=== PATIENT | male | born 1940 | race Caucasian/White ===

== ENCOUNTER 2022-04-30 08:17 | Outpatient (CLI) | payer MEDICARE, SELFPAY | END 2022-04-30 08:18 | disposition home or self-care (01) | LOC: FRMREF 05-07 10:16 | PROVIDERS: PCP Physician Assistant Medical; Visit Provider Physician Assistant Medical | DX: N39.0 Urinary tract infection, site not specified (principal); I10 Essential (primary) hypertension; R30.0 Dysuria | CPT/HCPCS: 87086; 87186 ==

== ENCOUNTER 2022-06-04 11:21 | Outpatient (CLI) | payer MEDICARE, SELFPAY ==
[2022-06-04 13:03] LABS: Chloride* 109 mmol/L (96-114); Potassium* 4.4 mmol/L (3.6-5.1); Sodium* 141 mmol/L (135-149)
[2022-06-04 13:05] LABS: Creatinine* 1.2 mg/dL (0.5-1.5); Estimated Glomerular Filt Rate 61 ml/min
[2022-06-04 13:06] LABS: Alanine Aminotransferase* 31 U/L (4-50); Alkaline Phosphatase* 94 U/L (40-150); Aspartate Amino Transferase* 32 U/L (12-35); Bilirubin Total* 0.3 mg/dL (0.1-1.5); Blood Urea Nitrogen* 23 mg/dL (7-30); Calcium* 8.7 mg/dL (8.4-10.6); Carbon Dioxide* 22 mmol/L (20-32); Glucose* 243 mg/dL (60-115); Total Protein* 6.4 g/dL (6.0-8.3)
== END 2022-06-04 11:22 | disposition home or self-care (01) ==
PROVIDERS: PCP Physician Assistant Medical; Visit Provider Family Medicine
DX: I10 Essential (primary) hypertension (principal)
CPT/HCPCS: 80053

== ENCOUNTER 2022-09-30 09:52 | Outpatient (CLI) | payer MEDICARE, SELFPAY ==
[2022-09-30 12:03] LABS: Chloride* 113 mmol/L (96-114); Sodium* 144 mmol/L (135-149)
[2022-09-30 12:04] LABS: Potassium* 4.6 mmol/L (3.6-5.1)
[2022-09-30 12:06] LABS: Creatinine* 1.3 mg/dL (0.5-1.5); Estimated Glomerular Filt Rate 55 ml/min; Total Protein Urine 19 mg/dL
[2022-09-30 12:07] LABS: Blood Urea Nitrogen* 31 mg/dL (7-30); Calcium* 8.7 mg/dL (8.4-10.6); Carbon Dioxide* 24 mmol/L (20-32); Glucose* 96 mg/dL (60-115)
[2022-09-30 12:13] LABS: Microalbumin Creatinine Ratio 50 mg/g (0-30); Microalbumin Urine 10 mg/dL
[2022-09-30 12:58] LABS: Vitamin B12* 609 pg/mL (243-894)
== END 2022-09-30 09:53 | disposition home or self-care (01) ==
PROVIDERS: PCP Family Medicine; Visit Provider Family Medicine
DX: E11.65 Type 2 diabetes mellitus with hyperglycemia (principal); E11.9 Type 2 diabetes mellitus without complications; I10 Essential (primary) hypertension; M16.10 Unilateral primary osteoarthritis, unspecified hip; Z79.899 Other long term (current) drug therapy
CPT/HCPCS: 80048; 82043; 82570; 82607; 84156

== ENCOUNTER 2022-10-30 21:34 | Inpatient (IN) | payer MEDICARE, SELFPAY ==
[2022-10-30] VITALS (10 sets, daily range): BP systolic 89–153; BP diastolic 45–80; PULSE 45–87; RESP 16–18; TEMP 36.3; O2SAT 94–99; BMI 26.4
--- NOTE | 2022-10-30 21:53 | CRLHL7_ITS ---
For Patients: As a result of the Century Cures Act, medical imaging exams and procedure reports are released immediately into your electronic medical record. You may view this report before your referring provider. If you have questions, please contact your health care provider. INDICATION: Abdominal pain, nausea, history of small-bowel obstruction. TECHNIQUE: CT abdomen and pelvis acquired with 93 cc Isovue 370 IV contrast. COMPARISON: CT abdomen 04/01/2020. FINDINGS: High-grade small bowel obstruction with transition point in the right lower quadrant, series 2, image 53. There are multiple dilated loops of small bowel with air-fluid levels. No pneumatosis or hypo enhancement. Mild mesenteric edema/mistiness in the right lower quadrant. The distal small bowel and colon are decompressed. Extensive colonic diverticulosis without surrounding inflammatory changes. The appendix is not clearly visualized. Unchanged scattered hepatic cysts. Interval increased intrahepatic and unchanged extrahepatic biliary ductal dilatation. Possible 5 mm calcified choledocholith in the distal common bile duct, series 2, image 39. Increased size of the hydropic gallbladder. No mural thickening or pericholecystic fluid. Unchanged calcified pancreas and dilated main pancreatic duct. Normal spleen. Persistent nodular enlargement of the adrenal glands; however, they appear slightly smaller compared to the prior exam. Unchanged multiple bilateral renal cysts. No hydronephrosis or suspicious mass. Ureters and bladder are normal. Normal sized prostate. Normal caliber abdominal aorta with severe atherosclerotic calcification. Patent bilateral external iliac artery stents. No adenopathy. No free air. Mild perihepatic free fluid. Interval posterior fusion of L4-L5. Interval increased height loss of the T12 vertebral body. New calcified mass lesion in the right iliac bone at the sacroiliac joint measuring 4.2 x 2.1 x 4.8 cm. No cortical breakthrough or additional lesions identified. Multilevel degenerative changes of the spine. Advanced osteoarthritis of the hips. Bilateral lower lobe atelectasis and/or scarring. Mitral valve replacement. IMPRESSION: High-grade small bowel obstruction with transition point in the right lower quadrant. No evidence for perforation. New 4.2 x 2.1 x 4.8 cm calcified mass in the right iliac bone at the sacroiliac joint. 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 Interval increased intrahepatic and unchanged extrahepatic biliary ductal dilatation with possible 5 mm choledochal within the distal common bile duct. Hydropic gallbladder without evidence of cholecystitis. Interval increased height loss of the T12 vertebral body compression fracture. Persistent nodular enlargement of the adrenal glands, though decreased in size compared to the prior exam, likely representing adrenal hyperplasia. Mild perihepatic ascites. Please note that all CT scans at this facility use dose modulation, iterative reconstruction, and/or weight-based dosing when appropriate to reduce radiation dose to as low as reasonably achievable. Dictated by Roly Fairbanks MD @ 10/30/2022 11:21:34 PM (Electronically Signed)
[2022-10-30 22:15] LABS: Basophils Percent Auto 0.1 % (0.0-3.0); Eosinophils Percent Auto 0.7 % (0.0-7.0); Hematocrit 45.6 % (37.0-53.0); Hemoglobin* 15.2 gm/dL (13.5-17.5); Immature Granulocytes Pct Auto 0.3 %; Lymphocytes Percent Auto 12.6 % (20-44); Mean Corpuscular HGB Conc 33 gm/dL (32-36); Mean Corpuscular Hemoglobin 33 pg (26-34); Mean Corpuscular Volume 98 fL (80-100); Monocytes Percent Auto 6.1 % (0.0-11.0); Neutrophils Percent Auto 80.2 % (42.0-72.0); Platelet Count* 238 K/uL (140-440); RDW Coefficient of Variation % 13.1 % (11.5-15.5); Red Blood Count 4.65 m/uL (4.30-5.90); White Blood Count* 20.09 K/uL (4.50-11.00)
[2022-10-30] MEDS: fentaNYL 100 MCG/2 ML inj 50 MCG IVP ×3 (22:15→23:44)
[2022-10-30] MEDS: 0.9 % SODIUM CHLORIDE 1000 ml 1,000 ML IV (22:15)
[2022-10-30 22:20] LABS: Slide Review Reflex No
[2022-10-30 22:22] LABS: Albumin* 4.6 g/dL (3.3-5.0); Chloride* 109 mmol/L (96-114)
[2022-10-30 22:23] LABS: Potassium* 3.5 mmol/L (3.6-5.1); Sodium* 141 mmol/L (135-149)
[2022-10-30 22:25] LABS: Aspartate Amino Transferase* 45 U/L (12-35); Bilirubin Direct* 0.3 mg/dL (0.0-0.5); Bilirubin Total* 0.6 mg/dL (0.1-1.5); Carbon Dioxide* 19 mmol/L (20-32); Creatinine* 2.1 mg/dL (0.5-1.5); Est. Creatinine Clearance* 30.28; Estimated Glomerular Filt Rate 31 ml/min; Total Protein* 8.4 g/dL (6.0-8.3)
[2022-10-30 22:26] LABS: Alanine Aminotransferase* 43 U/L (4-50); Alkaline Phosphatase* 123 U/L (40-150); Blood Urea Nitrogen* 29 mg/dL (7-30); Calcium* 9.7 mg/dL (8.4-10.6); Glucose* 214 mg/dL (60-115); Lipase* 23 U/L (23-300)
[2022-10-30 22:28] LABS: C Reactive Protein* 0.5 mg/dL (0.5-1.0)
--- NOTE | 2022-10-30 22:39 | ED.ABDPAIN ---
HPI - Abdominal Pain General Chief Complaint: Abdominal Pain Stated Complaint: Abdominal Pain Time Seen by Provider: 10/30/22 21:59 History of Present Illness HPI narrative: 82-year-old man presenting to the emergency department with spouse with complaint of increasing abdominal pain and bloating. 4 - 5 hours prior to arrival here started to have some abdominal discomfort. Then he had some diarrheal stool and multiple episodes of dry heaves maybe very small amount of vomitus. Last stooling was about 3 hours ago. He has been not been passing any gas. No melena hematochezia or hematemesis is described. He has not had a fever. Does have a history of small-bowel obstructions - 3 or 4 - and pancreatitis. Underlying history also of perforated appendicitis with percutaneous drainage of periappendiceal abscess. Has not had an appendectomy. 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 Coronary artery disease status post bypass Peripheral vascular disease with bilateral iliac stents History nicotine dependence TURP Neurogenic bladder with a history of self catheterization Related Data Home Medications Medication Instructions Recorded Confirmed aspirin 81 mg tablet,delayed 81 mg PO QDAY 04/30/22 10/31/22 release (Adult Low Dose Aspirin) lisinopril 40 mg tablet 40 mg PO QDAY 04/30/22 10/31/22 metoprolol tartrate 50 mg tablet 50 mg PO BID 04/30/22 10/31/22 simvastatin 40 mg tablet 40 mg PO QDAY 04/30/22 10/31/22 allopurinol 300 mg tablet 300 mg PO DAILY 06/07/22 10/31/22 ascorbic acid (vitamin C) 1,000 mg 1 g PO BID 06/07/22 10/31/22 tablet insulin glargine 100 unit/mL (3 18 unit subcut DAILY 09/30/22 10/31/22 mL) subcutaneous pen (Lantus Solostar U-100 Insulin) Previous Rx's Medication Instructions Recorded chlorthalidone 25 mg tablet 25 mg PO DAILY #90 tabs 10/19/22 pen needle, diabetic 32 gauge x #100 ea 10/22/22 (BD Gerda 2nd Gen Pen Needle) Allergies Allergy/AdvReac Type Severity Reaction Status Date / Time vancomycin Allergy Mild Shakiness Verified 02/16/23 12:58 fentanyl AdvReac Mild Dizziness Verified 10/30/22 22:15 Review of Systems Status of ROS Reports: 10 or more systems reviewed and unremarkable except as noted in History and below PFSH [facility] Medical History (Updated 10/31/22 @ 07:39 by Zenia Stevens MD) Chronic pancreatitis Compression fracture Coronary artery disease Encounter for postoperative care Gout (04/30/10) HTN (hypertension) Mitral regurgitation (07/03/10) MRSA (methicillin resistant Staphylococcus aureus) (06/05/10) Myopia Neurogenic bladder (10/02/12) Neurogenic claudication Osteoarthritis of left hip PAD (peripheral artery disease) Pancreatic calcification (04/30/10) Perforated appendicitis Presbyopia Renal artery stenosis Senile nuclear sclerosis Small bowel obstruction Squamous cell carcinoma Sternoclavicular joint subluxation Type 2 diabetes mellitus with hyperglycemia Surgical History (Updated 10/31/22 @ 07:39 by Zenia Stevens MD) H/O colonoscopy (09/01/06) History of arthroscopy of right knee History of endoscopic retrograde cholangiopancreatography History of prostate surgery Hx of CABG (01/20/11) Status post insertion of iliac artery stent (~2005) Status post lumbar spine surgery for decompression of spinal cord (12/25/20) Family History (Updated 10/31/22 @ 07:39 by Zenia Stevens MD) Mother CHF (congestive heart failure) High blood pressure Paternal Grandfather Bladder cancer Father Myocardial infarction High blood pressure Other Liver cancer Stroke Throat cancer Social History (Updated 10/31/22 @ 07:43 by Zenia Stevens MD) Narrative: Former smoker - started 20-30 cigarettes per day 1954, stopped 09/2020 Does not drink alcohol Does not use illicit drugs Smoking Status: Former smoker What tobacco products do you use: cigarettes Smoking packs per day: 1 Smoking cigarettes per day: 20.0 Years smoked: 60 Smoking pack-years: 60.00 Smoking quit date/years: <= 15 years ago Do you use any of these nicotine containing products: None Second hand tobacco smoke exposure: No How often do you have a drink containing alcohol: 2-4 times a month Alcohol type: beer How often do you have six or more drinks on one occasion: Never AUDIT-C Alcohol total score: 2 Non-prescribed substance use: denies use Caffeine: Yes (coffee) service: No Exam Narrative: Exam Narrative: S more is pleasant. Clearly uncomfortable. Acquired in his distress though. Is breathing easily. Lungs while clear appear to be with some diminished breath sounds. Heart was in a bradycardic rhythm initially is slow a mild auscultation between 50 and 60 beats per minute distant abdomen is absent of bowel sounds. Diffusely tympanitic and tender. Lower extremities are without edema. He is alert responding quickly to questions Const: Vital Signs, click to edit/add: Vital Signs - 24 hr 10/30/22 22:12 10/30/22 21:57 10/30/22 22:02 Temperature 97.3 F L Pulse Rate 60 56 L Pulse Rate [Right Pulse Oximeter] 45 L Respiratory Rate 18 16 16 Blood Pressure 91/45 L 89/46 L Blood Pressure [Ri ght Upper Arm] 89/45 L Pulse Oximetry 98 94 96 Oxygen Delivery Me thod Room Air 10/30/22 22:17 10/30/22 22:32 10/30/22 22:50 Temperature Pulse Rate 56 L 59 L 64 Pulse Rate [Right Pulse Oximeter] Respiratory Rate 16 16 16 Blood Pressure 112/52 L 104/80 153/64 H Blood Pressure [Ri ght Upper Arm] Pulse Oximetry 95 99 95 Oxygen Delivery Me thod 10/30/22 23:06 10/30/22 23:18 10/30/22 23:32 Temperature Pulse Rate 82 62 87 Pulse Rate [Right Pulse Oximeter] Respiratory Rate 16 16 16 Blood Pressure 122/66 126/79 130/72 Blood Pressure [Ri ght Upper Arm] Pulse Oximetry 98 98 97 Oxygen Delivery Me thod 10/30/22 22:09 10/31/22 00:35 10/31/22 00:01 Temperature Pulse Rate Pulse Rate [Right Pulse Oximeter] Respiratory Rate Blood Pressure 130/67 130/72 Blood Pressure [Ri ght Upper Arm] Pulse Oximetry 96 Oxygen Delivery Me thod 10/31/22 00:47 Temperature Pulse Rate Pulse Rate [Right Pulse Oximeter] Respiratory Rate Blood Pressure Blood Pressure [Ri ght Upper Arm] 134/70 Pulse Oximetry Oxygen Delivery Me thod Documenting provider has reviewed patient's vital signs: yes Course Vital Signs Vital signs: Initial Vital Signs Pulse Rate 60 10/30/22 21:57 Respiratory Rate 16 10/30/22 21:57 Blood Pressure 91/45 L 10/30/22 21:57 Blood Pressure Mean 60 10/30/22 21:57 Pulse Oximetry 94 10/30/22 21:57 Vital Signs Pulse Rate 60 10/30/22 21:57 Respiratory Rate 16 10/30/22 21:57 Blood Pressure 91/45 L 10/30/22 21:57 Pulse Oximetry 94 10/30/22 21:57 Temperature 97.8 F 10/31/22 04:10 Pulse Rate 87 10/30/22 23:32 Respiratory Rate 18 10/31/22 04:10 Blood Pressure 129/76 10/31/22 04:10 Pulse Oximetry 93 10/31/22 04:10 Oxygen Delivery Method 10/31/22 04:10 MDM - Abdominal Pain MDM Narrative Medical decision making narrative: Arrives with low blood pressures. Is initiated on fluid resuscitation. Blood pressures do respond quickly though still soft. I would be concerned about a small bowel obstruction but also sepsis. Maybe partial small-bowel obstruction with distension and pain Will monitor closely. Creatinine finally resolved and going for IV contrasted scan of abdomen pelvis. Received initially 50 mics of fentanyl which did help needed ordering for another dosing as this cramping intense pain in the epigastrium returned. Lactate returns at 4. White count is over 20,000 Blood pressure has improved to 120s over 70s. Pulse 60s to 80s. Duration of illness has only some hours. I think less likely sepsis and findings are more related to this significant small-bowel obstruction. Straight cathed for urine in setting of neurogenic bladder. Has required multiple dosings of fentanyl. IV contrasted CT scan reviewed by me shows most prominent feature as numerous dilated loops of small bowel with some air-fluid levels. Over-read by radiology as below --would also point out right posterior calcified mass in the iliac bone. I did discuss findings on CT with Mr. Mosqueda. INDICATION: Abdominal pain, nausea, history of small-bowel obstruction. TECHNIQUE: CT abdomen and pelvis acquired with 93 cc Isovue 370 IV contrast. COMPARISON: CT abdomen 04/01/2020. FINDINGS: High-grade small bowel obstruction with transition point in the right lower quadrant, series 2, image 53. There are multiple dilated loops of small bowel with air-fluid levels. No pneumatosis or hypo enhancement. Mild mesenteric edema/mistiness in the right lower quadrant. The distal small bowel and colon are decompressed. Extensive colonic diverticulosis without surrounding inflammatory changes. The appendix is not clearly visualized. Unchanged scattered hepatic cysts. Interval increased intrahepatic and unchanged extrahepatic biliary ductal dilatation. Possible 5 mm calcified choledocholith in the distal common bile duct, series 2, image 39. Increased size of the hydropic gallbladder. No mural thickening or pericholecystic fluid. Unchanged calcified pancreas and dilated main pancreatic duct. Normal spleen. Persistent nodular enlargement of the adrenal glands; however, they appear slightly smaller compared to the prior exam. Unchanged multiple bilateral renal cysts. No hydronephrosis or suspicious mass. Ureters and bladder are normal. Normal sized prostate. Normal caliber abdominal aorta with severe atherosclerotic calcification. Patent bilateral external iliac artery stents. No adenopathy. No free air. Mild perihepatic free fluid. Interval posterior fusion of L4-L5. Interval increased height loss of the T12 vertebral body. New calcified mass lesion in the right iliac bone at the sacroiliac joint measuring 4.2 x 2.1 x 4.8 cm. No cortical breakthrough or additional lesions identified. Multilevel degenerative changes of the spine. Advanced osteoarthritis of the hips. Bilateral lower lobe atelectasis and/or scarring. Mitral valve replacement. IMPRESSION: High-grade small bowel obstruction with transition point in the right lower quadrant. No evidence for perforation. New 4.2 x 2.1 x 4.8 cm calcified mass in the right iliac bone at the sacroiliac joint. 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 Interval increased intrahepatic and unchanged extrahepatic biliary ductal dilatation with possible 5 mm choledochal within the distal common bile duct. Hydropic gallbladder without evidence of cholecystitis. Interval increased height loss of the T12 vertebral body compression fracture. Persistent nodular enlargement of the adrenal glands, though decreased in size compared to the prior exam, likely representing adrenal hyperplasia. Mild perihepatic ascites. Spoke with our surgeon on-call. She will be reviewing images further. NG was placed. I reviewed chest x-ray confirming placement of NG tube. Required a little further advancement. Within short order about 1 L of gastric content was relieved. Mr. Mosqueda did feel better. Contacted [facility] for admission Medical Records Attestation: I reviewed the patient's medical records. Lab Data Attestation: I reviewed the patient's lab results. Labs: Lab Results 10/30/22 10/30/22 10/30/22 Range/Units 20:05 21:54 21:54 WBC 20.09 H (4.50-11.00) K/uL RBC 4.65 (4.30-5.90) m/uL Hgb 15.2 (13.5-17.5) gm/dL Hct 45.6 (37.0-53.0) % MCV 98 (80-100) fL MCH 33 (26-34) pg MCHC 33 (32-36) gm/dL RDW Coeff of Dee Dee 13.1 (11.5-15.5) % Plt Count 238 (140-440) K/uL Neut % (Auto) 80.2 H (42.0-72.0) % Lymph % (Auto) 12.6 L (20-44) % Harding % (Auto) 6.1 (0.0-11.0) % Eos % (Auto) 0.7 (0.0-7.0) % Baso % (Auto) 0.1 (0.0-3.0) % Neut # (Auto) 16.10 H (1.7-7.0) K/uL Lymph # (Auto) 2.50 (0.90-2.90) K/uL Harding # (Auto) 1.20 H (0.00-0.90) K/UL Eos # (Auto) 0.10 (0.00-0.50) K/uL Baso # (Auto) 0.00 (0.00-0.30) K/uL Sodium 141 (135-149) mmol/L Potassium 3.5 L (3.6-5.1) mmol/L Chloride 109 (96-114) mmol/L Carbon Dioxide 19 L (20-32) mmol/L BUN 29 (7-30) mg/dL Creatinine 2.1 H (0.5-1.5) mg/dL Estimated Creat Clear 30.28 Estimated GFR 31 ml/min Glucose 214 H (60-115) mg/dL Lactate (0.5-1.9) mmol/L Calcium 9.7 (8.4-10.6) mg/dL Total Bilirubin 0.6 (0.1-1.5) mg/dL Direct Bilirubin 0.3 (0.0-0.5) mg/dL AST 45 H (12-35) U/L ALT 43 (4-50) U/L Alkaline Phosphatase 123 (40-150) U/L Troponin I < 0.01 L (0.01-0.04) ng/mL C-Reactive Protein 0.5 (0.5-1.0) mg/dL Total Protein 8.4 H (6.0-8.3) g/dL Albumin 4.6 (3.3-5.0) g/dL Lipase (23-300) U/L SARS-CoV-2 (PCR) Negative SARS-CoV-2 (Negative) 10/30/22 10/30/22 Range/Units 21:54 21:54 WBC (4.50-11.00) K/uL RBC (4.30-5.90) m/uL Hgb (13.5-17.5) gm/dL Hct (37.0-53.0) % MCV (80-100) fL MCH (26-34) pg MCHC (32-36) gm/dL RDW Coeff of Dee Dee (11.5-15.5) % Plt Count (140-440) K/uL Neut % (Auto) (42.0-72.0) % Lymph % (Auto) (20-44) % Harding % (Auto) (0.0-11.0) % Eos % (Auto) (0.0-7.0) % Baso % (Auto) (0.0-3.0) % Neut # (Auto) (1.7-7.0) K/uL Lymph # (Auto) (0.90-2.90) K/uL Harding # (Auto) (0.00-0.90) K/UL Eos # (Auto) (0.00-0.50) K/uL Baso # (Auto) (0.00-0.30) K/uL Sodium (135-149) mmol/L Potassium (3.6-5.1) mmol/L Chloride (96-114) mmol/L Carbon Dioxide (20-32) mmol/L BUN (7-30) mg/dL Creatinine (0.5-1.5) mg/dL Estimated Creat Clear Estimated GFR ml/min Glucose (60-115) mg/dL Lactate 4.0 H (0.5-1.9) mmol/L Calcium (8.4-10.6) mg/dL Total Bilirubin (0.1-1.5) mg/dL Direct Bilirubin (0.0-0.5) mg/dL AST (12-35) U/L ALT (4-50) U/L Alkaline Phosphatase (40-150) U/L Troponin I (0.01-0.04) ng/mL C-Reactive Protein (0.5-1.0) mg/dL Total Protein (6.0-8.3) g/dL Albumin (3.3-5.0) g/dL Lipase 23 (23-300) U/L SARS-CoV-2 (PCR) (Negative) ECG Data Attestation: I personally reviewed and interpreted this ECG as follows: (Sinus bradycardia rate of 51) Discharge Plan Discharge Clinical Impression: Bone mass, Small bowel obstruction Patient Disposition: Admitted As Inpatient Condition: Improved Discharge Comment: admitted to [facility]
[2022-10-30 22:41] LABS: Troponin I* < 0.01 ng/mL (0.01-0.04)
[2022-10-30 22:43] LABS: SARS PCR* Negative SARS-CoV-2 (Negative)
[2022-10-30] MEDS: LACTATED RINGERS 1000 ML 1,000 ML IV (22:59)
[2022-10-30] MEDS: HYOSCYAMINE SULFATE 0.125 MG TAB 0.25 MG SUBLINGUAL (22:59)
[2022-10-30] MEDS: ONDANSETRON 2 MG/ML inj 4 MG IVP (23:45)
[2022-10-31] VITALS (15 sets, daily range): BP systolic 94–134; BP diastolic 51–76; PULSE 82–103; RESP 16–18; TEMP 36.1–37.2; O2SAT 92–97; BMI 25.8
--- NOTE | 2022-10-31 00:03 | CRLHL7_ITS ---
For Patients: As a result of the Century Cures Act, medical imaging exams and procedure reports are released immediately into your electronic medical record. You may view this report before your referring provider. If you have questions, please contact your health care provider. INDICATION: NG tube placement TECHNIQUE: Chest radiograph 1 view on 2 films COMPARISON: 09/08/2021, 02/13/2020, 08/10/2016 FINDINGS: Mediastinum: The mediastinum is normal in appearance. The heart silhouette is normal in size and morphology. Previous median sternotomy with mitral valve replacement noted. NG tube is present and is extremely difficult to visualize due to body habitus. The tip is noted in the distal esophagus just proximal to the GE junction. Lung: Small lung volumes are present with moderate bibasilar subsegmental atelectasis is seen. No sign of pleural effusion seen. No pneumothorax is identified. Bone and Soft tissue: Unremarkable for age. IMPRESSION: 1. NG tube is present and is extremely difficult to visualize due to body habitus. The tip is noted in the distal esophagus just proximal to the GE junction. Dictated by Tiburcio Vazquez MD @ 10/31/2022 12:40:31 AM Dictated by: Tiburcio Vazquez MD @ 10/31/2022 00:40:33 (Electronically Signed)
--- NOTE | 2022-10-31 01:12 | ED.NURSE ---
Report given to [facility] Nurse, pt transporting to his room with all belongings at this time.
[2022-10-31 02:27] LABS: Lactate* 1.6 mmol/L (0.5-1.9)
[2022-10-31] MEDS: 0.9 % SODIUM CHLORIDE 1000 ml 1,000 ML 100 ML IV (03:28)
[2022-10-31] MEDS: PROCHLORPERAZINE 5 MG/ML VIAL 10 MG IV (03:29)
[2022-10-31] MEDS: HYDROmorphone 0.5 mg/0.5 ml inj IVP (03:52)
--- NOTE | 2022-10-31 05:39 | PM.EN ---
Chart Event Note Chart Event Note: [facility] Hospitalist Consultation Cosmo Mosqueda 1940 This patient is a 82-year-old male past medical history for small bowel obstruction, 2010 ruptured appendix/abscess which was surgically drained appendix remained, coronary artery disease status post CABG, peripheral vascular disease status post iliac stenting, neurogenic bladder self-catheterization, mitral valve replacement for endocarditis presents with abdominal pain and nausea vomiting. The patient states that the symptoms started just this evening he arrived to the ER at 10:00 PM and symptoms have been going on for roughly 4 to 5 hours prior. He describes severe diffuse abdominal pain sharp with episodes of nonbilious nonbloody vomiting as well as diarrhea. He denies fevers chills. He denies chest pain shortness of breath. On arrival to the ED the patient was found to be hypotensive with systolic blood pressure in 80 as well as bradycardic sinus bradycardia in the 50s. Lactic elevated at 4 blood cell count elevated at 20 he responded to IV fluid 2 L bolus with systolic blood pressure improving to 100?s. CT scan shows high-grade small bowel obstruction with transition point in the right lower abdomen. Incidental finding of lesion in the right iliac crest near the sacrum concern would be for chondrosarcoma. Home Medications: see EMR Pertinent Medical History: small bowel obstruction, 2010 ruptured appendix/abscess which was surgically drained appendix remained, coronary artery disease status post CABG, peripheral vascular disease status post iliac stenting, neurogenic bladder self cath, mitral valve replacement for endocarditis Pertinent Social History: occasional alcohol, lives at home, nonsmoker Exam (performed via interactive video with assistance of bedside nurse): General: alert, cooperative, no acute distress HEENT: NG tube in place Lungs: clear to auscultation bilaterally without crackle or wheeze CV: regular rate and rhythm without loud murmur rub or gallop Abd: Diffusely tender with palpation done by bedside nurse Ext: no pitting edema noted Skin: no rashes, bruises or lesions appreciated on gross visualization of exposed skin Neuro: alert, oriented x 3. facial muscles grossly intact, moves all extremities without any significant focal deficit appreciated by nurse Assessment and Plan: This patient is a 82-year-old male past medical history for small bowel obstruction, 2010 ruptured appendix/abscess which was surgically drained appendix remained, coronary artery disease status post CABG, peripheral vascular disease status post iliac stenting, neurogenic bladder self cath, mitral valve replacement for endocarditis presents with abdominal pain and nausea vomiting. Small bowel obstruction high-grade with CT scan showing transition point in the right lower abdomen we will continue to keep the patient on bowel rest, n.p.o, pain control we will continue NG tube for now to low intermittent suction continue gentle IV hydration. Given lactic acidosis. We will recheck lactic and trend. white blood cell count elevated as well to 20 no obvious sign of infection we will hold on antibiotics for now could be related to stress response. Case discussed with on-call surgeon in ED Dr. Rosas who will consult on the patient pending further recommendations. Hypotension most likely due to hypovolemia no obvious sign of infection or sepsis resolved with IV fluids in ER we will continue gentle IV fluid hydration. We will hold antihypertensive medications for now Incidental finding of right iliac lesion near the sacrum unclear etiology. Ct shows new 4.2 x 2.1 x 4.8 cm calcified mass in the right iliac bone at the sacroiliac joint. 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 - We will ask the primary team to discuss with oncology tomorrow to determine next steps in work-up whether additional imaging is necessary such as MRI versus biopsy. History of coronary disease status post CABG continue aspirin, statin holding metoprolol given hypotension Acute kidney injury likely prerenal with volume loss with we will check urine IV fluids for now trend creatinine urine output if no improvement would then obtain renal ultrasound nephrology consul. Type 2 diabetes mellitus continue half of home dose since n.p.o. we will order Levemir 7 units nightly Peripheral vascular disease -To resume outpatient meds for these chronic conditions tomorrow aspirin and statin DVT prophylaxis SCDS in case the patient requires emergent surgery CODE STATUS Full Code Thank you for including [facility] in the patients care. This service is available for further assistance as requested by your care team by calling [phone].
[2022-10-31 05:45] LABS: Appearance Urine Clear (Clear); Bilirubin Urine Negative (Negative); Blood Urine Negative (Negative); Color Urine Yellow (Yellow); Glucose Urine Negative (Negative); Ketones Urine Negative (Negative); Leukocyte Esterase Urine Negative (Negative); Nitrite Urine Negative (Negative); Protein Urine Trace (Negative); Urobilinogen Urine 0.2 (0.2-1.0)
--- NOTE | 2022-10-31 06:15 | PC.NURSE ---
Pt is alert and oriented x3. Pt reports 4/10 abdominal pain, pain is managed with PRN Dilaudid. Pt has one episode on emesis with nausea, nausea managed with PRN medications. NG tube is sitting at 73 cm, total drainage was 750, drainage is brown in color. Pt is up SBA. Pt is NPO with Ice chips for comfort.
[2022-10-31 06:23] LABS: RBC Urine 0-2 (0-2); Squamous Epithelial Cell Urine Few (None-Few); WBC Urine 0-2 (0-5)
[2022-10-31 06:59] LABS: Basophils Absolute Auto 0.01 K/uL (0.00-0.30); Basophils Percent Auto 0.1 % (0.0-3.0); Hematocrit 37.4 % (37.0-53.0); Hemoglobin* 12.7 gm/dL (13.5-17.5); Immature Granulocytes Abs Auto 0.04 K/uL (0.00-0.30); Immature Granulocytes Pct Auto 0.6 %; Mean Corpuscular HGB Conc 34 gm/dL (32-36); Mean Corpuscular Hemoglobin 33 pg (26-34); Mean Corpuscular Volume 96 fL (80-100); Monocytes Percent Auto 7.6 % (0.0-11.0); Neutrophils Percent Auto 84.7 % (42.0-72.0); Platelet Count* 170 K/uL (140-440); White Blood Count* 6.74 K/uL (4.50-11.00)
[2022-10-31 07:04] LABS: Slide Review Reflex No
[2022-10-31 07:17] LABS: Chloride* 113 mmol/L (96-114); Potassium* 4.4 mmol/L (3.6-5.1); Sodium* 140 mmol/L (135-149)
[2022-10-31 07:20] LABS: Blood Urea Nitrogen* 34 mg/dL (7-30); Carbon Dioxide* 18 mmol/L (20-32); Creatinine* 2.2 mg/dL (0.5-1.5); Estimated Glomerular Filt Rate 29 ml/min; Glucose* 186 mg/dL (60-115)
[2022-10-31 07:21] LABS: Calcium* 8.4 mg/dL (8.4-10.6)
[2022-10-31 07:35] LABS: NT Pro B Type NatriureticPept* 484 pg/mL
[2022-10-31 07:42] LABS: Lactate Sepsis w/Reflex* 1.9 mmol/L (0.5-1.9)
--- NOTE | 2022-10-31 07:59 | P.IMHP_ITS ---
Hospitalist- H&P: HPI History of Present Illness Time Seen by Provider: 07:45 Date Seen: 10/31/22 Chief complaint: Abdominal Pain Narrative: Cosmo Mosqueda is a 82 year old male with h/o SBO and chronic pancreatitis who started having bad stomach pains about 6pm yesterday. He had a cookie and a cup of coffee in the afternoon around 3pm and felt fine at that time. Abdominal pain started around 5-6pm and was associated with intense nausea. He tried to throw up to relieve this feeling, but couldn't. Last flatus was the day before. Had normal BM yesterday morning. Abdominal distention started just before pain yesterday. This feels better now after the NGT. His left hip bothering him lately, so he saw ortho last week. He is scheduled for hip injection. He has been taking only APAP for the pain. Review of Systems Status of ROS: Reports: 10 or more systems reviewed and unremarkable except as noted in History and below [facility] Medical History (Updated 10/31/22 @ 10:17 by Zenia Stevens MD) Chronic pancreatitis Compression fracture Coronary artery disease Encounter for postoperative care Gout (04/30/10) Hepatic cyst HTN (hypertension) Mitral regurgitation (07/03/10) MRSA (methicillin resistant Staphylococcus aureus) (06/05/10) Myopia Neurogenic bladder (10/02/12) Neurogenic claudication Osteoarthritis of left hip PAD (peripheral artery disease) Pancreatic calcification (04/30/10) Perforated appendicitis Presbyopia Renal artery stenosis Senile nuclear sclerosis Small bowel obstruction Squamous cell carcinoma Sternoclavicular joint subluxation T12 compression fracture Type 2 diabetes mellitus with hyperglycemia Surgical History H/O colonoscopy (09/01/06) History of arthroscopy of right knee History of endoscopic retrograde cholangiopancreatography History of prostate surgery Hx of CABG (01/20/11) Status post insertion of iliac artery stent (~2005) Status post lumbar spine surgery for decompression of spinal cord (12/25/20) Family History Mother CHF (congestive heart failure) High blood pressure Paternal Grandfather Bladder cancer Father Myocardial infarction High blood pressure Other Liver cancer Stroke Throat cancer Social History (Updated 10/31/22 @ 10:01 by Zenia Stevens MD) Narrative: Former smoker - started 20-30 cigarettes per day 1954, stopped 09/2020 Does not drink alcohol Does not use illicit drugs Previously desired to be DNI Smoking Status: Former smoker What tobacco products do you use: cigarettes Smoking packs per day: 1 Smoking cigarettes per day: 20.0 Years smoked: 60 Smoking pack-years: 60.00 Smoking quit date/years: <= 15 years ago Do you use any of these nicotine containing products: None Second hand tobacco smoke exposure: No How often do you have a drink containing alcohol: 2-4 times a month Alcohol type: beer How often do you have six or more drinks on one occasion: Never AUDIT-C Alcohol total score: 2 Non-prescribed substance use: denies use Caffeine: Yes (coffee) service: No Meds Home Medications and Allergies Home Medications Medication Instructions Recorded Confirmed Type aspirin 81 mg tablet,delayed 81 mg PO QDAY 04/30/22 10/31/22 History release (Adult Low Dose Aspirin) lisinopril 40 mg tablet 40 mg PO QDAY 04/30/22 10/31/22 History metoprolol tartrate 50 mg tablet 50 mg PO BID 04/30/22 10/31/22 History simvastatin 40 mg tablet 40 mg PO QDAY 04/30/22 10/31/22 History allopurinol 300 mg tablet 300 mg PO DAILY 06/07/22 10/31/22 History ascorbic acid (vitamin C) 1,000 mg 1 g PO BID 06/07/22 10/31/22 History tablet insulin glargine 100 unit/mL (3 18 unit subcut DAILY 09/30/22 10/31/22 History mL) subcutaneous pen (Lantus Solostar U-100 Insulin) Allergies Allergy/AdvReac Type Severity Reaction Status Date / Time vancomycin Allergy Mild Shakiness Verified 10/14/22 12:58 fentanyl AdvReac Mild Dizziness Verified 10/30/22 22:15 Exam Narrative: Exam Narrative: General: No acute distress. Awake alert oriented x3. HEENT: Normocephalic atraumatic, pupils equally round and reactive to light and accommodation. NG tube in place and hooked up to suction. Oropharynx clear. Mucous membranes are dry. No cervical lymphadenopathy, thyromegaly or carotid bruits. No JVD. Cardiovascular: Regular rate and rhythm. No murmurs, gallops, or rubs. Chest: No increased work of breathing. Clear to auscultation bilaterally. No crackles or wheezes. Abdomen: Bowel sounds absent. Soft, mildly distended, nontender to palpation. No hepatosplenomegaly or masses. Extremities: No edema, no cyanosis or clubbing. Skin: No jaundice, no pallor, no rashes. Const: Vital Signs, click to edit/add: Vital Signs - 24 hr 10/30/22 22:12 10/30/22 21:57 10/30/22 22:02 Temperature 97.3 F L Pulse Rate 60 56 L Pulse Rate [Right Pulse Oximeter] 45 L Respiratory Rate 18 16 16 Blood Pressure 91/45 L 89/46 L Blood Pressure [Ri ght Arm] Blood Pressure [Ri ght Upper Arm] 89/45 L Pulse Oximetry 98 94 [facility] 10/30/22 22:17 10/30/22 22:32 10/30/22 22:50 Temperature Pulse Rate 56 L 59 L 64 Pulse Rate [Right Pulse Oximeter] Respiratory Rate 16 16 16 Blood Pressure 112/52 L 104/80 153/64 H Blood Pressure [Ri ght Arm] Blood Pressure [Ri ght Upper Arm] Pulse Oximetry 95 99 95 [facility] 10/30/22 23:06 10/30/22 23:18 10/30/22 23:32 Temperature Pulse Rate 82 62 87 Pulse Rate [Right Pulse Oximeter] Respiratory Rate 16 16 16 Blood Pressure 122/66 126/79 130/72 Blood Pressure [Ri ght Arm] Blood Pressure [Ri ght Upper Arm] Pulse Oximetry 98 98 97 [facility] 10/30/22 22:09 10/31/22 00:35 10/31/22 00:01 Temperature Pulse Rate Pulse Rate [Right Pulse Oximeter] Respiratory Rate Blood Pressure 130/67 130/72 Blood Pressure [Ri ght Arm] Blood Pressure [Ri ght Upper Arm] Pulse Oximetry 96 Oxygen Delivery [place] thod 10/31/22 00:47 10/31/22 01:25 10/31/22 01:25 Temperature 97.3 F L Pulse Rate Pulse Rate [Right Pulse Oximeter] Respiratory Rate 18 16 Blood Pressure Blood Pressure [Ri ght Arm] Blood Pressure [Ri ght Upper Arm] 134/70 Pulse Oximetry 97 97 Oxygen Delivery Me thod Room Air Room Air 10/31/22 04:10 Temperature 97.8 F Pulse Rate Pulse Rate [Right Pulse Oximeter] Respiratory Rate 18 Blood Pressure Blood Pressure [Ri ght Arm] 129/76 Blood Pressure [Ri ght Upper Arm] Pulse Oximetry 93 Oxygen Delivery Me thod Room Air Documenting provider has reviewed patient's vital signs: yes Hospitalist - H&P: Result Labs Labs: Short CBC 10/30/22 10/31/22 Range/Units 21:54 06:19 WBC 20.09 H 6.74 (4.50-11.00) K/uL Hgb 15.2 12.7 L (13.5-17.5) gm/dL Hct 45.6 37.4 (37.0-53.0) % Plt Count 238 170 (140-440) K/uL BMP 10/30/22 10/31/22 21:54 06:19 Sodium 141 140 Potassium 3.5 L 4.4 Chloride 109 113 Carbon Dioxide 19 L 18 L BUN 29 34 H Creatinine 2.1 H 2.2 H Glucose 214 H 186 H Calcium 9.7 8.4 Cardiac Enzymes 10/30/22 Range/Units 21:54 Troponin I < 0.01 L (0.01-0.04) ng/mL Liver Function 10/30/22 Range/Units 21:54 Total Bilirubin 0.6 (0.1-1.5) mg/dL Direct Bilirubin 0.3 (0.0-0.5) mg/dL AST 45 H (12-35) U/L ALT 43 (4-50) U/L Alkaline Phosphatase 123 (40-150) U/L Albumin 4.6 (3.3-5.0) g/dL Urine 10/31/22 Range/Units 05:35 Urine Color Yellow (Yellow) Urine Appearance Clear (Clear) Urine pH 5.0 (5.0-8.5) Ur Specific [place] 1.020 (1.000-1.030) Urine Protein Trace A (Negative) Urine Glucose (UA) Negative (Negative) Ordering Physician: Tiffanie Sandoval M.D. Date of Service: 10/30/22 Procedure(s): CT abdomen pelvis w con Accession Number(s): [id number] cc: Tiffanie Sandoval M.D.; Tiffanie Pepper M.D.~ For Patients: As a result of the 21st Century Cures Act, medical imaging exams and procedure reports are released immediately into your electronic medical record. You may view this report before your referring provider. If you have questions, please contact your health care provider. INDICATION: Abdominal pain, nausea, history of small-bowel obstruction. TECHNIQUE: CT abdomen and pelvis acquired with 93 cc Isovue 370 IV contrast. COMPARISON: CT abdomen 04/01/2020. FINDINGS: High-grade small bowel obstruction with transition point in the right lower quadrant, series 2, image 53. There are multiple dilated loops of small bowel with air-fluid levels. No pneumatosis or hypo enhancement. Mild mesenteric edema/mistiness in the right lower quadrant. The distal small bowel and colon are decompressed. Extensive colonic diverticulosis without surrounding inflammatory changes. The appendix is not clearly visualized. Unchanged scattered hepatic cysts. Interval increased intrahepatic and unchanged extrahepatic biliary ductal dilatation. Possible 5 mm calcified choledocholith in the distal common bile duct, series 2, image 39. Increased size of the hydropic gallbladder. No mural thickening or pericholecystic fluid. Unchanged calcified pancreas and dilated main pancreatic duct. Normal spleen. Persistent nodular enlargement of the adrenal glands; however, they appear slightly smaller compared to the prior exam. Unchanged multiple bilateral renal cysts. No hydronephrosis or suspicious mass. Ureters and bladder are normal. Normal sized prostate. Normal caliber abdominal aorta with severe atherosclerotic calcification. Patent bilateral external iliac artery stents. No adenopathy. No free air. Mild perihepatic free fluid. Interval posterior fusion of L4-L5. Interval increased height loss of the T12 vertebral body. New calcified mass lesion in the right iliac bone at the sacroiliac joint measuring 4.2 x 2.1 x 4.8 cm. No cortical breakthrough or additional lesions identified. Multilevel degenerative changes of the spine. Advanced osteoarthritis of the hips. Bilateral lower lobe atelectasis and/or scarring. Mitral valve replacement. IMPRESSION: High-grade small bowel obstruction with transition point in the right lower quadrant. No evidence for perforation. New 4.2 x 2.1 x 4.8 cm calcified mass in the right iliac bone at the sacroiliac joint. 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 Interval increased intrahepatic and unchanged extrahepatic biliary ductal dilatation with possible 5 mm choledochal within the distal common bile duct. Hydropic gallbladder without evidence of cholecystitis. Interval increased height loss of the T12 vertebral body compression fracture. Persistent nodular enlargement of the adrenal glands, though decreased in size compared to the prior exam, likely representing adrenal hyperplasia. Mild perihepatic ascites. Please note that all CT scans at this facility use dose modulation, iterative reconstruction, and/or weight-based dosing when appropriate to reduce radiation dose to as low as reasonably achievable. Dictated by Roly Fairbanks MD @ 10/30/2022 11:21:34 PM (Electronically Signed) Ordering Physician: Dwayne Cha M.D. Date of Service: 10/31/22 Procedure(s): XR chest 1V portable Accession Number(s): [id number] cc: Dwayne Cha M.D.; Tiffanie Pepper M.D.~ For Patients: As a result of the Cures Act, medical imaging exams and procedure reports are released immediately into your electronic medical record. You may view this report before your referring provider. If you have questions, please contact your health care provider. INDICATION: NG tube placement TECHNIQUE: Chest radiograph 1 view on 2 films COMPARISON: 09/08/2021, 02/13/2020, 08/10/2016 FINDINGS: Mediastinum: The mediastinum is normal in appearance. The heart silhouette is normal in size and morphology. Previous median sternotomy with mitral valve replacement noted. NG tube is present and is extremely difficult to visualize due to body habitus. The tip is noted in the distal esophagus just proximal to the GE junction. Lung: Small lung volumes are present with moderate bibasilar subsegmental atelectasis is seen. No sign of pleural effusion seen. No pneumothorax is identified. Bone and Soft tissue: Unremarkable for age. IMPRESSION: 1. NG tube is present and is extremely difficult to visualize due to body habitus. The tip is noted in the distal esophagus just proximal to the GE junction. Dictated by Tiburcio Vazquez MD @ 10/31/2022 12:40:31 AM Dictated by: Tiburcio Vazquez MD @ 10/31/2022 00:40:33 (Electronically Signed) 10/30/2022 9:53 p.m. EKG: Sinus bradycardia with first-degree AV block with premature atrial complexes, heart rate 51 beats per minute. Left axis deviation. Inferior infarct, age undetermined. Anterior infarct, age undetermined. Assessment and Plan Assessment and plan (1) Small bowel obstruction: Problem comment: - High-grade small bowel obstruction with transition point in the right lower quadrant on CT abd/pelvis - Dr. Ortiz from gen surgery consulted. I appreciate her recommendations. - Continue NGT to LIS. - Symptomatic medications for pain and nasuea. - HOB at 30 degrees. Status: Acute (2) Bone mass: Problem comment: CT abd/pelvis 10/31/22: New 4.2 x 2.1 x 4.8 cm calcified mass in the right iliac bone at the sacroiliac joint. 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 - Will need outpatient w/u. I discussed this with patient 10/31/22 (Abhay Stevens) Status: Acute (3) CLAU (acute kidney injury): Problem comment: He is dehydrated, which I suspect is the cause for CLAU. Give IVF bolus and increase IVF maintenance. Hold allopurinol and antihypertensives. He also self caths and does not otherwise urinate. Monitor Cr. If this does not improve with hydration, may need indwelling wiggins or more frequent cathing. Status: Acute (4) Neurogenic bladder: Problem comment: Self caths BID. Continue this and add prn. Status: Chronic (5) Type 2 diabetes mellitus with hyperglycemia: Problem comment: Continue LA insulin, decrease dose to half. q6H accuchecks with SA ISS. Status: Chronic (6) HTN (hypertension): Problem comment: Hold antihypertensives for currently soft blood pressures Status: Chronic (7) Coronary artery disease: Problem comment: 01/11/2011: 1v CABG (MOREJON to LAD) with MVR (porcine bioprostesis) Hold aspirin in case he needs surgery, hold antihypertensives due to soft blood pressures Status: Chronic (8) Osteoarthritis of left hip: Problem comment: primary, severe Status: Chronic Plan For VTE prophylaxis will use prophylaxis only in case he needs surgery.
[2022-10-31] MEDS: 0.9 % SODIUM CHLORIDE 1000 ml 1,000 ML IV (08:52)
[2022-10-31] MEDS: 0.9 % SODIUM CHLORIDE 1000 ml 1,000 ML 125 ML IV ×2 (09:52→18:31)
--- NOTE | 2022-10-31 09:56 | PM.GSCN ---
History of Present Illness Consult details Date Seen: 10/31/22 Consult date: 10/31/22 Narrative: 82-year-old male presented to emergency room with abdominal pain and I was asked by Dr. Cha to see him in consultation. Patient states that yesterday afternoon he developed abdominal pain that was epigastric. The pain was described as sharp. Pain was persistent and he also vomited several times. He did not pass any gas yesterday but his last bowel movement was yesterday morning. Patient presented to emergency room. He was found to have an elevated WBC of 20. His creatinine was elevated 2.1. An abdominal CT was obtained that showed dilated bowel loops with possible transition point in the right lower quadrant. He was also incidentally found to have a new right iliac crest mass. An NG tube was placed that filled a canister in the emergency room and another canister was just changed. Patient feels that his abdomen is not as distended with NG tube in place. He does not complain of abdominal pain currently. Patient had several small bowel obstructions in the past. His last 1 was approximately 2017. Patient had a history of perforated appendicitis that was managed with a drain. Patient states that his appendix was now removed. No other history of abdominal surgery. Review of Systems Narrative: General: no fevers HENT: no problems swallowing CV: no shortness of breath Resp: no cough GI: See above : patient self caths. Skin: no new rashes Musculoskeletal: Left hip pain. Psyche: no depression, no anxiety PFSH PFSH Medical History Chronic pancreatitis Compression fracture Coronary artery disease Encounter for postoperative care Gout (04/30/10) HTN (hypertension) Mitral regurgitation (07/03/10) MRSA (methicillin resistant Staphylococcus aureus) (06/05/10) Myopia Neurogenic bladder (10/02/12) Neurogenic claudication Osteoarthritis of left hip PAD (peripheral artery disease) Pancreatic calcification (04/30/10) Perforated appendicitis Presbyopia Renal artery stenosis Senile nuclear sclerosis Small bowel obstruction Squamous cell carcinoma Sternoclavicular joint subluxation Type 2 diabetes mellitus with hyperglycemia Surgical History H/O colonoscopy (09/01/06) History of arthroscopy of right knee History of endoscopic retrograde cholangiopancreatography History of prostate surgery Hx of CABG (01/20/11) Status post insertion of iliac artery stent (~2005) Status post lumbar spine surgery for decompression of spinal cord (12/25/20) Family History Mother CHF (congestive heart failure) High blood pressure Paternal Grandfather Bladder cancer Father Myocardial infarction High blood pressure Other Liver cancer Stroke Throat cancer Social History Narrative: Former smoker - started 20-30 cigarettes per day 1954, stopped 09/2020 Does not drink alcohol Does not use illicit drugs Previously desired to be DNI Smoking Status: Former smoker What tobacco products do you use: cigarettes Smoking packs per day: 1 Smoking cigarettes per day: 20.0 Years smoked: 60 Smoking pack-years: 60.00 Smoking quit date/years: <= 15 years ago Do you use any of these nicotine containing products: None Second hand tobacco smoke exposure: No How often do you have a drink containing alcohol: 2-4 times a month Alcohol type: beer How often do you have six or more drinks on one occasion: Never AUDIT-C Alcohol total score: 2 Non-prescribed substance use: denies use Caffeine: Yes (coffee) service: No Meds Home Medications and Allergies Home Medications Medication Instructions Recorded Confirmed Type aspirin 81 mg tablet,delayed 81 mg PO QDAY 04/30/22 10/31/22 History release (Adult Low Dose Aspirin) lisinopril 40 mg tablet 40 mg PO QDAY 04/30/22 10/31/22 History metoprolol tartrate 50 mg tablet 50 mg PO BID 04/30/22 10/31/22 History simvastatin 40 mg tablet 40 mg PO QDAY 04/30/22 10/31/22 History allopurinol 300 mg tablet 300 mg PO DAILY 06/07/22 10/31/22 History ascorbic acid (vitamin C) 1,000 mg 1 g PO BID 06/07/22 10/31/22 History tablet insulin glargine 100 unit/mL (3 18 unit subcut DAILY 09/30/22 10/31/22 History mL) subcutaneous pen (Lantus Solostar U-100 Insulin) Allergies Allergy/AdvReac Type Severity Reaction Status Date / Time vancomycin Allergy Mild Shakiness Verified 10/14/22 12:58 fentanyl AdvReac Mild Dizziness Verified 10/30/22 22:15 Exam Narrative: Exam Narrative: General appearance: Alert, cooperative, and in no distress Pulmonary: Chest symmetric, lungs clear bilaterally Cardiovascular Heart: Regular rate and rhythm, S1, S2, no murmurs/rubs/gallops Gastrointestinal Abdominal: soft, Not distended, not tender to palpation. No surgical scars noted. Psychiatric: Alert, cooperative, normal affect. Const: Vital Signs, click to edit/add: Vital Signs - 24 hr 10/30/22 22:12 10/30/22 21:57 10/30/22 22:02 Temperature 97.3 F L Pulse Rate 60 56 L Pulse Rate [Right Pulse Oximeter] 45 L Respiratory Rate 18 16 16 Blood Pressure 91/45 L 89/46 L Blood Pressure [Ri ght Arm] Blood Pressure [Ri ght Upper Arm] 89/45 L Pulse Oximetry 98 94 96 Oxygen Delivery Me thod Room Air 10/30/22 22:17 10/30/22 22:32 10/30/22 22:50 Temperature Pulse Rate 56 L 59 L 64 Pulse Rate [Right Pulse Oximeter] Respiratory Rate 16 16 16 Blood Pressure 112/52 L 104/80 153/64 H Blood Pressure [Ri ght Arm] Blood Pressure [Ri ght Upper Arm] Pulse Oximetry 95 99 95 Oxygen Delivery Me thod 10/30/22 23:06 10/30/22 23:18 10/30/22 23:32 Temperature Pulse Rate 82 62 87 Pulse Rate [Right Pulse Oximeter] Respiratory Rate 16 16 16 Blood Pressure 122/66 126/79 130/72 Blood Pressure [Ri ght Arm] Blood Pressure [Ri ght Upper Arm] Pulse Oximetry 98 98 97 Oxygen Delivery Me thod 10/30/22 22:09 10/31/22 00:35 10/31/22 00:01 Temperature Pulse Rate Pulse Rate [Right Pulse Oximeter] Respiratory Rate Blood Pressure 130/67 130/72 Blood Pressure [Ri ght Arm] Blood Pressure [Ri ght Upper Arm] Pulse Oximetry 96 Oxygen Delivery Me thod 10/31/22 00:47 10/31/22 01:25 10/31/22 01:25 Temperature 97.3 F L Pulse Rate Pulse Rate [Right Pulse Oximeter] Respiratory Rate 18 16 Blood Pressure Blood Pressure [Ri ght Arm] Blood Pressure [Ri ght Upper Arm] 134/70 Pulse Oximetry 97 97 Oxygen Delivery Me thod Room Air Room Air 10/31/22 04:10 Temperature 97.8 F Pulse Rate Pulse Rate [Right Pulse Oximeter] Respiratory Rate 18 Blood Pressure Blood Pressure [Ri ght Arm] 129/76 Blood Pressure [Ri ght Upper Arm] Pulse Oximetry 93 Oxygen Delivery Me thod Room Air Results Labs Labs: Abnormal lab results 10/30/22 10/30/22 10/30/22 Range/Units 21:54 21:54 21:54 WBC 20.09 H (4.50-11.00) K/uL RBC (4.30-5.90) m/uL Hgb (13.5-17.5) gm/dL Neut % (Auto) 80.2 H (42.0-72.0) % Lymph % (Auto) 12.6 L (20-44) % Neut # (Auto) 16.10 H (1.7-7.0) K/uL Lymph # (Auto) (0.90-2.90) K/uL [place] # (Auto) 1.20 H (0.00-0.90) K/UL Potassium 3.5 L (3.6-5.1) mmol/L Carbon Dioxide 19 L (20-32) mmol/L BUN (7-30) mg/dL Creatinine 2.1 H (0.5-1.5) mg/dL Glucose 214 H (60-115) mg/dL Lactate 4.0 H (0.5-1.9) mmol/L AST 45 H (12-35) U/L Troponin I < 0.01 L (0.01-0.04) ng/mL Total Protein 8.4 H (6.0-8.3) g/dL Urine Protein (Negative) 10/31/22 10/31/22 10/31/22 Range/Units 05:35 06:19 06:19 WBC (4.50-11.00) K/uL RBC 3.90 L (4.30-5.90) m/uL Hgb 12.7 L (13.5-17.5) gm/dL Neut % (Auto) 84.7 H (42.0-72.0) % Lymph % (Auto) 7.0 L (20-44) % Neut # (Auto) (1.7-7.0) K/uL Lymph # (Auto) 0.50 L (0.90-2.90) K/uL [place] # (Auto) (0.00-0.90) K/UL Potassium (3.6-5.1) mmol/L Carbon Dioxide 18 L (20-32) mmol/L BUN 34 H (7-30) mg/dL Creatinine 2.2 H (0.5-1.5) mg/dL Glucose 186 H (60-115) mg/dL Lactate (0.5-1.9) mmol/L AST (12-35) U/L Troponin I (0.01-0.04) ng/mL Total Protein (6.0-8.3) g/dL Urine Protein Trace A (Negative) Diabetes panel 10/30/22 10/31/22 Range/Units 21:54 06:19 Sodium 141 140 (135-149) mmol/L Potassium 3.5 L 4.4 (3.6-5.1) mmol/L Chloride 109 113 (96-114) mmol/L Carbon Dioxide 19 L 18 L (20-32) mmol/L BUN 29 34 H (7-30) mg/dL Creatinine 2.1 H 2.2 H (0.5-1.5) mg/dL Glucose 214 H 186 H (60-115) mg/dL Calcium 9.7 8.4 (8.4-10.6) mg/dL AST 45 H (12-35) U/L ALT 43 (4-50) U/L Alkaline Phosphatase 123 (40-150) U/L Total Protein 8.4 H (6.0-8.3) g/dL Albumin 4.6 (3.3-5.0) g/dL Calcium panel 10/30/22 10/31/22 Range/Units 21:54 06:19 Calcium 9.7 8.4 (8.4-10.6) mg/dL Albumin 4.6 (3.3-5.0) g/dL Pituitary panel 10/30/22 10/31/22 Range/Units 21:54 06:19 Sodium 141 140 (135-149) mmol/L Potassium 3.5 L 4.4 (3.6-5.1) mmol/L Chloride 109 113 (96-114) mmol/L Carbon Dioxide 19 L 18 L (20-32) mmol/L BUN 29 34 H (7-30) mg/dL Creatinine 2.1 H 2.2 H (0.5-1.5) mg/dL Glucose 214 H 186 H (60-115) mg/dL Calcium 9.7 8.4 (8.4-10.6) mg/dL Adrenal panel 10/30/22 10/31/22 Range/Units 21:54 06:19 Sodium 141 140 (135-149) mmol/L Potassium 3.5 L 4.4 (3.6-5.1) mmol/L Chloride 109 113 (96-114) mmol/L Carbon Dioxide 19 L 18 L (20-32) mmol/L BUN 29 34 H (7-30) mg/dL Creatinine 2.1 H 2.2 H (0.5-1.5) mg/dL Glucose 214 H 186 H (60-115) mg/dL Calcium 9.7 8.4 (8.4-10.6) mg/dL Total Bilirubin 0.6 (0.1-1.5) mg/dL AST 45 H (12-35) U/L ALT 43 (4-50) U/L Alkaline Phosphatase 123 (40-150) U/L Total Protein 8.4 H (6.0-8.3) g/dL Albumin 4.6 (3.3-5.0) g/dL All other labs normal. Assessment and Plan Assessment and plan (1) Small bowel obstruction: Status: Acute Plan 82-year-old male admitted to the hospital with small-bowel obstruction. I discussed with the patient his laboratory and imaging findings. Patient has recurrent small bowel obstructions with the last 1/5 years ago. Patient's symptoms are improved with NG tube however he is not passing gas yet. I would recommend to continue NG tube to suction and give patient bowel rest. It is okay to have ice chips for comfort. Will continue to follow the patient.
[2022-10-31] MEDS: 0.9 % SODIUM CHLORIDE 1000 ml 1,000 ML 500 ML IV (12:58)
[2022-10-31 13:34] LABS: Creatinine Urine Random 113 mg/dL
--- NOTE | 2022-10-31 18:45 | PC.NURSE ---
Pt is alert and oriented, mostly flat affect but conversational. Vitals stable, BP was soft this AM and afternoon sys 90s over 50s, pt received two 1L NS bolus. Now on con't NS at 125ml/hr. Pt asymptomatic w/ soft pressures. Up w/ assist of 1. Pt states he has walker and cane at home but will not use. Pt self cathed twice this shift per his baseline, 450ml in AM then 400ml output this evening. PVRs completed first 23ml and 2nd result 79ml. Both urines straw yellow. Pt has had a couple incontinent BMs and a couple continent, pt denies knowing when he is going at times, brief changed PRN. Preventative mepilex placed to reddened buttocks, pt states he sits in a recliner at home and that is where he often has the pressure. Pt educated on importance of offloading weight, pt can turn ind in bed. Pt very sleepy today stating he needed to rest, grant writer offered and encouraged walks on unit multiple times but pt declined today stating he will tomorrow but so tired today. Pt low activity tolerance, SOB w/ exertion and runny nose, sating low to mid 90s% on RA. 500ml output from NG tube this shift, pt had about 2 half cups of ice chips throghout shift for comfort per ok from surgeon. BS 139, 118 and 125 today, accuchecks q6hrs. Tele SR w/ first degree AVB. Pt denies pain, denies nausea. at bedside for a bit this afternoon, visiting. Pt tolerates NG tube clamped to amb to restroom and back without issue. JAMIL stockings and SCDs in place. Pt has call light within reach and uses appropriately.
--- NOTE | 2022-10-31 22:38 | PC.NURSE ---
End of Shift([id number]): Patient pleasant and cooperative. Afebrile. Up to bathroom with SBA. Patient had one large loose BM. NG to LIS. Denies pain.
[2022-11-01] MEDS: 0.9 % SODIUM CHLORIDE 1000 ml 1,000 ML 125 ML IV ×2 (00:49→08:31)
--- NOTE | 2022-11-01 03:33 | PC.NURSE ---
shift note 23-03: Pt A&O. VSS on RA. Denies pain, nausea, SOB, and CP. Up SBA. NG patent. Pt incontinent of loose stool, susy care provided. Blood sugar at midnight was 103.
[2022-11-01 04:07] VITALS: BP 123/59; PULSE 80; RESP 16; TEMP 37; O2SAT 90
--- NOTE | 2022-11-01 06:53 | PC.NURSE ---
[id number]: patient appears to have slept majority of shift, no pain reported, NG patent and in draining brown outout. ice chips, no reports of nausea.
[2022-11-01 07:46] VITALS: BP 135/64; PULSE 70; RESP 16; TEMP 36.6; O2SAT 94
[2022-11-01 09:48] LABS: Basophils Absolute Auto 0.01 K/uL (0.00-0.30); Basophils Percent Auto 0.2 % (0.0-3.0); Eosinophils Absolute Auto 0.08 K/uL (0.00-0.50); Eosinophils Percent Auto 1.7 % (0.0-7.0); Hematocrit 32.2 % (37.0-53.0); Hemoglobin* 10.7 gm/dL (13.5-17.5); Immature Granulocytes Abs Auto 0.01 K/uL (0.00-0.30); Immature Granulocytes Pct Auto 0.2 %; Lymphocytes Absolute Auto 0.96 K/uL (0.90-2.90); Mean Corpuscular HGB Conc 33 gm/dL (32-36); Mean Corpuscular Hemoglobin 33 pg (26-34); Mean Corpuscular Volume 99 fL (80-100); Monocytes Percent Auto 8.5 % (0.0-11.0); Neutrophils Absolute Auto 3.34 K/uL (1.7-7.0); Neutrophils Percent Auto 69.4 % (42.0-72.0); Platelet Count* 126 K/uL (140-440); RDW Coefficient of Variation % 13.6 % (11.5-15.5); Red Blood Count 3.27 m/uL (4.30-5.90); White Blood Count* 4.81 K/uL (4.50-11.00)
[2022-11-01 10:05] LABS: Chloride* 116 mmol/L (96-114); Slide Review Reflex No; Sodium* 143 mmol/L (135-149)
[2022-11-01 10:06] LABS: Potassium* 3.7 mmol/L (3.6-5.1)
[2022-11-01 10:08] LABS: Carbon Dioxide* 22 mmol/L (20-32); Creatinine* 1.3 mg/dL (0.5-1.5); Est. Creatinine Clearance* 48.91; Estimated Glomerular Filt Rate 55 ml/min
[2022-11-01 10:09] LABS: Blood Urea Nitrogen* 25 mg/dL (7-30); Calcium* 7.8 mg/dL (8.4-10.6); Glucose* 101 mg/dL (60-115)
[2022-11-01 11:03] VITALS: BP 127/65; PULSE 73; RESP 18; TEMP 36.6; O2SAT 94
--- NOTE | 2022-11-01 12:08 | PM.GSPN ---
Subjective Subjective Date Seen: 11/01/22 Interval history: Patient is doing well. He denies abdominal pain. He started to pass gas yesterday. Denies nausea and vomiting. Exam Narrative: Exam Narrative: Abdomen is soft, not distended, not tender to palpation. Const: Vital Signs, click to edit/add: Vital Signs - 24 hr 10/31/22 13:55 10/31/22 14:00 10/31/22 15:00 Temperature Pulse Rate Pulse Rate [Right Pulse Oximeter] 100 Respiratory Rate 18 Blood Pressure [Ri ght Arm] 109/55 L 106/66 Pulse Oximetry Oxygen Delivery Me thod 10/31/22 15:00 10/31/22 16:42 10/31/22 19:00 Temperature 99.0 F 98.1 F Pulse Rate 92 Pulse Rate [Right Pulse Oximeter] 83 85 Respiratory Rate 16 16 Blood Pressure [Ri ght Arm] 114/60 113/51 L Pulse Oximetry 94 92 Oxygen Delivery Me thod Room Air Room Air 10/31/22 23:00 10/31/22 23:00 11/01/22 04:07 Temperature 98.6 F 98.6 F Pulse Rate Pulse Rate [Right Pulse Oximeter] 82 80 Respiratory Rate 16 16 16 Blood Pressure [Ri ght Arm] 99/60 123/59 L Pulse Oximetry 92 90 Oxygen Delivery Me thod Room Air Room Air Progress Note: A&P Assessment and plan (1) Small bowel obstruction: Status: Acute Assessment and Plan: 82-year-old male admitted to the hospital with small-bowel obstruction. Patient is doing well. He started to pass gas. I would recommend removing his NG tube and advancing his diet slowly as tolerated.
[2022-11-01 15:05] VITALS: BP 125/61; PULSE 83; RESP 16; TEMP 36.2; O2SAT 100
--- NOTE | 2022-11-01 15:51 | PM.DS1 ---
DS: Providers Provider Date Seen: 11/01/22 Date of admission: 10/31/22 08:38 Primary care physician: Tiffanie Pepper MD Admitting Clinician: Nav Sullivna MD Attending Physician on discharge: Nav Sullivan MD Date of Discharge: 11/01/22 DS: Diagnosis Discharge Diagnosis (1) Small bowel obstruction: Status: Acute Problem details: History of recurrent small-bowel obstructions. Patient treated with NG tube on this occasion. Had relatively rapid resolution of symptoms. Now very anxious to go home (2) Neurogenic bladder: Status: Chronic Problem details: Self caths BID. Continue this and add prn. (3) T12 compression fracture: Status: Chronic Problem details: Interval increased height loss of the T12 vertebral body compression fracture on CT 10/31/22. (4) CLAU (acute kidney injury): Status: Acute Problem details: CLAU due to bowel obstruction, prerenal azotemia. Resolved with fluids (5) Bone mass: Status: Acute Problem details: CT abd/pelvis 10/31/22: New 4.2 x 2.1 x 4.8 cm calcified mass in the right iliac bone at the sacroiliac joint. 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 - Will need outpatient evaluation. Recommend Interventional Radiology to do biopsy. DS: Summary Hospital Course Hospital Course: 82-year-old male with history of recurrent bowel obstructions admitted to the hospital with abdominal pain from small-bowel obstruction. NG tube was placed and his bowel obstruction resolved relatively quickly. Today he was able to eat and tolerate food. NG has been removed. He is having diarrhea stools. He is very anxious to go home. Status at Discharge Cognitive/behavioral status at discharge: At baseline Functional status at discharge: independent ambulation Overall status at discharge: patient is back to baseline Time Spent with Patient Time attestation: Total time spent providing and/or coordinating discharge services: Time spent: Less than 30 minutes Exam Narrative: Exam Narrative: He is alert and appears in no distress. Abdomen is soft without tenderness. Bowel sounds are present. Const: Vital Signs, click to edit/add: Vital Signs - 24 hr 10/31/22 16:42 10/31/22 19:00 10/31/22 23:00 Temperature 98.1 F Pulse Rate 92 Pulse Rate [Right Pulse Oximeter] 85 Respiratory Rate 16 16 Blood Pressure [Ri ght Arm] 113/51 L Pulse Oximetry 92 Oxygen Delivery Me thod Room Air 10/31/22 23:00 11/01/22 04:07 11/01/22 07:46 Temperature 98.6 F 98.6 F 97.8 F Pulse Rate Pulse Rate [Right Pulse Oximeter] 82 80 70 Respiratory Rate 16 16 16 Blood Pressure [Ri ght Arm] 99/60 123/59 L 135/64 Pulse Oximetry 92 90 94 Oxygen Delivery Me thod Room Air Room Air Room Air 11/01/22 11:03 Temperature 97.9 F Pulse Rate Pulse Rate [Right Pulse Oximeter] 73 Respiratory Rate 18 Blood Pressure [Ri ght Arm] 127/65 Pulse Oximetry 94 Oxygen Delivery Me thod Room Air Documenting provider has reviewed patient's vital signs: yes DS: Data Data Completed and Pending Labs on day of discharge: Labs from last 24 hours 11/01/22 11/01/22 09:38 09:38 WBC 4.81 RBC 3.27 L Hgb 10.7 L Hct 32.2 L MCV 99 MCH 33 MCHC 33 RDW Coeff of [place] 13.6 Plt Count 126 L Neut % (Auto) 69.4 Lymph % (Auto) 20.0 [place] % (Auto) 8.5 Eos % (Auto) 1.7 Baso % (Auto) 0.2 Neut # (Auto) 3.34 Lymph # (Auto) 0.96 [place] # (Auto) 0.40 Eos # (Auto) 0.08 Baso # (Auto) 0.01 Sodium 143 Potassium 3.7 Chloride 116 H Carbon Dioxide 22 BUN 25 Creatinine 1.3 Estimated Creat Clear 48.91 Estimated GFR 55 Glucose 101 Calcium 7.8 L Preliminary micro results at discharge 10/30/22 22:55 Blood Culture - Preliminary Blood NO GROWTH AFTER 24 HOURS 10/30/22 23:00 Blood Culture - Preliminary Blood NO GROWTH AFTER [address] scan - abdomen: Radiologist's impression: [place] [address] Emergency Department Note Patient: Cosmo Mosqueda MR#: [id number] : 1940 Acct:[id number] Loc: [id number] ? Provider: Dwayne Cha M.D. cc: Tiffanie Pepper M.D.~ HPI - Abdominal Pain General Chief Complaint: Abdominal Pain Stated Complaint: Abdominal Pain Time Seen by Provider: 10/30/22 21:59 History of Present Illness HPI narrative: 82-year-old man presenting to the emergency department with spouse with complaint of increasing abdominal pain and bloating.? 4 - 5 hours prior to arrival here started to have some abdominal discomfort.? Then he had some diarrheal stool and multiple episodes of dry heaves maybe very small amount of vomitus.? Last stooling was about 3 hours ago.? He has been not been passing any gas.? No melena hematochezia or hematemesis is described.? He has not had a fever.? Does have a history of small-bowel obstructions - 3 or 4 -? and pancreatitis.? Underlying history also of perforated appendicitis with percutaneous drainage of periappendiceal abscess.? Has not had an appendectomy. 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 ? ? lisinopril 40 mg tablet 40 mg PO QDAY 04/30/22 10/31/22 metoprolol tartrate 50 mg tablet 50 mg PO BID 04/30/22 10/31/22 simvastatin 40 mg tablet 40 mg PO QDAY 04/30/22 10/31/22 allopurinol 300 mg tablet 300 mg PO DAILY 06/07/22 10/31/22 ascorbic acid (vitamin C) 1,000 mg 1 g PO BID 06/07/22 10/31/22 tablet ? ? ? insulin glargine 100 unit/mL (3 18 unit subcut DAILY 09/30/22 10/31/22 mL) subcutaneous pen (Lantus ? ? ? Solostar U-100 Insulin) ? ? ? Previous Rx's ?Medication ?Instructions ?Recorded chlorthalidone 25 mg tablet 25 mg PO DAILY #90 tabs 10/19/22 pen needle, diabetic 32 gauge x #100 ea 10/22/22 (BD Gerda 2nd Gen Pen Needle) ? ? Allergies Allergy/AdvReac Type Severity Reaction Status Date / Time vancomycin Allergy Mild Shakiness Verified 10/14/22 12:58 fentanyl AdvReac Mild Dizziness Verified 10/30/22 22:15 Review of Systems Status of ROS Reports: 10 or more systems reviewed and unremarkable except as noted in History and below PFSH PFSH Medical History?(Updated 10/31/22 @ 07:39 by Zenia Stevens MD) Chronic pancreatitis Compression fracture Coronary artery disease Encounter for postoperative care Gout (04/30/10) HTN (hypertension) Mitral regurgitation (07/03/10) MRSA (methicillin resistant Staphylococcus aureus) (06/05/10) Myopia Neurogenic bladder (10/02/12) Neurogenic claudication Osteoarthritis of left hip PAD (peripheral artery disease) Pancreatic calcification (04/30/10) Perforated appendicitis Presbyopia Renal artery stenosis Senile nuclear sclerosis Small bowel obstruction Squamous cell carcinoma Sternoclavicular joint subluxation Type 2 diabetes mellitus with hyperglycemia Surgical History?(Updated 10/31/22 @ 07:39 by Zenia Stevens MD) H/O colonoscopy (09/01/06) History of arthroscopy of right knee History of endoscopic retrograde cholangiopancreatography History of prostate surgery Hx of CABG (01/20/11) Status post insertion of iliac artery stent (~2005) Status post lumbar spine surgery for decompression of spinal cord (12/25/20) Family History?(Updated 10/31/22 @ 07:39 by Zenia Stevens MD) Mother CHF (congestive heart failure) High blood pressurePaternal Grandfather Bladder cancerFather Myocardial infarction High blood pressureOther Liver cancer Stroke Throat cancer Social History?(Updated 10/31/22 @ 07:43 by Zenia Stevens MD) Narrative:? Former smoker - started 20-30 cigarettes per day 1954, stopped 09/2020 Does not drink alcohol Does not use illicit drugs Smoking Status:? Former smoker What tobacco products do you use: cigarettes Smoking packs per day: 1 Smoking cigarettes per day: 20.0 Years smoked: 60 Smoking pack-years: 60.00 Smoking quit date/years: <= 15 years ago Do you use any of these nicotine containing products:? None Second hand tobacco smoke exposure:? No How often do you have a drink containing alcohol:? 2-4 times a month Alcohol type: beer How often do you have six or more drinks on one occasion:? Never AUDIT-C Alcohol total score:? 2 Non-prescribed substance use:? denies use Caffeine:? Yes (coffee) service:? No Exam Narrative:?? Exam Narrative: S more is pleasant.? Clearly uncomfortable.? Acquired in his distress though.? Is breathing easily.? Lungs while clear appear to be with some diminished breath sounds.? Heart was in a bradycardic rhythm initially is slow a mild auscultation between 50 and 60 beats per minute distant abdomen is absent of bowel sounds.? Diffusely tympanitic and tender.? Lower extremities are without edema.? He is alert responding quickly to questions Const:?? Vital Signs, click to edit/add: Vital Signs - 24 hr ? 10/30/22 22:12? ? ? 10/30/22 21:57? ? ? 10/30/22 22:02 Temperature ? 97.3 F L? Pulse Rate? 60? 56 L Pulse Rate [Right Pulse Oximeter] ? ? 45 L? Respiratory Rate? ? 18? 16? 16 Blood Pressure? 91/45 L ? 89/46 L Blood Pressure [Ri ght Upper Arm]? ? ? 89/45 L ? Pulse Oximetry? ? ? 98? 94? 96 Oxygen Delivery Me thod? Room Air? 10/30/22 22:17? ? ? 10/30/22 22:32? ? ? 10/30/22 22:50 Temperature ? Pulse Rate? 56 L? 59 L? 64 Pulse Rate [Right Pulse Oximeter] ? Respiratory Rate? ? 16? 16? 16 Blood Pressure? ? ? 112/52 L? 104/80? 153/64 H Blood Pressure [Ri ght Upper Arm]? Pulse Oximetry? ? ? 95? 99? 95 Oxygen Delivery Me thod? 03/04/23 23:06? ? ? 03/04/23 23:18? ? ? 03/04/ 23:32 Temperature ? Pulse Rate? 82? 62? 87 Pulse Rate [Right Pulse Oximeter] ? Respiratory Rate? ? 16? 16? 16 Blood Pressure? ? ? 122/66? 126/79? 130/72 Blood Pressure [Ri ght Upper Arm]? Pulse Oximetry? ? ? 98? 98? 97 Oxygen Delivery Me thod? 03/04/23 22:09? ? ? 10/31/22 00:35? ? ? 10/31/22 00:01 Temperature ? Pulse Rate? Pulse Rate [Right Pulse Oximeter] ? Respiratory Rate? Blood Pressure? 130/67? 130/72 Blood Pressure [Ri ght Upper Arm]? Pulse Oximetry? ? ? 96? Oxygen Delivery Me thod? 10/31/22 00:47 Temperature ? Pulse Rate? Pulse Rate [Right Pulse Oximeter] ? ? Respiratory Rate? ? Blood Pressure? ? ? Blood Pressure [Ri ght Upper Arm]? ? ? 134/70 Pulse Oximetry? ? ? Oxygen Delivery Me thod? Documenting provider has reviewed patient's vital signs: yes Course Vital Signs Vital signs: Initial Vital Signs Pulse Rate ?60 ?10/30/22 21:57 Respiratory Rate ?16 ?10/30/22 21:57 Blood Pressure ?91/45 L ?10/30/22 21:57 Blood Pressure Mean ?60 ?10/30/22 21:57 Pulse Oximetry ?94 ?10/30/22 21:57 Vital Signs Pulse Rate ?60 ?10/30/22 21:57 Respiratory Rate ?16 ?10/30/22 21:57 Blood Pressure ?91/45 L ?10/30/22 21:57 Pulse Oximetry ?94 ?10/30/22 21:57 Temperature ?97.8 F ?10/31/22 04:10 Pulse Rate ?87 ?10/30/22 23:32 Respiratory Rate ?18 ?10/31/22 04:10 Blood Pressure ?129/76 ?10/31/22 04:10 Pulse Oximetry ?93 ?10/31/22 04:10 Oxygen Delivery Method ? ?10/31/22 04:10 MDM - Abdominal Pain MDM Narrative Medical decision making narrative: Arrives with low blood pressures.? Is initiated on fluid resuscitation.? Blood pressures do respond quickly though still soft. I would be concerned about a small bowel obstruction but also sepsis.? Maybe partial small-bowel obstruction with distension and pain? Will monitor closely.? Creatinine finally resolved and going for IV contrasted scan of abdomen pelvis. Received initially 50 mics of fentanyl which did help needed ordering for another dosing as this cramping intense pain in the epigastrium returned. Lactate returns at 4. White count is over 20,000 Blood pressure has improved to 120s over 70s.? Pulse 60s to 80s. Duration of illness has only some hours.? I think less likely sepsis and findings are more related to this significant small-bowel obstruction. Straight cathed for urine in setting of neurogenic bladder. Has required multiple dosings of fentanyl. IV contrasted CT scan reviewed by me shows most prominent feature as numerous dilated loops of small bowel with some air-fluid levels.? Over-read by radiology as below --would also point out right posterior calcified mass in the iliac bone.? I did discuss findings on CT with Mr. Mosqueda. INDICATION: Abdominal pain, nausea, history of small-bowel obstruction. TECHNIQUE: CT abdomen and pelvis acquired with 93 cc Isovue 370 IV contrast. COMPARISON: CT abdomen 04/01/2020. FINDINGS: High-grade small bowel obstruction with transition point in the right lower quadrant, series 2, image 53. There are multiple dilated loops of small bowel with air-fluid levels. No pneumatosis or hypo enhancement. Mild mesenteric edema/mistiness in the right lower quadrant. The distal small bowel and colon are decompressed. Extensive colonic diverticulosis without surrounding inflammatory changes. The appendix is not clearly visualized. Unchanged scattered hepatic cysts. Interval increased intrahepatic and unchanged extrahepatic biliary ductal dilatation. Possible 5 mm calcified choledocholith in the distal common bile duct, series 2, image 39. Increased size of the hydropic gallbladder. No mural thickening or pericholecystic fluid. Unchanged calcified pancreas and dilated main pancreatic duct. Normal spleen. Persistent nodular enlargement of the adrenal glands; however, they appear slightly smaller compared to the prior exam. Unchanged multiple bilateral renal cysts. No hydronephrosis or suspicious mass. Ureters and bladder are normal. Normal sized prostate. Normal caliber abdominal aorta with severe atherosclerotic calcification. Patent bilateral external iliac artery stents. No adenopathy. No free air. Mild perihepatic free fluid. Interval posterior fusion of L4-L5. Interval increased height loss of the T12 vertebral body. New calcified mass lesion in the right iliac bone at the sacroiliac joint measuring 4.2 x 2.1 x 4.8 cm. No cortical breakthrough or additional lesions identified. Multilevel degenerative changes of the spine. Advanced osteoarthritis of the hips. Bilateral lower lobe atelectasis and/or scarring. Mitral valve replacement. IMPRESSION: High-grade small bowel obstruction with transition point in the right lower quadrant. No evidence for perforation. New 4.2 x 2.1 x 4.8 cm calcified mass in the right iliac bone at the sacroiliac joint. 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 Interval increased intrahepatic and unchanged extrahepatic biliary ductal dilatation with possible 5 mm choledochal within the distal common bile duct. Hydropic gallbladder without evidence of cholecystitis. Interval increased height loss of the T12 vertebral body compression fracture. Persistent nodular enlargement of the adrenal glands, though decreased in size compared to the prior exam, likely representing adrenal hyperplasia. Mild perihepatic ascites. Discharge Plan Discharge Disposition: Home, Self-Care Date of Admission: 10/31/22 08:38 Attending Provider on Discharge: Nav Sullivan Consulting Providers: Mel Ortiz Primary Care Provider: Tiffanie Pepper Condition: Improved Anticipated Discharge Date/Time: 11/01/22 15:58 Discharge Medications: Continued ascorbic acid (vitamin C) 1,000 mg tablet 1 g PO BID allopurinol 300 mg tablet 300 mg PO DAILY lisinopril 40 mg tablet 40 mg PO QDAY Label Comments: TAKE 1 TABLET BY MOUTH DAILY metoprolol tartrate 50 mg tablet 50 mg PO BID Label Comments: TAKE 1 TABLET BY MOUTH 2 TIMES DAILY simvastatin 40 mg tablet 40 mg PO QDAY aspirin [Adult Low Dose Aspirin] 81 mg tablet,delayed release (DR/EC) 81 mg PO QDAY insulin glargine [Lantus Solostar U-100 Insulin] 100 unit/mL (3 mL) insulin pen 18 unit subcut DAILY chlorthalidone 25 mg tablet 25 mg PO DAILY Qty: 90 1RF (DME) pen needle, diabetic [BD Gerda 2nd Gen Pen Needle] 32 gauge x 5/32 needle See Rx Instructions .Route Qty: 100 12RF Rx Instructions: daily Discharge Orders: Discharge Order (Routine); Ordered 11/01/22 Ordered By: Nav Sullivan Additional Instructions: Follow-up with your primary care doctor in the next 1-2 weeks to get a recheck of your symptoms and to arrange for Interventional Radiology to do a bone biopsy. Activity Level: Activity as Tolerated Discharge Diet: Regular Follow Up Appointments: Tiffanie Pepper MD [Primary Care Provider] - (1-2 weeks) Forms: [employer] Info Instructions Discharge Comments: Return to the emergency department if you have recurrent pain or vomiting
--- NOTE | 2022-11-01 16:07 | PM.IMPN1 ---
Progress Note: A&P Assessment and plan (1) Small bowel obstruction: Problem details: History of recurrent small-bowel obstructions. Resolving. Clamp NG, ADAT if he tolerates that. Status: Acute (2) CLAU (acute kidney injury): Problem details: CLAU due to bowel obstruction, prerenal azotemia. Resolved with fluids Status: Resolved (3) HTN (hypertension): Problem details: BP improved. Restart antihypertensives upon homegoing or if BP elevated. Status: Chronic (4) Type 2 diabetes mellitus with hyperglycemia: Problem details: Continue LA insulin. ISS with meals once eating. Status: Chronic (5) Coronary artery disease: Problem details: 01/11/2011: 1v CABG (MOREJON to LAD) with MVR (porcine bioprostesis) Hold aspirin in case he needs surgery Status: Chronic (6) Neurogenic bladder: Problem details: Self caths BID. Continue this and prn. Status: Chronic (7) Bone mass: Problem details: CT abd/pelvis 10/31/22: New 4.2 x 2.1 x 4.8 cm calcified mass in the right iliac bone at the sacroiliac joint. 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 - Will need outpatient evaluation. Recommend Interventional Radiology to do biopsy. Status: Acute Subjective Time Seen by Provider: 08:25 Date Seen: 11/01/22 Interval history: Doing better. No pain. Several BMs. +flatus. +hunger. Exam Narrative: Exam Narrative: General: No acute distress. Awake alert oriented x3. NGT to LIS. Cardiovascular: Regular rate and rhythm. No murmurs, gallops, or rubs. Chest: No increased work of breathing. Clear to auscultation bilaterally. No crackles or wheezes. Abdomen: Bowel sounds present. Soft, nondistended, nontender to palpation. Const: Vital Signs, click to edit/add: Vital Signs - 24 hr 10/31/22 16:42 10/31/22 19:00 10/31/22 23:00 Temperature 98.1 F Pulse Rate 92 Pulse Rate [Right Pulse Oximeter] 85 Respiratory Rate 16 16 Blood Pressure [Ri ght Arm] 113/51 L Pulse Oximetry 92 Oxygen Delivery Me thod Room Air 10/31/22 23:00 11/01/22 04:07 11/01/22 07:46 Temperature 98.6 F 98.6 F 97.8 F Pulse Rate Pulse Rate [Right Pulse Oximeter] 82 80 70 Respiratory Rate 16 16 16 Blood Pressure [Ri ght Arm] 99/60 123/59 L 135/64 Pulse Oximetry 92 90 94 Oxygen Delivery Me thod Room Air Room Air Room Air 11/01/22 11:03 11/01/22 15:05 Temperature 97.9 F 97.2 F L Pulse Rate Pulse Rate [Right Pulse Oximeter] 73 83 Respiratory Rate 18 16 Blood Pressure [Ri ght Arm] 127/65 125/61 Pulse Oximetry 94 100 Oxygen Delivery Me thod Room Air Room Air Documenting provider has reviewed patient's vital signs: yes Labs Labs: Laboratory Results - last 24 hr 11/01/22 11/01/22 09:38 09:38 WBC 4.81 RBC 3.27 L Hgb 10.7 L Hct 32.2 L MCV 99 MCH 33 MCHC 33 RDW Coeff of [place] 13.6 Plt Count 126 L Neut % (Auto) 69.4 Lymph % (Auto) 20.0 [place] % (Auto) 8.5 Eos % (Auto) 1.7 Baso % (Auto) 0.2 Neut # (Auto) 3.34 Lymph # (Auto) 0.96 [place] # (Auto) 0.40 Eos # (Auto) 0.08 Baso # (Auto) 0.01 Sodium 143 Potassium 3.7 Chloride 116 H Carbon Dioxide 22 BUN 25 Creatinine 1.3 Estimated Creat Clear 48.91 Estimated GFR 55 Glucose 101 Calcium 7.8 L
--- NOTE | 2022-11-01 17:19 | PC.NURSE ---
Pt was discharged from floor at 1700 with daughter. Pt's IV was taken out catheter intact. Pt's NG was removed at 1400. Pt straight cathed himself at 1400 with 1,000cc out. Pt's diet was advanced and tolerated well. Pt's blood glucose level ranged from 100-90 during shift novolog insulin held. Pt tolerated activity well.
== END 2022-11-01 17:00 | disposition home or self-care (01) | DRG 389 ==
LOC: ED 10-31 00:59 → MEDSURG 10-31 01:07
PROVIDERS: Emergency Medicine; Family Medicine; Internal Medicine; Admitting Provider Family Medicine; Emergency Provider Family Medicine; PCP Family Medicine; Visit Provider Family Medicine
DX: K56.609 Unspecified intestinal obstruction, unspecified as to partial versus complete obstruction (principal); N17.9 Acute kidney failure, unspecified; R18.8 Other ascites; S22.080A Wedge compression fracture of T11-T12 vertebra, initial encounter for closed fracture; N31.9 Neuromuscular dysfunction of bladder, unspecified; E86.1 Hypovolemia; M89.8X9 Other specified disorders of bone, unspecified site; E11.65 Type 2 diabetes mellitus with hyperglycemia; I10 Essential (primary) hypertension; I25.10 Atherosclerotic heart disease of native coronary artery without angina pectoris; M16.12 Unilateral primary osteoarthritis, left hip; R10.9 Unspecified abdominal pain; R14.0 Abdominal distension (gaseous); Z87.19 Personal history of other diseases of the digestive system; Z79.82 Long term (current) use of aspirin; Z79.4 Long term (current) use of insulin; Z87.898 Personal history of other specified conditions; Z98.890 Other specified postprocedural states; Z87.891 Personal history of nicotine dependence; Z95.2 Presence of prosthetic heart valve; I95.9 Hypotension, unspecified; R00.1 Bradycardia, unspecified; R74.02 Elevation of levels of lactic acid dehydrogenase [LDH]; I73.9 Peripheral vascular disease, unspecified; D72.829 Elevated white blood cell count, unspecified; M25.552 Pain in left hip; R11.0 Nausea; R93.7 Abnormal findings on diagnostic imaging of other parts of musculoskeletal system; E86.0 Dehydration; Z97.8 Presence of other specified devices
CPT/HCPCS: 36415; 43752; 51702; 51798; 71045; 74177; 80048; 80076; 81001; 82570; 82962; 83605; 83615; 83690; 83880; 84300; 84484; 85025; 86140; 87040; 87635; 94761; 97116; 97161; 97165; 99284; 99285; G0378; A9270; J0780; J1170; J2405; J3010; J7030; J7120; Q9967

== ENCOUNTER 2022-11-08 11:55 | Outpatient (CLI) | payer MEDICARE, SELFPAY | END 2022-11-08 11:56 | disposition home or self-care (01) | LOC: FRMREF 11:56 | PROVIDERS: PCP Family Medicine; Visit Provider Family Medicine | DX: I10 Essential (primary) hypertension (principal); E11.65 Type 2 diabetes mellitus with hyperglycemia | CPT/HCPCS: 80048 ==

== ENCOUNTER 2023-02-10 09:25 | Outpatient (CLI) | payer MEDICARE, SELFPAY | END 2023-02-10 09:26 | disposition home or self-care (01) | LOC: NFLDREF 02-13 07:39 | PROVIDERS: PCP Family Medicine; Referring Provider Family Medicine; Visit Provider Family Medicine | DX: R30.0 Dysuria (principal); N39.0 Urinary tract infection, site not specified | CPT/HCPCS: 87086; 87186 ==

== ENCOUNTER 2023-04-01 08:58 | Outpatient (CLI) | payer MEDICARE, SELFPAY ==
--- NOTE | 2023-04-01 09:15 | CRLHL7_ITS ---
For Patients: As a result of the 21st Century Cures Act, medical imaging exams and procedure reports are released immediately into your electronic medical record. You may view this report before your referring provider. If you have questions, please contact your health care provider. HISTORY: Right posterior iliac bone lesion. TECHNIQUE: Noncontrast and contrast enhanced MRI of the pelvis. 15 mL of Dotarem intravenous gadolinium was administered. COMPARISON: CT 10/30/2022 and 04/01/2020. FINDINGS: Osseous structures: There is an approximately 5 cm area of abnormal marrow signal involving the right iliac bone posteriorly. This is noted on axial T1 image #14 of series 4. The area of marrow signal abnormality is somewhat less apparent on the STIR sequences where there is some limited high signal associated with the lesion. This correlates with the area of abnormal-appearing sclerosis on the prior CT. On the CT it has a somewhat speckled appearance suggestive of cartilage matrix. Following gadolinium administration, there is not significant enhancement associated with the lesion. There is no associated soft tissue mass or pathologic fracture. Note that this represents a fairly typical location for bone graft harvest in the setting of spinal fusion. Correlation with patient`s prior surgical history is suggested. When comparison is made with a more remote CT from 04/01/2020, this reflects a new finding from that study. No other similar pelvic bone lesion. The areas of bone marrow edema about the left hip joint space related to full-thickness cartilage loss. There is no acute fracture. - Hip joints: Advanced degenerative arthrosis of the left hip with full-thickness cartilage loss and areas of subchondral bone marrow edema. Degenerative acetabular labral tearing. No significant left hip joint effusion. Degenerative arthrosis of the right hip with high-grade, up to full-thickness cartilage loss with small areas of subchondral bone marrow edema. Degenerative labral tearing. No significant right hip joint effusion. - Musculotendinous structures and bursae: No distal gluteal tendon tear. Areas of mild fatty infiltration of the gluteus minimus muscles compatible with remote strain changes. The common hamstring tendons are intact. On the right, there is a small amount of fluid within the iliopsoas bursa compatible with mild bursitis. No distal iliopsoas tendon tear. - Other Findings: Findings of prior lower lumbar fusion. Degenerative changes of the sacroiliac joints. - Intrapelvic soft tissues: Enlarged prostate. Colonic diverticulosis. Urinary bladder does not appear excessively distended. There is a small fat-containing left inguinal hernia. IMPRESSION: 1. Approximately 5 cm area of abnormal marrow signal involving the right iliac bone posteriorly correlating with the lesion on recent CT. On the recent CT the lesion had a speckled appearance suggestive of cartilage matrix. No associated soft tissue mass. There does not appear to be significant enhancement associated with the lesion. 2. Differential considerations may primary bone tumor with low-grade chondrosarcoma clearly a consideration versus unusual osseous response in the setting of prior bone graft harvest from this site in the setting of prior spinal fusion. The speckled appearance on CT would not highly typical for an osseous sclerotic metastasis from prostate cancer. Appearance not highly suggestive of osteosarcoma. 3. Given that this does reflect a new abnormality from a CT from 04/01/2020, and given that a low-grade chondrosarcoma cannot be excluded based on its imaging appearance, tissue diagnosis may be indicated. Dictated by Gasper Kidd MD @ 04/04/2023 7:34:17 AM (Electronically Signed)
== END 2023-04-01 08:59 | disposition home or self-care (01) ==
LOC: MRI 09:01
PROVIDERS: PCP Family Medicine; Visit Provider Orthopaedic Surgery
DX: D49.2 Neoplasm of unspecified behavior of bone, soft tissue, and skin (principal)
CPT/HCPCS: 72197; A9575

== ENCOUNTER 2023-06-02 14:26 | Outpatient (CLI) | payer MEDICARE, SELFPAY | END 2023-06-02 14:27 | disposition home or self-care (01) | PROVIDERS: PCP Family Medicine; Visit Provider Family Medicine | DX: E83.51 Hypocalcemia (principal); K86.1 Other chronic pancreatitis | CPT/HCPCS: 80048; 83690 ==

== ENCOUNTER 2023-06-18 10:15 | Outpatient (CLI) | payer MEDICARE, SELFPAY | END 2023-06-18 10:16 | disposition home or self-care (01) | LOC: LAB 10:16 | PROVIDERS: PCP Family Medicine; Visit Provider Internal Medicine | DX: Z01.818 Encounter for other preprocedural examination (principal) | CPT/HCPCS: 36415; 86850; 86900; 86901 ==

== ENCOUNTER 2023-06-20 10:37 | Day surgery (SDC) | payer MEDICARE, SELFPAY ==
[2023-06-16 19:45] VITALS: BP 112/66; PULSE 97; RESP 16; TEMP 36.7; O2SAT 95
[2023-06-20] VITALS (28 sets, daily range): BP systolic 81–160; BP diastolic 42–87; PULSE 51–94; RESP 12–20; TEMP 35.6–36.9; O2SAT 92–99; BMI 27.4
[2023-06-20] MEDS: OXYCODONE (CR) 10 MG TAB.ER.12H PO (08:23)
[2023-06-20] MEDS: ACETAMINOPHEN 500 MG TABLET 1000 MG PO ×2 (08:23→18:50)
[2023-06-20] MEDS: MIDAZOLAM HCL 1 MG/ML inj IVP (08:24)
[2023-06-20] MEDS: fentaNYL 100 MCG/2 ML inj IVP (08:24)
[2023-06-20] MEDS: LACTATED RINGERS 1000 ML 1,000 ML 100 ML IV ×2 (08:25→15:40)
--- NOTE | 2023-06-20 11:07 | CRLHL7_ITS ---
For Patients: As a result of the Cures Act, medical imaging exams and procedure reports are released immediately into your electronic medical record. You may view this report before your referring provider. If you have questions, please contact your health care provider. Indication: s/p Total hip arthroplasty Technique: AP hip centered pelvis and lateral view left hip Findings/Impression: Hardware from a left total hip arthroplasty is in satisfactory position. Bone alignment is normal. No sign of acute fracture. Postop changes are within normal limits. Dictated by Dwayne Farr MD @ 06/21/2023 8:56:00 AM (Electronically Signed)
[2023-06-20] MEDS: SODIUM CHLORIDE 0.9 % (FLUSH) 10 ML SYRINGE IVF (11:39)
--- NOTE | 2023-06-20 12:02 | SUR.PREOP ---
TIME?OUT:?1150 PT/RN/MDA?VERIFICATION?OF?SURGICAL?SITE,?PROCEDURE,?AND?CONSENT OBTAINED?PRIOR?TO?INVASIVE?PROCEDURE.left hip crnax2, pt rn and consent
--- NOTE | 2023-06-20 12:03 | SUR.PREOP ---
pt stated he has a adverse reaction to fentynl as Abhay Perera VIDEO POKER FLOORMAN spoke with pt and decided it was ok to give fentanyl pt agreed
--- NOTE | 2023-06-20 12:15 | CRLHL7_ITS ---
For Patients: As a result of the Cures Act, medical imaging exams and procedure reports are released immediately into your electronic medical record. You may view this report before your referring provider. If you have questions, please contact your health care provider. Indication: Hip replacement surgery Technique: AP hip fluoroscopic image. Fluoroscopy time 47.6 seconds. Findings/Impression: Hardware from a left total hip arthroplasty is in satisfactory position. Dictated by Dwayne Farr MD @ 06/21/2023 8:41:01 AM (Electronically Signed)
[2023-06-20] MEDS: CEFAZOLIN 2 GM in 0.9 % SODIUM CHLORIDE Mini-bag 100 ML IVPB ×2 (12:30→18:51)
[2023-06-20] MEDS: TRANEXAMIC ACID 100 MG/ML INJ 1000 MG IV (12:40)
--- NOTE | 2023-06-20 14:31 | P.ORPRC_ITS ---
Procedure Note Date of procedure: 06/20/23 Procedure: PREOPERATIVE DIAGNOSIS: 1. Left hip osteoarthritis, severe, primary POSTOPERATIVE DIAGNOSIS: 1. Left hip osteoarthritis, severe, primary PROCEDURE: 1. Left total hip arthroplasty-anterior approach 2. 10511 - intraoperative fluoroscopy up to 1 hour. SURGEON: Martin Lai MD. ROLL OR TAPE EDGE MACHINE OPERATOR: Daniel Ryder; ROBERTO Min - Of note, a skilled addictions counselor assistant was critical for this case to aid in patient positioning, tissue retraction, limb manipulation/positioning, dislocation/relocation, patient safety, and closure. ANESTHESIA: Spinal anesthetic EBL: 300 mL IMPLANTS: DePuy J&J uncemented total hip Twain cup size 58, hole eliminator, +4 neutral liner Actis stem, high offset, size 11 +1.5 mm ceramic 36 mm head. COMPLICATIONS: None evident INDICATIONS: The patient is a pleasant 82-year-old male who has experienced severe left hip pain and difficulty bearing weight. Workup included x-rays which revealed severe osteoarthrosis in the hip. Given the deformity, the dys function, and the pain, as well as the failure of nonoperative management, recommendation was made for surgery. FINDINGS: Full-thickness chondral loss diffusely throughout the hip. Large osteophytes around the perimeter of the acetabulum as well as femoral head/neck junction. Moderate effusion upon entering the joint. DESCRIPTION OF PROCEDURE: Following a thorough discussion of risks, benefits, and alternatives consent was obtained and the left hip was marked. The patient was brought to the operating room and placed supine on the operating table. Induction of anesthesia was undertaken. 2 g IV Ancef and 1 g tranexamic acid was administered within 1 hr of incision preoperatively. Proper time-out was performed identifying proper patient, site, procedure. The operative extremity was prepped and draped in the appropriate sterile fashion using ChloraPrep after the patient was positioned on the [place] table with head in neutral alignment and all bony prominences well padded. C-arm fluoroscopic imaging was utilized to confirm proper pelvis rotation and position, and to get true AP films of both the contralateral left, and the affected left hip. This is for comparison. A longitudinal incision was made starting approximately 1 cm distal to the ASIS, and 3-4 cm lateral. The incision was extended distally aiming toward the lateral border the patella. Sharp incision through skin and bovie cautery through the subcutaneous tissue allowed identification of the TFL fascia. This was sharply divided, and the fascia bluntly released from the muscle fibers as we dissected medial. Upon coming to the medial border, we were able to retract the TFL laterally, and penetrated the deeper fascia and identify the crossing circumflex vessels. These were ligated/cauterized. The rectus was elevated from the capsule, and retractors placed laterally and medially along the femoral neck to help with visualization of the capsule. We then performed an inverted T capsulotomy. The capsule was tagged for later repair. Retractors were placed inside the capsule. The femoral neck was visualized after releasing medially down to the lesser trochanter, along the saddle laterally, and up onto the acetabulum. The femoral neck cut was made in line with our preoperative templating. The head was removed in a single piece, and sized. We turned our attention to acetabular preparation. Initially, the labrum was resected from around the perimeter, the pulvinar was excised, allowing us to visualize the false wall. We started the reaming with a 43 mm reamer. This was medialized down to the true wall. We then enlarged our reamers sequentially up to one size less than the selected cup size. We trialed at the same size and found it to have an excellent fit. The selected cup was then opened, inserted, and impacted in line with the goal of 40-45? of abduction, and 20-25? of anteversion. This was confirmed on C-arm fluoroscopic imaging to be in the appropriate/goal position. Once the cup was placed we placed a hole eliminator and a liner consistent with preop planning. Attention was turned to the femoral preparation. The limb was extended, externally rotated, and adducted. The posteromedial capsule was released, as retractors were placed allowing excellent access to the proximal femur. Initially a steel box toe inserter was followed by canal finder followed by various broaches. We broached sequentially up to size noted above, found it to have excellent rotational control, and trialing various heads and necks, revealed that appropriate neck offset, and the above noted head size provided the greatest stability, and uatsdin of length, and offset. C-arm fluoroscopic imaging confirmed position of the stem, as well as leg lengths, which were compared with the pre procedure all fluoroscopic images. Trial implants were removed, the real femoral stem inserted, as was the ceramic head. After reducing, the leg was placed through range of motion and stability was confirmed anterior, posterior, and lateral. A 3 min Betadine soak was then performed, and thorough irrigation with normal saline followed. Closure of the capsule was performed with #1 PDS. Bleeding was confirmed to be controlled at this stage, and the TFL fascia was closed with #0 strata fix. Subcutaneous, and subcuticular closure was performed with 2-0 Vicryl and 4-0 Monocryl, respectively. Dressings were applied, and the patient was awoken from anesthesia and transferred the PACU in stable condition. A skilled addictions counselor assistant was critical for this case to aid in patient positioning, tissue retraction, proximal femur exposure, limb manipulation/positioning, dislocation/relocation, patient safety, and closure. PLAN: 1. Weight bear as tolerated operative extremity. 2. 23 hr perioperative antibiotics. 3. Ice. 4. PT/OT consults for ambulation assistance/mobility education. 5. Social work consult for discharge planning. 6. DVT prophylaxis with at SCDs, Jameson Brown, and Xarelto (or an equivalent chemo prophylactic) x5 days followed by aspirin for a total of 1 month.
--- NOTE | 2023-06-20 14:31 | W.PM.H&PU ---
History & Physical Update History & Physical Update H&P Reviewed and patient assessed: No changes noted
--- NOTE | 2023-06-20 15:31 | W.PM.NB ---
Nerve Block Nerve Block Time Seen by Provider: 11:50 Date Seen: 06/20/23 Type of block requested by surgeon for post-operative analgesia: MARK/LFCN Side: left Time out performed: Yes Verification of patient name: Yes Verification of date of : Yes Site marking: site marked Name of person performing procedure: gustavo Continuous monitoring Was continuous monitoring of O2 sat, B/P, phototypesetting equipment monitor, recorded every 15 minutes?: Yes Procedure Checklist: sterile prep, needles and gloves Ultrasound guided. Images saved: Yes Medications given in 5ml increments after negative aspiration: Ropivicaine %: 0.5 mL: 25 Needle gauge: 20 Decadron (mg): 10 Precedex (mcg): 25 Patient tolerated procedure well: Yes Block Charges Block Charge (with Pro Fee): Other Periph Nerve Block Use of Ultrasound Machine for Block: Yes- US Guidance/pain block
--- NOTE | 2023-06-20 15:33 | P.ANES_ITS ---
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
[2023-06-20] MEDS: HYDROmorphone 0.5 mg/0.5 ml inj IVP (15:47)
[2023-06-20] MEDS: fentaNYL 100 MCG/2 ML inj 50 MCG IVP (16:06)
--- NOTE | 2023-06-20 16:06 | SUR.PHASEI ---
Nicky Allen CRNA ordered fentanyl 50mcg to be given as his allergy is not a true allergy.
--- NOTE | 2023-06-20 16:56 | PM.IMCN1 ---
Date of Consult Consult date: 06/20/23 Requesting Physician: Orthopedics Primary Care Provider: Tiffanie Pepper MD Consult Narrative Reason for consult: Medical management of comorbidities Narrative: Cosmo Mosqueda is a 82 year old male who presented to the hospital today for an elective L ZAY with Dr. Lai of Orthopedic Surgery There were no surgical or anesthetic complications noted during procedure. Patient's H&P reviewed, PCP is Dr Pepper. Past medical history significant for: Essential HTN, IDDM2, pancreatitis, peripheral artery disease s/p bilateral iliac artery stents, neurogenic bladder requiring self-catheterization, mitral regurgitation, CAD s/p CABG, T12 compression fracture October 2022. History of blood clots: No Postoperative plan: Home with Review of Systems Status of ROS: Reports: 10 or more systems reviewed and unremarkable except as noted in History and below Narrative: - no concerns for hospitalist team [facility] Medical History (Updated 06/20/23 @ 16:59 by Ellyn Pires MD) Bone mass ?M89.8X9 - Other specified disorders of bone, unspecified site (ICD-10) Gout (04/30/10) ?M10.9 - Gout, unspecified (ICD-10) Small bowel obstruction ?K56.609 - Unspecified intestinal obstruction, unspecified as to partial versus complete obstruction (ICD-10) Callous ulcer ?L98.499 - Non-pressure chronic ulcer of skin of other sites with unspecified severity (ICD-10) Hepatic cyst ?K76.89 - Other specified diseases of liver (ICD-10) Senile nuclear sclerosis ?H25.10 - Age-related nuclear cataract, unspecified eye (ICD-10) Myopia ?H52.10 - Myopia, unspecified eye (ICD-10) Presbyopia ?H52.4 - Presbyopia (ICD-10) Neurogenic claudication ?R29.818 - Other symptoms and signs involving the nervous system (ICD-10) Squamous cell carcinoma Perforated appendicitis ?K35.32 - Acute appendicitis with perforation, localized peritonitis, and gangrene, without abscess (ICD-10) Small bowel obstruction ?K56.609 - Unspecified intestinal obstruction, unspecified as to partial versus complete obstruction (ICD-10) Pancreatic calcification (04/30/10) ?K86.89 - Other specified diseases of pancreas (ICD-10) Surgical History (Updated 06/20/23 @ 16:59 by Ellyn Pires MD) S/P hip replacement ?Z96.649 - Presence of unspecified artificial hip joint (ICD-10) H/O colonoscopy (09/01/06) ?Z98.890 - Other specified postprocedural states (ICD-10) Status post insertion of iliac artery stent (~2005) ?Z95.828 - Presence of other vascular implants and grafts (ICD-10) Status post lumbar spine surgery for decompression of spinal cord (12/25/20) ?Z98.890 - Other specified postprocedural states (ICD-10) Hx of CABG (01/20/11) ?Z95.1 - Presence of aortocoronary bypass graft (ICD-10) History of prostate surgery ?Z98.890 - Other specified postprocedural states (ICD-10) History of endoscopic retrograde cholangiopancreatography ?Z98.890 - Other specified postprocedural states (ICD-10) History of arthroscopy of right knee ?Z98.890 - Other specified postprocedural states (ICD-10) Family History Mother CHF (congestive heart failure) High blood pressure Paternal Grandfather Bladder cancer Father Myocardial infarction High blood pressure Other Liver cancer Stroke Throat cancer Social History (Updated 10/31/22 @ 10:01 by Zenia Stevens MD) Narrative: Former smoker - started 20-30 cigarettes per day 1954, stopped 09/2020 Does not drink alcohol Does not use illicit drugs Previously desired to be DNI What is your current living situation?: I presently have a place to live In the past 12 months, utilities in danger of being shut off: no In past 12 months, lack of transportation kept you from medical appts, meetings, work, or getting things needed for daily living: no In the past 12 mos, have been you worried that your food would run out before you had money to buy more?: never true In the past 12 mos, the food you bought just didn't last and you didn't have money to buy more?: never true Highest level of school completed/degree received: decline to answer Smoking Status: Former smoker What tobacco products do you use: cigarettes Smoking packs per day: 1 Smoking cigarettes per day: 20.0 Years smoked: 60 Smoking pack-years: 60.00 Smoking quit date/years: <= 15 years ago Do you use any of these nicotine containing products: None Second hand tobacco smoke exposure: No How often do you have a drink containing alcohol: never How often do you have six or more drinks on one occasion: Never AUDIT-C Alcohol total score: 0 Non-prescribed substance use: denies use Caffeine: Yes (coffee) How often does anyone, including family, friends and others, physically hurt you: never How often does anyone, including family, friends and others, insult or talk down to you: never How often does anyone, including family, friends and others, threaten you with harm: never How often does anyone, including family, friends and others, scream or curse at you: never service: No Meds Home Medications and Allergies Home Medications Medication Instructions Recorded Confirmed Type ascorbic acid (vitamin C) 1,000 mg 1 g PO BID 06/07/22 06/20/23 History tablet lisinopril 40 mg tablet 40 mg PO DAILY 06/17/23 06/20/23 History mirtazapine 7.5 mg tablet 7.5 mg PO HS 06/17/23 06/20/23 History simvastatin 40 mg tablet 40 mg PO HS 06/17/23 06/20/23 History Allergies Allergy/AdvReac Type Severity Reaction Status Date / Time vancomycin Allergy Mild Shakiness Verified 06/20/23 10:52 fentanyl AdvReac Mild Dizziness Verified 06/20/23 10:52 Exam Narrative: Exam Narrative: GEN: Sleepy but easily arousable, answering questions appropriately HEENT: EOMIs bilaterally, no scleral icterus CV: RRR, heart sounds distant R: LCTA bilaterally without concerning wheezing, air movement adequate Ext: bilateral Jameson Hose Skin: No concerning skin lesions or rashes on exposed skin Neuro: Nonfocal Psych: Appropriate Const: Vital Signs, click to edit/add: Vital Signs - 24 hr 06/20/23 11:05 06/20/23 11:41 06/20/23 11:53 Temperature 98.5 F Pulse Rate 66 67 Respiratory Rate 18 18 Blood Pressure 96/62 96/62 Pulse Oximetry 94 94 Oxygen Delivery Me thod Room Air Room Air Oxygen Flow Rate 06/20/23 12:08 06/20/23 15:25 06/20/23 15:30 Temperature 97.5 F L Pulse Rate 68 64 68 Respiratory Rate 16 20 16 Blood Pressure 90/51 L 145/75 H 160/87 H Pulse Oximetry 93 95 95 Oxygen Delivery Me thod Nasal Cannula Room Air Oxygen Flow Rate 06/20/23 15:35 06/20/23 15:40 06/20/23 15:45 Temperature Pulse Rate 58 L 53 L 54 L Respiratory Rate 16 16 16 Blood Pressure 136/70 109/67 142/65 H Pulse Oximetry 95 95 96 Oxygen Delivery Me thod Room Air Oxygen Flow Rate 06/20/23 15:50 06/20/23 15:55 06/20/23 16:00 Temperature Pulse Rate 54 L 53 L 52 L Respiratory Rate 18 18 16 Blood Pressure 141/59 H 139/64 128/71 Pulse Oximetry 96 96 97 Oxygen Delivery Me thod Room Air Oxygen Flow Rate 06/20/23 16:05 06/20/23 16:10 06/20/23 16:15 Temperature Pulse Rate 52 L 51 L 53 L Respiratory Rate 16 12 16 Blood Pressure 135/63 138/60 133/75 Pulse Oximetry 97 97 95 Oxygen Delivery Me thod Nasal Cannula Nasal Cannula Nasal Cannula Oxygen Flow Rate 4 4 4 06/20/23 16:20 06/20/23 16:25 06/20/23 16:30 Temperature Pulse Rate 52 L 59 L 52 L Respiratory Rate 18 18 18 Blood Pressure 141/62 H 134/60 124/72 Pulse Oximetry 99 97 99 Oxygen Delivery Me thod Nasal Cannula Nasal Cannula Nasal Cannula Oxygen Flow Rate 4 4 2 06/20/23 16:35 Temperature 97.2 F L Pulse Rate 52 L Respiratory Rate 18 Blood Pressure 115/64 Pulse Oximetry 97 Oxygen Delivery Me thod Nasal Cannula Oxygen Flow Rate 2 Assessment and Plan Assessment and plan (1) S/P hip replacement: Problem comment: - LEFT, Dr. Lai, 06/20/23 Status: Acute (2) Coronary artery disease: Problem comment: - 01/11/2011: 1v CABG (MOREJON to LAD) with MVR (porcine bioprosthesis) Status: Acute (3) Neurogenic bladder: Problem comment: Self caths BID. Continue this and prn. Status: Acute (4) Type 2 diabetes mellitus with hyperglycemia: Status: Acute Plan - pain management and prophylaxis per orthopedic surgery team - continue home medications for comorbidities - anticipate routine postoperative course
--- NOTE | 2023-06-20 19:16 | PC.NURSE ---
End of shift: Patient arrived to the floor around 1700 this afternoon... Patient was alert but quite drowsy... Reported he was tolerating the pain but could not rate the pain. LR running @ 75 in R hand. Alert and orientated but drowsy. Weak movement and normal feeling in L hip. L hip dressing is CDI.. no drainage present. Ice pack to op site... SCD's and TEDS in place. Low PO intake due to intermittently sleeping. Bed alarm in place and call light within reach. Post op routine VS in place VSS on RA now.. Ordered a tray for the patent when he would like to ea this evening. was here upon patients arrival to the unit she will return for therapies in the AM.
[2023-06-20] MEDS: SENNOSIDES 1 TAB TABLET 2 TAB PO (21:29)
[2023-06-20] MEDS: MIRTAZAPINE 15 MG TABLET 7.5 MG PO (21:29)
[2023-06-20] MEDS: SIMVASTATIN 40 MG TABLET PO (21:30)
[2023-06-20] MEDS: METOPROLOL TARTRATE 50 MG TABLET PO (21:30)
[2023-06-20] MEDS: OXYCODONE 5 MG TABLET PO (21:33)
[2023-06-21] VITALS (7 sets, daily range): BP systolic 83–139; BP diastolic 48–86; PULSE 61–88; RESP 15–18; TEMP 36.2–37; O2SAT 92–95
[2023-06-21] MEDS: 0.9 % SODIUM CHLORIDE 500 ML IV (00:11)
[2023-06-21] MEDS: ACETAMINOPHEN 500 MG TABLET 1000 MG PO ×3 (00:11→11:27)
[2023-06-21] MEDS: LACTATED RINGERS 1000 ML 1,000 ML 75 ML IV (01:51)
[2023-06-21] MEDS: CEFAZOLIN 2 GM in 0.9 % SODIUM CHLORIDE Mini-bag 100 ML IVPB (03:28)
[2023-06-21] MEDS: OXYCODONE 5 MG TABLET PO ×3 (03:31→11:25)
[2023-06-21 06:27] LABS: Basophils Percent Auto 0.1 % (0.0-3.0); Hematocrit 34.4 % (37.0-53.0); Hemoglobin* 11.3 gm/dL (13.5-17.5); Immature Granulocytes Pct Auto 1.1 %; Lymphocytes Percent Auto 7.5 % (20-44); Mean Corpuscular HGB Conc 33 gm/dL (32-36); Mean Corpuscular Hemoglobin 32 pg (26-34); Mean Corpuscular Volume 96 fL (80-100); Monocytes Percent Auto 5.4 % (0.0-11.0); Neutrophils Percent Auto 85.9 % (42.0-72.0); Platelet Count* 140 K/uL (140-440); RDW Coefficient of Variation % 13.2 % (11.5-15.5); Red Blood Count 3.57 m/uL (4.30-5.90); White Blood Count* 13.23 K/uL (4.50-11.00)
[2023-06-21 06:29] LABS: Slide Review Reflex No
[2023-06-21 06:41] LABS: Sodium* 137 mmol/L (135-149)
[2023-06-21 06:44] LABS: Creatinine* 2.1 mg/dL (0.5-1.5); Est. Creatinine Clearance* 28.49; Estimated Glomerular Filt Rate 31 ml/min
[2023-06-21 06:45] LABS: Blood Urea Nitrogen* 46 mg/dL (7-30)
--- NOTE | 2023-06-21 07:01 | PM.ORPN ---
Subjective Subjective Date Seen: 06/21/23 Principal diagnosis: Status postop day 1, left total hip arthroplasty - anterior approach Interval history: Patient reports doing okay, comments feeling stiff and a little sore, but no real pain. No acute events over night per patient and staff. Pain managed with scheduled and PRN medications, ice. DVT prophylaxis: Rivaroxaban, bilateral knee high Jameson stockings, SCDs, walking. Denies fevers, chills, aches, N/V, CP, SOB/LAI, or lightheadedness. Passing small amount of flatus. Ortho Exam Narrative Exam Narrative: -Patient appears comfortable in bed, sleeping; no apparent acute distress -Alert and oriented times 3 -Operative hip mildly swollen; soft tissues supple; no obvious erythema. No ecchymosis. Warmth appropriate -Surgical dressing clean, dry, intact; no obvious drainage, no erythematous streaking peripheral to the bandage -Bilateral calves soft and supple; no significant swelling, edema, tenderness, erythema, discoloration, warmth, or palpable cords -2+ DP/PT pulses, intact dermatomes and myotomes distally (5/5 strength). No numbness about the lateral femoral cutaneous nerve distribution. Const Vital Signs, click to edit/add: Vital Signs - 24 hr 06/20/23 11:05 06/20/23 11:41 06/20/23 11:53 Temperature 98.5 F Pulse Rate 66 67 Pulse Rate [Left Pulse Oximeter] Respiratory Rate 18 18 Blood Pressure 96/62 96/62 Blood Pressure [Left Arm] Pulse Oximetry 94 94 Oxygen Delivery Method Room Air Room Air Oxygen Flow Rate 06/20/23 12:08 06/20/23 15:25 06/20/23 15:30 Temperature 97.5 F L Pulse Rate 68 64 68 Pulse Rate [Left Pulse Oximeter] Respiratory Rate 16 20 16 Blood Pressure 90/51 L 145/75 H 160/87 H Blood Pressure [Left Arm] Pulse Oximetry 93 95 95 Oxygen Delivery Method Nasal Cannula Room Air Oxygen Flow Rate 06/20/23 15:35 06/20/23 15:40 06/20/23 15:45 Temperature Pulse Rate 58 L 53 L 54 L Pulse Rate [Left Pulse Oximeter] Respiratory Rate 16 16 16 Blood Pressure 136/70 109/67 142/65 H Blood Pressure [Left Arm] Pulse Oximetry 95 95 96 Oxygen Delivery Method Room Air Oxygen Flow Rate 06/20/23 15:50 06/20/23 15:55 06/20/23 16:00 Temperature Pulse Rate 54 L 53 L 52 L Pulse Rate [Left Pulse Oximeter] Respiratory Rate 18 18 16 Blood Pressure 141/59 H 139/64 128/71 Blood Pressure [Left Arm] Pulse Oximetry 96 96 97 Oxygen Delivery Method Room Air Oxygen Flow Rate 06/20/23 16:05 06/20/23 16:10 06/20/23 16:15 Temperature Pulse Rate 52 L 51 L 53 L Pulse Rate [Left Pulse Oximeter] Respiratory Rate 16 12 16 Blood Pressure 135/63 138/60 133/75 Blood Pressure [Left Arm] Pulse Oximetry 97 97 95 Oxygen Delivery Method Nasal Cannula Nasal Cannula Nasal Cannula Oxygen Flow Rate 4 4 4 06/20/23 16:20 06/20/23 16:25 06/20/23 16:30 Temperature Pulse Rate 52 L 59 L 52 L Pulse Rate [Left Pulse Oximeter] Respiratory Rate 18 18 18 Blood Pressure 141/62 H 134/60 124/72 Blood Pressure [Left Arm] Pulse Oximetry 99 97 99 Oxygen Delivery Method Nasal Cannula Nasal Cannula Nasal Cannula Oxygen Flow Rate 4 4 2 06/20/23 16:35 06/20/23 16:50 06/20/23 17:15 Temperature 97.2 F L 96.0 F L 96.0 F L Pulse Rate 52 L Pulse Rate [Left Pulse Oximeter] 64 60 Respiratory Rate 18 16 16 Blood Pressure 115/64 Blood Pressure [Left Arm] 128/56 L 130/42 L Pulse Oximetry 97 97 Oxygen Delivery Method Nasal Cannula Nasal Cannula Nasal Cannula Oxygen Flow Rate 2 2 2 06/20/23 17:30 06/20/23 18:00 06/20/23 18:00 Temperature 96.0 F L 96.0 F L 96.0 F L Pulse Rate 64 Pulse Rate [Left Pulse Oximeter] 62 70 Respiratory Rate 16 16 16 Blood Pressure Blood Pressure [Left Arm] 120/58 L 128/56 L 112/73 Pulse Oximetry 96 97 Oxygen Delivery Method Nasal Cannula Nasal Cannula Room Air Oxygen Flow Rate 1 2 06/20/23 18:27 06/20/23 20:45 06/20/23 21:45 Temperature 96.0 F L 98.2 F 98.2 F Pulse Rate Pulse Rate [Left Pulse Oximeter] 75 94 94 Respiratory Rate 16 16 18 Blood Pressure Blood Pressure [Left Arm] 133/86 89/62 L 97/60 Pulse Oximetry 99 92 94 Oxygen Delivery Method Room Air Room Air Room Air Oxygen Flow Rate 06/20/23 22:05 06/20/23 23:05 06/21/23 00:01 Temperature 98.2 F 98.0 F Pulse Rate Pulse Rate [Left Pulse Oximeter] 92 93 88 Respiratory Rate 16 16 16 Blood Pressure Blood Pressure [Left Arm] 112/80 81/55 L 83/65 L Pulse Oximetry 95 93 95 Oxygen Delivery Method Room Air Room Air Room Air Oxygen Flow Rate 06/21/23 01:45 06/21/23 02:35 06/21/23 03:35 Temperature 98.2 F 98.6 F 98.5 F Pulse Rate Pulse Rate [Left Pulse Oximeter] 81 82 74 Respiratory Rate 16 16 16 Blood Pressure Blood Pressure [Left Arm] 90/56 L 98/58 L 109/56 L Pulse Oximetry 94 92 94 Oxygen Delivery Method Room Air Room Air Room Air Oxygen Flow Rate Assessment and Plan Assessment and plan (1) S/P hip replacement: Problem details: - Dr. Joelle OWEN, 06/20/23 Status: Acute (2) Coronary artery disease: Problem details: - 01/11/2011: 1v CABG (MOREJON to LAD) with MVR (porcine bioprosthesis) Status: Acute (3) Neurogenic bladder: Problem details: Self caths BID. Continue this and prn. Status: Acute (4) Type 2 diabetes mellitus with hyperglycemia: Status: Acute Plan - Complete 23 hour perioperative antibiotics. - PT/OT consult for education and assistance. - Social work consult for discharge planning - Prescribed analgesics as needed - DVT prophylaxis: Rivaroxaban 5 days, 25 days 81 mg aspirin by mouth twice daily, bilateral knee high Jameson Hose stockings and SCDs - Anticipation is for discharge to home with spouse 06/21/2023 if the patient remains medically stable, pain is controlled, and they are safe with mobilization.
--- NOTE | 2023-06-21 07:21 | PC.NURSE ---
Pt alert and oriented x3. Afebrile. Pt reports 8/10 pain in left hip, pain managed with PRN medications and Ice pack. Pt had several blood pressure readings that were low, Dr. Pires notified, and she verbally gave the order to give the PRN 500ml bolus for oliguria for the low blood pressures. Pt's blood pressures increased. Pt is up SBA with walker gait belt. Pt straight catheterizes at home and has nurse do it while he holds on to walker for stabilization. Nurse straight cathed pt x2. Pt is drinking floods and on an advanced as tolerated diet, pt refused crackers and wanted to sleep.
--- NOTE | 2023-06-21 07:33 | W.PM.NB ---
Nerve Block Nerve Block Time Seen by Provider: 11:50 Date Seen: 06/20/23 Type of block requested by surgeon for post-operative analgesia: MARK/LFCN Side: left Time out performed: Yes Verification of patient name: Yes Verification of date of : Yes Site marking: site marked Name of person performing procedure: gustavo Continuous monitoring Was continuous monitoring of O2 sat, B/P, diagnostic cardiac sonographer, recorded every 15 minutes?: Yes Procedure Checklist: sterile prep and needles Ultrasound guided. Images saved: Yes Medications given in 5ml increments after negative aspiration: Ropivicaine %: 0.5 mL: 25 Needle gauge: 20 Decadron (mg): 10 Precedex (mcg): 25 Patient tolerated procedure well: Yes Block Charges Block Charge (with Pro Fee): Other Periph Nerve Block Use of Ultrasound Machine for Block: Yes- US Guidance/pain block
[2023-06-21] MEDS: allopurinoL 300 MG TABLET PO (09:03)
[2023-06-21] MEDS: METOPROLOL TARTRATE 50 MG TABLET PO (09:03)
[2023-06-21] MEDS: RIVAROXABAN 10 MG TABLET PO (09:03)
[2023-06-21] MEDS: SENNOSIDES 1 TAB TABLET 2 TAB PO (09:03)
[2023-06-21] MEDS: 0.9 % SODIUM CHLORIDE 1000 ml 1,000 ML IV (09:47)
--- NOTE | 2023-06-21 14:41 | PC.NURSE ---
Nursing Care Hours: 4413-2116 Pt this shift calm and cooperative with cares, alert and oriented. Pain zero at rest, then increased with walking. Treated per eMAR, worked with PT and pain rated 8/10. Treated per eMAR again. CMS intact. Bolus fluids given to bring BP up to normal range. Orthostatic BP done per hospitalist. Eating and drinking sufficiently. IV bleeding, area cleaned up by other nursing staff, dressing changed. At discharge, pt required pressure and raising arm above head to get bleeding from IV site to stop. Instructed patient to leave compression bandage on for at least 20min. If any bleeding noted, apply pressure and raise arm. Discharge instructions went over with pt and spouse. No questions or concerns presented to comic book writer. Wheeled out to vehicle in stable condition.
== END 2023-06-21 12:56 | disposition home or self-care (01) ==
LOC: OR 10:37 → MEDSURG 10:39
PROVIDERS: PCP Family Medicine; Visit Provider Orthopaedic Surgery Sports Medicine
PROC: (CPT 27130; principal; 2023-06-20 12:15)
DX: M16.12 Unilateral primary osteoarthritis, left hip (principal); G89.18 Other acute postprocedural pain; E11.65 Type 2 diabetes mellitus with hyperglycemia; I10 Essential (primary) hypertension; N31.9 Neuromuscular dysfunction of bladder, unspecified; I25.10 Atherosclerotic heart disease of native coronary artery without angina pectoris
CPT/HCPCS: 27130; 01214; 36415; 51702; 64450; 73501; 76000; 76942; 82565; 82962; 84132; 84295; 84520; 85025; 97110; 97116; 97161; 97165; 97530; 97535; 99100; A9270; C1776; J0330; J0690; J1100; J1170; J2250; J2371; J2704; J2795; J3010; J7030; J7120

== ENCOUNTER 2023-08-01 13:00 | Outpatient (RCR) | payer MEDICARE, SELFPAY ==
--- NOTE | 2023-06-15 16:21 | PT.OPE ---
PT [facility] PT [facility] Eval Start: 06/15/23 12:58 Freq: Status: Active Protocol: Document 06/15/23 12:58 DANNIE (Rec: 06/15/23 13:01 DANNIE [id number]) E-signed By Otoniel Gutierrez DPT, MS Physical Therapy Outpatient Evaluation Insurance Information Recert Due Date 09/13/23 Insurance Name Medicare B,Blue [employer] Medical Diagnosis Status post left hip arthroplasty Treating Diagnosis L hip pain, L LE weakness, gait dysfunction, imbalance. Subjective Subjective Pt is a 82 y.o. male who presents to PT pre-op L ZAY on 06/20/[address] [facility]. Describes gradual worsening of chronic L hip pain which has become severe over the past few months. Walking and standing have been significantly limited due to pain with no incidents of his L LE giving way. Occasionally uses a SPC with high levels of hip pain. He lives with his in a ranch style home with his bedroom on the 1st floor with 2 steps to enter his home without a railing. Hopes to return to walking for exercise and performing household and yard chores. PMH includes severe L hip OA, DM- II and controlled HTN. AGGR factors: uneven surfaces, walking, standing, carrying objects, sleeping, and stair climbing. ALLEV factors: movement, rest. Pain Comments -05/08 Current Work Status Retired Preferred Name [employer] Precautions Therapy Limitations/Systems Review Not Limited Objective Functional Test Performed & Score LEFS: 6 Assessment Assessment/Impression Objectively pt displays decreased L LE flexibility and ROM, imbalance, gait dysfunction, and B (L>R) LE weakness. Good quality of L QS with pt unable to perform a SLR due to L hip pain. Instructed pt in post-op HEP and provided handout. B (L>R) hip flexor tightness and L hip pain limiting quality of gait with pt responding well to stretching. He will benefit greatly from continued skilled therapy to address these limitations resuming PT following his ZAY on 06/15/23. Primary Functional Limitations Uneven surfaces, walking, standing, carrying objects, sleeping, and stair climbing Plan of Care Rehabilitation Potential Excellent Physical Therapy Goals Short-term goals to be completed in 4-5 weeks: 1. Pt will report improved quality of sleep waking <2x per night due to L hip pain. 2. Pt will be able to amb >400 feet with a SPC with a stable gait pattern to safely attend medical appointments. Long-term goals to be completed in 10 weeks: 1. Pt will be independent and compliant with HEP 2. Pt will display improved mechanics going up<>down >8 stairs with a reciprocal pattern using 1 railing to safely reach his basement. 3. Pt will display improved L hip flex, ABD and ext strength of >4/5 to improve quality of gait. 4. Pt will report >75% improvement in LEFS questionnaire to significantly improve tolerance to functional activities. Coordination/Communication With Referral Source Treatment Plan/Direct Interventions Gait Training,Joint Mobilization,Manual Therapy, Therapeutic Exercises Frequency/Duration 1-2x per week for least 8-12 visits, decreasing visit frequency as able. Patient Will Be Discharged From Therapy Completion of LTG(s),Skills Plateau,Independent w/HEP, Independently Progressing Evaluation Billing Untimed Code Treatment Minutes 22 Complexity Moderate Certification Information Initial Certification Date 06/15/23 Ending Certification Date 09/13/23 Provider Signature Shows Agreement With POC & Medical Necessity Physician Signature & Date Requested Please Sign/Date Here Physician Comment/Change : Physician NPI Number #
== END 2023-10-12 10:57 | disposition home or self-care (01) ==
PROVIDERS: PCP Family Medicine; Visit Provider Orthopaedic Surgery Sports Medicine
DX: M16.12 Unilateral primary osteoarthritis, left hip (principal); Z96.642 Presence of left artificial hip joint; M25.552 Pain in left hip; R26.9 Unspecified abnormalities of gait and mobility; R26.81 Unsteadiness on feet; R29.898 Other symptoms and signs involving the musculoskeletal system; Z51.89 Encounter for other specified aftercare
CPT/HCPCS: 97110; 97140; 97162; 97164

== ENCOUNTER 2023-10-07 13:21 | Outpatient (CLI) | payer MEDICARE, SELFPAY ==
--- OUTSIDE RECORDS SUMMARY | 2023-10-07 13:25 | XMS_ITS | Encounter Summary ---
Author Name Unknown Organization [facility] Address [address] [place] [address] Care Team Providers Care Appellate Court Judge Name Role Phone Unavailable Primary Care Provider Unavailabl e Reason for Visit * Reason Onset Date Comments Appointment 03/18/2023 Encounter Details Date Type Department Care Team (Late st Contact Info) Description 03/18/2023 Clinical Communication Department of Orthopedic Surgery in [place], [place] [address] [place] [address] Kendall Harrison M.D. [address] [place] [address] Appointment Social History Tobacco Use Types Packs/Day Years Used Date Smoking Tobacco: Former Cigarettes S tarted: 5 Passive Smoke Exposure: Past Smokeless Tobacco: Never Comments:smokes 20 -30 cigar ettes/day Alcohol Use Standard Drinks/Week Comments No 0 (1 standard drink = 0.6 oz pur e alcohol) Nutrition Answer Date Recorded Nutrition: EVOO Fat Source Unknown 10/31 Nutrition: Servings of Fruits/Vegetables per Day Not on file 10/31/2020 Dental Answer Date Recorded Dental: Regular Dentist Unknown 11/01/19 Sex and Gender Information Value Date Recorded Sex Assigned at Not on file Gender Identity Not on file Sexual Orientation Not on file documented as of this encounter Plan of Treatment Not on file documented as of this encounter Visit Diagnoses Not on filedocumented in this encounter
--- OUTSIDE RECORDS SUMMARY | 2023-10-07 13:25 | XMS_ITS | Encounter Summary ---
Author Name Unknown Organization [facility] Address [address] [place] [address] Care Team Providers Care Hose Inspector Name Role Phone Elsewhere, Pcp Primary Care Provider Unavailabl e Reason for Visit * Reason Onset Date Comments Pre-visit Intake 05/03/2023 Encounter Details Date Type Department Care Team (Latest Contact Info) Description 05/03/2023 10:45 AM CDT Clinical Communication Virtual Review in [place], [place] [address] [place], [place] [id number] Pre-visit Intake Social History Tobacco Use Types Packs/Day Years Used Date Smoking Tobacco: Former Cigarettes S tarted: 1953 Passive Smoke Exposure: Past Smokeless Tobacco: Never Comments:smokes 20 -30 cigar ettes/day Alcohol Use Standard Drinks/Week Comments No 0 (1 standard drink = 0.6 oz pur e alcohol) Nutrition Answer Date Recorded Nutrition: EVOO Fat Source Unknown 10/31 Nutrition: Servings of Fruits/Vegetables per Day Not on file 10/31/2020 Dental Answer Date Recorded Dental: Regular Dentist Unknown 11/01/19 21 Sex and Gender Information Value Date Recorded Sex Assigned at Not on file Gender Identity Not on file Sexual Orientation Not on file documented as of this encounter Plan of Treatment Not on file documented as of this encounter Visit Diagnoses Not on filedocumented in this encounter Care Teams Hose Inspector Relationship Specialty Start Date End Date Elsewhere, Pcp PCP - General Internal Medicine 05/03/23 documented as of this encounter
--- OUTSIDE RECORDS SUMMARY | 2023-10-07 13:25 | XMS_ITS | Encounter Summary ---
Author Name Unknown Organization [facility] Address [address] [place] [address] Care Team Providers Care Secondary School Teacher Librarian Name Role Phone Elsewhere, Pcp Primary Care Provider Unavailabl e Encounter Details Date Type Department Care Team (Late st Contact Info) Description 05/03/2023 12:10 PM CDT Ancillary Procedure Department of Radiology in [place], [place] [address] [place] [address] Kendall Harrison M.D. [address] [place] [address] Tumor Bone Social History Tobacco Use Types Packs/Day Years [...] on file documented as of this encounter Procedures Procedure Name Priority Date/Time Associated Diagnosis Comments INTERPRETATION OF OUTSIDE MR ABDOMEN AND OR PELVIS RAD - Routine (most inpatients and all outpatients) 05/03/2023 12:21 PM CDT Tumor Bone documented in this encounter Results * Interpretation of Outside MR Abdomen and or Pelvis (05/03/2023 12:21 PM CDT) Anatomical Region Laterality Modality Abdominal RST LOS, Abdominal ARZ LOS, Abdominal FLA LOS, Abdomen, Other, Pelvis N/A Magnetic Resonance 05/06/2023 11:1 8 AM CDT Impressions 05/06/2023 11:38 AM CDT Postoperative changes of lumbar decompression and instrumented fusion with bone graft donor site of the right posterior iliac crest. No worrisome findings. Specifically, no concerning osseous lesions. Advanced osteoarthritis of both hips. Degenerative changes lumbar spine. Fatty replacement of the visualized marrow. Colonic diverticulosis. Mildly enlarged and heterogeneous prostate. Narrative 05/06/2023 11:38 AM CDT EXAM: ??INTERPRETATION OF OUTSIDE MR ABDOMEN AND OR PELVIS Examination consists of an outside MRI of the pelvis without and with IV contrast dated 04/01/[address] [facility] at [address]. COMPARISON: ??Outside CT dated 10/30/2022 Procedure Note Tong Burk M.D. - 05/06/2023 EXAM: INTERPRETATION OF OUTSIDE MR ABDOMEN AND OR PELVIS Examination consists of an outside MRI of the pelvis without and with IVcontrast dated 04/01/[address] [facility] at [address]. COMPARISON: Outside CT dated 10/30/2022 IMPRESSION: Postoperative changes of lumbar decompression and instrumented fusion withbone graft donor site of the right posterior iliac crest. No worrisome findings.Specifically, no concerning osseous lesions. Advanced osteoarthritis of both hips. Degenerative changes lumbar spine.Fatty replacement of the visualized marrow. Colonic diverticulosis. Mildly enlarged and heterogeneous prostate. Kendall SAVAGE MRI PROCEDURES documented in this encounter Visit Diagnoses Diagnosis Tumor Bone documented in this encounter Care Teams Secondary School Teacher Librarian Relationship Specialty Start Date End Date Elsewhere, Pcp PCP - General Internal Medicine 05/03/23 documented as of this encounter
--- OUTSIDE RECORDS SUMMARY | 2023-10-07 13:25 | XMS_ITS | Encounter Summary ---
Author Name Unknown Organization [facility] Address [address] [place] [address] Care Team Providers Care Mortar Mixer Name Role Phone Elsewhere, Pcp Primary Care Provider Unavailabl e Reason for Visit * Outpatient (Routine) - Closed Specialty Diagnoses / Procedures Referred By Sugar lewis Referred To Contact Orthopedic Surgery Diagnoses Other Specified Disorders Of Bone Unspecified Site Tiffanie Pepper M.D. [address] [place] [address] [facility] Referral ID Status Reason Start Date Expiration Date Visits Re quested Visits Authorized [id number] Closed 02/25/2023 02/25/2024 1 1 Encounter Details Date Type Department Care Team (Latest Contact Info) Description 05/04/2023 10:30 AM CDT Comprehensive Visit Department of Orthopedic Surgery in [place], [place] [address] [place] [address] Kendall [place] M.D. [address] [place] [address] Tumor Bone (Primary Dx); Other Specified Disorders Of Bone Unspecified Site Social History Tobacco Use Types Packs/Day Years [...] on file documented as of this encounter Consult Notes * Millie Hendricks M.D. - 05/04/2023 10:30 AM CDT REFERRAL SOURCE Tiffanie Pepper M.D. CHIEF COMPLAINT Incidentally discovered right iliac crest lesion SUBJECTIVE HISTORY OF PRESENT ILLNESS Cosmo Mosqueda is a 82 y.o. male with a past medical history significant for HTN, T2DM, pancreatitis, peripheral artery disease s/p bilateral iliac artery stents, neurogenic bladder requiring self-catheterization, mitral regurgitation, CAD s/p CABG, nicotine dependence (former), and compressionfracture at T12 in October 2022 who presents for evaluation of an incidentally discovered lesion in his right iliac crest. The patient reports that he was being worked up for a left total hip replacement due to ongoing pain that he localizes to the left groin and is worse with weight-bearing when he was told by his primary care provider that he had an abnormal lesion in his right iliac crest requiring further workup. This abnormality was noted on a CT abdomen pelvis from October 2022, which was obtained in the setting of a bowel obstruction. Of note, the patient underwent L3-S1 decompression and fusion from L4-5 withR iliac crest bone graft in 2020. The patient reports that he has not had any pain from his right hip or pelvis. He does not use any gait aid at baseline. He can walk about 1 block before the pain from his left hip becomes too great to bear. He denies numbness and tingling in his bilateral lower extremities. 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 He denies systemic symptoms such as fever, chills, weight loss. This iliac crest lesion was biopsied under CT guidance in January 2023 at an outside facility due to concern for chondrosarcoma given the radiologic appearance of this lesion on CT and pathology was suggestive of bone with trilineage hematopoiesis. We are awaiting pathology evaluation from this biopsy from our own pathologists, as well as outside MRIs from before his spine surgery. PAST MEDICAL & SURGICAL HISTORY #1 Tumor Bone #2 Other Specified Disorders Of Bone Unspecified Site #3 Pancreatitis Chronic (HCC) #4 Replacement Mitral Valve Tissue #5 Dependence Nicotine #6 Hypertension Essential Primary #7 Diabetes Mellitus Type 2 (HCC) Past Surgical History: Procedure Laterality Date CORONARY ARTERY BYPASS GRAFT N/A 01/11/2011 >1. Coronary artery bypass grafting times one. 2. Left internal mammary artery to left anterior 12/25/20 L3-S1 lateral recess and bilateral neuroforamen decompression with fusion of L4-5 with R iliac crest bone graft MEDICATIONS No blood thinners or bisphosphonate use ALLERGIES FAMILY HISTORY No family history on file. SOCIAL HISTORY Retired. Lives with in [place], [place]. OBJECTIVE VITAL SIGNS Blood Pressure: ()/() Arterial Line BP: ()/() No intake/output data recorded. PHYSICAL EXAM General: No acute distress. Alert and oriented. Musculoskeletal: RLE: No pain with ROM throughout the RLE. Calf soft and non-tender. Neurovascularly intact with palpable PT and DP pulses, brisk cap refill. Sensation intact grossly to light touch throughout dermatomes. Fires tib ant, gastroc, ehl, fhl. Fires quads. No tenderness to palpation over right iliac crest. LLE: Pain with passive and active range of motion, most pronounced with internal rotation. PositiveStinchfield test. Calf soft and non-tender. Neurovascularly intact with palpable PT and DP pulses, brisk cap refill. Sensation intact grossly to light touch throughout dermatomes. Fires tib ant, gastroc, ehl, fhl. Fires quads. DIAGNOSTICS Lab Results Component Value Date WBC 10.7 (H) 09/01/2016 HGB 13.2 (L) 02/14/2023 HCT 46.3 09/01/2016 MCV 97 02/14/2023 PLT 168 02/14/2023 Lab Results Component Value Date NA 139 12/28/2020 CL 107 12/28/2020 CO2 26 12/28/2020 Lab Results Component Value Date CREATININE 1.03 12/28/2020 Lab Results Component Value Date INR 1.1 02/14/2023 PT 13.5 02/14/2023 IMAGING: CT abdomen/pelvis from October 2022 and MRI pelvis from April 01, 2023 were reviewed and show an osseous abnormality within the right iliac crest with calcifications on the CT from October 2022, with no apparent lesion on the more recent MRI. Significant degenerative joint disease of the left hip. ASSESSMENT / PLAN IMPRESSION/REPORT/PLAN #1 Incidentally discovered right iliac lesion at site of prior bone graft harvest (November 2020) Please see Dr. [place]'s supervisory note for final assessment and plan. Please contact Dr. [place]'s service pager at [phone] with any questions or concerns regarding management of this patient. Associated attestation - Kendall [place] M.D. - 05/04/2023 11:56 AM CDT 1. Concern for cartilaginous tumor pelvis Mr. Mosqueda is an 82-year-old gentleman who had a lesion in his right PSIS discovered incidentally when he was undergoing a workup For potential total hip arthroplasty. This prompted imaging, and a lesion was noted in his right PSIS. This prompted further imaging in the form of a CT scan, and has culminated in a biopsy and MRI. The biopsy showed no signs of a malignancy. In speaking with Mr. Mosqueda he did have lumbar spine surgery prior to the discovery of this lesion. He was reportedly told that he had bone graft taken from his pelvis as well. His main complaint is his hip, and he is currently needing a hip replacement. Physical exam General: He is alert and oriented no acute distress Gait: antalgic, favoring the left Musculoskeletal: Some tenderness to palpation along the PSIS. No obvious mass Skin: Healed midline surgical incision Imaging studies Serial CT scan shows the development of an area of sclerosis in the PSIS on the right between 2016 in 2022. We have no interval imaging before his spinal surgery. 1. Concern for potential cartilaginous tumor I had a discussion with Mr. Mosqueda about his imaging, and the plan moving forward. We were able to find his operative report from his spine surgery in care everywhere, and it does state that the surgical team harvested iliac crest bone graft from the right posterior iliac crest. This was then filledwith allograft. The imaging features would be consistent with a bone graft harvest site, rather than a cartilaginous neoplasm. We will obtain his outside pathology to confirm that there is nothing ofconcern, in addition he will reach out to the [facility] where he had his surgery performed to send any pre and postoperative imaging of the spine so we could also potentially confirmed that this is bone graft rather than anything of concern. He is in agreement with the plan at this time. Multiple questions were answered to the best of our ability. I provided him with my card should he have anyquestions or concerns, and he knows that he can reach out to me at any time. documented in this encounter Plan of Treatment Not on file documented as of this encounter Results * Interpretation of Outside [...] with IV contrast dated 04/01/2023 performed at [facility] at [address]. COMPARISON: ??Outside CT dated 10/30/2022 Procedure Note Tong Burk M.D. - 05/06/2023 EXAM: INTERPRETATION OF OUTSIDE MR ABDOMEN AND OR PELVIS Examination consists of an outside MRI of the pelvis without and with IVcontrast dated 04/01/2023 performed at [facility] at [address]. COMPARISON: Outside CT dated [...] this encounter Visit Diagnoses Diagnosis Tumor Bone Tumor Bone- Primary Other Specified Disorders Of Bone Unspecified Site documented in this encounter Care Teams Mortar Mixer Relationship Specialty Start Date End Date Elsewhere, Pcp PCP - General Internal Medicine 05/03/23 documented as of this encounter
--- OUTSIDE RECORDS SUMMARY | 2023-10-07 13:25 | XMS_ITS ---
Author Name Unknown Organization [facility] Address [address] [place] [address] Care Team Providers Care Real Estate Marketing Coordinator Name Role Phone Unavailable Unavailable Unavailable Surgery Details Not on file Complications Check Surgery Details section. Procedure Estimated Blood Loss Check Surgery Details section. Procedure Findings Check Surgery Details section. Procedure Specimens Taken Check Surgery Details section.
--- OUTSIDE RECORDS SUMMARY | 2023-10-07 13:25 | XMS_ITS | Encounter Summary ---
Author Name Unknown Organization [facility] Address [address] [place] [address] Care Team Providers Care Tag And Label Cutter Name Role Phone Elsewhere, Pcp Primary Care Provider Unavailabl e Encounter Details Date Type Department Care Team (Late st Contact Info) Description 05/23/2023 Documentation Department of Orthopedic Surgery in [place], [place] [address] [place] [address] Kendall [place] M.D. [address] [place] [address] Social History Tobacco Use Types Packs/Day Years [...] on file documented as of this encounter Progress Notes * Kendall [place] M.D. - 05/23/2023 12:46 PM CDT I called Mr. Mosqueda to let him know that his pathology was reviewed at [facility]. It does show benign bone marrow. There is no concern for tumor. It does fit again with our clinical interpretation that this is a bone graft harvest site, with packing of allograft. He was happy to hear this. He knows that he can reach out to me at any time. documented in this encounter Plan of Treatment Not on file documented as of this encounter Visit Diagnoses Not on filedocumented in this encounter Care Teams Tag And Label Cutter Relationship Specialty Start Date End Date Elsewhere, Pcp PCP - General Internal Medicine 05/03/23 documented as of this encounter
--- OUTSIDE RECORDS SUMMARY | 2023-10-07 13:25 | XMS_ITS | Encounter Summary ---
Author Name Unknown Organization [facility] Address [address] [place] [address] Care Team Providers Care Harvesting Contractor Name Role Phone Elsewhere, Pcp Primary Care Provider Unavailabl e Reason for Visit * Reason Comments Follow-up Need to be cleared f or surgery Encounter Details Date Type Department Care Team (Latest Contact Info) Description 06/06/2023 11:00 AM CDT Office Visit Department of Cardiovascular Diseases in [place], [place] [address] [place] [phone] Jarrell Skelton, CEMENT PATCHER, C.N.P. [address] [place] [phone] Preoperative Examination Cardiovascular (Primary Dx); Replacement Mitral Valve Tissue; Atherosclerotic Heart Disease Of [place] Coronary Artery Without Angina Pectoris; Hypertension Essential Primary; Diabetes Mellitus Type 2 (HCC) Discharge Disposition: Home or Self Care Social History Tobacco Use Types Packs/Day Years Used Date Smoking Tobacco: Former Cigarettes 2020 Passive Smoke Exposure: Past Smokeless Tobacco: Never Alcohol Use Standard Drinks/Week Comments No 0 [...] on file documented as of this encounter Last Filed Vital Signs Vital Sign Reading Time Taken Comments Blood Pressure 160/64 06/06/2023 10:58 AM CDT Pulse 57 06/06/2023 10:58 AM CDT Temperature - - Respiratory Rate - - Oxygen Saturation - - Inhaled Oxygen Concentration - - Weight 85.7 kg (188 lb 15 oz) 06/06/2023 10:54 A M CDT Height 178.5 cm (5' 10.28) 06/06/2023 10:54 AM CDT Body Mass Index 26.9 06/06/2023 10:54 AM CDT documented in this encounter Patient Instructions * Patient Instructions* Jarrell Skelton APRN, C.N.P. - 06/06/2023 11:00 AM CDT 1. Continue current medications. 2. No further testing/imaging recommended at this time. 3. Complete echocardiogram in early 2023. 4. Call cardiology at [phone] with questions or concerns. documented in this encounter Progress Notes * Jarrell Skelton APRN, C.N.P. - 06/06/2023 11:00 AM CDT SUBJECTIVE Referring Provider: No ref. provider found CHIEF COMPLAINT Cardiovascular preoperative exam/history of mitral valve replacement/CAD/hypertension HISTORY OF PRESENT ILLNESS Mr. Cosmo Mosqueda is a very pleasant 82 y.o. male who presents to [facility] for follow-up related to a history of severe mitral valve regurgitation status post mitralvalve replacement in 2010, CAD (1 vessel bypass in 2010), hypertension and request for cardiovascular preoperative exam. He was last seen in cardiology in [place] in early 09/2022 for continued follow-up related to a history mitral valve replacement in 12/2010 due to severe mitral valve regurgitation, coronary artery disease status post 1 vessel bypass in 2010 and hypertension with recommendations to continue to monitor his home blood pressures with goals identified with a return visit in approximately 1 year or sooner as needed. He is scheduled to complete left hip surgery at an outside facility on 06/20/2023. His most recent TTE was completed in 08/2021 (outside facility in ) with findings showing small LV size with moderately increased wall thickness with ejection fraction > 75%, normal RV size and function, sclerotic mitral valve with mild mitral regurgitation with normal size ascending aorta. His most recent electrolytes and kidney function were within normal limits in 12/2020. He denies any chest discomfort, dyspnea, orthopnea or PND. No awareness of palpitations or fatigue.No lower extremity edema. No lightheadedness, falls or presyncopal episodes. No bleeding. No strokeor TIA symptoms. He is active on a daily basis with no structured exercise routine with overall limited ability to walk related to left hip discomfort. No significant cardiovascular family history. He is . He is a former tobacco user. No alcohol or illicit drug use. Cardiovascular Risk Factors: 1. Smoking status: former tobacco user. 2. Type II Diabetes Mellitus: yes Hemoglobin A1c, B Date Value Ref Range Status 09/01/2016 6.5 (H) 4.0 - 5.6 % Final Comment: Hemoglobin A1c values greater than or equal to 6.5 percent are diagnostic for diabetes mellitus. Diagnosis should be confirmed by repeat testing. In diabetic patients, HbA1c goals should be discussed with healthcare provider. 3. Hypertension: yes 4. Dyslipidemia: yes No results found for: LIPA 5. Family history of early Coronary Artery Disease in a first degree relative (Male less than 55 years of age; Female less than 65 years of age): no 6. Obesity and/or Metabolic Syndrome: no 7. Sedentary lifestyle: no REVIEW OF SYSTEMS The following portions of the patient's history were reviewed and updated as appropriate: current medications, family history, medical history, social history, and problem list. OBJECTIVE Vitals: 06/06/23 1054 06/06/23 1058 BP: (!) 164/70 160/64 BP Location: Right arm Right arm Patient Position: Sitting Sitting Cuff Size: Large Large Pulse: (!) 55 (!) 57 Weight: 85.7 kg Height: 178.5 cm Body mass index is 26.9 kg/m??. BP Readings from Last 3 Encounters: 06/06/23 160/64 10/04/22 (!) 164/84 02/12/19 110/70 PHYSICAL EXAMINATION GENERAL: Alert and oriented. No acute distress. HEAD: Normocephalic/atraumatic. HEART: Regular rate and rhythm. S1 and S2. No murmurs appreciable. Nondisplaced apical impulse. Jugular venous pressure is normal. VESSELS: Bilateral radial pulses 3+. LUNG: Clear to auscultation bilaterally. SKIN: Warm and dry. No jaundice. ABDOMEN: Soft. Nontender to palpation. Nondistended. EXTREMITIES: No cyanosis, clubbing or edema. MENTAL: Cooperative. Affect appropriate. DIAGNOSTICS Lab Results Component Value Date WBC 10.7 (H) 09/01/2016 HGB 13.2 (L) 02/14/2023 HCT 38.6 (L) 03/06/2020 MCV 97 02/14/2023 PLT 168 02/14/2023 Lab Results Component Value Date NA 139 12/28/2020 CL 107 12/28/2020 CREATININE 1.03 12/28/2020 BUN 27 (H) 12/28/2020 ANIONGAP 6 12/28/2020 GLUCOSE 132 (H) 12/28/2020 CALCIUM 8.7 12/28/2020 Lab Results Component Value Date CHOL 134 02/12/2019 Lab Results Component Value Date HDL 36 (L) 02/12/2019 Lab Results Component Value Date LDLCALC 53 02/12/2019 Lab Results Component Value Date TRIG 226 (H) 02/12/2019 ASSESSMENT / PLAN #1 Preoperative Examination Cardiovascular #2 Replacement Mitral Valve Tissue; status post in 12/2010 #3 Atherosclerotic Heart Disease Of [place] Coronary Artery Without Angina Pectoris #4 Hypertension Essential Primary; well controlled per home blood pressure readings #5 Diabetes Mellitus Type 2 (HCC) It was a pleasure to see Mr. Mosqueda in clinic today. He is overall doing quite well. His systolic blood pressure was elevated in the lower 160s on blood pressure recheck with heart rates reasonable in mid to upper 50s on daily beta-margarita with reviewed home systolic readings in the 130s to 140s with resting heart rates in the 60s to 70s which is appropriate. He is overall asymptomatic with no awareness of exertional chest discomfort or dyspnea with no awareness of palpitations, lightheadedness, fatigue, presyncope or awareness of bilateral lower extremity edema which is reassuring. We reviewed his most recent TTE from 08/2021 with findings showing normal LV size with ejection fraction 75%, normal RV size and function with mild mitral regurgitation. He is scheduled to complete a left hip surgery at an outside facility in [place], [place] on 06/20/2023 with no current cardiovascular contraindications with ability to walk up 1-2 flights of stairs and walk on level ground 1-2 blocks with no awareness of exertional dyspnea or chest discomfortwith walking limited only due to left hip discomfort. We discussed completion of a surveillance TTE would be reasonable in early 2023 related to a history of mitral valve replacement. He would like to complete his surveillance echocardiogram at an outside facility, but will contact our cardiology team if he would like to complete at [place]. He was instructed to return to cardiology as needed in [place]. Plan: 1. Continue current medications. 2. No further testing/imaging recommended at this time. 3. Complete echocardiogram in early 2023. 4. Call cardiology at [phone] with questions or concerns. All questions were answered to the best of my ability. He verbalized understanding of the plan. He left in no acute distress. PATIENT EDUCATION Ready to learn, no apparent learning barriers were identified; learning preferences include listening. Explained diagnosis and treatment plan; patient expressed understanding of the content. Jarrell Skelton APRN, C.N.P. documented in this encounter Plan of Treatment Not on file documented as of this encounter Visit Diagnoses Diagnosis Preoperative Examination Cardiovascular- Primary Replacement Mitral Valve Tissue Atherosclerotic Heart Disease Of [place] Coronary Artery Without Angina Pectoris Hypertension Essential Primary Diabetes Mellitus Type 2 (HCC) documented in this encounter Care Teams Harvesting Contractor Relationship Specialty Start Date End Date Elsewhere, Pcp PCP - General Internal Medicine 05/03/23 documented as of this encounter
--- OUTSIDE RECORDS SUMMARY | 2023-10-07 13:25 | XMS_ITS | Encounter Summary ---
Author Name Unknown Organization [facility] Address [address] [place] [address] Care Team Providers Care Sewing Machines Salesperson Name Role Phone Elsewhere, Pcp Primary Care Provider Unavailabl e Encounter Details Date Type Department Care Team (Late st Contact Info) Description 05/17/2023 Documentation Department of Orthopedic Surgery in [place], [place] [address] [place] [phone] Kendall [place] M.D. [address] [place] [address] Social History Tobacco Use Types Packs/Day Years [...] Progress Notes * Kendall [place] M.D. - 05/17/2023 10:15 AM CDT I called Mr. Mosqueda to let him know that we did receive his radiographs of his spine surgery. Postoperatively, it does appear that the bone graft was placed in the posterior iliac crest, which was oursuspicion. In addition our radiologist did review his MRI, and do not think that this represents a cartilaginous neoplasm. He was happy to hear this. He knows that he can reach out to me at any time. documented in this encounter Plan of Treatment Not on file documented as of this encounter Visit Diagnoses Not on filedocumented in this encounter Care Teams Sewing Machines Salesperson Relationship Specialty Start Date End Date Elsewhere, Pcp PCP - General Internal Medicine 05/03/23 documented as of this encounter
--- OUTSIDE RECORDS SUMMARY | 2023-10-07 13:25 | XMS_ITS | Referral Summary ---
Author Name Unknown Organization [facility] Address [address] [place] [address] Care Team Providers Care Strategic Consultant Name Role Phone Elsewhere, Pcp Primary Care Provider Unavailabl e Source Comments Patient records contain information from all sites at [facility]. For routine questions regarding patient records, call [phone] during business hours, M-F 8:00 AM - 5:00 PM Central Time. Record requests for emergency care only can be directed to [phone] at any time.[facility] Allergies Active Allergy Reactions Criticality Noted Date Comments Fentanyl Other (see comments) Medium 12/23/2020 Vancomycin Vancomycin Infusion Reaction 017 Red man syndrome Medications Medication Sig Dispensed Refills Start Date End Date Status metoprolol tartrate (LOPRESSOR) 50 mg tablet Take 1 tablet by mouth 2 (two) times a day. 0 09/01/2015 Active lisinopril (PRINIVIL,ZESTRIL) 40 mg tablet Take 1 tablet by mouth daily. 0 01/26/2017 Active simvastatin (ZOCOR) 40 mg tablet Take 1 tablet by mouth daily. 0 09/01/2015 Active glucosamine HCl/chondroitin arias (GLUCOSAMINE-CHONDROI TIN ORAL) Take 1 tablet by mouth 2 (two) times a day. 0 08/20/2014 Active ascorbic acid, vitamin C, (VITAMIN C) 1,000 mg tablet Take 1 tablet by mouth 2 (two) times a day. 0 08/20/2014 Active chlorthalidone (HYGROTON) 25 mg tablet Take 1 tablet (25 mg total) by mouth daily. 30 tablet 0 12/24/2021 Active allopurinoL (ZYLOPRIM) 300 mg tablet Take 300 mg by mouth daily. 0 09/07/2022 Active Contour Next Test Strips strips 2 (two) times a day. 0 09/11/2022 Active Lantus Solostar U-100 Insulin 100 unit/mL (3 mL) injection INJECT 25 UNITS SUB-Q NIGHTLY 0 09/03/2022 Active mirtazapine (REMERON) 7.5 mg tablet Take 7.5 mg by mouth at bedtime. 0 02/27/2023 Active multivit-min/ferrous fumarate (MULTI VITAMIN ORAL) Take 1 tablet by mouth daily. 0 Active Active Problems Problem Noted Date Diagnosed Date Replacement Mitral Valve Tissue 02/12/2019 Dependence Nicotine 02/12/2019 Hypertension Essential Primary 02/12/2019 Diabetes Mellitus Type 2 02/12/2019 Pancreatitis Chronic 08/20/2014 Immunizations Name Administration Dates Next Due PPSV23(Discontinued) 06/25/2010 Social History Tobacco Use Types Packs/Day Years Used Date Smoking Tobacco: Former Cigarettes 1 2020 Passive Smoke Exposure: Past Smokeless Tobacco: [...] on file Sexual Orientation Not on file Last Filed Vital Signs Vital Sign Reading Time Taken Comments Blood Pressure 160/64 06/06/2023 10:58 AM CDT Pulse 57 06/06/2023 10:58 AM CDT Temperature 36.5 ??C (97.7 ??F) 10/04/2022 2:02 PM CS T Respiratory Rate 16 02/12/2019 8:38 AM CDT Oxygen Saturation 98% 10/04/2022 2:02 PM STAFF AIR TACTICAL OFFICER Inhaled Oxygen Concentration - - Weight 85.7 kg (188 lb 15 oz) 06/06/2023 10:54 A M CDT Height 178.5 cm (5' 10.28) 06/06/2023 10:54 AM CDT Body Mass Index 26.9 06/06/2023 10:54 AM CDT Plan of Treatment Not on file Medical Devices Implanted Type Area Medical Orderly Device Identifier Shelf Expiration Date Model / Serial / Lot Ring Annuloflex Carbomedics 36mm - Kim [id number] Implanted:Qty: 1 on 01/11/2011 Cardiac Valve Prosthesis Other/Legacy - See Implant Description Carbomedics Description:Device Manufactu rer - Carbomedics. Body Location - Other. Not Applicable. Device Status Text - [id number]. Hardware E.G. Pins/Screws/Ro ds Hardware e.g. pins/screws/ rods Back [place] Chris Fuzzy 1 X 1 - Kim [id number] Implanted:Qty: 2 on 01/11/2011 Mesh or Patch Appthority Description:Device Manufactu rer - DeRoyal. Device Status Text - [id number]. [facility] Data - [id number]. Conversions - Default Historical Implant Device Implanted:11/2015 (Quantity not on file) Vascular Stent Description:Device Status Te xt - Vascular. legs. Care Teams Strategic Consultant Relationship Specialty Start Date End Date Elsewhere, Pcp PCP - General Internal Medicine 05/03/23
--- OUTSIDE RECORDS SUMMARY | 2023-10-07 13:25 | XMS_ITS | Encounter Summary ---
Author Name Unknown Organization [facility] Address [address] [place] [address] Care Team Providers Care Pastry Mixer Name Role Phone Elsewhere, Pcp Primary Care Provider Unavailabl e Reason for Referral * Outpatient (Routine) - Authorized Specialty Diagnoses / Procedures Referred By Contac t Referred To Contact Cardiovascular Disease Diagnoses Anemia Atherosclerosis Renal Artery (HCC) Nonrheumatic Mitral Valve Insufficiency Peripheral Vascular Disease (HCC) Atherosclerotic Heart Disease Of Ione Coronary Artery Without Angina Pectoris Hypertension Essential Primary Presence Of Other Vascular Implants And Grafts Tiffanie Pepper M.D. [address] [place] [address] [facility] Referral ID Status Reason Start Date Expiration Date V isits Requested Visits Authorized [id number] Authorized 06/03/2023 06/02/2024 1 1 Encounter Details Date Type Department Care Team (Late st Contact Info) Description 06/03/2023 [facility] [address] [place] [address] Tiffanie Pepper M.D. [address] [place] [address] Anemia (Primary Dx); Atherosclerosis Renal Artery (HCC); Nonrheumatic Mitral Valve Insufficiency; Peripheral Vascular Disease (HCC); Atherosclerotic Heart Disease Of Ione Coronary Artery Without Angina Pectoris; Hypertension Essential Primary; Presence Of Other Vascular Implants And Grafts Social History Tobacco Use Types Packs/Day Years [...] as of this encounter Plan of Treatment Scheduled Referrals Name Type Priority Associated Diagnoses Order Schedule Cardiovascular Diseases Referral Outpatient Referral Routine Anemia Atherosclerosis Renal Artery (HCC) Nonrheumatic Mitral Valve Insufficiency Peripheral Vascular Disease (HCC) Atherosclerotic Heart Disease Of Ione Coronary Artery Without Angina Pectoris Hypertension Essential Primary Presence Of Other Vascular Implants And Grafts Expected: 06/03/2023 (Approximate), Expires: 09/03/2024 documented as of this encounter Visit Diagnoses Diagnosis Anemia- Primary Atherosclerosis Renal Artery (HCC) Nonrheumatic Mitral Valve Insufficiency Peripheral Vascular Disease (HCC) Atherosclerotic Heart Disease Of Ione Coronary Artery Without Angina Pectoris Hypertension Essential Primary Presence Of Other Vascular Implants And Grafts documented in this encounter Care Teams Pastry Mixer Relationship Specialty Start Date End Date Elsewhere, Pcp PCP - General Internal Medicine 05/03/23 documented as of this encounter
--- OUTSIDE RECORDS SUMMARY | 2023-10-07 13:25 | XMS_ITS | Encounter Summary ---
Author Name Unknown Organization [facility] Address [address] [place] [address] Care Team Providers Care Fiberglass Laminator Name Role Phone Elsewhere, Pcp Primary Care Provider Unavailabl e Reason for Visit * Reason Onset Date Comments After Visit Question 05/16/2023 Encounter Details Date Type Department Care Team (Latest Contact Info) Description 05/16/2023 Clinical Communication Department of Orthopedic Surgery in [place], [place] [address] [place] [address] Kendall Harrison M.D. [address] [place] [address] After Visit Question Social History Tobacco Use Types Packs/Day Years [...] on filedocumented in this encounter Care Teams Fiberglass Laminator Relationship Specialty Start Date End Date Elsewhere, Pcp PCP - General Internal Medicine 05/03/23 documented as of this encounter
--- OUTSIDE RECORDS SUMMARY | 2023-10-07 13:25 | XMS_ITS | Encounter Summary ---
Author Name Unknown Organization [facility] Address [address] [place] [address] Care Team Providers Care Laborer Egg Producing Farm Name Role Phone Elsewhere, Pcp Primary Care Provider Unavailabl e Encounter Details Date Type Department Care Team (Late st Contact Info) Description 05/05/2023 9:00 AM CDT Lab RST RO LMP [address] [place] [phone] Meche Arciniega, FUR FLOOR WORKER, C.N.P. [address] [place] [phone] Tumor Bone Social History Tobacco Use Types [...] on file documented as of this encounter Miscellaneous Notes * Result Encounter Note - Kendall Harrison M.D. - 05/23/2023 12:47 PM CDT I have reviewed the final pathology report and the identified diagnosis is consistent with the patient's clinical presentation. documented in this encounter Plan of Treatment Not on file documented as of this encounter Procedures Procedure Name Priority Date/Time Associated Diagnosis Comments PATHOLOGY REVIEW OF OUTSIDE MATERIAL Routine 02/14/2023 11:45 AM CDT Tumor Bone documented in this encounter Results * Pathology Review of Outside Material (02/14/2023 11:45 AM CDT) 05/22/2023 1:47 PM CDT DTL Report electronically signed by Roly Owens M.D. I verify that I have examined all relevant slides/materia ls for the specimen(s) and rendered or confirmed the diagnosis. 05/22/2023 1:47 PM CDT DTL Material Received A. [id number]: Bone biopsy, right iliac crest ? 10 stained slides 05/22/2023 1:47 PM CDT DTL Interpretation FINAL DIAGNOSIS Bone, right iliac crest, FNA and core biopsy ??([id number]; 02/14/2023): ??Fragments of benign trabecular bone and bone marrow with trilineage hematopoiesis. A submitted immunostain for Baltazar is negative. 05/22/2023 1:47 PM CDT DTL Varies 02/14/2023 11:4 5 AM CDT 05/10/2023 12:36 PM CDT Meche Arciniega APRN, C.N.P. LAB SURG PAT H ORDERABLES [facility] [address] [place] [address], [facility] [place] DTL [address] [place] [address] documented in this encounter Visit Diagnoses Diagnosis Tumor Bone documented in this encounter Care Teams Laborer Egg Producing Farm Relationship Specialty Start Date End Date Elsewhere, Pcp PCP - General Internal Medicine 05/03/23 documented as of this encounter
--- OUTSIDE RECORDS SUMMARY | 2023-10-07 13:25 | XMS_ITS | Clinical Summary ---
Author Name Unknown Organization [facility] Address [address] [place] [address] Care Team Providers Care Manager Flight Name Role Phone Elsewhere, Pcp Primary Care Provider Unavailabl e Source Comments Patient records contain information from all sites at [facility]. For routine questions regarding patient records, call [phone] during business hours, M-F 8:00 AM - 5:00 PM Central Time. Record requests for emergency care only can be directed to [phone] at any time.[facility] Allergies Active Allergy Reactions Criticality Noted Date [...] CDT Oxygen Saturation 98% 10/04/2022 2:02 PM OUTSOLE HANDLER Inhaled Oxygen Concentration - - Weight 85.7 kg (188 lb 15 oz) 06/06/2023 10:54 A M CDT Height 178.5 cm (5' 10.28) 06/06/2023 10:54 AM CDT Body Mass Index 26.9 06/06/2023 10:54 AM CDT Plan of Treatment Health Maintenance Due Date Last Done Comments Diabetic Office Visit with F oot Exam 1941 Dilated Eye Exam 1941 Urine Albumin 1941 Hemoglobin A1C 03/01/2017 09/01/2016, 08/27/2014 Creatinine Level (Kidney Fun ction Test) 12/28/2021 12/28/2020, 12/26/2020, 03/06/2020, Additional history exists Potassium Level 12/28/2021 12/28/2020, 11/29, 03/06/2020, Additional history exists Sodium Level 12/28/2021 12/28/2020, 11/29, 03/06/2020, Additional history exists Zoster Vaccines (3 of 3) 11/25/2022 09/30/2022, 04/29 Depression Screening (Annual PHQ-2) 08/29/2023 Fall Risk Screen (Annual) 08/29/2023 Office Visit for Blood Press ure Check / Re-check 09/06/2023 06/06/2023 DTaP,Tdap,and Td Vaccines (2 - Td or Tdap) 03/31/2027 03/31/2017 Pneumococcal vaccine (65+ years) Completed 05/28/20 15, 06/25/2010 COVID-19 Vaccine Completed 06/06/2023, 04/2023, 06/29/2022, Additional history exists Influenza Vaccine Completed 06/06/2023, , 06/08/2021, Additional history exists Medical Devices Implanted Type Area President & Founder Device Identifier Shelf Expiration Date Model / Serial / Lot Ring Annuloflex Carbomedics 36mm - [id number] Implanted:Qty: 1 on 01/11/2011 Cardiac Valve Prosthesis Other/Legacy - See Implant Description Carbomedics Description:Device Manufactu rer - Carbomedics. Body Location - Other. Not Applicable. Device Status Text - [id number]. Hardware E.G. Pins/Screws/Ro ds Hardware e.g. pins/screws/ rods Back [place] Chris Fuzzy 1 X 1 - Kim [id number] Implanted:Qty: 2 on 01/11/2011 Mesh or Patch [place]uring Hydro Description:Device Manufactu rer - NanoPotential. Device Status Text - [id number]. [facility] Data - [id number]. Conversions - Default Historical Implant Device Implanted:11/2015 (Quantity not on file) Vascular Stent Description:Device Status Te xt - Vascular. legs. Care Teams Manager Flight Relationship Specialty Start Date End Date Elsewhere, Pcp PCP - General Internal Medicine 05/03/23
--- OUTSIDE RECORDS SUMMARY | 2023-10-07 13:25 | XMS_ITS | Encounter Summary ---
Author Name Unknown Organization [facility] Address [address] [place] [address] Care Team Providers Care Spinner Hydraulic Name Role Phone Elsewhere, Pcp Primary Care Provider Unavailabl e Encounter Details Date Type Department Care Team (Late st Contact Info) Description 05/04/2023 Orders Only Department of Orthopedic Surgery in [place], [place] [address] [place] [address] Meche Arciniega, TRADE MARKER, C.N.P. [address] [place] [phone] Tumor Bone (Primary Dx) Social History Tobacco Use Types Packs/Day Years [...] documented as of this encounter Results * Pathology Review of Outside Material (02/14/2023 11:45 AM CDT) 05/22/2023 1:47 PM CDT DTL Report electronically signed by Roly Owens M.D. I verify that I have examined all relevant slides/materia ls for the specimen(s) and rendered or confirmed the diagnosis. 05/22/2023 1:47 PM CDT DTL Material Received A. [id number]: Bone biopsy, right iliac crest ? 10 stained slides 05/22/2023 1:47 PM CDT DTL Interpretation FINAL DIAGNOSIS Bone, right iliac crest, FNA and core biopsy ??([id number]; 02/14/2023): ??Fragments of benign trabecular bone and bone marrow with trilineage hematopoiesis. A submitted immunostain for Baltazar is negative. 05/22/2023 1:47 PM CDT DTL Varies 02/14/2023 11:4 5 AM CDT 05/10/2023 12:36 PM CDT Graham Argueta APRNNPrasadP. LAB SURG PAT H ORDERABLES [facility] [address] [place] [address], [facility] DT [address] [place] [address] documented in this encounter Visit Diagnoses Diagnosis Tumor Bone- Primary documented in this encounter Care Teams Spinner Hydraulic Relationship Specialty Start Date End Date Elsewhere, Pcp PCP - General Internal Medicine 05/03/23 documented as of this encounter
--- OUTSIDE RECORDS SUMMARY | 2023-10-07 13:26 | XMS_ITS | Encounter Summary ---
Author Name Unknown Organization [facility] Address [address] [place] [address] Care Team Providers Care Heddle Machine Operator Name Role Phone Unavailable Primary Care Provider Unavailabl e Encounter Details Date Type Department Care Team (Late st Contact Info) Description 11/08/2022 [facility] [address] [place] [address] Tiffanie Pepper M.D. [address] [place] [phone] Mass Bone (Primary Dx) Social History Tobacco Use [...] as of this encounter Visit Diagnoses Diagnosis Mass Bone- Primary documented in this encounter
--- OUTSIDE RECORDS SUMMARY | 2023-10-07 13:26 | XMS_ITS | Encounter Summary ---
Author Name Unknown Organization [facility] Address [address] [place] [address] Care Team Providers Care Drywall Applicator Name Role Phone Unavailable Primary Care Provider Unavailabl e Encounter Details Date Type Department Care Team (Late st Contact Info) Description 03/03/2023 Orders Only Department of Orthopedic Surgery in [place], [place] [address] [place] [address] Kendall Harrison M.D. [address] [place] [address] Tumor Bone (Primary Dx) Social History Tobacco [...] as of this encounter Visit Diagnoses Diagnosis Tumor Bone- Primary documented in this encounter
--- OUTSIDE RECORDS SUMMARY | 2023-10-07 13:26 | XMS_ITS | Encounter Summary ---
Author Name Unknown Organization [facility] Address [address] [place] [address] Care Team Providers Care Teradata Developer Name Role Phone Unavailable Primary Care Provider Unavailabl e Reason for Referral * Outpatient (Routine) - Closed Specialty Diagnoses / Procedures Referred By Sugar lewis Referred To Contact Orthopedic Surgery Diagnoses Other Specified Disorders Of Bone Unspecified Site Tiffanie Pepper M.D. [address] [place] [address] [facility] Referral ID Status Reason Start Date Expiration Date Visits Re quested Visits Authorized [id number] Closed 02/25/2023 02/25/2024 1 1 Encounter Details Date Type Department Care Team (Late st Contact Info) Description 02/25/2023 [facility] [address] [place] [address] Tiffanie Pepper M.D. [address] [place] [address] Other Specified Disorders Of Bone Unspecified Site (Primary Dx) Social History Tobacco Use Types [...] Scheduled Referrals Name Type Priority Associated Diagnoses Orde r Schedule Oncology Referral Outpatient Referral Routine Other Specified Disorders Of Bone Unspecified Site Expected: 02/25/2023 (Approximate), Expires: 05/28/2024 documented as of this encounter Visit Diagnoses Diagnosis Other Specified Disorders Of Bone Unspecified Site- Primary documented in this encounter
--- OUTSIDE RECORDS SUMMARY | 2023-10-07 13:26 | XMS_ITS | Encounter Summary ---
Author Name Unknown Organization [facility] Address [address] [place] [address] Care Team Providers Care Product Technician Name Role Phone Unavailable Primary Care Provider Unavailabl e Reason for Visit * Reason Onset Date Comments Pre-scheduling Questionnaire 02/28/2023 Ordebbie dobbins Oncology Pre-Scheduling Questionnaire Encounter Details Date Type Department Care Team (Latest Contact Info) Description 02/28/2023 Clinical Communication Department of Orthopedic Surgery in [place], [place] [address] [place] [address] Provider, Unknown Pre-scheduling Questionnaire (Orthopedic Oncology Pre-Scheduling Questionnaire) Social History Tobacco Use Types Packs/Day Years [...]
--- OUTSIDE RECORDS SUMMARY | 2023-10-07 13:26 | XMS_ITS | Clinical Summary ---
Author Name Unknown Organization [facility] Address [place], [place] [address] Care Team Providers Care Calibration Checker Name Role Phone Tiffanie Pepper MD Primary Care Provider [phone] Allergies Active Allergy Reactions Criticality Noted Date Comments Fentanyl Dizziness Medium 12/23/2020 Vancomycin Tremors 03/08/2016 Medications Medication Sig Dispensed Refills Start Date End Date Status lisinopril (PRINIVIL; ZESTRIL) 40 mg tablet Take 1 tablet by mouth once daily. 0 03/08/2016 Active metoprolol tartrate (LOPRESSOR) 50 mg tablet Take 1 tablet by mouth 2 times daily. 0 03/08/2016 Active simvastatin (ZOCOR) 40 mg tablet Take 1 tablet by mouth at bedtime. 0 03/08/2016 Active ascorbic acid, vitamin C, (VITAMIN C) 1,000 mg tablet Take 1,000 mg by mouth 2 times daily. 0 03/08/2016 Active aspirin (ECOTRIN) 81 mg enteric coated tablet Take 1 tablet by mouth once daily with a meal. 0 03/08/2016 Active metFORMIN controlled release (FORTAMET) 500 mg tablet Take 500 mg by mouth once daily with a meal. 0 Active allopurinoL (ZYLOPRIM) 300 mg tablet Take 300 mg by mouth once daily. 0 Active chlorthalidone (HYGROTON) 25 mg tablet Take 25 mg by mouth once daily. 0 Active cyclobenzaprine (FLEXERIL) 5 mg tabletIndications:S ольга stenosis, lumbar region with neurogenic claudication Take 2 Tablets (10 mg) by mouth every 8 hours if needed. 30 Tablet 0 12/28/2020 Active oxyCODONE (ROXICODONE) 5 mg immediate release tabletIndications:S ольга stenosis, lumbar region with neurogenic claudication Take 1-2 Tablets (5-10 mg) by mouth every 4 hours if needed for Pain (First choice for severe pain.). 35 Tablet 0 12/28/2020 Active multivit-minerals/F A/lycopene (ONE-A-DAY MEN'S ORAL) Take by mouth. 0 Active insulin glargine,hum.rec.an log (INSULIN GLARGINE SUBQ) Inject 12 units subcutaneous once daily. 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 Presbyopia 02/07/2007 Myopia 02/07/2007 Resolved Problems Problem Noted Date Diagnosed Date Resolved Date Cortical senile cataract 02/07/2007 Family History Medical History Relation Name Comments Hypertension Father Hypertension Mother Relation Name Status Comments Father Mother Social History Tobacco Use Types Packs/Day Years Used Date Smoking Tobacco: Former Cigarettes Q uit: 09/17/2020 Smokeless Tobacco: Never Alcohol Use Standard Drinks/Week Comments Not Currently 0 (1 standard drink = 0.6 oz pur e alcohol) Sex and Gender Information Value Date Recorded Sex Assigned at Not on file Gender Identity Not on file Sexual Orientation Not on file Obstetrics History Last Filed Vital Signs Vital Sign Reading Time Taken Comments Blood Pressure 133/62 02/14/2023 1:30 PM CDT Pulse 67 02/14/2023 1:30 PM CDT Temperature 36.8 ??C (98.2 ??F) 02/14/2023 10:44 AM C DT Respiratory Rate 14 02/14/2023 1:30 PM CDT Oxygen Saturation 94% 02/14/2023 1:30 PM CDT Inhaled Oxygen Concentration - - Weight 83.9 kg (185 lb) 02/14/2023 10:44 AM CDT Height 180.3 cm (5' 11) 02/14/2023 10:44 AM CDT Body Mass Index 25.8 02/14/2023 10:44 AM CDT Plan of Treatment Health Maintenance Due Date Last Done Comments Tdap 1952 Depression screening for age 12+ 1953 Tetanus booster 1961 Zoster (shingles) series for age 50+ (1 of 2) 1991 Medicare Wellness for age 65+ 2006 Pneumococcal series for age 65+ (1 of 1 - PCV) 2006 BMI (ht and wt on same day) for age 18+ 03/08/2017 03/08/2016 COVID-19 vaccine series (2022-24 season) 2023 06/29/2022, 12/15/2021, 06/04/2021, Additional history exists Influenza for age 65+ 04/29/2023 Medical Devices Implanted Type Area Revolving Inventory Clerk Device Identifier Shelf Expiration Date Model / Serial / Lot Bone 1-4mm 30cc Medtronic Chips Canclls Frozen - [id number] Implanted:Qt y: 1 on 12/25/2020 by Mohit Friedman MD at [facility] Lumbar Vertebrae Medtronic Spine/Ortho 07/06/2025 [id number] / [id number] / [id number] Bone 30cc Mtf Chips Wilfredo/Canclls Freeze Dried - [id number] Implanted:Qt y: 1 on 12/25/2020 by Mohit Friedman MD at [facility] Lumbar Vertebrae Musculoskeletal Transplant 08/26/2023 [id number] / [id number] / Steven Lmbr 45x5.5mm Solera 5.5/6 Cvd Titnm - [id number] Implanted:Qt y: 2 on 12/25/2020 by Mohit Friedman MD at [facility] Lumbar Vertebrae Medtronic Spine/Ortho [id number] / / Set Screw Lmbr Ant 5.5mm Solera Break Off - [id number] Implanted:Qt y: 4 on 12/25/2020 by Mohit Friedman MD at [facility] Lumbar Vertebrae Medtronic Spine/Ortho [id number] / / Screw Lmbr Post 7.5x50mm Solera 5.5/6 Va Cocr - [id number] Implanted:Qt y: 4 on 12/25/2020 by Mohit Friedman MD at [facility] Lumbar Vertebrae Medtronic Spine/Ortho [id number] / / Advance Directives Latest Code Status on File Code Status Date Activated Date Inactivated Comments Full Code 02/14/2023 10:04 AM 02/15/2023 2:18 AM Question Answer Comments Code Status Discussion: Unable to Assess Preferences, Provider to review later Code Status History Code Status Date Activated Date Inactivated Comments Full Code 12/25/2020 12:40 PM 12/28/2020 5:05 PM Question Answer Comments Code Status Discussion: Per Existing Order Care Teams Calibration Checker Relationship Specialty Start Date End Date Tiffanie Pepper MD [address] [place] [id number] PCP - General 02/11/23
--- OUTSIDE RECORDS SUMMARY | 2023-10-07 13:26 | XMS_ITS | Encounter Summary ---
Author Name Unknown Organization [facility] Address [address] [place] [address] Care Team Providers Care Paperhanger Pipe Name Role Phone Unavailable Primary Care Provider Unavailabl e Reason for Visit * Reason Onset Date Comments Pre-visit Intake 02/28/2023 OSM request Encounter Details Date Type Department Care Team (Latest Contact Info) Description 02/28/2023 Clinical Communication Department of Orthopedic Surgery in [place], [place] [address] [place] [address] Provider, Unknown Pre-visit Intake (OSM request) Social History Tobacco Use Types Packs/Day Years [...]
== END 2023-10-07 13:22 | disposition home or self-care (01) ==
LOC: FRMREF 13:22
PROVIDERS: PCP Family Medicine; Visit Provider Family Medicine
DX: E11.65 Type 2 diabetes mellitus with hyperglycemia (principal); Z79.4 Long term (current) use of insulin
CPT/HCPCS: 80053

== ENCOUNTER 2024-02-03 12:28 | Outpatient (CLI) | payer MEDICARE, SELFPAY ==
[2024-02-03 22:53] LABS: Creatinine Urine 127.8 mg/dL
[2024-02-03 22:56] LABS: Microalbumin Creatinine Ratio 40 mg/g (0-30); Microalbumin Urine 6 mg/dL
== END 2024-02-03 12:29 | disposition home or self-care (01) ==
PROVIDERS: PCP Family Medicine; Visit Provider Family Medicine
DX: Z00.00 Encounter for general adult medical examination without abnormal findings (principal); E11.65 Type 2 diabetes mellitus with hyperglycemia; I10 Essential (primary) hypertension; E27.8 Other specified disorders of adrenal gland; D64.9 Anemia, unspecified; N18.9 Chronic kidney disease, unspecified; R53.83 Other fatigue
CPT/HCPCS: 80053; 82043; 82088; 82306; 82570; 84443; 86618

== ENCOUNTER 2024-04-09 04:10 | Inpatient (IN) | payer MEDICARE, SELFPAY ==
[2024-04-09] VITALS (17 sets, daily range): BP systolic 105–166; BP diastolic 62–86; PULSE 48–79; RESP 16–20; TEMP 36.6–36.8; O2SAT 91–99; BMI 25.8; BMI 24.9
--- NOTE | 2024-04-09 04:39 | CRLHL7_ITS ---
For Patients: As a result of the Century Cures Act, medical imaging exams and procedure reports are released immediately into your electronic medical record. You may view this report before your referring provider. If you have questions, please contact your health care provider. INDICATION: Small-bowel obstruction COMPARISON: The most recent available study of 12/16/2022 TECHNIQUE: CT examination of the abdomen and pelvis was performed following the uneventful intravenous administration of 93 cc of Isovue 370. Thin section axial images were obtained from the lung bases through the pubic symphysis. Oral contrast was not administered. Please note that all CT scans at this facility use dose modulation, iterative reconstruction, and/or weight-based dosing when appropriate to reduce radiation dose to as low as reasonably achievable. FINDINGS: LUNG BASES: Fibrotic opacities at the lung bases.Similar appearance to the prior study. Heart size normal the lung bases. Vascular and valvular calcifications noted. LIVER/BILIARY SYSTEM:Normal-sized liver. Hepatic cysts are noted. Distended gallbladder but no visible stones. Intra and extrahepatic biliary ductal dilation is identified.These findings are similar to October 30, 2022. Correlate with LFTs ADRENALS: Bilateral adrenal masses. The right adrenal mass measures 2.5 centimeters and the left adrenal mass measures 2.0 centimeters. These are indeterminate regarding their etiology but they are unchanged since the prior study. KIDNEYS, URETERS and BLADDER:Numerous bilateral renal lesions probably all cysts. Some are too small to characterize. The general appearance is unchanged. The bladder appears normal though is only partially seen due to streak artifact from hip arthroplasty. SPLEEN:Normal appearance. PANCREAS: Atrophic pancreas with calcifications and ductal dilation probably due to chronic calcific pancreatitis. Similar appearance to the prior exam RETROPERITONEUM and MESENTERY: There is no mass, adenopathy or aortic aneurysm. Atherosclerotic vascular calcification GASTROINTESTINAL SYSTEM: Abnormal dilation of small bowel consistent with a distal small-bowel obstruction. Point of transition in the right lower quadrant probably a stricture. Fecal retention and diverticulosis noted. PELVIS: Poorly seen due to streak artifact from a left hip arthroplasty. Enlarged prostate. OSSEOUS STRUCTURES and ABDOMINAL WALL: Demineralization and degenerative change. Chronic appearing wedging of a lower thoracic vertebral body. Postoperative changes of the spine. Sclerotic lesion of the right innominate bone unchanged since the prior study could be a chondroid lesion.Appropriate follow up is advised. OTHER: No free fluid or free air. IMPRESSION: 1. Distal small bowel obstruction. The patient had a similar appearance October 30, 2022. Point of transition in the right lower quadrant probably a stricture. 2. Bibasilar opacities, likely fibrotic. 3. Distended gallbladder without visible stones. Intra and extrahepatic biliary ductal dilation. This appearance is similar to the prior study. The exact etiology is not visible on this study as there is no visible periampullary mass or distal choledocholithiasis. Correlate with LFTs. 4. Indeterminate bilateral adrenal masses. These are unchanged since October 30, 2022 and presumably therefore benign. 5. Evidence of chronic calcific pancreatitis. 6. Sclerotic, probably chondroid lesion of the right innominate bone similar to the prior study. 7. Other nonacute appearing findings as discussed above Please note that all CT scans at this facility use dose modulation, iterative reconstruction, and/or weight-based dosing when appropriate to reduce radiation dose to as low as reasonably achievable. Dictated by Jude Nunez MD @ 04/09/2024 5:39:01 AM (Electronically Signed)
--- NOTE | 2024-04-09 04:43 | ED_ITS ---
HPI - General Adult General Chief complaint: Abdominal Pain Stated complaint: abdominal pain, possible blocked colon Time Seen by Provider: 04/09/24 04:23 Source: patient Mode of arrival: ambulatory Limitations: no limitations History of Present Illness HPI narrative: [age] male presents to the emergency department for abdominal bloating and pain for the past 8 hours. Pain is gradually worsening. History of multiple prior small bowel obstructions, most recent being October of 2022. No specific foods or injury. The abdomen feels distended. Did have a small bowel movement shortly prior to the pain starting. Did try drinking water this evening but vomited the water back up promptly. Has not continued to have vomiting. No blood in the vomit tonight, no recent bloody stools. He actually has no prior history of abdominal surgeries but did have a ruptured appendicitis in the past which seems to have caused some scar tissue. He reports that he did not have bowel obstructions prior to that event. Reports that the appendicitis could not be surgically managed due to the rupture. Prior notes reviewed. No urinary changes from baseline, does self cath multiple times daily for neurogenic bladder. No recent fevers. No falls or weakness. No cardiac or pulmonary symptoms. He has not tried any other interventions to help with his pain. Abdominal pain is located diffusely throughout the abdomen, feels like pressure. Worsening in nature. 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 Reported history of neurogenic bladder, hypertension and peripheral artery disease. Home meds are allopurinol, chlorthalidone, lisinopril, metoprolol, simvastatin. Lantus insulin is listed on his medicine list but he does not report taking that to me. Allergies are to vancomycin which he gives a pretty reliable story that this is more likely red man syndrome than a true allergy. Fentanyl causing dizziness which would be a side effect as well. Lives independ ently, family present today. Remainder of history reviewed. Related Data Home Medications ?Medication ?Instructions ?Recorded ?Confirmed ascorbic acid (vitamin C) 1,000 mg 1 g PO BID 06/07/22 02/03/24 tablet insulin glargine 100 unit/mL (3 10 unit subcut QAM 02/03/24 02/03/24 mL) subcutaneous pen (Lantus Solostar U-100 Insulin) Previous Rx's ?Medication ?Instructions ?Recorded allopurinol 300 mg tablet 300 mg PO DAILY #90 tabs 02/03/24 blood sugar diagnostic (Contour #100 ea 02/03/24 Next Test Strips) chlorthalidone 25 mg tablet 25 mg PO DAILY #90 tabs 02/03/24 lisinopril 40 mg tablet 40 mg PO DAILY #90 tabs 02/03/24 metoprolol tartrate 50 mg tablet 50 mg PO BID #180 tabs 02/03/24 pen needle, diabetic 32 gauge x #100 ea 02/03/24 (BD Gerda 2nd Gen Pen Needle) simvastatin 40 mg tablet 40 mg PO DAILY #90 tabs 02/03/24 Allergies Allergy/AdvReac Type Severity Reaction Status Date / Time vancomycin Allergy Mild Shakiness Verified 02/03/24 12:11 fentanyl AdvReac Mild Dizziness Verified 02/03/24 12:11 [facility] Medical History Chronic pancreatitis ?K86.1 - Other chronic pancreatitis (ICD-10) Insomnia ?G47.00 - Insomnia, unspecified (ICD-10) T12 compression fracture ?S22.080A - Wedge compression fracture of T11-T12 vertebra, initial encounter for closed fracture (ICD-10) Bone mass ?M89.8X9 - Other specified disorders of bone, unspecified site (ICD-10) Gout (04/30/10) ?M10.9 - Gout, unspecified (ICD-10) Small bowel obstruction ?K56.609 - Unspecified intestinal obstruction, unspecified as to partial versus complete obstruction (ICD-10) Hepatic cyst ?K76.89 - Other specified diseases of liver (ICD-10) Senile nuclear sclerosis ?H25.10 - Age-related nuclear cataract, unspecified eye (ICD-10) Neurogenic claudication ?R29.818 - Other symptoms and signs involving the nervous system (ICD-10) Squamous cell carcinoma Perforated appendicitis ?K35.32 - Acute appendicitis with perforation, localized peritonitis, and gangrene, without abscess (ICD-10) Surgical History S/P hip replacement (06/20/23) ?Z96.649 - Presence of unspecified artificial hip joint (ICD-10) Status post insertion of iliac artery stent (~2005) ?Z95.828 - Presence of other vascular implants and grafts (ICD-10) Status post lumbar spine surgery for decompression of spinal cord (12/25/20) ?Z98.890 - Other specified postprocedural states (ICD-10) Hx of CABG (01/20/11) ?Z95.1 - Presence of aortocoronary bypass graft (ICD-10) History of prostate surgery ?Z98.890 - Other specified postprocedural states (ICD-10) History of endoscopic retrograde cholangiopancreatography ?Z98.890 - Other specified postprocedural states (ICD-10) History of arthroscopy of right knee ?Z98.890 - Other specified postprocedural states (ICD-10) Family History Mother CHF (congestive heart failure) High blood pressure Paternal Grandfather Bladder cancer Father Myocardial infarction High blood pressure Other Liver cancer Stroke Throat cancer Social History Narrative: Former smoker - started 20-30 cigarettes per day 1954, stopped 09/2020 Does not drink alcohol Does not use illicit drugs Previously desired to be DNI What is your current living situation?: I presently have a place to live In the past 12 months, utilities in danger of being shut off: no In past 12 months, lack of transportation kept you from medical appts, meetings, work, or getting things needed for daily living: no In the past 12 mos, have been you worried that your food would run out before you had money to buy more?: never true In the past 12 mos, the food you bought just didn't last and you didn't have money to buy more?: never true Highest level of school completed/degree received: decline to answer Smoking Status: Former smoker What tobacco products do you use: cigarettes Smoking packs per day: 1 Smoking cigarettes per day: 20.0 Years smoked: 60 Smok ing pack-years: 60.00 Smoking quit date/years: <= 15 years ago Do you use any of these nicotine containing products: None Second hand tobacco smoke exposure: No How often do you have a drink containing alcohol: never How often do you have six or more drinks on one occasion: Never AUDIT-C Alcohol total score: 0 Non-prescribed substance use: denies use Caffeine: Yes (coffee) How often does anyone, including family, friends and others, physically hurt you : never How often does anyone, including family, friends and others, insult or talk down to you: never How often does anyone, including family, friends and others, threaten you with harm: never How often does anyone, including family, friends and others, scream or curse at you: never Little interest or pleasure in doing things: not at all Feeling down, depressed, or hopeless: not at all service: No Exam Const: Vital Signs, click to edit/add: Vital Signs - 24 hr 04/09/24 04:19 04/09/24 04:56 04/09/24 05:16 Temperature 97.9 F Pulse Rate 74 Pulse Rate [Pulse Oximeter] 60 Respiratory Rate 16 18 Blood Pressure 166/76 H Blood Pressure [Ri ght Upper Arm] 145/70 H Pulse Oximetry 99 98 99 Oxygen Delivery Me thod Room Air 04/09/24 06:02 Temperature Pulse Rate 73 Pulse Rate [Pulse Oximeter] Respiratory Rate 20 Blood Pressure 126/70 Blood Pressure [Ri ght Upper Arm] Pulse Oximetry 95 Oxygen Delivery Me thod Documenting provider has reviewed patient's vital signs: yes Common normals: no apparent distress and alert General appearance: cooperative, comfortable and well kempt Other: Mildly hard of hearing, fairly good historian. HENMT: Common normals: normocephalic and oropharynx normal Head and scalp: normocephalic Face and sinus: normal facial exam Mouth: oral and palatal mucosa normal Throat: posterior oropharynx normal Eye: Common normals: conjunctivae normal General eye: normal appearance of both eyes Conjunctiva: conjunctiva(e) normal Neck & C-Spine: Common normals: no lymphadenopathy General: normal visual inspection Resp: Common normals: normal respiratory effort, no use of accessory muscles and clear to auscultation bilaterally Effort & inspection: able to speak in complete sentences Auscultation: clear to auscultation bilaterally Cardio: Common normals: regular rate, regular rhythm, S1 normal heart sound, S2 normal heart sound and no murmurs Rate: regular rate Rhythm: regular rhythm Heart sounds: S1 normal and S2 normal GI: Other: Abdomen distended, tympanitic to percussion. Difficult to palpate organs due to distended bowel. No obvious mass but very limited exam. Bowel sounds do sound hyperactive, especially in the right lower quadrant. Mildly tender to palpation but no rebound tenderness or guarding : Common normals: no CVA tenderness Bladder/kidney exam: no CVA tenderness Back & Pelvis: Common normals: no CVA tenderness Extremity: Common normals: normal to inspection, normal capillary refill and no pedal edema Neuro: Common normals: moves all extremities and no focal motor deficits Sensorium/orientation: alert Speech: speech normal Psych: Appearance: well kempt Attitude: engaged Insight: insight good Judgement: judgment good Skin: Common normals: no rashes or lesions noted General skin exam: no rashes or lesions noted Course Course ED Course: 83-year-old male presenting with symptoms consistent with likely small bowel obstruction, history of recurrent small-bowel obstruction. Will place peripheral IV, give 2 mg of morphine, 4 of Zofran and 1 L of LR over [address] of the abdomen and pelvis, typical intra-abdominal labs but including a lipase due to prior history of pancreatitis. I would like a urinalysis when he is able to provide 1. Await CT findings. Differential diagnosis also including enteritis, ulcer, pancreatitis, volvulus besides more likely obstruction, ischemia, amongst others. We clinical response and CT findings. Reevaluation(s) Time of Reevaluation #1: 06:09 Reevaluation #1: Labs are reviewed, mild leukocytosis. Remainder of labs show a mildly elevated creatinine at 1.7 which is slightly above his baseline of 1.4. 1 L IV fluid has been started. CT is possibly suggestive of a stricture as the etiology for this small bowel obstruction. Multiple chronic findings which are actually unchanged from last year are noted as well. I have consult to Dr. Horowitz. She will be calling us back with her recommendations. Hospitalist team has been paged for admission. Patient feeling much better after initial dose of morphine and Zofran. Is not having any vomiting here in the ED, we have elected to hold off on an NG tube at this time. Time of Reevaluation #2: 07:12 Reevaluation #2: Hospitalist accepted admission. Dr. Horowitz will consult Vital Signs Vital signs: Initial Vital Signs Temperature 97.9 F 04/09/24 04:19 Temperature Source Temporal Artery Scan 04/09/24 04:19 Pulse Rate 60 04/09/24 04:19 Respiratory Rate 16 04/09/24 04:19 Blood Pressure 145/70 H 04/09/24 04:19 Blood Pressure Mean 95 04/09/24 04:19 Blood Pressure Position Sitting 04/09/24 04:19 Pulse Oximetry 99 04/09/24 04:19 Oxygen Delivery Method Room Air 04/09/24 04:19 Vital Signs Temperature 97.9 F 04/09/24 04:19 Pulse Rate 60 04/09/24 04:19 Respiratory Rate 16 04/09/24 04:19 Blood Pressure 145/70 H 04/09/24 04:19 Pulse Oximetry 99 04/09/24 04:19 Oxygen Delivery Method Room Air 04/09/24 04:19 Temperature 97.9 F 04/09/24 04:19 Pulse Rate 73 04/09/24 06:02 Respiratory Rate 20 04/09/24 06:02 Blood Pressure 126/70 04/09/24 06:02 Pulse Oximetry 95 04/09/24 06:02 Oxygen Delivery Method Room Air 04/09/24 04:19 Medications Administered Medications: Discontinued Medications Generic Name Dose Route Start Last Admin Trade Name Freq PRN Reason Stop Dose Admin Lactated Ringer's 1,000 mls @ 500 mls/hr 04/09/24 04:40 04/09/24 04:45 Lactated Ringers 1000 Ml IV 04/09/24 06:39 500 mls/hr .Q2H CRISTINA Administration Morphine Sulfate 2 mg 04/09/24 04:39 04/09/24 04:50 Morphine 2 Mg/Ml Inj IVP 04/09/24 04:40 2 mg ONCE ONE Administration Ondansetron HCl 4 mg 04/09/24 04:39 04/09/24 04:47 Ondansetron 2 Mg/Ml Inj IVP 04/09/24 04:40 4 mg ONCE ONE Administration Medical Decision Making Lab Data Lab results reviewed: Yes I reviewed the patient's lab results Lab results narrative: Mild leukocytosis, creatinine slightly above normal for patient with baseline of 1.4. Labs: Lab Results 04/09/24 04/09/24 Range/Units 04:39 04:54 WBC 13.93 H (4.50-11.00) K/uL RBC 4.47 (4.30-5.90) m/uL Hgb 14.0 (13.5-17.5) gm/dL Hct 43.1 (37.0-53.0) % MCV 96 (80-100) fL MCH 31 (26-34) pg MCHC 33 (32-36) gm/dL RDW Coeff of [place] 13.3 (11.5-15.5) % Plt Count 161 (140-440) K/uL Neut % (Auto) 90.1 H (42.0-72.0) % Lymph % (Auto) 6.1 L (20-44) % [place] % (Auto) 3.3 (0.0-11.0) % Eos % (Auto) 0.1 (0.0-7.0) % Baso % (Auto) 0.1 (0.0-3.0) % Neut # (Auto) 12.60 H (1.7-7.0) K/uL Lymph # (Auto) 0.80 L (0.90-2.90) K/uL [place] # (Auto) 0.50 (0.00-0.90) K/UL Eos # (Auto) 0.00 (0.00-0.50) K/uL Baso # (Auto) 0.00 (0.00-0.30) K/uL Abs Immat Gran (auto) 0.00 (0.00-0.30) K/uL Imm/Tot Granulo (auto) 0.3 % Sodium 136 (135-149) mmol/L Potassium 4.6 (3.6-5.1) mmol/L Chloride 103 (96-114) mmol/L Carbon Dioxide 20 (20-32) mmol/L Anion Gap 13 (7-15) mEq/L BUN 27 (7-30) mg/dL Creatinine 1.7 H (0.5-1.5) mg/dL Estimated Creat Clear 36.77 Estimated GFR 40 ml/min Glucose 221 H (60-115) mg/dL Lactate 2.2 H (0.5-1.9) mmol/L Calcium 9.4 (8.4-10.6) mg/dL Total Bilirubin 0.7 (0.1-1.5) mg/dL AST 38 H (12-35) U/L ALT 26 (4-50) U/L Alkaline Phosphatase 106 (40-150) U/L C-Reactive Protein 0.7 (0.5-1.0) mg/dL Total Protein 7.8 (6.0-8.3) g/dL Albumin 4.5 (3.3-5.0) g/dL Lipase 17 L (23-300) U/L POC Creatinine 1.8 H (0.6-1.3) mg/dl Imaging Data CT scan - abdomen: Attestation: I have reviewed the pertinent imaging results. My impression: Seems to be small bowel obstruction with transition point and some scar tissue a coarsened not right lower quadrant. Noted that Radiology is interpreted potential stricture. Surgeon has been consulted. Radiologist's impression: IMPRESSION: 1. Distal small bowel obstruction. The patient had a similar appearance October 30, 2022. Point of transition in the right lower quadrant probably a stricture. 2. Bibasilar opacities, likely fibrotic. 3. Distended gallbladder without visible stones. Intra and extrahepatic biliary ductal dilation. This appearance is similar to the prior study. The exact etiology is not visible on this study as there is no visible periampullary mass or distal choledocholithiasis. Correlate with LFTs. 4. Indeterminate bilateral adrenal masses. These are unchanged since October 30, 2022 and presumably therefore benign. 5. Evidence of chronic calcific pancreatitis. 6. Sclerotic, probably chondroid lesion of the right innominate bone similar to the prior study. 7. Other nonacute appearing findings as discussed above Please note that all CT scans at this facility use dose modulation, iterative reconstruction, and/or weight-based dosing when appropriate to reduce radiation dose to as low as reasonably achievable. Dictated by Jude Nunez MD @ 04/09/2024 5:39:01 AM Discharge Plan Discharge Clinical Impression: Small bowel obstruction Prescriptions: No Action ascorbic acid (vitamin C) 1,000 mg tablet 1 g PO BID allopurinol 300 mg tablet 300 mg PO DAILY Qty: 90 3RF (DME) Contour Next Test Strips Strip See Rx Instructions .Route Qty: 100 4RF Rx Instructions: daily prn chlorthalidone 25 mg tablet 25 mg PO DAILY Qty: 90 3RF insulin glargine [Lantus Solostar U-100 Insulin] 100 unit/mL (3 mL) insulin pen 10 unit subcut QAM lisinopril 40 mg tablet 40 mg PO DAILY Qty: 90 3RF metoprolol tartrate 50 mg tablet 50 mg PO BID Qty: 180 3RF (DME) pen needle, diabetic [BD Gerda 2nd Gen Pen Needle] 32 gauge x 5/32 needle See Rx Instructions .ROUTE .COMPLEX Qty: 100 12RF Dose Instruction: USE DAILY Rx Instructions: USE DAILY simvastatin 40 mg tablet 40 mg PO DAILY Qty: 90 3RF Follow Up/Referrals: Tiffanie Pepper MD [Primary Care Provider] -
[2024-04-09] MEDS: LACTATED RINGERS 1000 ML 1,000 ML 500 ML IV (04:45)
[2024-04-09] MEDS: ONDANSETRON 2 MG/ML inj 4 MG IVP (04:47)
[2024-04-09] MEDS: MORPHINE 2 MG/ML inj IVP (04:50)
[2024-04-09 04:54] LABS: Creatinine, Point-of-Care* 1.8 mg/dl (0.6-1.3)
[2024-04-09 04:59] LABS: Lactate* 2.2 mmol/L (0.5-1.9)
[2024-04-09 05:01] LABS: Basophils Percent Auto 0.1 % (0.0-3.0); Eosinophils Percent Auto 0.1 % (0.0-7.0); Hematocrit 43.1 % (37.0-53.0); Immature Granulocytes Pct Auto 0.3 %; Lymphocytes Percent Auto 6.1 % (20-44); Mean Corpuscular HGB Conc 33 gm/dL (32-36); Mean Corpuscular Hemoglobin 31 pg (26-34); Mean Corpuscular Volume 96 fL (80-100); Monocytes Percent Auto 3.3 % (0.0-11.0); Neutrophils Percent Auto 90.1 % (42.0-72.0); Platelet Count* 161 K/uL (140-440); RDW Coefficient of Variation % 13.3 % (11.5-15.5); Red Blood Count 4.47 m/uL (4.30-5.90); White Blood Count* 13.93 K/uL (4.50-11.00)
[2024-04-09 05:03] LABS: Slide Review Reflex No
[2024-04-09 05:14] LABS: Albumin* 4.5 g/dL (3.3-5.0); Chloride* 103 mmol/L (96-114); Sodium* 136 mmol/L (135-149)
[2024-04-09 05:15] LABS: Potassium* 4.6 mmol/L (3.6-5.1)
[2024-04-09 05:16] LABS: Lipase* 17 U/L (23-300)
[2024-04-09 05:17] LABS: Alanine Aminotransferase* 26 U/L (4-50); Alkaline Phosphatase* 106 U/L (40-150); Anion Gap 13 mEq/L (7-15); Aspartate Amino Transferase* 38 U/L (12-35); Bilirubin Total* 0.7 mg/dL (0.1-1.5); Blood Urea Nitrogen* 27 mg/dL (7-30); Carbon Dioxide* 20 mmol/L (20-32); Creatinine* 1.7 mg/dL (0.5-1.5); Est. Creatinine Clearance* 36.77; Estimated Glomerular Filt Rate 40 ml/min; Glucose* 221 mg/dL (60-115); Total Protein* 7.8 g/dL (6.0-8.3)
[2024-04-09 05:18] LABS: Calcium* 9.4 mg/dL (8.4-10.6)
[2024-04-09 05:20] LABS: C Reactive Protein* 0.7 mg/dL (0.5-1.0)
--- OUTSIDE RECORDS SUMMARY | 2024-04-09 05:37 | XMS_ITS | Clinical Summary ---
Author Organization [facility] Address [address] [place] [address] Care Team Providers Care Room Service Bellhop Name Role Phone Elsewhere, Pcp Primary Care Provider Unavailabl e Source Comments Patient records contain information from all sites at [facility]. For routine questions regarding patient records, call [phone] during business hours, M-F 8:00 AM - 5:00 PM Central Time. Record requests for emergency care only can be directed to [phone] at any time.[facility] Allergies Active Allergy Reactions Criticality Noted Date Comments Fentanyl Other (see comments) Medium 12/23/2020 Vancomycin Vancomycin Infusion Reaction 017 Red man syndrome Medications Medication Sig Dispensed Refills Start Date End Date Status metoprolol tartrate (LOPRESSOR) 50 mg tablet Take 1 tablet by mouth 2 (two) times a day. 09/01/2015 Active lisinopril (PRINIVIL,ZESTRIL) 40 mg tablet Take 1 tablet by mouth daily. 01/26/2017 Active simvastatin (ZOCOR) 40 mg tablet Take 1 tablet by mouth daily. 09/01/2015 Active glucosamine HCl/chondroitin arias (GLUCOSAMINE-CHONDROI TIN ORAL) Take 1 tablet by mouth 2 (two) times a day. 08/20/2014 Active ascorbic acid, vitamin C, (VITAMIN C) 1,000 mg tablet Take 1 tablet by mouth 2 (two) times a day. 08/20/2014 Active chlorthalidone (HYGROTON) 25 mg tablet Take 1 tablet (25 mg total) by mouth daily. 30 tablet 12/24/2021 Active allopurinoL (ZYLOPRIM) 300 mg tablet Take 300 mg by mouth daily. 09/07/2022 Active Contour Next Test Strips strips 2 (two) times a day. 09/11/2022 Active Lantus Solostar U-100 Insulin 100 unit/mL (3 mL) injection INJECT 25 UNITS SUB-Q NIGHTLY 09/03/2022 Active mirtazapine (REMERON) 7.5 mg tablet Take 7.5 mg by mouth at bedtime. 02/27/2023 Active multivit-min/ferrous fumarate (MULTI VITAMIN ORAL) Take 1 tablet by mouth daily. 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 02/13/2024 [facility] [address] [place] [address] Tiffanie Pepper M.D. Nonrheumatic Mitral Valve Insufficiency (Primary Dx); Atherosclerotic Heart Disease Of [place] Coronary Artery Without Angina Pectoris; Hypertension Essential Primary 02/10/2024 Clinical Communication Department of Cardiovascular Diseases in [address] [address] Jesus Rey M.D. 02/03/2024 [facility] [address] [place] [address] Tiffanie Pepper M.D. Atherosclerotic Heart Disease Of [place] Coronary Artery Without Angina Pectoris (Primary Dx) from Last 3 Months Immunizations Name Administration Dates Next Due PPSV23 06/25/2010 Social History Tobacco Use Types Packs/Day Years Used Date Smoking Tobacco: Former Cigarettes 1 5 - 2020 Passive Smoke Exposure: Past Smokeless Tobacco: [...] CDT Oxygen Saturation 98% 10/04/2022 2:02 PM COLLEGE SERVICE OFFICER Inhaled Oxygen Concentration - - Weight [...] Press ure Check / Re-check 09/06/2023 06/06/2023 COVID-19 Vaccine (2022-2 4 season) 2023 06/06/2023, 06/06/2023, 06/29/2022, Additional history exists Influenza Vaccine (#1) 2024 , 06/11/2022, 06/08/2021, Additional history exists DTaP,Tdap,and Td Vaccines (2 - Td or Tdap) 03/31/2027 03/31/2017 Pneumococcal vaccine (65+ years) Completed 05/28/20 15, 06/25/2010 Medical Devices Implanted Type Area Copyright Expert Device Identifier Shelf Expiration Date Model / Serial / Lot Valve Mitral Kenney Ii 31mm - Kim [id number] Implanted:Qty: 1 on 01/11/2011 Cardiac Valve Prosthesis Other/Legacy - See Implant Description Medtronic Description:Device Manufactu rer - Medtronic [employer]. Body Location - Other. Mitral. Device Status Text - [id number]. Ring Annuloflex Carbomedics 36mm - Kim [id number] Implanted:Qty: 1 on 01/11/2011 Cardiac Valve Prosthesis Other/Legacy - See Implant Description Carbomedics Description:Device Manufactu rer - Carbomedics. Body Location - Other. Not Applicable. Device Status Text - [id number]. Hardware E.G. Pins/Screws/Ro ds Hardware e.g. pins/screws/ rods Back Wellington Chris Fuzzy 1 X 1 - Kim [id number] Implanted:Qty: 2 on 01/11/2011 Mesh or Patch PeriGen Description:Device Manufactu rer [employer]. Device Status Text - Rate [id number]. [facility] Data - [id number]. Conversions - Default Historical Implant Device Implanted:11/2015 (Quantity not on file) Vascular Stent Description:Device Status Te xt - Vascular. legs. 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 HEMOGLOBIN A1C, B Routine 09/01/2016 8:1 0 AM COLLEGE SERVICE OFFICER from Last 3 Months or Most Recently Relevant to Health Maintenance Results * (ABNORMAL) Basic Metabolic Panel (02/12/2019 8:26 AM CDT) Potassium, S 4.4 3.6 - 5.2 mmol/L 02/12/2019 9:28 AM CDT Sodium, S 141 135 - 145 mmol/L 02/12/2019 9:28 AM CDT Chloride, S 102 98 - 107 mmol/L 02/12/2019 9:28 AM CDT Bicarbonate, S 26 22 - 29 mmol/L 02/12/2019 9:28 AM CDT Anion Gap 13 7 - 15 02/12/2019 9:28 AM CDT BUN (Blood Urea Nitrogen), S 16 8 - 24 mg/dL 02/12/2019 9:28 AM CDT Creatinine 1.09 0.74 - 1.35 mg/dL 02/12/2019 9:28 AM CDT eGFR-Non Black/ 65 >=60 mL/min/BSA 02/12/2019 9:28 AM CDT Comment: ----ADDITIONAL INFORMATION---- Estimated GFR calculated using the 2009 CKD_EPI creatinine equation. eGFR-Black/Afri can Citizen Of [place] 75 >=60 mL/min/BSA 02/12/2019 9:28 AM CDT Comment: ----ADDITIONAL INFORMATION---- Estimated GFR calculated using the 2009 CKD_EPI creatinine equation. Calcium, Total, S 9.5 8.8 - 10.2 mg/dL 02/12/2019 9:28 AM CDT Glucose, S 141(H) 70 - 140 mg/dL 02/12/2019 9:28 AM CDT Blood (Blood, Venous) 02/12/2019 8:26 AM CDT 02/12/2019 8:26 AM CDT Elan Chiu M.D. LAB BLOOD AD D-ON [facility] [address] [address], [facility] * (ABNORMAL) Hemoglobin A1c (09/01/2016 8:10 AM COLLEGE SERVICE OFFICER) Hemoglobin A1c, B 6.5(H) 4.0 - 5.6 % [facility] Comment: Hemoglobin A1c values greater than or equal to 6.5 percent ? are diagnostic for diabetes mellitus. ??Diagnosis should be ? confirmed by repeat testing. ??In diabetic patients, HbA1c ? goals should be discussed with healthcare provider. ? 09/01/2016 8:10 AM COLLEGE SERVICE OFFICER 09/01/2016 8:10 AM COLLEGE SERVICE OFFICER Graham Sparks APRNNKinjal LAB BLOOD ADD -ON [facility] [address] [place] [address], [facility] from Last 3 Months or Most Recently Relevant to Health Maintenance Care Teams Room Service Bellhop Relationship Specialty Start Date End Date Elsewhere, Pcp PCP - General Internal Medicine 05/03/23
--- OUTSIDE RECORDS SUMMARY | 2024-04-09 05:37 | XMS_ITS | Encounter Summary ---
Author Organization [facility] Address [address] [place] [address] Care Team Providers Care Welder Tech Name Role Phone Elsewhere, Pcp Primary Care Provider Unavailabl e Encounter Details Date Type Department Care Team (Latest Contact Info) Description 02/10/2024 Clinical Communication Department of Cardiovascular Diseases in [place], [place] [address] [place] [phone] Jesus Rey M.D. [address] [place] [address] Social History Tobacco Use Types Packs/Day Years [...] on filedocumented in this encounter Care Teams Welder Tech Relationship Specialty Start Date End Date Elsewhere, Pcp PCP - General Internal Medicine 05/03/23 documented as of this encounter
--- OUTSIDE RECORDS SUMMARY | 2024-04-09 05:37 | XMS_ITS | Encounter Summary ---
Author Organization [facility] Address [address] [place] [address] Care Team Providers Care Proposal Consultant Name Role Phone Elsewhere, Pcp Primary Care Provider Unavailabl e Encounter Details Date Type Department Care Team (Late st Contact Info) Description 03/06/2024 [facility] [address] [place] [address] Tiffanie Pepper M.D. [address] [place] [phone] Social History Tobacco Use Types Packs/Day Years [...] on filedocumented in this encounter Care Teams Proposal Consultant Relationship Specialty Start Date End Date Elsewhere, Pcp PCP - General Internal Medicine 05/03/23 documented as of this encounter
--- OUTSIDE RECORDS SUMMARY | 2024-04-09 05:37 | XMS_ITS | Referral Summary ---
Author Organization [facility] Address [address] [place] [address] Care Team Providers Care Dye Maker Name Role Phone Elsewhere, Pcp Primary Care Provider Unavailabl e Source Comments Patient records contain information from all sites at [facility]. For routine questions regarding patient records, call [phone] during business hours, M-F 8:00 AM - 5:00 PM Central Time. Record requests for emergency care only can be directed to [phone] at any time.[facility] Encounters Date Type Department Care Team Description 03/06/2024 [facility] [address] [place] [address] Tiffanie Pepper M.D. 02/13/2024 [facility] [address] [place] [address] Tiffanie Pepper M.D. Nonrheumatic Mitral Valve Insufficiency (Primary Dx); Atherosclerotic Heart Disease Of [place] Coronary Artery Without Angina Pectoris; Hypertension Essential Primary 02/10/2024 Clinical Communication Department of Cardiovascular Diseases in [address] [phone] Jesus Rey M.D. 02/03/2024 [facility] [address] [place] [address] Tiffanie Pepper M.D. Atherosclerotic Heart Disease Of [place] Coronary Artery Without Angina Pectoris (Primary Dx) from Last 3 Months Allergies Active Allergy Reactions Criticality Noted Date [...] 08/20/2014 Immunizations Name Administration Dates Next Due PPSV23 06/25/2010 Social History Tobacco Use Types Packs/Day Years Used Date Smoking Tobacco: Former Cigarettes 1 955 - 2020 Passive Smoke Exposure: Past Smokeless [...] CDT Oxygen Saturation 98% 10/04/2022 2:02 PM PROCUREMENT SPECIALIST Inhaled Oxygen Concentration - - Weight 85.7 kg (188 lb 15 oz) 06/06/2023 10:54 A M CDT Height 178.5 cm (5' 10.28) 06/06/2023 10:54 AM CDT Body Mass Index 26.9 06/06/2023 10:54 AM CDT Plan of Treatment Not on file Medical Devices Implanted Type Area Spoke Maker Device Identifier Shelf Expiration Date Model / Serial / Lot Valve Mitral Kenney Ii 31mm - Kim [id number] Implanted:Qty: 1 on 01/11/2011 Cardiac Valve Prosthesis Other/Legacy - See Implant Description Medtronic Description:Device Manufactu rer - [employer]. Body Location - Other. Mitral. Device Status Text - [id number]. Ring Annuloflex Carbomedics 36mm - Kim [id number] Implanted:Qty: 1 on 01/11/2011 Cardiac Valve Prosthesis Other/Legacy - See Implant Description Carbomedics Description:Device Manufactu rer - Carbomedics. Body Location - Other. Not Applicable. Device Status Text - [id number]. Hardware E.G. Pins/Screws/Ro ds Hardware e.g. pins/screws/ rods Back Jarrell Chris Fuzzy 1 X 1 - Kim [id number] Implanted:Qty: 2 on 01/11/2011 Mesh or Patch Datezr Description:Device Manufactu rer Jacked. Device Status Text - [id number]. [facility] Data - [id number]. Conversions - Default Historical Implant Device Implanted:11/2015 [...] A1C, B Routine 09/01/2016 8:1 0 AM PROCUREMENT SPECIALIST from Last 3 Months or Most Recently [...] the 2009 CKD_EPI creatinine equation. eGFR-Black/Afri can [place] 75 >=60 mL/min/BSA 02/12/2019 9:28 AM CDT Comment: ----ADDITIONAL INFORMATION---- Estimated GFR calculated using the 2009 CKD_EPI creatinine equation. Calcium, Total, S 9.5 8.8 - 10.2 mg/dL 02/12/2019 9:28 AM CDT Glucose, S 141(H) 70 - 140 mg/dL 02/12/2019 9:28 AM CDT Blood (Blood, Venous) 02/12/2019 8:26 AM CDT 02/12/2019 8:26 AM CDT Elan Chiu M.D. LAB BLOOD AD D-ON [facility] [address] [place] [address], [facility] * (ABNORMAL) Hemoglobin A1c (09/01/2016 8:10 AM PROCUREMENT SPECIALIST) Hemoglobin A1c, B 6.5(H) 4.0 - 5.6 % [facility] Comment: Hemoglobin A1c values greater than or equal to 6.5 percent ? are diagnostic for diabetes mellitus. ??Diagnosis should be ? confirmed by repeat testing. ??In diabetic patients, HbA1c ? goals should be discussed with healthcare provider. ? 09/01/2016 8:10 AM PROCUREMENT SPECIALIST 09/01/2016 8:10 AM PROCUREMENT SPECIALIST Griselda Becerra APRN, C.N.P. LAB BLOOD ADD -ON [facility] [address] [place] [address], [facility] from Last 3 Months or Most Recently Relevant to Health Maintenance Care Teams Dye Maker Relationship Specialty Start Date End Date Elsewhere, Pcp PCP - General Internal Medicine 05/03/23
--- OUTSIDE RECORDS SUMMARY | 2024-04-09 05:37 | XMS_ITS | Encounter Summary ---
Author Organization [facility] Address [address] [place] [address] Care Team Providers Care Flamer After Lasting Name Role Phone Elsewhere, Pcp Primary Care Provider Unavailabl e Reason for Referral * Outpatient (Routine) - Authorized Specialty Diagnoses / Procedures Referred By Contac t Referred To Contact Cardiovascular Disease Diagnoses Nonrheumatic Mitral Valve Insufficiency Atherosclerotic Heart Disease Of [place] Coronary Artery Without Angina Pectoris Hypertension Essential Primary Tiffanie Pepper M.D. [address] [place] [address] [facility] Referral ID Status Reason Start Date Expiration Date V isits Requested Visits Authorized [id number] Authorized 02/13/2024 08/14/2025 1 1 Encounter Details Date Type Department Care Team (Late st Contact Info) Description 02/13/2024 [facility] [address] [place] [address] Tiffanie Pepper M.D. [address] [place] [address] Nonrheumatic Mitral Valve Insufficiency (Primary Dx); Atherosclerotic Heart Disease Of [place] Coronary Artery Without Angina Pectoris; Hypertension Essential Primary Social History Tobacco Use Types Packs/Day Years Used Date Smoking Tobacco: Former Cigarettes 2020 Passive Smoke Exposure: Past Smokeless Tobacco: Never Alcohol Use Standard Drinks/Week Comments No 0 (1 standard drink = 0.6 oz pur e alcohol) Nutrition Answer Date Recorded Nutrition: EVOO Fat Source Unknown 03/05 /2021 Nutrition: Servings of Fruits/Vegetables per Day Not [...] Schedule Cardiovascular Diseases Referral Outpatient Referral Routine Nonrheumatic Mitral Valve Insufficiency Atherosclerotic Heart Disease Of [place] Coronary Artery Without Angina Pectoris Hypertension Essential Primary Expected: 02/13/2024 (Approximate), Expires: 05/15/2025 documented as of this encounter Visit Diagnoses Diagnosis Nonrheumatic Mitral Valve Insufficiency- Primary Atherosclerotic Heart Disease Of [place] Coronary Artery Without Angina Pectoris Hypertension Essential Primary documented in this encounter Care Teams Flamer After Lasting Relationship Specialty Start Date End Date Elsewhere, Pcp PCP - General Internal Medicine 05/03/23 documented as of this encounter
--- OUTSIDE RECORDS SUMMARY | 2024-04-09 05:37 | XMS_ITS | Clinical Summary ---
Author Organization [facility] Address [place], [place] [address] Care Team Providers Care Cat Driver Name Role Phone Tiffanie Pepper MD Primary Care Provider [phone] Allergies Active Allergy Reactions Criticality Noted Date [...] by mouth once daily with a meal. Active allopurinoL (ZYLOPRIM) 300 mg tablet Take 300 mg by mouth once daily. Active chlorthalidone (HYGROTON) 25 mg tablet Take 25 mg by mouth once daily. Active cyclobenzaprine (FLEXERIL) 5 mg tabletIndications:S ольга stenosis, lumbar region with neurogenic claudication Take 2 Tablets (10 mg) by mouth every 8 hours if needed. 30 Tablet 12/28/2020 Active oxyCODONE (ROXICODONE) 5 mg immediate release tabletIndications:S ольга stenosis, lumbar region with neurogenic claudication Take 1-2 Tablets (5-10 mg) by mouth every 4 hours if needed for Pain (First choice for severe pain.). 35 Tablet 12/28/2020 Active multivit-minerals/F A/lycopene (ONE-A-DAY MEN'S ORAL) Take by mouth. Active insulin glargine,hum.rec.an log (INSULIN GLARGINE SUBQ) Inject 12 units subcutaneous once daily. Active Active Problems Problem Noted Date [...] Additional history exists Influenza for age 65+ 04/29/2024 Medical Devices Implanted Type Area Psychiatric Secretary Device Identifier Shelf Expiration Date Model / Serial / Lot Bone 1-4mm 30cc Medtronic Chips Canclls Frozen - [id number] Implanted:Qt y: 1 on 12/25/2020 by Mohit Friedman MD at [facility] Lumbar Vertebrae Medtronic Spine/Ortho 07/06/2025 [id number] / [id number] / [id number] Bone 30cc Mtf Chips Wilfredo/Canclls Freeze Dried - [id number] Implanted:Qt y: 1 on 12/25/2020 by Mohit Friedman MD at [facility] Lumbar Vertebrae Musculoskeletal Transplant 08/26/2023 [id number] / [id number] / Steven Lmbr 45x5.5mm Solera 5.5/6 Cvd Titnm - [id number] Implanted:Qt y: 2 on 12/25/2020 by Mohit Friedman MD at [facility] Lumbar Vertebrae Medtronic Spine/Ortho [id number] / / Set Screw Lmbr Ant 5.5mm Solera Break Off - [id number] Implanted:Qt y: 4 on 12/25/2020 by Mohit Friedman MD at [facility] Lumbar Vertebrae Medtronic Spine/Ortho [id number] / / Screw Lmbr Post 7.5x50mm Solera 5.5/6 Va Cocr - [id number] Implanted:Qt y: 4 on 12/25/2020 by Mohit Friedman MD at [facility] Lumbar Vertebrae Medtronic Spine/Ortho [id number] / / Advance Directives * Full Code (Latest Code Status on File) Date Activated Date Inactivated Comments 02/14/2023 10:04 AM 02/15/2023 2:18 AM Question Answer Comments Code Status Discussion: Unable to Assess Preferences, Provider to review later * Full Code Date Activated Date Inactivated Comments 12/25/2020 12:40 PM 12/28/2020 5:05 PM Question Answer Comments Code Status Discussion: Per Existing Order Care Teams Cat Driver Relationship Specialty Start Date End Date Tiffanie Pepper MD [address] [place] [id number] PCP - General 02/11/23
--- OUTSIDE RECORDS SUMMARY | 2024-04-09 05:37 | XMS_ITS | Encounter Summary ---
Author Organization [facility] Address [address] [place] [address] Care Team Providers Care Duplicating Machine Servicer Name Role Phone Elsewhere, Pcp Primary Care Provider Unavailabl e Reason for Referral * Outpatient (Routine) - Authorized Specialty Diagnoses / Procedures Referred By Contac t Referred To Contact Cardiovascular Disease Diagnoses Atherosclerotic Heart Disease Of [place] Coronary Artery Without Angina Pectoris Tiffanie Pepper M.D. [address] [place] [address] [facility] Referral ID Status Reason Start Date Expiration Date V isits Requested Visits Authorized [id number] Authorized 02/03/2024 08/04/2025 1 1 * Outpatient (Routine) - Authorized Specialty Diagnoses / Procedures Referred By Sugar lewis Referred To Contact Cardiovascular Disease Diagnoses Atherosclerotic Heart Disease Of [place] Coronary Artery Without Angina Pectoris Tiffanie Pepper M.D. [address] [place] [address] [facility] Referral ID Status Reason Start Date Expiration Date V isits Requested Visits Authorized [id number] Authorized 02/03/2024 08/04/2025 1 1 Encounter Details Date Type Department Care Team (Latest Contact Info) Description 02/03/2024 [facility] AND [address] [address] Tiffanie Pepper M.D. [address] [place] [address] Atherosclerotic Heart Disease Of [place] Coronary Artery Without Angina Pectoris (Primary Dx) Social History Tobacco Use Types [...] Schedule Cardiovascular Diseases Referral Outpatient Referral Routine Atherosclerotic Heart Disease Of [place] Coronary Artery Without Angina Pectoris Expected: 02/03/2024 (Approximate), Expires: 05/05/2025 Cardiovascular Diseases Referral Outpatient Referral Routine Atherosclerotic Heart Disease Of [place] Coronary Artery Without Angina Pectoris Expected: 02/03/2024 (Approximate), Expires: 05/05/2025 documented as of this encounter Visit Diagnoses Diagnosis Atherosclerotic Heart Disease Of [place] Coronary Artery Without Angina Pectoris- Primary documented in this encounter Care Teams Duplicating Machine Servicer Relationship Specialty Start Date End Date Elsewhere, Pcp PCP - General Internal Medicine 05/03/23 documented as of this encounter
--- OUTSIDE RECORDS SUMMARY | 2024-04-09 05:37 | XMS_ITS ---
Author Organization [facility] Address [address] [place] [address] Care Team Providers Care Access Assoc Name Role Phone Unavailable Unavailable Unavailable Surgery Details Not on file Complications Check Surgery Details section. Procedure Estimated Blood Loss Check Surgery Details section. Procedure Findings Check Surgery Details section. Procedure Specimens Taken Check Surgery Details section.
[2024-04-09 08:36] LABS: Lactate* 1.3 mmol/L (0.5-1.9)
[2024-04-09] MEDS: 0.9 % SODIUM CHLORIDE 1000 ml 1,000 ML 125 ML IV ×2 (08:46→23:09)
--- NOTE | 2024-04-09 10:28 | P.GSCN_ITS ---
History of Present Illness Consult details Date Seen: 04/09/24 Consult date: 04/09/24 Narrative: Patient presented to the emergency department with less than 1 day of abdominal bloating and pain. He has a history of multiple prior small bowel obstructions, the most recent was in 2022. He has never required surgical intervention for them. This does feel similar to his previous episodes. Since being admitted from the emergency department his pain has ?significantly improved?. He has not passed gas since yesterday. His last bowel movement was yesterday and small. Does report some associated nausea and vomiting yesterday evening after a tried to drink water. None currently. His abdominal history includes a ruptured appendicitis. It does sound like this was drained, but no interval appendectomy occurred. Review of Systems Status of ROS: Reports: 10 or more systems reviewed and unremarkable except as noted in History and below [facility] Medical History (Updated 04/09/24 @ 11:05 by Judy Oh PA-C) Gout (04/30/10) ?M10.9 - Gout, unspecified (ICD-10) Chronic pancreatitis ?K86.1 - Other chronic pancreatitis (ICD-10) Insomnia ?G47.00 - Insomnia, unspecified (ICD-10) T12 compression fracture ?S22.080A - Wedge compression fracture of T11-T12 vertebra, initial encounter for closed fracture (ICD-10) Bone mass ?M89.8X9 - Other specified disorders of bone, unspecified site (ICD-10) Small bowel obstruction ?K56.609 - Unspecified intestinal obstruction, unspecified as to partial versus complete obstruction (ICD-10) Hepatic cyst ?K76.89 - Other specified diseases of liver (ICD-10) Senile nuclear sclerosis ?H25.10 - Age-related nuclear cataract, unspecified eye (ICD-10) Neurogenic claudication ?R29.818 - Other symptoms and signs involving the nervous system (ICD-10) Squamous cell carcinoma Perforated appendicitis ?K35.32 - Acute appendicitis with perforation, localized peritonitis, and gangrene, without abscess (ICD-10) Surgical History S/P hip replacement (06/20/23) ?Z96.649 - Presence of unspecified artificial hip joint (ICD-10) Status post insertion of iliac artery stent (~2005) ?Z95.828 - Presence of other vascular implants and grafts (ICD-10) Status post lumbar spine surgery for decompression of spinal cord (12/25/20) ?Z98.890 - Other specified postprocedural states (ICD-10) Hx of CABG (01/20/11) ?Z95.1 - Presence of aortocoronary bypass graft (ICD-10) History of prostate surgery ?Z98.890 - Other specified postprocedural states (ICD-10) History of endoscopic retrograde cholangiopancreatography ?Z98.890 - Other specified postprocedural states (ICD-10) History of arthroscopy of right knee ?Z98.890 - Other specified postprocedural states (ICD-10) Family History Mother CHF (congestive heart failure) High blood pressure Paternal Grandfather Bladder cancer Father Myocardial infarction High blood pressure Other Liver cancer Stroke Throat cancer Social History Narrative: Former smoker - started 20-30 cigarettes per day 1954, stopped 09/2020 Does not drink alcohol Does not use illicit drugs Previously desired to be DNI What is your current living situation?: I presently have a place to live In the past 12 months, utilities in danger of being shut off: no In past 12 months, lack of transportation kept you from medical appts, meetings, work, or getting things needed for daily living: no In the past 12 mos, have been you worried that your food would run out before you had money to buy more?: never true In the past 12 mos, the food you bought just didn't last and you didn't have money to buy more?: never true Highest level of school completed/degree received: decline to answer Smoking Status: Former smoker What tobacco products do you use: cigarettes Smoking packs per day: 1 Smoking cigarettes per day: 20.0 Years smoked: 60 Smoking pack-years: 60.00 Smoking quit date/years: <= 15 years ago Do you use any of these nicotine containing products: None Second hand tobacco smoke exposure: No How often do you have a drink containing alcohol: never How often do you have six or more drinks on one occasion: Never AUDIT-C Alcohol total score: 0 Non-prescribed substance use: denies use Caffeine: Yes (coffee) How often does anyone, including family, friends and others, physically hurt you : never How often does anyone, including family, friends and others, insult or talk down to you: never How often does anyone, including family, friends and others, threaten you with harm: never How often does anyone, including family, friends and others, scream or curse at you: never Little interest or pleasure in doing things: not at all Feeling down, depressed, or hopeless: not at all service: No Meds Home Medications and Allergies Home Medications ?Medication ?Instructions ?Recorded ?Confirmed ?Type ascorbic acid (vitamin C) 1,000 mg 1 g PO BID 06/07/22 02/03/24 History tablet insulin glargine 100 unit/mL (3 10 unit subcut QAM 02/03/24 04/09/24 History mL) subcutaneous pen (Lantus Solostar U-100 Insulin) mirtazapine 7.5 mg tablet 7.5 mg PO QPM 04/09/24 04/09/24 History Allergies Allergy/AdvReac Type Severity Reaction Status Date / Time vancomycin Allergy Mild Shakiness Verified 02/03/24 12:11 fentanyl AdvReac Mild Dizziness Verified 02/03/24 12:11 Exam Narrative: Exam Narrative: General: Alert and oriented, no acute distress Respiratory: Equal breath rise bilaterally, maintained on room air CV: Regular rhythm and rate, well perfused Abdomen: Soft, mild tenderness to deep palpation with no guarding or rebound. Const: Vital Signs, click to edit/add: Vital Signs - 24 hr 04/09/24 04:19 04/09/24 04:56 04/09/24 05:16 Temperature 97.9 F Pulse Rate 74 Pulse Rate [Pulse Oximeter] 60 Respiratory Rate 16 18 Blood Pressure 166/76 H Blood Pressure [Ri ght Upper Arm] 145/70 H Pulse Oximetry 99 98 99 Oxygen Delivery Me thod Room Air 04/09/24 06:02 04/09/24 07:06 04/09/24 07:15 Temperature Pulse Rate 73 78 74 Pulse Rate [Pulse Oximeter] Respiratory Rate 20 Blood Pressure 126/70 Blood Pressure [Ri ght Upper Arm] Pulse Oximetry 95 93 92 Oxygen Delivery Me thod 04/09/24 07:30 04/09/24 07:45 Temperature Pulse Rate 75 64 Pulse Rate [Pulse Oximeter] Respiratory Rate Blood Pressure Blood Pressure [Ri ght Upper Arm] Pulse Oximetry 91 91 Oxygen Delivery Me thod Results Labs Labs: Abnormal lab results 04/09/24 04/09/24 Range/Units 04:39 04:54 WBC 13.93 H (4.50-11.00) K/uL Neut % (Auto) 90.1 H (42.0-72.0) % Lymph % (Auto) 6.1 L (20-44) % Neut # (Auto) 12.60 H (1.7-7.0) K/uL Lymph # (Auto) 0.80 L (0.90-2.90) K/uL Creatinine 1.7 H (0.5-1.5) mg/dL Glucose 221 H (60-115) mg/dL Lactate 2.2 H (0.5-1.9) mmol/L AST 38 H (12-35) U/L Lipase 17 L (23-300) U/L POC Creatinine 1.8 H (0.6-1.3) mg/dl Diabetes panel 04/09/24 Range/Units 04:39 Sodium 136 (135-149) mmol/L Potassium 4.6 (3.6-5.1) mmol/L Chloride 103 (96-114) mmol/L Carbon Dioxide 20 (20-32) mmol/L BUN 27 (7-30) mg/dL Creatinine 1.7 H (0.5-1.5) mg/dL Glucose 221 H (60-115) mg/dL Calcium 9.4 (8.4-10.6) mg/dL AST 38 H (12-35) U/L ALT 26 (4-50) U/L Alkaline Phosphatase 106 (40-150) U/L Total Protein 7.8 (6.0-8.3) g/dL Albumin 4.5 (3.3-5.0) g/dL Calcium panel 04/09/24 Range/Units 04:39 Calcium 9.4 (8.4-10.6) mg/dL Albumin 4.5 (3.3-5.0) g/dL Pituitary panel 04/09/24 Range/Units 04:39 Sodium 136 (135-149) mmol/L Potassium 4.6 (3.6-5.1) mmol/L Chloride 103 (96-114) mmol/L Carbon Dioxide 20 (20-32) mmol/L BUN 27 (7-30) mg/dL Creatinine 1.7 H (0.5-1.5) mg/dL Glucose 221 H (60-115) mg/dL Calcium 9.4 (8.4-10.6) mg/dL Adrenal panel 04/09/24 Range/Units 04:39 Sodium 136 (135-149) mmol/L Potassium 4.6 (3.6-5.1) mmol/L Chloride 103 (96-114) mmol/L Carbon Dioxide 20 (20-32) mmol/L BUN 27 (7-30) mg/dL Creatinine 1.7 H (0.5-1.5) mg/dL Glucose 221 H (60-115) mg/dL Calcium 9.4 (8.4-10.6) mg/dL Total Bilirubin 0.7 (0.1-1.5) mg/dL AST 38 H (12-35) U/L ALT 26 (4-50) U/L Alkaline Phosphatase 106 (40-150) U/L Total Protein 7.8 (6.0-8.3) g/dL Albumin 4.5 (3.3-5.0) g/dL All other labs normal. Imaging Abdomen CT scan report/results: report reviewed and image reviewed Progress Note:A&P Assessment and plan (1) Small bowel obstruction: Status: Acute Assessment and Plan: Patient is an 83-year-old male who presents with clinical workup and history consistent with a distal small-bowel obstruction. This is likely secondary to adhesions related to a history of perforated appendicitis. CT scan shows a possible stricture at the terminal ileum. At this time vital signs stable, pain is well controlled and exam is benign. Labs show leukocytosis (13) and kidney disease with creatinine of 1.7. Patient does have a history of small-bowel obstructions, which resolved with medical management. Could consider further workup with a Gastrografin small-bowel follow-through, but will hold off at this time. Agree with medical management. Patient should remain NPO, IV fluids. Sparing use of IV pain medicine. Encourage ambulation. Please call with any acute clinical changes, questions or concerns.
--- NOTE | 2024-04-09 11:03 | P.IMHP_ITS ---
Hospitalist- H&P: HPI History of Present Illness Date Seen: 04/09/24 Chief complaint: abdominal pain, possible blocked colon Narrative: Cosmo Mosqueda is a 83 year old male past medical history significant for type 2 diabetes mellitus, insulin dependent, CKD, hypertension, anemia, CAD, mitral regurg, PAD, neurogenic bladder with self catheterization, with history of ruptured appendix approximately 10 years ago, nonsurgically managed, is admitted to the medical floor from the ED for management small-bowel obstruction. Patient reports previous episodes of small-bowel obstructions, this episode feeling similar to previous episodes. Tells me he felt well, his usual self, yesterday morning. Last evening started having abdominal pain, bloating. Was nauseous with vomiting after attempting to drink a glass of water. Had a normal bowel movement yesterday, reports diarrhea today. As above, previous history of ruptured appendix approximately 10 years ago. He tells me a tube was placed at that time to allow for drainage but no surgical intervention. No previous abdominal surgeries. Denies recent fevers. Denies headache or dizziness. Denies chest pain or shortness of breath. Abdominal pain currently on admission is significantly improved. Denies current nausea. No further vomiting. ED provider discussed with General surgery, recommending admission with IVF, NPO. No NGT placed or recommended at time of admission. Patient quit smoking approximately 10 years ago. Admits to occasional alcohol use, maybe one drink a month. Requests to be a full code. Review of Systems Narrative: REVIEW OF SYSTEMS: Complete review of systems performed and negative unless otherwise stated in HPI or below. [facility] Medical History (Updated 04/09/24 @ 14:16 by Judy Oh PA-C) Adrenal mass ?E27.8 - Other specified disorders of adrenal gland (ICD-10) Gout (04/30/10) ?M10.9 - Gout, unspecified (ICD-10) Chronic pancreatitis ?K86.1 - Other chronic pancreatitis (ICD-10) Insomnia ?G47.00 - Insomnia, unspecified (ICD-10) T12 compression fracture ?S22.080A - Wedge compression fracture of T11-T12 vertebra, initial encounter for closed fracture (ICD-10) Bone mass ?M89.8X9 - Other specified disorders of bone, unspecified site (ICD-10) Small bowel obstruction ?K56.609 - Unspecified intestinal obstruction, unspecified as to partial versus complete obstruction (ICD-10) Hepatic cyst ?K76.89 - Other specified diseases of liver (ICD-10) Senile nuclear sclerosis ?H25.10 - Age-related nuclear cataract, unspecified eye (ICD-10) Neurogenic claudication ?R29.818 - Other symptoms and signs involving the nervous system (ICD-10) Squamous cell carcinoma Perforated appendicitis ?K35.32 - Acute appendicitis with perforation, localized peritonitis, and gangrene, without abscess (ICD-10) Surgical History S/P hip replacement (06/20/23) ?Z96.649 - Presence of unspecified artificial hip joint (ICD-10) Status post insertion of iliac artery stent (~2005) ?Z95.828 - Presence of other vascular implants and grafts (ICD-10) Status post lumbar spine surgery for decompression of spinal cord (12/25/20) ?Z98.890 - Other specified postprocedural states (ICD-10) Hx of CABG (01/20/11) ?Z95.1 - Presence of aortocoronary bypass graft (ICD-10) History of prostate surgery ?Z98.890 - Other specified postprocedural states (ICD-10) History of endoscopic retrograde cholangiopancreatography ?Z98.890 - Other specified postprocedural states (ICD-10) History of arthroscopy of right knee ?Z98.890 - Other specified postprocedural states (ICD-10) Family History Mother CHF (congestive heart failure) High blood pressure Paternal Grandfather Bladder cancer Father Myocardial infarction High blood pressure Other Liver cancer Stroke Throat cancer Social History Narrative: Former smoker - started 20-30 cigarettes per day 1954, stopped 09/2020 Does not drink alcohol Does not use illicit drugs Previously desired to be DNI What is your current living situation?: I presently have a place to live Problems where you live: no known problems Problems where you live details: N/A In the past 12 months, utilities in danger of being shut off: no In past 12 months, lack of transportation kept you from medical appts, meetings, work, or getting things needed for daily living: no In the past 12 mos, have been you worried that your food would run out before you had money to buy more?: never true In the past 12 mos, the food you bought just didn't last and you didn't have money to buy more?: never true Highest level of school completed/degree received: decline to answer Smoking Status: Former smoker What tobacco products do you use: cigarettes Smoking packs per day: 1 Smoking cigarettes per day: 20.0 Years smoked: 60 Smoking pack-years: 60.00 Smoking quit date/years: <= 15 years ago Do you use any of these nicotine containing products: None Second hand tobacco smoke exposure: No How often do you have a drink containing alcohol: never How often do you have six or more drinks on one occasion: Never AUDIT-C Alcohol total score: 0 Non-prescribed substance use: denies use Caffeine: No How often does anyone, including family, friends and others, physically hurt you : never How often does anyone, including family, friends and others, insult or talk down to you: never How often does anyone, including family, friends and others, threaten you with harm: never How often does anyone, including family, friends and others, scream or curse at you: never Little interest or pleasure in doing things: not at all Feeling down, depressed, or hopeless: not at all service: No Meds Home Medications and Allergies Home Medications ?Medication ?Instructions ?Recorded ?Confirmed ?Type ascorbic acid (vitamin C) 1,000 mg 1 g PO BID 06/07/22 02/03/24 History tablet insulin glargine 100 unit/mL (3 10 unit subcut QAM 02/03/24 04/09/24 History mL) subcutaneous pen (Lantus Solostar U-100 Insulin) mirtazapine 7.5 mg tablet 7.5 mg PO QPM 04/09/24 04/09/24 History Allergies Allergy/AdvReac Type Severity Reaction Status Date / Time vancomycin Allergy Mild Shakiness Verified 02/03/24 12:11 fentanyl AdvReac Mild Dizziness Verified 02/03/24 12:11 Exam Narrative: Exam Narrative: PHYSICAL EXAM General: Pleasant, conversant, NAD HEENT: Normocephalic, atraumatic, sclera white, EOMI, oral mucosa moist Cardiovascular: RRR, S1S2. Pulmonary: CTA bilaterally without rhonchi, rales, expiratory wheezes. No dyspnea on room air Abdominal: Soft, mildly distended, NTTP currently Neurological: Alert, answering questions appropriately, cranial nerves intact, no focal findings Extremities: No gross joint deformity or swelling. AROMI. Neurovascularly intact Skin: Warm, dry. Const: Vital Signs, click to edit/add: Vital Signs - 24 hr 04/09/24 04:19 04/09/24 04:56 04/09/24 05:16 Temperature 97.9 F Pulse Rate 74 Pulse Rate [Pulse Oximeter] 60 Respiratory Rate 16 18 Blood Pressure 166/76 H Blood Pressure [Ri ght Upper Arm] 145/70 H Pulse Oximetry 99 98 99 Oxygen Delivery [facility] Room Air 04/09/24 06:02 04/09/24 07:06 04/09/24 07:15 Temperature Pulse Rate 73 78 74 Pulse Rate [Pulse Oximeter] Respiratory Rate 20 Blood Pressure 126/70 Blood Pressure [Ri ght Upper Arm] Pulse Oximetry 95 93 92 Oxygen Delivery Ok thod 04/09/24 07:30 04/09/24 07:45 Temperature Pulse Rate 75 64 Pulse Rate [Pulse Oximeter] Respiratory Rate Blood Pressure Blood Pressure [Ri ght Upper Arm] Pulse Oximetry 91 91 Oxygen Delivery [facility] Hospitalist - H&P: Result Labs Labs: Short CBC 04/09/24 Range/Units 04:39 WBC 13.93 H (4.50-11.00) K/uL Hgb 14.0 (13.5-17.5) gm/dL Hct 43.1 (37.0-53.0) % Plt Count 161 (140-440) K/uL BMP 04/09/24 04:39 Sodium 136 Potassium 4.6 Chloride 103 Carbon Dioxide 20 BUN 27 Creatinine 1.7 H Glucose 221 H Calcium 9.4 Liver Function 04/09/24 Range/Units 04:39 Total Bilirubin 0.7 (0.1-1.5) mg/dL AST 38 H (12-35) U/L ALT 26 (4-50) U/L Alkaline Phosphatase 106 (40-150) U/L Albumin 4.5 (3.3-5.0) g/dL Imaging CT scan - abdomen: Attestation: I have reviewed the pertinent imaging results. Radiologist's impression: CT examination of the abdomen and pelvis was performed following the uneventful intravenous administration of 93 cc of Isovue 370. Thin section axial images were obtained from the lung bases through the pubic symphysis. Oral contrast was not administered. Please note that all CT scans at this facility use dose modulation, iterative reconstruction, and/or weight-based dosing when appropriate to reduce radiation dose to as low as reasonably achievable. FINDINGS: LUNG BASES: Fibrotic opacities at the lung bases.Similar appearance to the prior study. Heart size normal the lung bases. Vascular and valvular calcifications noted. LIVER/BILIARY SYSTEM:Normal-sized liver. Hepatic cysts are noted. Distended gallbladder but no visible stones. Intra and extrahepatic biliary ductal dilation is identified.These findings are similar to October 30, 2022. Correlate with LFTs ADRENALS: Bilateral adrenal masses. The right adrenal mass measures 2.5 centimeters and the left adrenal mass measures 2.0 centimeters. These are indeterminate regarding their etiology but they are unchanged since the prior study. KIDNEYS, URETERS and BLADDER:Numerous bilateral renal lesions probably all cysts. Some are too small to characterize. The general appearance is unchanged. The bladder appears normal though is only partially seen due to streak artifact from hip arthroplasty. SPLEEN:Normal appearance. PANCREAS: Atrophic pancreas with calcifications and ductal dilation probably due to chronic calcific pancreatitis. Similar appearance to the prior exam RETROPERITONEUM and MESENTERY: There is no mass, adenopathy or aortic aneurysm. Atherosclerotic vascular calcification GASTROINTESTINAL SYSTEM: Abnormal dilation of small bowel consistent with a distal small-bowel obstruction. Point of transition in the right lower quadrant probably a stricture. Fecal retention and diverticulosis noted. PELVIS: Poorly seen due to streak artifact from a left hip arthroplasty. Enlarged prostate. OSSEOUS STRUCTURES and ABDOMINAL WALL: Demineralization and degenerative change. Chronic appearing wedging of a lower thoracic vertebral body. Postoperative changes of the spine. Sclerotic lesion of the right innominate bone unchanged since the prior study could be a chondroid lesion.Appropriate follow up is advised. OTHER: No free fluid or free air. IMPRESSION: 1. Distal small bowel obstruction. The patient had a similar appearance October 30, 2022. Point of transition in the right lower quadrant probably a stricture. 2. Bibasilar opacities, likely fibrotic. 3. Distended gallbladder without visible stones. Intra and extrahepatic biliary ductal dilation. This appearance is similar to the prior study. The exact etiology is not visible on this study as there is no visible periampullary mass or distal choledocholithiasis. Correlate with LFTs. 4. Indeterminate bilateral adrenal masses. These are unchanged since October 30, 2022 and presumably therefore benign. 5. Evidence of chronic calcific pancreatitis. 6. Sclerotic, probably chondroid lesion of the right innominate bone similar to the prior study. 7. Other nonacute appearing findings as discussed above Assessment and Plan Assessment and plan (1) Small bowel obstruction: Problem comment: Likely secondary to adhesions related to previous perforated appendicitis, nonsurgically managed, approximately 10 years ago. No history of abdominal surgeries CT shows possible stricture at the terminal ileum Leukocytosis, lactate 2.2 in ED, repeat 1.3 General surgery consulted, Dr. Horowitz recommending: NPO, IVF Pain and nausea management as needed Encourage ambulation Could consider further workup with Gastrografin challenge if needed, not at this time Status: Acute (2) Chronic kidney disease: Problem comment: With CLAU Creatinine 1.7, previously 1.4, baseline 2.2-1.1 Hold allopurinol, lisinopril, chlorthalidone. Avoid nephrotoxic medications Received IV contrast for CT followed by 1 L IVF in the ED Continue to follow BMP Status: Acute (3) Type 2 diabetes mellitus with hyperglycemia: Problem comment: Most recent A1c 6.6 Normal Lantus home dose 10 units q.a.m.. Will initiate 5 units tomorrow morning given NPO status, adjusting as necessary Glucose checks ACHS, ISS-holding while NPO unless necessary Status: Acute (4) Neurogenic bladder: Problem comment: Self caths BID. Continue this and prn. Bladder scan p.r.n. Status: Acute (5) HTN (hypertension): Problem comment: Continue metoprolol Hold lisinopril, chlorthalidone in setting of CLAU Status: Acute (6) Gout: Problem comment: holding allopurinol secondary to CLAU Status: Acute Total Time Spent Total Time Spent: Total time spent caring for the patient today was 60 minutes. This includes time spent for the visit reviewing the chart, time spent during the visit, time spent after the visit and documentation and planning in coordination of care.
[2024-04-09 12:02] LABS: Appearance Urine Slightly Cloudy (Clear); Bilirubin Urine Negative (Negative); Blood Urine 1+ (Negative); Color Urine Yellow (Yellow); Glucose Urine Negative (Negative); Ketones Urine Negative (Negative); Leukocyte Esterase Urine 1+ (Negative); Nitrite Urine Negative (Negative); Protein Urine Trace (Negative); Specific Gravity Urine 1.015 (1.000-1.030); Urobilinogen Urine 0.2 (0.2-1.0)
[2024-04-09 12:14] LABS: WBC Clumps Urine Few; WBC Urine 25-50 (0-5)
[2024-04-09 12:15] LABS: Bacteria Urine Moderate; Squamous Epithelial Cell Urine Moderate (None-Few)
[2024-04-09] MEDS: MIRTAZAPINE 15 MG TABLET 7.5 MG PO (18:59)
--- NOTE | 2024-04-09 19:25 | PC.NURSE ---
Nursing Care Hours: [id number] Pt this shift calm and cooperative with cares. Stayed in bed asleep most of shift. Denies pain and nausea. Denies flatus. BS active x4, abdomen soft. VSS
[2024-04-09] MEDS: ENOXAPARIN 30 MG/0.3ML INJ SUBCUT (20:36)
[2024-04-09] MEDS: METOPROLOL TARTRATE 50 MG TABLET PO (20:37)
[2024-04-09] MEDS: SODIUM CHLORIDE 0.9 % (FLUSH) 10 ML SYRINGE 5 ML IVF (20:37)
[2024-04-10 04:00] VITALS: BP 137/53; PULSE 52; RESP 16; TEMP 36.6; O2SAT 95
[2024-04-10] MEDS: 0.9 % SODIUM CHLORIDE 1000 ml 1,000 ML 125 ML IV (06:26)
[2024-04-10 06:33] LABS: Hematocrit 33.9 % (37.0-53.0); Hemoglobin* 10.9 gm/dL (13.5-17.5); Mean Corpuscular HGB Conc 32 gm/dL (32-36); Mean Corpuscular Hemoglobin 31 pg (26-34); Mean Corpuscular Volume 97 fL (80-100); Platelet Count* 126 K/uL (140-440); Red Blood Count 3.48 m/uL (4.30-5.90); White Blood Count* 5.92 K/uL (4.50-11.00)
[2024-04-10 06:34] LABS: Slide Review Reflex No
--- NOTE | 2024-04-10 06:47 | PC.NURSE ---
: Pt pleasant. pt?in bed this shift. Pt declined to get up for ambulation and for standing scale weight. No c/o pain. Pt reported feeling tired, slept majority of the shift. Tele ? Jose x 1. Repeat Tele strip ? 1st degree HB. HR 50s-60s at rest. BP stable. Afebrile.
[2024-04-10 06:49] LABS: Albumin* 3.1 g/dL (3.3-5.0); Chloride* 110 mmol/L (96-114); Potassium* 4.2 mmol/L (3.6-5.1); Sodium* 139 mmol/L (135-149)
[2024-04-10 06:51] LABS: Anion Gap 3 mEq/L (7-15); Carbon Dioxide* 26 mmol/L (20-32); Creatinine* 1.4 mg/dL (0.5-1.5); Est. Creatinine Clearance* 44.65; Estimated Glomerular Filt Rate 50 ml/min
[2024-04-10 06:52] LABS: Alanine Aminotransferase* 17 U/L (4-50); Alkaline Phosphatase* 78 U/L (40-150); Aspartate Amino Transferase* 31 U/L (12-35); Bilirubin Direct* 0.3 mg/dL (0.0-0.5); Bilirubin Total* 0.5 mg/dL (0.1-1.5); Blood Urea Nitrogen* 21 mg/dL (7-30); Calcium* 8.4 mg/dL (8.4-10.6); Glucose* 97 mg/dL (60-115); Total Protein* 5.9 g/dL (6.0-8.3)
[2024-04-10 07:48] VITALS: PULSE 61
[2024-04-10 08:00] VITALS: BP 142/81; PULSE 60; RESP 16; RESP 18; TEMP 36.4; O2SAT 95
[2024-04-10 08:12] LABS: PCR FLU A Negative PCR FLU A (Negative); PCR FLU B Negative PCR FLU B (Negative); PCR RSV Negative PCR RSV (Negative); SARS PCR* Negative SARS-CoV-2 (Negative)
--- NOTE | 2024-04-10 10:42 | P.IMPN_ITS ---
Progress Note: A&P Assessment and plan (1) Small bowel obstruction: Problem details: Likely secondary to adhesions related to previous perforated appendicitis, nonsurgically managed, approximately 10 years ago. No history of abdominal surgeries CT shows possible stricture at the terminal ileum Leukocytosis, lactate 2.2 in ED, repeat 1.3 General surgery consulted, Dr. Horowitz recommending: NPO, IVF Pain and nausea management as needed Encourage ambulation Could consider further workup with Gastrografin challenge if needed, not at this time 04/10: No return of pain, no further n/v. Benign abdomen exam. Discussed with Dr. Horowitz - rectal suppository, start with clears, ADAT slowly. Of note, hemoglobin 10.9 today, 14 on admission, questionable dehydration as baseline hemoglobin 10- 12. Monitor. No active signs of bleeding Status: Acute (2) Chronic kidney disease: Problem details: With CLAU - resolved Creatinine returned to 1.4, baseline 2.2-1.1 Hold allopurinol, lisinopril, chlorthalidone. Avoid nephrotoxic medications Received IV contrast for CT followed by 1 L IVF in the ED Continue to follow BMP Status: Acute (3) Type 2 diabetes mellitus with hyperglycemia: Problem details: Most recent A1c 6.6 Normal Lantus home dose 10 units q.a.m.. During hospital course 5 units, adjusting as necessary Glucose checks ACHS, ISS-holding while NPO unless necessary Status: Acute (4) Neurogenic bladder: Problem details: Self caths BID. Continue this and prn. Bladder scan p.r.n. Status: Acute (5) HTN (hypertension): Problem details: Continue metoprolol Hold lisinopril, chlorthalidone in setting of CLAU Status: Acute (6) Gout: Problem details: holding allopurinol secondary to CLAU Status: Acute Plan Clinically improved. Slowly advancing diet. Possible discharge tomorrow if no new or worsening symptoms Time Spent With Patient Total time spent: Total time spent caring for the patient today was 45 minutes. This includes time spent for the visit reviewing the chart, time spent during the visit, time spent after the visit and documentation and planning in coordination of care. Subjective Date Seen: 04/10/24 Interval history: Patient is seen lying in bed this morning. Denies abdominal pain at all. Had no pain overnight. Has not used any narcotics since admission. No return of nausea. No further vomiting. Admits to passing gas. Exam Narrative: Exam Narrative: PHYSICAL EXAM General: Pleasant, conversant, NAD Cardiovascular: RRR, S1S2. Pulmonary: CTA bilaterally without rhonchi, rales, expiratory wheezes. No dyspnea on room air Abdominal: Soft, nondistended, NTTP Neurological: Alert, answering questions appropriately, cranial nerves intact, no focal findings Extremities: No gross joint deformity or swelling. AROMI. Neurovascularly intact Skin: Warm, dry. Const: Vital Signs, click to edit/add: Vital Signs - 24 hr 04/09/24 11:30 04/09/24 11:30 04/09/24 13:43 Temperature 98.2 F Pulse Rate 60 Pulse Rate [Apical ] 66 Pulse Rate [orthos tatic lying] 77 Pulse Rate [orthos tatic sitting] 65 Pulse Rate [orthos tatic standing] 79 Respiratory Rate 18 Blood Pressure [Ri ght Arm] 128/62 Blood Pressure [or thostatic lying] 128/62 Blood Pressure [or thostatic sitting] 105/71 Blood Pressure [or thostatic standing ] 107/86 Pulse Oximetry 95 Oxygen Delivery Nj thod Room Air 04/09/24 13:43 04/09/24 15:00 04/09/24 15:00 Temperature 98 F Pulse Rate Pulse Rate [Apical ] 60 60 Pulse Rate [orthos tatic lying] Pulse Rate [orthos tatic sitting] Pulse Rate [orthos tatic standing] Respiratory Rate 18 18 Blood Pressure [Ri ght Arm] 118/68 Blood Pressure [or thostatic lying] Blood Pressure [or thostatic sitting] Blood Pressure [or thostatic standing ] Pulse Oximetry 99 96 Oxygen Delivery Nj thod Room Air Room Air 04/09/24 15:00 04/09/24 20:00 04/09/24 22:44 Temperature 98 F Pulse Rate 63 55 L Pulse Rate [Apical ] 69 Pulse Rate [orthos tatic lying] Pulse Rate [orthos tatic sitting] Pulse Rate [orthos tatic standing] Respiratory Rate 18 Blood Pressure [Ri ght Arm] 138/71 Blood Pressure [or thostatic lying] Blood Pressure [or thostatic sitting] Blood Pressure [or thostatic standing ] Pulse Oximetry 97 Oxygen Delivery Nj thod Room Air 04/09/24 22:47 04/09/24 23:17 04/09/24 23:54 Temperature 97.8 F Pulse Rate 48 L Pulse Rate [Apical ] 67 Pulse Rate [orthos tatic lying] Pulse Rate [orthos tatic sitting] Pulse Rate [orthos tatic standing] Respiratory Rate 18 18 Blood Pressure [Ri ght Arm] 140/80 H Blood Pressure [or thostatic lying] Blood Pressure [or thostatic sitting] Blood Pressure [or thostatic standing ] Pulse Oximetry 98 Oxygen Delivery Me thod Room Air 04/10/24 04:00 04/10/24 07:48 Temperature 97.9 F Pulse Rate 61 Pulse Rate [Apical ] 52 L Pulse Rate [orthos tatic lying] Pulse Rate [orthos tatic sitting] Pulse Rate [orthos tatic standing] Respiratory Rate 16 Blood Pressure [Ri ght Arm] 137/53 L Blood Pressure [or thostatic lying] Blood Pressure [or thostatic sitting] Blood Pressure [or thostatic standing ] Pulse Oximetry 95 Oxygen Delivery Me thod Room Air Labs Labs: Laboratory Results - last 24 hr 04/09/24 04/10/24 04/10/24 04:41 06:12 07:12 WBC 5.92 RBC 3.48 L Hgb 10.9 L Hct 33.9 L MCV 97 MCH 31 MCHC 32 Plt Count 126 L Sodium 139 Potassium 4.2 Chloride 110 Carbon Dioxide 26 Anion Gap 3 L BUN 21 Creatinine 1.4 Estimated Creat Clear 44.65 Estimated GFR 50 Glucose 97 Calcium 8.4 Total Bilirubin 0.5 Direct Bilirubin 0.3 AST 31 ALT 17 Alkaline Phosphatase 78 Total Protein 5.9 L Albumin 3.1 L Urine Color Yellow Urine Appearance Slightly Cloudy A Urine pH 5.0 Ur Specific [place] 1.015 Urine Protein Trace A Urine Glucose (UA) Negative Urine Ketones Negative Urine Blood 1+ A Urine Nitrite Negative Urine Bilirubin Negative Urine Urobilinogen 0.2 Ur Leukocyte Esterase 1+ A Urine RBC 5-10 A Urine WBC 25-50 A Urine WBC Clumps Few A Ur Squamous Epith Cells Moderate A Urine Bacteria Moderate A SARS-CoV-2 (PCR) Negative SARS-CoV-2 Influenza Type A (PCR) Negative PCR FLU A Influenza Type B (PCR) Negative PCR FLU B RSV (PCR) Negative PCR RSV
[2024-04-10] MEDS: bisacodyL 10 MG SUPP.RECT PR (10:55)
[2024-04-10 12:00] VITALS: BP 149/68; PULSE 66; RESP 18; TEMP 36.5; O2SAT 95
--- NOTE | 2024-04-10 12:37 | P.GSPN_ITS ---
Subjective Subjective Date Seen: 04/10/24 Interval history: Patient is doing great this morning. He has passed gas. He has been tolerating some clear liquids without difficulty. He feels hungry. He denies any abdominal pain and has not needed pain medicine. Exam Narrative: Exam Narrative: General: Alert and oriented, no acute distress Abdomen: Soft, nontender and nondistended Const: Vital Signs, click to edit/add: Vital Signs - 24 hr 04/09/24 13:43 04/09/24 13:43 04/09/24 15:00 Temperature Pulse Rate 60 Pulse Rate [Apical ] 60 Respiratory Rate 18 Blood Pressure [Ri ght Arm] Pulse Oximetry 99 Oxygen Delivery Me thod Room Air 04/09/24 15:00 04/09/24 15:00 04/09/24 20:00 Temperature 98 F 98 F Pulse Rate 63 Pulse Rate [Apical ] 60 69 Respiratory Rate 18 18 Blood Pressure [Ri ght Arm] 118/68 138/71 Pulse Oximetry 96 97 Oxygen Delivery Me thod Room Air Room Air 04/09/24 22:44 04/09/24 22:47 04/09/24 23:17 Temperature 97.8 F Pulse Rate 55 L Pulse Rate [Apical ] 67 Respiratory Rate 18 18 Blood Pressure [Ri ght Arm] 140/80 H Pulse Oximetry 98 Oxygen Delivery Me thod Room Air 04/09/24 23:54 04/10/24 04:00 04/10/24 07:48 Temperature 97.9 F Pulse Rate 48 L 61 Pulse Rate [Apical ] 52 L Respiratory Rate 16 Blood Pressure [Ri ght Arm] 137/53 L Pulse Oximetry 95 Oxygen Delivery Me thod Room Air 04/10/24 08:00 04/10/24 08:00 Temperature 97.6 F Pulse Rate Pulse Rate [Apical ] 60 60 Respiratory Rate 16 18 Blood Pressure [Ri ght Arm] 142/81 H Pulse Oximetry 95 Oxygen Delivery Me thod Room Air Labs/Imaging Labs Labs: No leukocytosis Imaging Imaging: No new imaging Progress Note:A&P Assessment and plan (1) Small bowel obstruction: Status: Acute Assessment and Plan: Patient is an 83-year-old male with a resolving small bowel obstruction. He does have evidence of return of bowel function and has been tolerating p.o. intake. Recommend slow advancement of diet. On CT imaging there is evidence of a possible stricture near the terminal ileum. This is likely secondary to scar tissue. Would not recommend any surgical intervention at this time. Could consider further workup if patient has more frequent episodes of small-bowel obstruction requiring hospitalization or failure to resolve with medical man agement. Surgery to sign off.
--- NOTE | 2024-04-10 15:09 | P.DS_ITS ---
DS: Providers Provider Date Seen: 04/10/24 Date of admission: 04/09/24 09:09 Primary care physician: Tiffanie Pepper MD Admitting Clinician: Ricky Coe MD Consults: 04/09/24 08:04 Consult to Occupational Therapy [CONS] Routine Comment: Reason(s) for OT Consult:: Evaluate and Treat Any Restrictions?:: No Restrictions Consult to Physical Therapy [CONS] Routine Comment: Reason(s) for PT Consult:: Evaluate and Treat Any Restrictions?:: No Restrictions Consult to Physician [CONS] Urgent Comment: Consulting Provider: Beatris Horowitz Has provider been notified: Yes Consult to Pipelines Laborer [CONS] Routine Comment: Reason for Consult:: Social Service Consult Attending Physician on discharge: Judy Oh [facility], [facility] [place] Hospitalist Date of Discharge: 04/10/24 DS: Diagnosis Discharge Diagnosis (1) Small bowel obstruction: Status: Acute Problem details: Likely secondary to adhesions related to previous perforated appendicitis, nonsurgically managed, approximately 10 years ago. No history of abdominal surgeries CT shows possible stricture at the terminal ileum Leukocytosis, lactate 2.2 in ED, repeat 1.3 General surgery consulted, Dr. Horowitz, admitted with IVF, NPO. Overnight no return of pain, no further n/v. Benign abdomen exam. Discussed with Dr. Horowitz - rectal suppository, start with clears, ADAT slowly. Patient able to tolerate full liquid diet. Had a bowel movement. Requesting to discharge to home has has been pain free since admission without further nausea vomiting. Of note, hemoglobin 10.9 today, 14 on admission, questionable dehydration as baseline hemoglobin 10-12. Monitor. No active signs of bleeding. Recheck with PCP. (2) Chronic kidney disease: Status: Acute Problem details: With CLAU - resolved Creatinine returned to 1.4, baseline 2.2-1.1 Hold allopurinol, lisinopril, chlorthalidone - okay to resume on discharge. Outpatient follow-up with PCP. Received IV contrast for CT followed by 1 L IVF in the ED (3) Type 2 diabetes mellitus with hyperglycemia: Status: Chronic Problem details: Most recent A1c 6.6 Normal Lantus home dose 10 units q.a.m.. During hospital course 5 units, adjusting as necessary, resuming home dosing on discharge. (4) Neurogenic bladder: Status: Acute Problem details: Self caths BID (5) HTN (hypertension): Status: Acute Problem details: Continue metoprolol Hold lisinopril, chlorthalidone in setting of CLAU - resume on discharge. (6) Gout: Status: Acute Problem details: holding allopurinol secondary to CLAU - resume on discharge. DS: Summary Hospital Course Hospital Course: [age] year old male was admitted to the medical floor for further management recurrent small-bowel obstruction. Course of care and details as noted above. Following admission, complete resolution of pain without recurrence of nausea vomiting. Tolerating slow advancement in diet with flatulence and bowel movement. Patient requesting to discharge to home. Understands to continue to slowly advance diet. Return to ED if new or worsening pain or return of nausea vomiting. Remainder of chronic medical comorbidities were monitored and managed with home medications. Status at Discharge Overall status at discharge: patient is back to baseline Time Spent with Patient Time attestation: Total time spent providing and/or coordinating discharge services: Time spent: Greater than 30 minutes Exam Narrative: Exam Narrative: PHYSICAL EXAM General: Pleasant, conversant, NAD Cardiovascular: RRR Pulmonary: No dyspnea Abdomen; soft nondistended, nontender Neurological: Alert, answering questions appropriately Skin: Warm, dry. Const: Vital Signs, click to edit/add: Vital Signs - 24 hr 04/09/24 20:00 04/09/24 22:44 04/09/24 22:47 Temperature 98 F Pulse Rate 55 L Pulse Rate [Apical ] 69 Respiratory Rate 18 18 Blood Pressure [Ri ght Arm] 138/71 Pulse Oximetry 97 Oxygen Delivery Me thod Room Air 04/09/24 23:17 04/09/24 23:54 04/10/24 04:00 Temperature 97.8 F 97.9 F Pulse Rate 48 L Pulse Rate [Apical ] 67 52 L Respiratory Rate 18 16 Blood Pressure [Ri ght Arm] 140/80 H 137/53 L Pulse Oximetry 98 95 Oxygen Delivery Me thod Room Air Room Air 04/10/24 07:48 04/10/24 08:00 04/10/24 08:00 Temperature 97.6 F Pulse Rate 61 Pulse Rate [Apical ] 60 60 Respiratory Rate 16 18 Blood Pressure [Ri ght Arm] 142/81 H Pulse Oximetry 95 Oxygen Delivery Me thod Room Air DS: Data Data Completed and Pending Labs on day of discharge: Labs from last 24 hours 04/10/24 04/10/24 07:12 06:12 WBC 5.92 RBC 3.48 L Hgb 10.9 L Hct 33.9 L MCV 97 MCH 31 MCHC 32 Plt Count 126 L Sodium 139 Potassium 4.2 Chloride 110 Carbon Dioxide 26 Anion Gap 3 L BUN 21 Creatinine 1.4 Estimated Creat Clear 44.65 Estimated GFR 50 Glucose 97 Calcium 8.4 Total Bilirubin 0.5 Direct Bilirubin 0.3 AST 31 ALT 17 Alkaline Phosphatase 78 Total Protein 5.9 L Albumin 3.1 L SARS-CoV-2 (PCR) Negative SARS-CoV-2 Influenza Type A (PCR) Negative PCR FLU A Influenza Type B (PCR) Negative PCR FLU B RSV (PCR) Negative PCR RSV Preliminary micro results at discharge 04/09/24 04:41 Urine Culture - Preliminary Urine,Clean Catch NO GROWTH AFTER 24 HOURS Discharge Plan Discharge Disposition: Home, Self-Care Date of Admission: 04/09/24 09:09 Attending Provider on Discharge: Judy Oh Consulting Providers: Beatris Horowitz Primary Care Provider: Tiffanie Pepper Condition: Improved Anticipated Discharge Date/Time: 04/10/24 15:02 Discharge Medications: Continued ascorbic acid (vitamin C) 1,000 mg tablet 1 g PO BID allopurinol 300 mg tablet 300 mg PO DAILY Qty: 90 3RF (DME) Contour Next Test Strips Strip See Rx Instructions .Route Qty: 100 4RF Rx Instructions: daily prn chlorthalidone 25 mg tablet 25 mg PO DAILY Qty: 90 3RF insulin glargine [Lantus Solostar U-100 Insulin] 100 unit/mL (3 mL) insulin pen 10 unit subcut QAM lisinopril 40 mg tablet 40 mg PO DAILY Qty: 90 3RF metoprolol tartrate 50 mg tablet 50 mg PO BID Qty: 180 3RF (DME) pen needle, diabetic [BD Gerda 2nd Gen Pen Needle] 32 gauge x 5/32 needle See Rx Instructions .ROUTE .COMPLEX Qty: 100 12RF Dose Instruction: USE DAILY Rx Instructions: USE DAILY mirtazapine 7.5 mg tablet 7.5 mg PO QPM simvastatin 40 mg tablet 40 mg PO HS Discharge Orders: Discharge Order (Routine); Ordered 04/10/24 Ordered By: Judy Oh Patient Education: Bowel Obstruction (GEN) Additional Instructions: Continue to slowly advanced your diet. If returning pain or nausea, vomiting, return to the ED. Activity Level: Activity as Tolerated Diet Detail: Slowly advance your diet Follow Up Appointments: Tiffanie Pepper MD [Primary Care Provider] - (Post hospital follow up 3-5 days, SBO) Forms: crobo Info Instructions
--- NOTE | 2024-04-10 17:14 | PC.NURSE ---
PATIENT DENIED N/V. TOLERATED CLEAR LIQUID DIET FOR BREAKFAST AND FULL LIQUID FOR LUNCH WITH NO N/V. DULCOLAX SUPPOSITORY ADMINISTERED THIS AM PER MD AND PATIENT HAD MODERATE RESULTS THIS AFTERNOON. SALINE LOCK DC'D. REVIEWED DC INSTRUCTIONS WITH PATIENT AND AND PATIENT DC'D HOME.
== END 2024-04-10 16:14 | disposition home or self-care (01) | DRG 389 ==
LOC: ED 05:34 → MEDSURG 07:58
PROVIDERS: Physician Assistant; Admitting Provider Internal Medicine; Emergency Provider Family Medicine; PCP Family Medicine; Visit Provider Internal Medicine
DX: K56.50 Intestinal adhesions [bands], unspecified as to partial versus complete obstruction (principal); N17.9 Acute kidney failure, unspecified; I12.9 Hypertensive chronic kidney disease with stage 1 through stage 4 chronic kidney disease, or unspecified chronic kidney disease; E11.22 Type 2 diabetes mellitus with diabetic chronic kidney disease; N18.30 Chronic kidney disease, stage 3 unspecified; E11.51 Type 2 diabetes mellitus with diabetic peripheral angiopathy without gangrene; N31.9 Neuromuscular dysfunction of bladder, unspecified; E11.65 Type 2 diabetes mellitus with hyperglycemia; M10.9 Gout, unspecified
CPT/HCPCS: 36415; 51702; 74177; 80048; 80053; 80076; 81001; 81003; 82565; 82962; 83605; 83690; 85025; 85027; 86140; 87086; 87631; 94761; 97161; 97165; 99284; 99285; A9270; J1650; J2270; J2405; J7030; J7120; Q9967

== ENCOUNTER 2024-11-13 10:40 | Inpatient (IN) | payer MEDICARE, SELFPAY ==
[2024-11-13] VITALS (10 sets, daily range): BP systolic 100–163; BP diastolic 57–92; PULSE 72–98; RESP 16–20; TEMP 36.2–36.7; O2SAT 93–97; BMI 24.4; BMI 24.6
--- OUTSIDE RECORDS SUMMARY | 2024-11-13 10:34 | XMS_ITS | Clinical Summary ---
Author Organization [facility] Address [address] [place] [id number] Care Team Providers Care Floor Director Name Role Phone Tiffanie Pepper MD Primary Care Provider [phone] Allergies Active Allergy Reactions Criticality Noted Date Comments Fentanyl Dizziness Medium 12/23/2020 Vancomycin Tremors 03/08/2016 Medications lisinopril (PRINIVIL; ZESTRIL) 40 mg tablet Take 1 tablet by mouth once daily. 0 6 Active metoprolol tartrate (LOPRESSOR) 50 mg tablet Take 1 tablet by mouth 2 times daily. 0 6 Active simvastatin (ZOCOR) 40 mg tablet Take 1 tablet by mouth at bedtime. 0 6 Active ascorbic acid, vitamin C, (VITAMIN C) 1,000 mg tablet Take 1,000 mg by mouth 2 times daily. 0 6 Active aspirin (ECOTRIN) 81 mg enteric coated tablet Take 1 tablet by mouth once daily with a meal. 0 6 Active metFORMIN controlled release (FORTAMET) 500 mg tablet Take 500 mg by mouth once daily with a meal. Active allopurinoL (ZYLOPRIM) 300 mg tablet Take 300 mg by mouth once daily. Active chlorthalidone (HYGROTON) 25 mg tablet Take 25 mg by mouth once daily. Active cyclobenzaprine (FLEXERIL) 5 mg tabletIndication s:Spinal stenosis, lumbar region with neurogenic claudication Take 2 Tablets (10 mg) by mouth every 8 hours if needed. 30 Tablet 1 Active oxyCODONE (ROXICODONE) 5 mg immediate release tabletIndication s:Spinal stenosis, lumbar region with neurogenic claudication Take 1-2 Tablets (5-10 mg) by mouth every 4 hours if needed for Pain (First choice for severe pain.). 35 Tablet Active multivit-mineral s/FA/lycopene (ONE-A-DAY MEN'S ORAL) Take by mouth. Activ e insulin glargine,hum.rec .anlog (INSULIN GLARGINE SUBQ) Inject 12 units subcutaneous [...] Recorded Sex Assigned at Not on file Legal Sex Male 6:15 AM UNIT SECY Gender Identity Not on file Sexual Orientation Not on file Obstetrics History Last Filed Vital Signs Vital Sign Reading Time Taken Comments Blood Pressure 133/62 02/14/2023 1:30 PM CDT Pulse 67 02/14/2023 1:30 PM CDT Temperature 36.8 C (98.2 F) 02/14/2023 10:44 AM CDT Respiratory Rate 14 02/14/2023 1:30 PM CDT Oxygen Saturation 94% 02/14/2023 1:30 PM CDT Inhaled Oxygen Concentration - - Weight 83.9 kg (185 lb) 02/14/2023 10:44 AM CDT Height 180.3 cm (5' 11) 02/14/2023 10:44 AM CDT Body Mass Index 25.8 02/14/2023 10:44 AM CDT Plan of Treatment Health Maintenance Due Date Last Done Comments Tdap 1952 Depression screening for age 12+ 1953 Pneumococcal series for age 50+ (1 of 2 - PCV) 1960 Tetanus booster 1961 Zoster (shingles) series for age 50+ (1 of 2) 1991 Medicare Wellness for age 65+ 2006 RSV vaccine for adults or (1 - 1-dose 75+ series) 2016 BMI (ht and wt on same day) for age 18+ 03/08/2017 03/08/2016 COVID-19 vaccine series ( season) 2024 06/29/2022, 12/15/2021, 06/04/2021, Additional history exists Influenza Vaccine (#1) 2024 Medical Devices Implanted Type Area Counter Person Device Identifier Shelf Expiration Date Model / Serial / Lot Bone 1-4mm 30cc Medtronic Chips Canclls Frozen - [id number] Implanted:Qt y: 1 on 12/25/2020 by Mohit Friedman MD at [facility] Lumbar Vertebra[employer] Medtronic Spine/Ortho 07/06/2025 [id number] / [id number] / [id number] Bone 30cc Mtf Chips Wilfredo/Canclls Freeze Dried - [id number] Implanted:Qt y: 1 on 12/25/2020 by Mohit Friedman MD at [facility] [employer]bar [employer] Musculoskeletal [employer]plant 08/26/2023 [id number] / [id number] / Steven Lmbr 45x5.5mm Solera 5.5/6 Cvd Titnm - [id number] Implanted:Qt y: 2 on 12/25/2020 by Mohit Friedman MD at [facility] Lumbar [employer] Med[employer]onic Spine/Ortho [id number] / / Set Screw Lmbr Ant 5.5mm Solera Break Off - [id number] Implanted:Qt y: 4 on 12/25/2020 by Mohit Friedman MD at [facility] Lumbar [employer] Medtronic Spine/Ortho [id number] / / Screw Lmbr Post 7.5x50mm Solera 5.5/6 Va Cocr - [id number] Implanted:Qt y: 4 on 12/25/2020 by Mohit Friedman MD at [facility] Lumbar [employer] Med[employer]onic Spine/Ortho [id number] / / Insurance MEDICARE PART A HB ONLY BLUE CROSS MEDICARE ADVANTAGE Advance Directives * Full Code (Latest Code Status on File) Date Activated Date Inactivated Comments 02/14/2023 10:04 AM 02/15/2023 2:18 AM Question Answer Comments Code Status Discussion: Unable to Assess Preferences, Provider to review later * Full Code Date Activated Date Inactivated Comments 12/25/2020 12:40 PM 12/28/2020 5:05 PM Question Answer Comments Code Status Discussion: Per Existing Order Care Teams Floor Director Relationship Specialty Start Date End Date Tiffanie Pepper MD [address] [place] [address] PCP - General 02/11/23
--- OUTSIDE RECORDS SUMMARY | 2024-11-13 10:34 | XMS_ITS | Clinical Summary ---
Author Organization [facility] Address [address] [place] [address] Care Team Providers Care Entry Level Software Developer Name Role Phone Tiffanie Pepper MD Primary Care Provider Source Comments You are receiving this document as you are listed as the primary care provider,follow-up provider, or the patient has been referred to you for consultation.This is in compliance with the Medicare and[facility] EHR Incentive Program,which states Providers who transition their patient to another setting of careor provider of care or refers their patient to another provider of care shouldprovide summary care record for each transition of care or referral. [facility] Social History Tobacco Use Types Packs/Day Years Used Date Smoking Tobacco: Never Assessed Sex and Gender Information Value Date Recorded Sex Assigned at Not on file Legal Sex Male 6:34 AM CDT Gender Identity Not on file Sexual Orientation Not on file Plan of Treatment Health Maintenance Due Date Last Done Comments Medicare Annual Wellness Visit 1941 RSV (1 - 1-dose 75+ series) 2016 Zoster/Shingles (3 of 3) 11/25/2022 09/30/2022, 04/29 COVID-19 Vaccine ( season) 2024 06/06/2023, 06/29/2022, 12/15/2021, Additional history exists Influenza (#1) 2024 06/06/2023, 05/29, 06/08/2021, Additional history exists DTaP/Tdap/Td (2 - Tdap) 03/31/2027 03/31/2017 Pneumococcal 50+ Yrs Completed 05/28/2015, 06/25/20 10 HepA Aged Out No longer eligi ble based on patient's age to complete this topic HepB Aged Out No longer eligi ble based on patient's age to complete this topic Hib Aged Out No longer eligi ble based on patient's age to complete this topic IPV (Polio) Aged Out No longer eligi ble based on patient's age to complete this topic MCV4 Aged Out No longer eligi ble based on patient's age to complete this topic Meningococcal B Aged Out No longer el igible based on patient's age to complete this topic Insurance [facility] MEDICARE ADVANTAGE Care Teams Entry Level Software Developer Relationship Specialty Start Date End Date Tiffanie Pepper MD [address] [place], [place] [id number] PCP - General Family Practice 05/16/24
--- OUTSIDE RECORDS SUMMARY | 2024-11-13 10:35 | XMS_ITS | Data Portability ---
Author Organization [place] [facility] Address [address] [facility] [place] [address] Care Team Providers Care Sap Pi Developer Name Role Phone RIVERA JOHNSON Primary Care Provider Assessment Encounter Date Assessment Date Assessment LastModified by Organization Details LastModified Time 04/14/2024 04/14/2024 This patient is being seen today for a [facility] appointment after hospitalization. *Reason for admission: Bowel obstruction PATIENT AND WERE NOT COMFORTABLE WITH US BEING IN HOME. WHAT ARE YOU GOING TO DO THAT THE DOCTOR IS NOT GOING TO DO. PATIENT HAS APPROPRIATE FOLLOW-UP WITH PCP SCHEDULED ON 04/16/24. HE SPOKE WITH US BRIEFLY. HOWEVER, INTERNET ISSUES - PROVIDER NOR [facility] COULD CONNECT. HOME IS WITHOUT WI-FI. NO VISIT COMPLETED *I have reviewed the external medical records: from (hospital system/practice) , on (date of service) . Specifically, the data/test result/record I reviewed was: . *The following comorbid health conditions pertinent to this [facility] visit were discussed, diagnoses were added, and current status documented: The patient has a follow up appointment with on The patient a follow up appointment with on . *The following referrals were submitted today: SSMILE High Risk area for hospital readmission *SYMPTOMS Does the patient have ongoing or worsening symptoms? *SKILLED NEEDS Does the patient have unaddressed skilled needs? *MEDICATIONS Is the patient/caregiver able to describe current medication management strategy? Reconciliation and Management: A face to face medication reconciliation was completed during today's visit. The patient verbalized understanding of the dosage and timing of their medications and understands the need to take their medications as prescribed. I had the opportunity to answer any questions regarding their medications. *INFORMATION Does the patient/caregiver /MPOA have understanding of disease/discharge information/treat ment plan/red flag symptoms? *LINKED UP Does the patient understand the appropriate providers to follow up with: Does the patient have access to healthcare, food, social support? Resources available through [facility]. *ENGAGEMENT Is the patient/caregiver /MPOA engaged in the care plan? *After reviewing records, medications, understanding for the plan of care, physical exam, and SSMILE Risk score, and it is determined the patient is *Additional patient instructions: I gave detailed care plan instructions, submitted appropriate referrals as needed, and answered all questions. [facility] has been scheduled to monitor compliance and understanding of care plan. The follow up is scheduled for . The patient verbalizes understanding and agrees with the plan. The patient is advised to seek immediate evaluation with their PCP, [facility], or in the ER for new or worsening symptoms. Notes from the visit were sent to the patient's PCP. Proper Personal Protective Equipment (PPE), including were donned and doffed appropriately and all equipment cleaned using approved technique with germicidal disposable wipes prior to and after care of this patient according to [employer] [facility]'s infection prevention protocols. [email or web address] Not available 04/14/2024 19:55:01 Plan of Treatment Reminders Order Date Submit Date Provider Last Modified By Organization Details Last Modified Time Details Appointments None record ed. Lab None record ed. Referral None record ed. Procedures None record ed. Surgeries None record ed. Imaging None record ed. Medication Orders None record ed. Patient TargetsNo targets recorded. Patient InstructionsNo instructions recorded. Reason for Referral None Reported. Procedures Surgical History Date Name Laterality Status Provider Name and Address Organization Details Recorded Time 04/14/20 24 Medication Review completed Rachael Richter NP [address] ,[address], [place], [address], [place] [facility] 04/14/2024 11:58:03 Imaging Results None recorded. Procedure Notes None recorded. Medical Equipment None Reported. Medications Name Sig Start Date Stop Date Status Note LastModified by Organization Details LastModified Time ofloxacin 0.3 % eye drops INSTILL 1 DROP INTO THE SURGERY EYE 2 TIMES DAILY AFTER SURGERY FOR 10 DAYS active Not Available Not Available No t Available chlorthalido ne 25 mg tablet TAKE 1 TABLET (25 MG) ORALLY DAILY active Not Available Not Available No t Available ciprofloxaci n 500 mg tablet TAKE 1 TABLET BY MOUTH TWICE A DAY FOR 10 DAYS active Not Available Not Available No t Available aspirin 81 mg tablet,delay ed release TAKE 1 TAB ORALLY TWICE A DAY MEDICATION TO HELP PREVENT BLOOD CLOTS POSTOPERATI VELY active Not Available Not Available No t Available acetaminophe n 500 mg tablet TAKE 1-2 TABS ORALLY EVERY 6 HOURS NEEDED, MAX DAILY DOSE: 4000MG active Not Available Not Available No t Available simvastatin 40 mg tablet TAKE 1 TABLET BY MOUTH EVERY DAY active Not Available Not Available No t Available ketorolac 0.5 % eye drops INSTILL ONE DROP INTO THE SURGICAL EYE(S) 4 TIMES A DAY FOR 2 WEEKS AFTER SURGERY active Not Available Not Available No t Available prednisolone acetate 1 % eye drops,suspen jimbo PLEASE SEE ATTACHED FOR DETAILED DIRECTIONS active Not Available Not Available N ot Available metoprolol tartrate 50 mg tablet TAKE 1 TABLET BY MOUTH TWICE A DAY active Not Available Not Available No t Available allopurinol 300 mg tablet TAKE 1 TABLET BY MOUTH EVERY DAY active Not Available Not Available No t Available lisinopril 40 mg tablet TAKE 1 TABLET (40 MG) ORALLY DAILY active Not Available Not Available No t Available oxycodone 5 mg tablet PLEASE SEE ATTACHED FOR DETAILED DIRECTIONS active Not Available Not Available N ot Available Senna Plus 8.6 mg-50 mg tablet PLEASE SEE ATTACHED FOR DETAILED DIRECTIONS active Not Available Not Available N ot Available mirtazapine 7.5 mg tablet 7.5 MG ORALLY EVERY EVENING active Not Available Not Available No t Available Lantus Solostar U-100 Insulin 100 unit/mL (3 mL) subcutaneous pen 25 UNIT (0.25 ML) SUBCUTANEOU SLY EVERY EVENING active Not Available Not Available No t Available Xarelto 10 mg tablet PLEASE SEE ATTACHED FOR DETAILED DIRECTIONS active Not Available Not Available N ot Available Contour Next Test Strips DIRECTED active Not Available Not Availa ble Not Available BD Gerda 2nd Gen Pen Needle 32 gauge x 5/32 USE DAILY DIRECTED active Not Available Not Available Not Available Vitals None Recorded Social History None recorded. Functional Status None recorded. Mental Status None recorded. Family History Nothing Reported. Medical History No medical history recorded. Past Encounters Encounter ID Performer Location Encounter Start Date Encounter Closed Date Diagnosis/Indication Diagnosis SNOMED-CT Code Diagnosis ICD10 Code Diagnosis Note [id number] Rachael Richter NP [facility] [address] [place] [id number] 04/14/2024 11:24:47 04/14/2024 12:22:36 Health Concerns Section Related Observation LastModified by Organization Detai ls LastModified Time None Recorded Concern Status LastModified by Organization Details LastModified Time None Recorded Advance Directives Directive None Recorded Payers Encounter Date Sequence Insurance Name Policy Number Policy Perez Covered Member ID Perez Member ID Guarantor Name 04/14/2024 1 [place] SECURE BLUE (MEDICARE REPLACEMENT HMO) Cosmo Mosqueda [id number] Cosmo Mosqueda Notes Date Note Type Note Provider Name and Address Organization Details Recorded Time 4 text/html o Date of Dischargeo Date of initial Contact by CARE team (see Dashboard):This patient being seen for a [facility] appointment following hospitalization at:{{}}. Date of initial contact by Dispatcher Scheduling Team (see Dashboard):{{DATE}} Reason for admission: Date admitted:{{DATE}}.Da te discharged:{{DATE}}. Testing:Surgeries/Pr ocedures:New medications: PATIENT AND WERE NOT COMFORTABLE WITH US BEING IN HOME. WHAT ARE YOU GOING TO DO THAT THE DOCTOR IS NOT GOING TO DO. PATIENT HAS APPROPRIATE FOLLOW-UP WITH PCP SCHEDULED ON 04/16/24. HE SPOKE WITH US BRIEFLY. HOWEVER, INTERNET ISSUES - PROVIDER [place] COULD CONNECT. HOME IS WITHOUT WI-FI. NO VISIT COMPLETED Rachael Richter NP [address] ,[address], [place], [address], [place] [facility] 04/14/2024 19:56:47
--- NOTE | 2024-11-13 11:13 | CRLHL7_ITS ---
For Patients: As a result of the Cures Act, medical imaging exams and procedure reports are released immediately into your electronic medical record. You may view this report before your referring provider. If you have questions, please contact your health care provider. INDICATION: Cough TECHNIQUE: Chest 3 view COMPARISON: 10/31/2022 FINDINGS: Cardiovascular and mediastinum: Heart size is normal. Unremarkable mediastinum. Valve replacement Lungs and pleural spaces: Left lower lobe linear opacity likely reflecting atelectasis. No sign of infiltrate or mass. No sign of pleural effusion. No pneumothorax. Bones and soft tissues: Chronic appearing lower thoracic vertebral body compression fracture IMPRESSION: Left lower lobe linear opacity likely reflecting atelectasis. Definite focal consolidation Dictated by Carina Maya MD @ 11/13/2024 11:53:34 AM (Electronically Signed)
[2024-11-13 11:29] LABS: PCR FLU A Negative PCR FLU A (Negative); PCR FLU B Negative PCR FLU B (Negative); PCR RSV POSITIVE PCR RSV (Negative); SARS PCR* Negative SARS-CoV-2 (Negative)
[2024-11-13 11:36] LABS: Basophils Absolute Auto 0.01 K/uL (0.00-0.30); Basophils Percent Auto 0.2 % (0.0-3.0); Eosinophils Absolute Auto 0.01 K/uL (0.00-0.50); Eosinophils Percent Auto 0.2 % (0.0-7.0); Hematocrit* 39.4 % (37.0-53.0); Hemoglobin* 13.2 gm/dL (13.5-17.5); Immature Granulocytes Abs Auto 0.07 K/uL (0.00-0.30); Immature Granulocytes Pct Auto 1.1 %; Lymphocytes Percent Auto 8.3 % (20-44); Mean Corpuscular HGB Conc 34 gm/dL (32-36); Mean Corpuscular Hemoglobin 33 pg (26-34); Mean Corpuscular Volume 99 fL (80-100); Monocytes Percent Auto 6.9 % (0.0-11.0); Neutrophils Percent Auto 83.3 % (42.0-72.0); Platelet Count* 120 K/uL (140-440); RDW Coefficient of Variation % 13.3 % (11.5-15.5); Red Blood Count* 3.99 m/uL (4.30-5.90); White Blood Count* 6.39 K/uL (4.50-11.00)
[2024-11-13 11:40] LABS: Slide Review Reflex No
--- NOTE | 2024-11-13 11:40 | ED_ITS ---
HPI - General Adult General Date Seen: 11/13/24 Chief complaint: Weakness Stated complaint: Nausea, Weakness, Diarreah Time Seen by Provider: 11/13/24 10:58 History of Present Illness HPI narrative: Patient is an 84-year-old with a history of chronic kidney disease, diabetes, coronary artery disease who says he has been sick for the past week or so with watery nonbloody diarrhea, no significant abdominal pain, or fevers. The past couple of days he has developed a cough which he says at times is severe, he says he has paroxysms of cough which have led to a little bit of vomiting. He went to the clinic today because he just felt almost too weak to get up this morning. He denies any falls or fainting. He has not felt short of breath, denies chest pain. At clinic he was noted to be mildly hypotensive and was sent here for further evaluation. He had 500 mL of fluid by the ambulance. He says he quit smoking a few years ago, denies alcohol use. Lives at home with his . Related Data Home Medications ?Medication ?Instructions ?Recorded ?Confirmed ascorbic acid (vitamin C) 1,000 mg 1 g PO BID 06/07/22 11/13/24 tablet insulin glargine 100 unit/mL (3 10 unit subcut QAM 02/03/24 11/13/24 mL) subcutaneous pen (Lantus Solostar U-100 Insulin) mirtazapine 7.5 mg tablet 7.5 mg PO QPM 04/09/24 11/13/24 simvastatin 40 mg tablet 40 mg PO HS 04/10/24 11/13/24 Previous Rx's ?Medication ?Instructions ?Recorded allopurinol 300 mg tablet 300 mg PO DAILY #90 tabs 02/03/24 blood sugar diagnostic (Contour #100 ea 02/03/24 Next Test Strips) chlorthalidone 25 mg tablet 25 mg PO DAILY #90 tabs 02/03/24 lisinopril 40 mg tablet 40 mg PO DAILY #90 tabs 02/03/24 metoprolol tartrate 50 mg tablet 50 mg PO BID #180 tabs 02/03/24 pen needle, diabetic 32 gauge x #100 ea 02/03/24 (BD Gerda 2nd Gen Pen Needle) Allergies Allergy/AdvReac Type Severity Reaction Status Date / Time vancomycin Allergy Mild Shakiness Verified 11/13/24 09:33 fentanyl AdvReac Mild Dizziness Verified 11/13/24 09:33 Review of Systems Status of ROS: Reports: 10 or more systems reviewed and unremarkable except as noted in History and below [facility] Medical History Adrenal mass ?E27.8 - Other specified disorders of adrenal gland (ICD-10) Gout (04/30/10) ?M10.9 - Gout, unspecified (ICD-10) Chronic pancreatitis ?K86.1 - Other chronic pancreatitis (ICD-10) Insomnia ?G47.00 - Insomnia, unspecified (ICD-10) T12 compression fracture ?S22.080A - Wedge compression fracture of T11-T12 vertebra, initial encounter for closed fracture (ICD-10) Bone mass ?M89.8X9 - Other specified disorders of bone, unspecified site (ICD-10) Small bowel obstruction ?K56.609 - Unspecified intestinal obstruction, unspecified as to partial versus complete obstruction (ICD-10) Hepatic cyst ?K76.89 - Other specified diseases of liver (ICD-10) Senile nuclear sclerosis ?H25.10 - Age-related nuclear cataract, unspecified eye (ICD-10) Neurogenic claudication ?R29.818 - Other symptoms and signs involving the nervous system (ICD-10) Squamous cell carcinoma Perforated appendicitis ?K35.32 - Acute appendicitis with perforation, localized peritonitis, and gangrene, without abscess (ICD-10) Surgical History S/P hip replacement (06/20/23) ?Z96.649 - Presence of unspecified artificial hip joint (ICD-10) Status post insertion of iliac artery stent (~2005) ?Z95.828 - Presence of other vascular implants and grafts (ICD-10) Status post lumbar spine surgery for decompression of spinal cord (12/25/20) ?Z98.890 - Other specified postprocedural states (ICD-10) Hx of CABG (01/20/11) ?Z95.1 - Presence of aortocoronary bypass graft (ICD-10) History of prostate surgery ?Z98.890 - Other specified postprocedural states (ICD-10) History of endoscopic retrograde cholangiopancreatography ?Z98.890 - Other specified postprocedural states (ICD-10) History of arthroscopy of right knee ?Z98.890 - Other specified postprocedural states (ICD-10) Family History Mother CHF (congestive heart failure) High blood pressure Paternal Grandfather Bladder cancer Father Myocardial infarction High blood pressure Other Liver cancer Stroke Throat cancer Social History Narrative: Former smoker - started 20-30 cigarettes per day 1954, stopped 09/2020 Does not drink alcohol Does not use illicit drugs Previously desired to be DNI What is your current living situation?: I presently have a place to live Problems where you live: no known problems Problems where you live details: N/A In the past 12 months, utilities in danger of being shut off: no In past 12 months, lack of transportation kept you from medical appts, meetings, work, or getting things needed for daily living: no In the past 12 mos, have been you worried that your food would run out before you had money to buy more?: never true In the past 12 mos, the food you bought just didn't last and you didn't have money to buy more?: never true Highest level of school completed/degree received: decline to answer Smoking Status: Former smoker What tobacco products do you use: cigarettes Smoking packs per day: 1 Smoking cigarettes per day: 20.0 Years smoked: 60 Smoking pack-years: 60.00 Smoking quit date/years: <= 15 years ago Do you use any of these nicotine containing products: None Second hand tobacco smoke exposure: No How often do you have a drink containing alcohol: never How often do you have six or more drinks on one occasion: Never AUDIT-C Alcohol total score: 0 Non-prescribed substance use: denies use Caffeine: No How often does anyone, including family, friends and others, physically hurt you : never How often does anyone, including family, friends and others, insult or talk down to you: never How often does anyone, including family, friends and others, threaten you with harm: never How often does anyone, including family, friends and others, scream or curse at you: never service: No Exam Narrative: Exam Narrative: Vital signs reviewed In general, alert, nontoxic elderly male. He looks fatigued. He is breathing easily. Head: Normocephalic, atraumatic. Eyes: Sclera clear. Pupils equal and reactive. ENT: Mucous membranes moist. Neck: Supple without adenopathy. Heart: Regular rate and rhythm without murmur. Lungs: Clear. No increased work of breathing, crackles or wheezes. Abdomen: Soft, nontender to palpation. Extremities: Well perfused, pulses intact. No significant edema. Neurologic: Alert, conversant. Speech fluent, face symmetric. Moves all extremities equally. Skin: Warm, dry well perfused. Affect: Normal. Const: Vital Signs, click to edit/add: Vital Signs - 24 hr 11/13/24 10:42 11/13/24 10:47 11/13/24 12:21 Temperature 97.8 F 97.1 F L Pulse Rate [Pulse Oximeter] 72 92 Pulse Rate [orthos tatic lying Left P ulse Oximeter] 87 Pulse Rate [orthos tatic sitting Left Pulse Oximeter] 76 Pulse Rate [orthos tatic standing Lef t Pulse Oximeter] 83 Respiratory Rate 20 18 Blood Pressure [Ri ght Upper Arm] 163/79 H 145/61 H Blood Pressure [or thostatic lying Ri ght Arm] 141/92 H Blood Pressure [or thostatic sitting Right Arm] 126/65 Blood Pressure [or thostatic standing Right Arm] 113/63 Pulse Oximetry 97 96 Oxygen Delivery Me thod Room Air Room Air Course Course ED Course: Orthostatics were done here which were notable for a drop in his blood pressure from 141/92 to 113/63, he did not have any tachycardia although he does take metoprolol daily. He was not symptomatic on standing however. He had an EKG which shows a sinus rhythm, ventricular rate of 89. He has a 1st degree AV block and occasional PVCs. Diagnostic considerations include pneumonia versus viral infection, congestive heart failure seems less likely, doubt PE in the absence of chest pain or shortness of breath, he is not hypoxic nor is he tachycardic. Will check a flu swab, a labs were. Evaluate for dehydration, acute kidney injury, metabolic derangement, anemia. Chest x-ray by my review showed some streakiness in the left lung, Radiology believes this to be atelectasis rather than infiltrate. White blood cell count is normal, other labs most notable for mild acidosis with a CO2 of 16, BUN of 38 creatinine of 1.9 which is little bit above his baseline which runs closer to 1.4. He did not have diarrhea while in the emergency department so C diff was not collected. He does have of positive viral swab for RSV. He is not hypoxic, does not have any increased work of breathing here and does not require any respiratory support, but I do think he has some dehydration and acute on chronic kidney disease, recommended that he come into the hospital for hydration and trending of labs. Discussed with hospitalist and admitted to the hospitalist service. Other labs reviewed and unremarkable. Vital Signs Vital signs: Initial Vital Signs Temperature 97.8 F 11/13/24 10:42 Temperature Source Temporal Artery Scan 11/13/24 10:42 Pulse Rate 72 11/13/24 10:42 Respiratory Rate 20 11/13/24 10:42 Blood Pressure 163/79 H 11/13/24 10:42 Blood Pressure Mean 107 H 11/13/24 10:42 Blood Pressure Position Supine 11/13/24 10:42 Pulse Oximetry 97 11/13/24 10:42 Oxygen Delivery Method Room Air 11/13/24 10:42 Vital Signs Temperature 97.8 F 11/13/24 10:42 Pulse Rate 72 11/13/24 10:42 Respiratory Rate 20 11/13/24 10:42 Blood Pressure 163/79 H 11/13/24 10:42 Pulse Oximetry 97 11/13/24 10:42 Oxygen Delivery Method Room Air 11/13/24 10:42 Temperature 97.1 F L 11/13/24 12:21 Pulse Rate 92 11/13/24 12:21 Respiratory Rate 18 11/13/24 12:21 Blood Pressure 145/61 H 11/13/24 12:21 Pulse Oximetry 96 11/13/24 12:21 Oxygen Delivery Method Room Air 11/13/24 12:21 Medications Administered Medications: Discontinued Medications Generic Name Dose Route Start Last Admin Trade Name Freq PRN Reason Stop Dose Admin Sodium Chloride 500 mls @ 500 mls/hr 11/13/24 11:13 11/13/24 11:51 0.9 % Sodium Chloride 500 Ml IV 11/13/24 12:12 500 mls/hr .Q1H ONE Administration Medical Decision Making Lab Data Lab results reviewed: Yes I reviewed the patient's lab results Labs: Lab Results 11/13/24 11/13/24 11/13/24 Range/Units 10:41 11:14 11:28 WBC 6.39 (4.50-11.00) K/uL RBC 3.99 L (4.30-5.90) m/uL Hgb 13.2 L (13.5-17.5) gm/dL Hct 39.4 (37.0-53.0) % MCV 99 (80-100) fL MCH 33 (26-34) pg MCHC 34 (32-36) gm/dL RDW Coeff of [place] Dee 13.3 (11.5-15.5) % Plt Count 120 L (140-440) K/uL Neut % (Auto) 83.3 H (42.0-72.0) % Lymph % (Auto) 8.3 L (20-44) % [place] % (Auto) 6.9 (0.0-11.0) % Eos % (Auto) 0.2 (0.0-7.0) % Baso % (Auto) 0.2 (0.0-3.0) % Neut # (Auto) 5.30 (1.7-7.0) K/uL Lymph # (Auto) 0.50 L (0.90-2.90) K/uL [place] # (Auto) 0.40 (0.00-0.90) K/UL Eos # (Auto) 0.01 (0.00-0.50) K/uL Baso # (Auto) 0.01 (0.00-0.30) K/uL Abs Immat Gran (auto) 0.07 (0.00-0.30) K/uL Imm/Tot Granulo (auto) 1.1 % Sodium 138 (135-149) mmol/L Potassium 4.5 (3.6-5.1) mmol/L Chloride 111 (96-114) mmol/L Carbon Dioxide 16 L (20-32) mmol/L Anion Gap 11 (7-15) mEq/L BUN 38 H (7-30) mg/dL Creatinine 1.9 H (0.5-1.5) mg/dL Estimated Creat Clear 32.33 Estimated GFR 35 ml/min Glucose 141 H (60-115) mg/dL Calcium 8.4 (8.4-10.6) mg/dL Magnesium 1.7 (1.5-2.6) mg/dL Total Bilirubin 0.5 (0.1-1.5) mg/dL Direct Bilirubin 0.3 (0.0-0.5) mg/dL AST 44 H (12-35) U/L ALT 47 (4-50) U/L Alkaline Phosphatase 106 (40-150) U/L C-Reactive Protein < 0.5 L (0.5-1.0) mg/dL NT-Pro-B Natriuret Pep 490 pg/mL Total Protein 6.8 (6.0-8.3) g/dL Albumin 3.9 (3.3-5.0) g/dL SARS-CoV-2 (PCR) Negative SARS-CoV-2 (Negative) Influenza Type A (PCR) Negative PCR FLU A (Negative) Influenza Type B (PCR) Negative PCR FLU B (Negative) RSV (PCR) POSITIVE PCR RSV A (Negative) POC Troponin I 0.00 L (0.01-0.04) ng/ml Imaging Data Chest x-ray: Attestation: I have reviewed the pertinent imaging results. Radiologist's impression: Patient: Cosmo Mosqueda MR#: [id number] : 1940 Acct:[id number] Loc: ED Service Date: 11/13/[address]: Ordering Physician: Tiffanie Sandoval M.D. Date of Service: 11/13/24 Procedure(s): XR chest 2V Accession Number(s): [id number] cc: Tiffanie Sandoval M.D.; Tiffanie Pepper M.D.~ For Patients: As a result of the Cures Act, medical imaging exams and procedure reports are released immediately into your electronic medical record. You may view this report before your referring provider. If you have questions, please contact your health care provider. INDICATION: Cough TECHNIQUE: Chest 3 view COMPARISON: 10/31/2022 FINDINGS: Cardiovascular and mediastinum: Heart size is normal. Unremarkable mediastinum. Valve replacement Lungs and pleural spaces: Left lower lobe linear opacity likely reflecting atelectasis. No sign of infiltrate or mass. No sign of pleural effusion. No pneumothorax. Bones and soft tissues: Chronic appearing lower thoracic vertebral body compression fracture IMPRESSION: Left lower lobe linear opacity likely reflecting atelectasis. Definite focal consolidation Dictated by Carina Maya MD @ 11/13/2024 11:53:34 AM Discharge Plan Discharge Clinical Impression: Acute kidney injury, Respiratory syncytial virus (RSV) Patient Disposition: Admitted As Observation
[2024-11-13 11:49] LABS: Chloride* 111 mmol/L (96-114); Potassium* 4.5 mmol/L (3.6-5.1); Sodium* 138 mmol/L (135-149)
[2024-11-13 11:50] LABS: Albumin* 3.9 g/dL (3.3-5.0)
[2024-11-13] MEDS: 0.9 % SODIUM CHLORIDE 500 ML 500 ML IV (11:51)
[2024-11-13 11:53] LABS: Alanine Aminotransferase* 47 U/L (4-50); Alkaline Phosphatase* 106 U/L (40-150); Anion Gap 11 mEq/L (7-15); Aspartate Amino Transferase* 44 U/L (12-35); Bilirubin Direct* 0.3 mg/dL (0.0-0.5); Bilirubin Total* 0.5 mg/dL (0.1-1.5); Blood Urea Nitrogen* 38 mg/dL (7-30); Calcium* 8.4 mg/dL (8.4-10.6); Carbon Dioxide* 16 mmol/L (20-32); Creatinine* 1.9 mg/dL (0.5-1.5); Est. Creatinine Clearance* 32.33; Estimated Glomerular Filt Rate 35 ml/min; Glucose* 141 mg/dL (60-115); Magnesium* 1.7 mg/dL (1.5-2.6); Total Protein* 6.8 g/dL (6.0-8.3)
--- OUTSIDE RECORDS SUMMARY | 2024-11-13 11:55 | XMS_ITS | Clinical Summary ---
Author Organization [facility] Address [address] [place] [address] Care Team Providers Care Sample Shoe Inspector And Reworker Name Role Phone Tiffanie Pepper MD Primary Care Provider Source Comments You are receiving this document as you are listed as the primary care provider,follow-up provider, or the patient has been referred to you for consultation.This is in compliance with the Medicare and[facility] EHR Incentive Program,which states Providers who transition their patient to another setting of careor provider of care or refers their patient to another provider of care shouldprovide summary care record for each transition of care or referral. [facility] Social History Tobacco Use Types Packs/Day Years [...] patient's age to complete this topic Insurance [facility] MEDICARE ADVANTAGE Care Teams Sample Shoe Inspector And Reworker Relationship Specialty Start Date End Date Tiffanie Pepper MD [address] [place], [place] [phone] PCP - General Family Practice 05/16/24
--- OUTSIDE RECORDS SUMMARY | 2024-11-13 11:55 | XMS_ITS | Clinical Summary ---
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 Gender Identity Not on file Sexual Orientation [...] (#1) 2024 Medical Devices Implanted Type Area Group Home Manager Device Identifier Shelf Expiration Date Model / Serial / Lot Bone 1-4mm 30cc Medtronic Chips Canclls Frozen - [id number] Implanted:Qt y: 1 on 12/25/2020 by Mohit Friedman MD at [facility] Med[employer] Spine/Ortho 07/06/2025 [id number] / [id number] / [id number] Bone 30cc Mtf Chips Wilfredo/Canclls Freeze Dried - [id number] Implanted:Qt y: 1 on 12/25/2020 by Mohit Friedman MD at [facility] [employer] 08/26/2023 [id number] / [id number] / Steven Lmbr 45x5.5mm Solera 5.5/6 Cvd Titnm - [id number] Implanted:Qt y: 2 on 12/25/2020 by Mohit Friedman MD at [facility] [employer] Spine/Ortho [id number] / / Set Screw Lmbr Ant 5.5mm Solera Break Off - [id number] Implanted:Qt y: 4 on 12/25/2020 by Mohit Friedman MD at [facility] [employer] Spine/Ortho [id number] / / Screw Lmbr Post 7.5x50mm Solera 5.5/6 Va Cocr - [id number] Implanted:Qt y: 4 on 12/25/2020 by Mohit Friedman MD at [facility] [employer] Sp[employer]/Ortho [id number] / / Insurance MEDICARE PART A HB [...] Status Discussion: Per Existing Order Care Teams Chief Creative Officer Relationship Specialty Start Date End Date Tiffanie Pepper MD [id number] [place] [id number] PCP - General 02/11/23
[2024-11-13 11:59] LABS: C Reactive Protein* < 0.5 mg/dL (0.5-1.0)
[2024-11-13 12:02] LABS: NT Pro B Type NatriureticPept* 490 pg/mL
--- NOTE | 2024-11-13 13:55 | PM.IMHP1 ---
Assessment and Plan Assessment and plan (1) Respiratory syncytial virus (RSV): Problem comment: - supportive measures, RT evaluation - history of smoking but no wheezing on admission, defer steroids at this time - streaky atelectasis on CXR 11/13 (likely viral, consider abx if clinical course changes) Status: Acute (2) Diarrhea: Problem comment: - present for approximately 7 days prior to admission - presumably viral in nature, will collect sample to rule out C diff or other pathogens - continue to monitor, no need for imaging at this time but consider if clinical course changes Status: Acute (3) Type 2 diabetes mellitus with hyperglycemia: Problem comment: - insulin dependent - last A1C 6.6 (02/19), will repeat - Accuchecks and SSI, home insulin Status: Chronic (4) Acute kidney injury: Problem comment: - baseline 1.2-1.4, currently 1.9 Status: Acute (5) HTN (hypertension): Problem comment: - hypotensive in clinic 11/13 and + orthostasis in ER - blood pressure improved after IVF bolus - holding Lisinopril and Chlorthalidone, continue Metoprolol Status: Acute (6) Neurogenic bladder: Problem comment: - Self caths BID Status: Acute (7) Coronary artery disease: Problem comment: - 01/11/2011: 1v CABG (MOREJON to LAD) with MVR (porcine bioprosthesis) Status: Acute (8) Gout: Problem comment: - on Allopurinol as an outpatient, no current flare - HOLDING 11/13 given CLAU Status: Acute Plan - per above - appropriate for inpatient status given acute hypotension in clinic setting, + orthostasis, high risk age and comorbidities with increased risk of complications - renally dosed Lovenox for ppx - Full Code status requested Hospitalist- H&P: HPI History of Present Illness Date Seen: 11/13/24 Chief complaint: Nausea, Weakness, Diarreah Narrative: Cosmo Mosqueda is a 84 year old male with a history of IDDM2, neurogenic bladder, PAD, andCAD who presented by ambulance to the ER fom his PCPs office this morning for cough, congestion, and diarrhea. He has had a cough for a few days ( sick for >1 week), and diarrhea for the past week. He states diarrhea is watery, nonbloody. No nausea, + appetite. Has had post-tussive emesis a few times during current illness. He's had more weakness in the last 24 hours, and presented to PCP's office for this, found to be ill appearing with a BP of 96/54, increased work of breathing. Received a 500mL bolus by EMS en route to ER. ER Course: - + RSV - CXR noted to have a LLL opacity likely reflecting atelectasis w/o focal consolidation - creatinine 1.9 (baseline 1.3-1.4), AST 44 (baseline 20-30) - positive orthostasis Admitted to the hospital given symptomatic dehydration and CLAU 2/2 acute diarrheal illness, + RSV. Histories reviewed below, Dr. Pepper is PCP at [facility]. Review of Systems Status of ROS: Reports: 10 or more systems reviewed and unremarkable except as noted in History and below [facility] Medical History (Updated 11/13/24 @ 14:29 by Ellyn Pires MD) Coronary artery disease ?I25.10 - Atherosclerotic heart disease of [place] coronary artery without angina pectoris (ICD-10) Anemia ?D64.9 - Anemia, unspecified (ICD-10) HTN (hypertension) ?I10 - Essential (primary) hypertension (ICD-10) PAD (peripheral artery disease) ?I73.9 - Peripheral vascular disease, unspecified (ICD-10) Mitral regurgitation (07/03/10) ?I34.0 - Nonrheumatic mitral (valve) insufficiency (ICD-10) Neurogenic bladder (10/02/12) ?N31.9 - Neuromuscular dysfunction of bladder, unspecified (ICD-10) Adrenal hyperplasia ?E27.8 - Other specified disorders of adrenal gland (ICD-10) Adrenal mass ?E27.8 - Other specified disorders of adrenal gland (ICD-10) Gout (04/30/10) ?M10.9 - Gout, unspecified (ICD-10) Chronic pancreatitis ?K86.1 - Other chronic pancreatitis (ICD-10) Insomnia ?G47.00 - Insomnia, unspecified (ICD-10) T12 compression fracture ?S22.080A - Wedge compression fracture of T11-T12 vertebra, initial encounter for closed fracture (ICD-10) Bone mass ?M89.8X9 - Other specified disorders of bone, unspecified site (ICD-10) Small bowel obstruction ?K56.609 - Unspecified intestinal obstruction, unspecified as to partial versus complete obstruction (ICD-10) Hepatic cyst ?K76.89 - Other specified diseases of liver (ICD-10) Senile nuclear sclerosis ?H25.10 - Age-related nuclear cataract, unspecified eye (ICD-10) Neurogenic claudication ?R29.818 - Other symptoms and signs involving the nervous system (ICD-10) Squamous cell carcinoma Perforated appendicitis ?K35.32 - Acute appendicitis with perforation, localized peritonitis, and gangrene, without abscess (ICD-10) Surgical History S/P hip replacement (06/20/23) ?Z96.649 - Presence of unspecified artificial hip joint (ICD-10) Status post insertion of iliac artery stent (~2005) ?Z95.828 - Presence of other vascular implants and grafts (ICD-10) Status post lumbar spine surgery for decompression of spinal cord (12/25/20) ?Z98.890 - Other specified postprocedural states (ICD-10) Hx of CABG (01/20/11) ?Z95.1 - Presence of aortocoronary bypass graft (ICD-10) History of prostate surgery ?Z98.890 - Other specified postprocedural states (ICD-10) History of endoscopic retrograde cholangiopancreatography ?Z98.890 - Other specified postprocedural states (ICD-10) History of arthroscopy of right knee ?Z98.890 - Other specified postprocedural states (ICD-10) Family History Mother CHF (congestive heart failure) High blood pressure Paternal Grandfather Bladder cancer Father Myocardial infarction High blood pressure Other Liver cancer Stroke Throat cancer Social History (Updated 11/13/24 @ 14:15 by Ellyn Pires MD) Narrative: Lives with Brianne, she would be medical decision maker if needed. Former smoker - started 20-30 cigarettes per day 1954, stopped 09/2020 Approximately 6 beers/week, does not drink daily Does not use illicit drugs Previously desired to be DNI, on 11/13/24 requests FULL CODE status What is your current living situation?: I presently have a place to live Problems where you live: no known problems Problems where you live details: na In the past 12 months, utilities in danger of being shut off: no In past 12 months, lack of transportation kept you from medical appts, meetings, work, or getting things needed for daily living: no In the past 12 mos, have been you worried that your food would run out before you had money to buy more?: never true In the past 12 mos, the food you bought just didn't last and you didn't have money to buy more?: never true Highest level of school completed/degree received: some college, no degree Smoking Status: Former smoker What tobacco products do you use: cigarettes Smoking packs per day: 1 Smoking cigarettes per day: 20.0 Years smoked: 60 Smoking pack-years: 60.00 Smoking quit date/years: <= 15 years ago Do you use any of these nicotine containing products: None Second hand tobacco smoke exposure: No How often do you have a drink containing alcohol: 2-3 times a week Alcohol type: beer Alcohol type details: 6 pack a week How many standard drinks containing alcohol do you have on a typical day: 1 or 2 How often do you have six or more drinks on one occasion: Never AUDIT-C Alcohol total score: 3 Non-prescribed substance use: denies use Caffeine: Yes (1 cup) How often does anyone, including family, friends and others, physically hurt you: never How often does anyone, including family, friends and others, insult or talk down to you: never How often does anyone, including family, friends and others, threaten you with harm: never How often does anyone, including family, friends and others, scream or curse at you: never service: No Meds Home Medications and Allergies Home Medications ?Medication ?Instructions ?Recorded ?Confirmed ?Type insulin glargine 100 unit/mL (3 7 unit subcut QAM 02/03/24 11/13/24 History mL) subcutaneous pen (Lantus Solostar U-100 Insulin) simvastatin 40 mg tablet 40 mg PO HS 04/10/24 11/13/24 History aspirin 81 mg tablet,delayed 81 mg PO DAILY 11/13/24 11/13/24 History release (Adult Aspirin Regimen) melatonin 10 mg capsule 10 mg PO HS PRN 11/13/24 11/13/24 History multivitamin (Daily Multi-Vitamin 1 tab PO DAILY 11/13/24 11/13/24 History tablet) Allergies Allergy/AdvReac Type Severity Reaction Status Date / Time vancomycin Allergy Mild Shakiness Verified 11/13/24 09:33 fentanyl AdvReac Mild Dizziness Verified 11/13/24 09:33 Exam Narrative: Exam Narrative: GEN: Alert and oriented, sitting in bed, nontoxic but does appear to not feel well HEENT: EOMIs bilaterally, no scleral icterus CV: Distant heart sounds noted, pulse palpates regular R: No wheezing, bibasilar rhonchi, intermittent coughing paroxysms Ext: wwp, no concerning edema Skin: No concerning skin lesions or rashes on exposed skin Neuro: Nonfocal Psych: Appropriate Const: Vital Signs, click to edit/add: Vital Signs - 24 hr 11/13/24 10:42 11/13/24 10:47 11/13/24 12:21 Temperature 97.8 F 97.1 F L Pulse Rate [Pulse Oximeter] 72 92 Pulse Rate [Right Radial] Pulse Rate [orthos tatic lying Left P ulse Oximeter] 87 Pulse Rate [orthos tatic sitting Left Pulse Oximeter] 76 Pulse Rate [orthos tatic standing Lef t Pulse Oximeter] 83 Respiratory Rate 20 18 Blood Pressure [Ri ght Upper Arm] 163/79 H 145/61 H Blood Pressure [or thostatic lying Ri ght Arm] 141/92 H Blood Pressure [or thostatic sitting Right Arm] 126/65 Blood Pressure [or thostatic standing Right Arm] 113/63 Pulse Oximetry 97 96 Oxygen Delivery Me thod Room Air Room Air 11/13/24 13:03 11/13/24 13:23 Temperature 97.1 F L Pulse Rate [Pulse Oximeter] Pulse Rate [Right Radial] 98 Pulse Rate [orthos tatic lying Left P ulse Oximeter] Pulse Rate [orthos tatic sitting Left Pulse Oximeter] Pulse Rate [orthos tatic standing Lef t Pulse Oximeter] Respiratory Rate 18 18 Blood Pressure [Ri ght Upper Arm] Blood Pressure [or thostatic lying Ri ght Arm] Blood Pressure [or thostatic sitting Right Arm] Blood Pressure [or thostatic standing Right Arm] Pulse Oximetry 96 94 Oxygen Delivery Me thod Room Air Room Air Hospitalist - H&P: Result Labs Labs: Short CBC 11/13/24 Range/Units 11:28 WBC 6.39 (4.50-11.00) K/uL Hgb 13.2 L (13.5-17.5) gm/dL Hct 39.4 (37.0-53.0) % Plt Count 120 L (140-440) K/uL BMP 11/13/24 11:28 Sodium 138 Potassium 4.5 Chloride 111 Carbon Dioxide 16 L BUN 38 H Creatinine 1.9 H Glucose 141 H Calcium 8.4 Liver Function 11/13/24 Range/Units 11:28 Total Bilirubin 0.5 (0.1-1.5) mg/dL Direct Bilirubin 0.3 (0.0-0.5) mg/dL AST 44 H (12-35) U/L ALT 47 (4-50) U/L Alkaline Phosphatase 106 (40-150) U/L Albumin 3.9 (3.3-5.0) g/dL
[2024-11-13] MEDS: GUAIF/CODEINE 200/20MG/10 ML SOLUTION 5 ML PO ×2 (15:05→20:57)
--- NOTE | 2024-11-13 15:12 | RESP.RT ---
Patient lying in bed, HOB up. On room air SaO2 94%, breathing regular/easy, 18-20/minute. BBS with fine crackles all monsivais with LLL diminished over other monsivais. PEP with Aerobika, patient made good effort with good chest shake, had patient to feel chest shake. Promoted forceful slightly congested moist cough. Swallowed secretions. Patient will self administer PEP with encouragement from RT and Nursing staff.
--- NOTE | 2024-11-13 17:48 | PC.NURSE ---
End of shift. pt has been very pleasant. he is AUGUSTINE at time. he has a productive cough asked pt to show nurses next time he has a sample. SL is patent. he is on C-Diff and RSV precautions. he is up with sba. need a sample for C-diff. he straight cath 2 times a day. he got Robitussin for a cough.
[2024-11-13] MEDS: BENZONATATE 100 MG CAPSULE PO (20:54)
[2024-11-13] MEDS: SODIUM CHLORIDE 0.9 % (FLUSH) 10 ML SYRINGE 5 ML IVF (20:54)
--- NOTE | 2024-11-13 23:59 | PC.NURSE ---
Pt St caths self day and night. 300cc this night @ 2200.
[2024-11-14 02:41] VITALS: BP 124/74; PULSE 79; RESP 16; TEMP 36.6; O2SAT 96
--- NOTE | 2024-11-14 03:33 | PC.NURSE ---
Pt rested well this night. Cough improved overnight. Reporting zero pain. Afebrile. VSS on RA. Pleasant and cooperative. Pt self caths 2x/day.
[2024-11-14 06:59] LABS: Basophils Absolute Auto 0.01 K/uL (0.00-0.30); Basophils Percent Auto 0.2 % (0.0-3.0); Eosinophils Absolute Auto 0.04 K/uL (0.00-0.50); Eosinophils Percent Auto 0.8 % (0.0-7.0); Hematocrit* 38.1 % (37.0-53.0); Hemoglobin* 12.8 gm/dL (13.5-17.5); Immature Granulocytes Abs Auto 0.01 K/uL (0.00-0.30); Immature Granulocytes Pct Auto 0.2 %; Lymphocytes Absolute Auto 1.13 K/uL (0.90-2.90); Lymphocytes Percent Auto 21.7 % (20-44); Mean Corpuscular HGB Conc 34 gm/dL (32-36); Mean Corpuscular Hemoglobin 33 pg (26-34); Mean Corpuscular Volume 100 fL (80-100); Monocytes Percent Auto 10.7 % (0.0-11.0); Neutrophils Absolute Auto 3.46 K/uL (1.7-7.0); Neutrophils Percent Auto 66.4 % (42.0-72.0); Platelet Count* 117 K/uL (140-440); RDW Coefficient of Variation % 13.3 % (11.5-15.5); Red Blood Count* 3.83 m/uL (4.30-5.90); White Blood Count* 5.21 K/uL (4.50-11.00)
[2024-11-14 07:07] LABS: Slide Review Reflex No
[2024-11-14 07:19] LABS: Albumin* 3.6 g/dL (3.3-5.0); Chloride* 112 mmol/L (96-114); Sodium* 140 mmol/L (135-149)
[2024-11-14 07:22] LABS: Blood Urea Nitrogen* 37 mg/dL (7-30); Creatinine* 1.7 mg/dL (0.5-1.5); Est. Creatinine Clearance* 36.14; Estimated Glomerular Filt Rate 40 ml/min
[2024-11-14 07:23] LABS: Alanine Aminotransferase* 39 U/L (4-50); Alkaline Phosphatase* 92 U/L (40-150); Anion Gap 10 mEq/L (7-15); Aspartate Amino Transferase* 38 U/L (12-35); Bilirubin Total* 0.4 mg/dL (0.1-1.5); Calcium* 8.3 mg/dL (8.4-10.6); Carbon Dioxide* 18 mmol/L (20-32); Glucose* 115 mg/dL (60-115); Total Protein* 6.4 g/dL (6.0-8.3)
[2024-11-14 07:34] LABS: C Reactive Protein* < 0.5 mg/dL (0.5-1.0); Potassium* 3.9 mmol/L (3.6-5.1)
[2024-11-14 07:37] LABS: Procalcitonin* 0.15 ng/mL (<0.50)
[2024-11-14 08:00] VITALS: BP 140/81; PULSE 98; RESP 16; TEMP 36.4; O2SAT 91; O2SAT 96
[2024-11-14] MEDS: ASPIRIN 81 MG TABLET EC PO (09:09)
[2024-11-14] MEDS: BENZONATATE 100 MG CAPSULE PO (09:10)
[2024-11-14] MEDS: SODIUM CHLORIDE 0.9 % (FLUSH) 10 ML SYRINGE 5 ML IVF (09:10)
[2024-11-14] MEDS: METOPROLOL TARTRATE 50 MG TABLET PO (09:10)
[2024-11-14] MEDS: INSULIN GLARGINE,HUM.REC.ANLOG 100 UNIT/ML INSULN.PEN 7 UNIT SUBCUT (09:10)
--- NOTE | 2024-11-14 10:08 | NUTR.NU ---
RDN with MD consult for diarrhea >3 days. Patient admitted with RSV, has had diarrhea for more than 3 days prior to arrival. Current weight 181lb 9.6oz; height 6ft; BMI 24.6 kg/m2. Per weight records, weight has been stable recently. Current diet is Regular. Meal intakes since admit averaging 50%. RDN visited with patient whom reports having diarrhea x2/day for about 1 week. He denies weight loss and appetite changes. Per IDT, will test for C.Diff when sample is available. RDN offered diet related to low-fiber diet to help lessen diarrhea, however patient declined a this time. Patient reports he is familiar with a low-fiber diet. He had no questions or concerns at this time. RDN will continue to monitor and follow-up prn.
[2024-11-14 11:00] VITALS: BP 135/78; PULSE 63; RESP 20; TEMP 36.1; O2SAT 96
--- NOTE | 2024-11-14 12:01 | P.DS_ITS ---
DS: Providers Provider Date Seen: 11/14/24 Date of admission: 11/13/24 13:44 Primary care physician: iTffanie Pepper MD Admitting Clinician: Ellyn Pires MD Consults: 11/13/24 13:44 Consult to Respiratory Therapy [CONS] Routine Comment: Reason(s) for RT Consult:: Consult 11/13/24 13:49 Consult to Nutrition [CONS] Routine Comment: Reason for consult:: Diarrhea > 3 days Consult to Physical Therapy [CONS] Routine Comment: Reason(s) for PT Consult:: Evaluate and Treat Any Restrictions?:: No Restrictions Consult to Plate Glass Polisher [CONS] Routine Comment: Reason for Consult:: Discharge Planning Needs 11/13/24 13:50 Consult to Occupational Therapy [CONS] Routine Comment: Reason(s) for OT Consult:: Evaluate and Treat Any Restrictions?:: No Restrictions Attending Physician on discharge: STEPHANIE Jha, SAMIRA [facility] Critical Care Hospitalist Date of Discharge: 11/14/24 DS: Diagnosis Discharge Diagnosis (1) Respiratory syncytial virus (RSV): Status: Acute Problem details: - supportive measures, RT evaluation - history of smoking but no wheezing on admission, defer steroids at this time - streaky atelectasis on CXR 11/13 (likely viral, consider abx if clinical course changes) Patient did well overnight, remained vitally stable, feeling better the fol lowing morning and requesting to discharge to home. (2) Diarrhea: Status: Resolved Problem details: - present for approximately 7 days prior to admission - presumably viral in nature, will collect sample to rule out C diff or other pathogens - continue to monitor, no need for imaging at this time but consider if clinical course changes Resolved without further episodes following admission. (3) Type 2 diabetes mellitus with hyperglycemia: Status: Chronic Problem details: - insulin dependent - last A1C 6.6 (02/19), will repeat - Accuchecks and SSI, home insulin Resume home medications upon discharge. (4) Acute kidney injury: Status: Acute Problem details: - baseline 1.2-1.4, currently 1.9, down trending 1.7 Creatinine down trending. Recheck with PCP follow-up 5-7 days. (5) HTN (hypertension): Status: Acute Problem details: - hypotensive in clinic 11/13 and + orthostasis in ER - blood pressure improved after IVF bolus - holding Lisinopril and Chlorthalidone, continue Metoprolol Pressures stable, resume home medications, recheck creatinine with PCP. (6) Neurogenic bladder: Status: Acute Problem details: - Self caths BID (7) Coronary artery disease: Status: Acute Problem details: - 01/11/2011: 1v CABG (MOREJON to LAD) with MVR (porcine bioprosthesis) (8) Gout: Status: Acute Problem details: - on Allopurinol as an outpatient, no current flare - HOLDING 11/13 given CLAU DS: Summary Hospital Course Hospital Course: [age] year old male was admitted to the medical floor for further management RSV and diarrhea. Course of care and details as noted above. Symptom medically improved overnight, requesting to discharge to home. Orthostasis resolved following IV rehydration. PT and OT consulted, no concerns, able to return home without further acute therapies. RSV symptomatically treated. Tessalon Perles as needed. CLAU noted, creatinine down trending. Will need recheck with PCP next week. Hold allopurinol until that time. Stay hydrated. Remainder of chronic medical comorbidities were monitored and managed with home medications. Status at Discharge Functional status at discharge: independent ambulation Overall status at discharge: patient is back to baseline Time Spent with Patient Time attestation: Total time spent providing and/or coordinating discharge services: Time spent: Greater than 30 minutes Exam Narrative: Exam Narrative: PHYSICAL EXAM General: Pleasant, conversant, NAD Cardiovascular: RRR Pulmonary: No dyspnea Neurological: Alert, answering questions appropriately Skin: Warm, dry. Const: Vital Signs, click to edit/add: Vital Signs - 24 hr 11/13/24 12:21 11/13/24 13:03 11/13/24 13:23 Temperature 97.1 F L 97.1 F L Pulse Rate [Pulse Oximeter] 92 Pulse Rate [Right Radial] 98 Respiratory Rate 18 18 18 Blood Pressure [Ri ght Arm] Blood Pressure [Ri ght Upper Arm] 145/61 H Pulse Oximetry 96 96 94 Oxygen Delivery Me thod Room Air Room Air Room Air 11/13/24 15:07 11/13/24 15:45 11/13/24 15:45 Temperature 98.0 F Pulse Rate [Pulse Oximeter] Pulse Rate [Right Radial] 76 Respiratory Rate 20 20 20 Blood Pressure [Ri ght Arm] 124/84 Blood Pressure [Ri ght Upper Arm] Pulse Oximetry 93 95 93 Oxygen Delivery Me thod Room Air Room Air Room Air 11/13/24 19:24 11/13/24 22:40 11/13/24 22:50 Temperature 97.8 F 97.8 F Pulse Rate [Pulse Oximeter] Pulse Rate [Right Radial] 90 98 98 Respiratory Rate 16 18 18 Blood Pressure [Ri ght Arm] 100/57 L 139/89 Blood Pressure [Ri ght Upper Arm] Pulse Oximetry 94 94 Oxygen Delivery Me thod Room Air Room Air 11/13/24 22:50 11/14/24 02:41 11/14/24 08:00 Temperature 98 F Pulse Rate [Pulse Oximeter] Pulse Rate [Right Radial] 79 Respiratory Rate 18 16 16 Blood Pressure [Ri ght Arm] 124/74 Blood Pressure [Ri ght Upper Arm] Pulse Oximetry 94 96 96 Oxygen Delivery Me thod Room Air Room Air Room Air 11/14/24 08:00 11/14/24 08:00 Temperature 97.5 F L Pulse Rate [Pulse Oximeter] Pulse Rate [Right Radial] 98 98 Respiratory Rate 16 16 Blood Pressure [Ri ght Arm] 140/81 H Blood Pressure [Ri ght Upper Arm] Pulse Oximetry 91 Oxygen Delivery Me thod Room Air DS: Data Data Completed and Pending Labs on day of discharge: Labs from last 24 hours 11/14/24 11/13/24 05:54 11:28 WBC 5.21 RBC 3.83 L Hgb 12.8 L Hct 38.1 MCV 100 MCH 33 MCHC 34 RDW Coeff of [place] 13.3 Plt Count 117 L Neut % (Auto) 66.4 Lymph % (Auto) 21.7 [place] % (Auto) 10.7 Eos % (Auto) 0.8 Baso % (Auto) 0.2 Neut # (Auto) 3.46 Lymph # (Auto) 1.13 [place] # (Auto) 0.60 Eos # (Auto) 0.04 Baso # (Auto) 0.01 Abs Immat Gran (auto) 0.01 Imm/Tot Granulo (auto) 0.2 Sodium 140 Potassium 3.9 Chloride 112 Carbon Dioxide 18 L Anion Gap 10 BUN 37 H Creatinine 1.7 H Estimated Creat Clear 36.14 Estimated GFR 40 Glucose 115 Calcium 8.3 L Total Bilirubin 0.4 AST 38 H ALT 39 Alkaline Phosphatase 92 C-Reactive Protein < 0.5 L NT-Pro-B Natriuret Pep 490 Total Protein 6.4 Albumin 3.6 Procalcitonin 0.15 TSH 1.740 Imaging Chest x-ray: Attestation: I have reviewed the pertinent imaging results. Radiologist's impression: Cardiovascular and mediastinum: Heart size is normal. Unremarkable mediastinum. Valve replacement Lungs and pleural spaces: Left lower lobe linear opacity likely reflecting atelectasis. No sign of infiltrate or mass. No sign of pleural effusion. No pneumothorax. Bones and soft tissues: Chronic appearing lower thoracic vertebral body compression fracture IMPRESSION: Left lower lobe linear opacity likely reflecting atelectasis. Definite focal consolidation Discharge Plan Discharge Disposition: Home, Self-Care Date of Admission: 11/13/24 13:44 Attending Provider on Discharge: Judy Oh Primary Care Provider: Tiffanie Pepper Condition: Improved Anticipated Discharge Date/Time: 11/14/24 11:56 Discharge Medications: New benzonatate 100 mg Capsule 100 mg PO TID Qty: 30 0RF Continued chlorthalidone 25 mg tablet 25 mg PO DAILY Qty: 90 3RF insulin glargine [Lantus Solostar U-100 Insulin] 100 unit/mL (3 mL) insulin pen 7 unit subcut QAM lisinopril 40 mg tablet 40 mg PO DAILY Qty: 90 3RF metoprolol tartrate 50 mg tablet 50 mg PO BID Qty: 180 3RF simvastatin 40 mg tablet 40 mg PO HS aspirin [Adult Aspirin Regimen] 81 mg tablet,delayed release (DR/EC) 81 mg PO DAILY multivitamin [Daily Multi-Vitamin] Tablet 1 tab PO DAILY melatonin 10 mg capsule 10 mg PO HS PRN Held allopurinol 300 mg tablet 300 mg PO DAILY Qty: 90 3RF Hold Instructions: Resume on 11/21/24. Following recheck creatinine with PCP Discharge Orders: Discharge Order (Routine); Ordered 11/14/24 Ordered By: Judy Oh Patient Education: RSV (Respiratory Syncytial Virus) Infection (GEN) Additional Instructions: Home to rest. Stay hydrated. Tessalon perles as needed for cough. Follow up at the clinic and have your creatinine rechecked next week prior to resuming Allopurinol Activity Level: Activity as Tolerated Discharge Diet: Diabetic Follow Up Appointments: Tiffanie Pepper MD [Primary Care Provider] - (post hospital follow up 5-7 days. Recheck creatinine) Forms: [employer] Info Instructions
--- NOTE | 2024-11-14 13:46 | PC.SOCIAL ---
Discharge planning: Social work consult received, but there were no needs. Pt discharged home. Social work to follow-up as needed.
[2024-11-15 14:56] LABS: B. pertussis/parapertus Source Not Provided; Bordetella parapertussis PCR Not Detected; Bordetella pertussis by PCR Not Detected
== END 2024-11-14 13:10 | disposition home or self-care (01) | DRG 206 ==
LOC: ED 12:24 → MEDSURG 12:53
PROVIDERS: Admitting Provider Family Medicine; Emergency Provider Emergency Medicine; PCP Family Medicine; Visit Provider Family Medicine
DX: J22 Unspecified acute lower respiratory infection (principal); N17.9 Acute kidney failure, unspecified; J98.11 Atelectasis; B97.4 Respiratory syncytial virus as the cause of diseases classified elsewhere; R05.9 Cough, unspecified; E86.0 Dehydration; R19.7 Diarrhea, unspecified; N31.9 Neuromuscular dysfunction of bladder, unspecified; R11.10 Vomiting, unspecified; I12.9 Hypertensive chronic kidney disease with stage 1 through stage 4 chronic kidney disease, or unspecified chronic kidney disease; E11.22 Type 2 diabetes mellitus with diabetic chronic kidney disease; E11.65 Type 2 diabetes mellitus with hyperglycemia; N18.9 Chronic kidney disease, unspecified; Z79.4 Long term (current) use of insulin; I25.10 Atherosclerotic heart disease of native coronary artery without angina pectoris; I44.0 Atrioventricular block, first degree; G47.00 Insomnia, unspecified; Z95.828 Presence of other vascular implants and grafts; M10.9 Gout, unspecified; Z95.1 Presence of aortocoronary bypass graft; Z87.891 Personal history of nicotine dependence; I95.9 Hypotension, unspecified
CPT/HCPCS: 36415; 71046; 80048; 80053; 80076; 82962; 83735; 83880; 84145; 84443; 84484; 85025; 86140; 87493; 87637; 93005; 94664; 97112; 97116; 97161; 97165; 99284; 99285; A9270; J1815; J7030

== ENCOUNTER 2024-12-24 11:15 | Outpatient (RCR) | payer MEDICARE, SELFPAY ==
--- NOTE | 2024-12-10 14:43 | PT.OPE ---
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 L hip ORIF 06/20 with successful outcome. These hip symptoms began about 6 months ago and have been gradually becoming more intense. Pain Comments -03/07 Date of Last Physician Visit 11/29/24 Current Work Status Retired Precautions Treatment Precautions/Contraindications L hip ZAY Therapy Limitations/Systems Review Not Limited Objective Range of Motion L hip: Flex 70 Ext -5 ER 40 IR 5 Strength L hip 4/5 all patterns Palpation Tender/soreness-L TFL, ITB, gluteus medius and berna, lumbar paraspinals and quadratus lumborum. Balance & Gait Antalgic, decreased L stride length and weight bearing time . Posture Stands with trunk flexion, increased R LE weight shift Sensation/Reflexes Normal and symetric Assessment Assessment/Impression Cosmo is an 84 year old retired gentleman experiencing L hip and thigh discomfort that creates difficulty with functional performance and ADL 's. Certain muscle tightness exists in the musculature mentioned above creating range deficits, antalgic gait and compensated movement patterns. Skilled PT is strongly recommended to address these asymmetries and prevent further pain-spasm cycles and peripheral injury to joints/ muscles. Primary Functional Limitations Lifting leg into car or onto bed. Standing in his wood shop durations > 5-10 min.s Transfers to/from toilet. Walking distances greater than 350 feet. Plan of Care Rehabilitation Potential Good Physical Therapy Goals 1.Independent home ex program for self stretching and strength development. 2.Improved ability for ADL performance-able to lift L leg onto bed without assistance of UE or pain > 2. 3.Lessen asymmetry in stance while improving gait-L stride length and WB'ing time. Coordination/Communication With Referral Source Treatment Plan/Direct Interventions Joint Mobilization,Manual Therapy,Neuromuscular Re-ed, Self-Care/Home Management, Therapeutic Activities, Therapeutic Exercises Frequency/Duration 6-12 visits Patient Will Be Discharged From Therapy Independent w/HEP, Independently Progressing Evaluation Billing Untimed Code Treatment Minutes 30 PT Eval No Charge No Complexity Low Certification Information Initial Certification Date 12/10/24 Ending Certification Date 03/01/25 Provider Signature Required Yes Provider Signature Shows Agreement With POC & Medical Necessity Physician NPI Number Write NPI# Here Physician Comment/Change : Physician Signature & Date Requested Please Sign/Date Here
== END 2025-04-23 23:59 | disposition home or self-care (01) ==
PROVIDERS: PCP Family Medicine; Visit Provider Orthopaedic Surgery Sports Medicine
DX: Z47.1 Aftercare following joint replacement surgery (principal); M76.32 Iliotibial band syndrome, left leg; Z96.642 Presence of left artificial hip joint; Z51.89 Encounter for other specified aftercare
CPT/HCPCS: 97110; 97140; 97161

== ENCOUNTER 2025-03-02 19:11 | Emergency (ER) | payer MEDICARE, SELFPAY ==
--- OUTSIDE RECORDS SUMMARY | 2025-03-02 19:13 | XMS_ITS | Clinical Summary ---
Author Organization [facility] Address [address] [place] [address] Care Team Providers Care Service Engine Repairer Name Role Phone Tiffanie Pepper MD Primary Care Provider Source Comments You are receiving this document as you are listed as the primary care provider,follow-up provider, or the patient has been referred to you for consultation.This is in compliance with the Medicare and[facility] EHR Incentive Program,which states Providers who transition their patient to another setting of careor provider of care or refers their patient to another provider of care shouldprovide summary care record for each transition of care or referral. Formerly [facility] Social History Tobacco Use Types Packs/Day Years Used Date Smoking Tobacco: Never Assessed Sex and Gender Information Value Date Recorded Sex Assigned at Not on file Legal Sex Male 6:34 AM CDT Gender Identity Not on file Sexual Orientation Not on file Plan of Treatment Health Maintenance Due Date Last Done Comments RSV Vaccine (1 - 1-dose 75+ series) 2016 Zoster/Shingles Vaccine (3 of 3) 11/25/2022 09/30/2022, 05/17/2014 COVID-19 Vaccine ( season) 2024 06/06/2023, 06/29/2022, 12/15/2021, Additional history exists Medicare Annual Wellness Visit 08/29/2024 Influenza Vaccine (#1) 2025 , 06/11/2022, 06/08/2021, Additional history exists DTaP/Tdap/Td Vaccine (2 - Tdap) 03/31/2027 03/31/2017 Pneumococcal Vaccine 50+ Yrs Completed 05/28/2015, 06/25/2010 HepA Vaccine Aged Out No longer eligi ble based on patient's age to complete this topic HepB Vaccine Aged Out No longer eligi ble based on patient's age to complete this topic Hib Vaccine Aged Out No longer eligi ble based on patient's age to complete this topic MCV4 Vaccine Aged Out No longer eligi ble based on patient's age to complete this topic Meningococcal B Vaccine Aged Out No l onger eligible based on patient's age to complete this topic Insurance [facility] MEDICARE ADVANTAGE Care Teams Service Engine Repairer Relationship Specialty Start Date End Date Tiffanie Pepper MD [address] [place] [address] PCP - General Family Practice 05/16/24
--- OUTSIDE RECORDS SUMMARY | 2025-03-02 19:13 | XMS_ITS | Data Portability ---
Author Organization [place] [facility] Address [address], [facility] [address] [place] [address] Care Team Providers Care Mixer Runner Name Role Phone RIVERA JOHNSON Primary Care [...] BRIEFLY. HOWEVER, INTERNET ISSUES - PROVIDER NOR [facility] COULD CONNECT. HOME IS WITHOUT WI-FI. NO [...] as needed, and answered all questions. [facility] been [facility] [...] after care of this patient according to [facility] infection prevention protocols. [email or web address] Not available 04/14/2024 19:55:01 Plan of Treatment [...] 24 Medication Review completed Rachael Richter NP [address] ,[address], [place], [address], [place] [facility] 04/14/2024 11:58:03 Imaging Results None recorded. Procedure [...] 2nd Gen Pen Needle 32 gauge x USE DAILY DIRECTED active Not Available Not Available Not Available Vitals None Recorded Social History None recorded. Functional Status None recorded. Mental Status None recorded. Family History Nothing Reported. Medical History No medical history recorded. Past Encounters Encounter ID Performer Location Encounter Start Date Encounter Closed Date Diagnosis/Indication Diagnosis SNOMED-CT Code Diagnosis ICD10 Code Diagnosis Note [id number] Rachael Richter NP [facility] [address] [place] [phone] 04/14/2024 11:24:47 04/14/2024 12:22:36 Health Concerns Section Related Observation LastModified by Organization Detai ls LastModified Time None Recorded Concern Status LastModified by Organization Details LastModified Time None Recorded Advance Directives Directive None Recorded Payers Insurance Date Sequence Insurance Name Policy Number Policy Perez Covered Member ID Perez Member ID Guarantor Name 04/12/2024 1 [place] SECURE BLUE (MEDICARE REPLACEMENT HMO) Cosmo Mosqueda [id number] Cosmo Mosqueda Notes Date Note Type Note Provider Name and Address Organization Details Recorded Time 4 text/html o Date of Dischargeo Date of initial Contact by CARE team (see Dashboard):This patient being seen for a [facility] appointment following hospitalization at:. Date of initial contact by Dis[facility] Scheduling Team (see Dashboard): Reason for admission: Date admitted:.Date discharged:. Testing:Surgeries/Pr ocedures:New medications: PATIENT AND WERE NOT COMFORTABLE WITH US BEING IN HOME. WHAT ARE YOU GOING TO DO THAT THE DOCTOR IS NOT GOING TO DO. PATIENT HAS APPROPRIATE FOLLOW-UP WITH PCP SCHEDULED ON 04/16/24. HE SPOKE WITH US BRIEFLY. HOWEVER, INTERNET ISSUES - PROVIDER NOR [facility] COULD CONNECT. HOME IS WITHOUT WI-FI. NO VISIT COMPLETED Rachael Richter NP [address] ,[address], [place], [address], [place] [facility] 04/14/2024 19:56:47
--- OUTSIDE RECORDS SUMMARY | 2025-03-02 19:13 | XMS_ITS | Clinical Summary ---
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 AND BACKER Gender Identity Not on file Sexual Orientation [...] Health Maintenance Due Date Last Done Comments Tetanus booster 1952 Depression screening for age 12+ 1953 Pneumococcal series for age 50+ (1 of 2 - PCV) 1960 Zoster (shingles) series for age 50+ (1 of 2) 1991 Medicare Wellness for age 65+ 2006 RSV vaccine for adults or (1 - 1-dose 75+ series) 2016 BMI (ht and wt on same day) for age 18+ 03/08/2017 03/08/2016 COVID-19 vaccine series (2023- season) 2024 06/29/2022, 12/15/2021, 06/04/2021, Additional history exists Influenza Vaccine (#1) 2025 Hepatitis B series for 19+ Aged Out N o longer eligible based on patient's age to complete this topic Medical Devices Implanted Type Area Surgical Elastic Knitter Hand Frame Device Identifier Shelf Expiration Date Model / Serial / Lot Bone 1-4mm 30cc Medtronic Chips Canclls Frozen - [id number] Implanted:Qt y: 1 on 12/25/2020 by Mohit Friedman MD at [facility] Lumbar Vertebrae Medtronic Spine/Ortho 07/06/2025 [id number] / [id number] / [id number] Bone 30cc Mtf Chips Wilfredo/Canclls Freeze Dried - [id number] Implanted:Qt y: 1 on 12/25/2020 by Mohit Friedman MD at [facility] Lumbar Vertebrae Musculoskeletal Transplant 08/26/2023 [id number] / [id number] / Steven Lmbr 45x5.5mm Solera 5.5/6 Cvd Titnm - [id number] Implanted:Qt y: 2 on 12/25/2020 by Mohit Friedman MD at [facility] Lumbar Vertebrae Medtronic Spine/Ortho [id number] / / Set Screw Lmbr Ant 5.5mm Solera Break Off - [id number] Implanted:Qt y: 4 on 12/25/2020 by Mohit Friedman MD at [facility] Lumbar Vertebrae Medtronic Spine/Ortho [id number] / / Screw Lmbr Post 7.5x50mm Solera 5.5/6 Dc Cocr - [id number] Implanted:Qt y: 4 on 12/25/2020 by Mohit Friedman MD at [facility] Lumbar Vertebrae Medtronic Spine/Ortho [id number] / / Insurance MEDICARE PART A HB [...] Status Discussion: Per Existing Order Care Teams Acidizer Helper Relationship Specialty Start Date End Date Tiffanie Pepper MD [address] [place] [address] PCP - General 02/11/23
[2025-03-02 19:15] VITALS: BP 205/88; PULSE 63; RESP 20; TEMP 36.4; O2SAT 99; BMI 25.8
--- NOTE | 2025-03-02 19:32 | CRLHL7_ITS ---
For Patients: As a result of the Century Cures Act, medical imaging exams and procedure reports are released immediately into your electronic medical record. You may view this report before your referring provider. If you have questions, please contact your health care provider. INDICATION: RLQ ABD PAIN, STARTED TODAY. TECHNIQUE: CT abdomen and pelvis acquired with 93 cc Isovue 370 IV contrast. COMPARISON: CT chest abdomen pelvis dated 04/09/2024. FINDINGS: Lower chest: Unchanged bibasilar emphysema and scattered scarring. Liver: Redemonstrated multiple cystic foci and other subcentimeter hypodensities, too small to characterize. Gallbladder and bile ducts: No evident cholelithiasis. Redemonstrated mild biliary ductal dilatation. No evident choledocholithiasis. Pancreas: Diffusely atrophic pancreas with innumerable calcifications and diffuse prominence of the main pancreatic duct, which may reflect sequelae of chronic pancreatitis. Spleen: Unremarkable. Normal in size. No masses. Adrenal glands: Unchanged bilateral adrenal nodules. Kidneys: Redemonstrated numerous bilateral simple and complex renal cysts. No hydroureteronephrosis. GI tract: Redemonstrated severe sigmoid colonic diverticulosis without discrete evidence of acute diverticulitis. Bowel is normal in caliber. Normal appendix. Vasculature: Abdominal aorta is normal in caliber. Lymph nodes: No lymphadenopathy. Peritoneum/Abdominal Wall: Unremarkable. No sign of mass or infiltration. No free air or significant free fluid. Pelvis: Unremarkable. Bones: No acute or suspicious osseous abnormalities. Postsurgical changes of L4-5 PLIF and left total hip arthroplasty. Unchanged chronic compression deformity of the T12 vertebral body with approximately 50 percent anterior loss. IMPRESSION: No acute findings in the abdomen or pelvis. Redemonstrated severe sigmoid colonic diverticulosis without discrete evidence of acute diverticulitis. Normal appendix. Please note that all CT scans at this facility use dose modulation, iterative reconstruction, and/or weight-based dosing when appropriate to reduce radiation dose to as low as reasonably achievable. Dictated by Regulo Krishna MD @ 03/02/2025 8:33:56 PM (Electronically Signed)
--- NOTE | 2025-03-02 19:34 | ED_ITS ---
HPI - Abdominal Pain General Chief Complaint: Abdominal Pain Stated Complaint: pain - lower right abdomen Time Seen by Provider: 03/02/25 19:14 History of Present Illness HPI narrative: This 84-year-old male comes in reporting pain in his right lower quadrant that began about 4 hours prior to arrival. He states that the pain is been rather constant. He states that it feels better now. He reports that it was 8 or 9/10 in severity but now is at about 4/10. He does not report any nausea or vomiting. He has not had any fevers. He states that he does have history of bowel obstructions. He also reports a history of appendicitis which when sent to [place] was told that it had already ruptured so he stated there was a drain that was placed and he was given antibiotics. He did not have his appendix removed officially. He does not report any dysuria symptoms but states that he does self-catheterize because of bladder atony. He denies having symptoms of urinary tract infection. He does not report any history of kidney stones. Related Data Home Medications ?Medication ?Instructions ?Recorded ?Confirmed aspirin 81 mg tablet,delayed 81 mg PO DAILY 11/13/24 0 11/20/24 release (Adult Aspirin Regimen) melatonin 10 mg capsule 10 mg PO HS PRN 11/13/24 multivitamin (Daily Multi-Vitamin 1 tab PO DAILY 11/1311/20/24 tablet) Previous Rx's ?Medication ?Instructions ?Recorded allopurinol 300 mg tablet 300 mg PO DAILY #90 tabs 03/21 Held on 11/14/24. Instructions: Resume on 11/21/24. Following recheck creatinine with PCP metoprolol tartrate 50 mg tablet 50 mg PO BID #180 tab s 02/03/24 benzonatate 100 mg capsule 100 mg PO TID #30 caps 10/27 05/23 celecoxib 200 mg capsule (Celebrex) 200 mg PO BID #60 caps 11/20/24 chlorthalidone 25 mg tablet 25 mg PO DAILY #90 tabs lisinopril 40 mg tablet 40 mg PO DAILY #90 tabs 11/27 simvastatin 40 mg tablet 40 mg PO HS #90 tabs 5 blood sugar diagnostic (Contour #100 ea 02/21/25 Next Test Strips) insulin glargine 100 unit/mL (3 7 unit (0.07 mL) subcu t QAM #15 mL 02/21/25 mL) subcutaneous pen (Lantus Solostar U-100 Insulin) Allergies Allergy/AdvReac Type Severity Reaction Status Date / Time vancomycin Allergy Mild Shakiness Verified 03/02/25 20:18 fentanyl AdvReac Mild Dizziness Verified 03/02/25 20:18 Review of Systems Status of ROS Reports: 10 or more systems reviewed and unremarkable except as noted in History and below Narrative Constitutional: No fevers, no weight gain or loss. Eyes: No discharge. No vision changes. HENT: No congestion, no sore throat, no ear pain. Cardiovascular: No chest pain, no palpitations. Respiratory: No shortness of breath, no wheezes, no cough. Gastrointestinal: No vomiting, no diarrhea. Right lower quadrant abdominal pain as described above. Genitourinary: No dysuria, no hematuria. Musculoskeletal: Normal range of motion. Skin: No rashes, no pruritis. Neurological: No dizziness, weakness, sensory change, speech change. Endo/Heme/Allergies: No bruising or bleeding. No polydipsia. Pysch: no suicidality, no anxiety, no insomnia. All other systems reviewed and are negative. [facility] Medical History (Updated 03/02/25 @ 20:53 by Shahid Mathews MD) Coronary artery disease ?I25.10 - Atherosclerotic heart disease of [place] coronary artery without angina pectoris (ICD-10) Anemia ?D64.9 - Anemia, unspecified (ICD-10) HTN (hypertension) ?I10 - Essential (primary) hypertension (ICD-10) PAD (peripheral artery disease) ?I73.9 - Peripheral vascular disease, unspecified (ICD-10) Mitral regurgitation (07/03/10) ?I34.0 - Nonrheumatic mitral (valve) insufficiency (ICD-10) Neurogenic bladder (10/02/12) ?N31.9 - Neuromuscular dysfunction of bladder, unspecified (ICD-10) Adrenal hyperplasia ?E27.8 - Other specified disorders of adrenal gland (ICD-10) Adrenal mass ?E27.8 - Other specified disorders of adrenal gland (ICD-10) Gout (04/30/10) ?M10.9 - Gout, unspecified (ICD-10) Chronic pancreatitis ?K86.1 - Other chronic pancreatitis (ICD-10) Insomnia ?G47.00 - Insomnia, unspecified (ICD-10) T12 compression fracture ?S22.080A - Wedge compression fracture of T11-T12 vertebra, initial encounter for closed fracture (ICD-10) Bone mass ?M89.8X9 - Other specified disorders of bone, unspecified site (ICD-10) Small bowel obstruction ?K56.609 - Unspecified intestinal obstruction, unspecified as to partial versus complete obstruction (ICD-10) Hepatic cyst ?K76.89 - Other specified diseases of liver (ICD-10) Senile nuclear sclerosis ?H25.10 - Age-related nuclear cataract, unspecified eye (ICD-10) Neurogenic claudication ?R29.818 - Other symptoms and signs involving the nervous system (ICD-10) Squamous cell carcinoma Perforated appendicitis ?K35.32 - Acute appendicitis with perforation, localized peritonitis, and gangrene, without abscess (ICD-10) Surgical History (Updated 11/29/24 @ 15:24 by Shannen Monroe) S/P hip replacement (06/20/23) ?Z96.649 - Presence of unspecified artificial hip joint (ICD-10) Status post insertion of iliac artery stent (~2005) ?Z95.828 - Presence of other vascular implants and grafts (ICD-10) Status post lumbar spine surgery for decompression of spinal cord (12/25/20) ?Z98.890 - Other specified postprocedural states (ICD-10) Hx of CABG (01/20/11) ?Z95.1 - Presence of aortocoronary bypass graft (ICD-10) History of prostate surgery ?Z98.890 - Other specified postprocedural states (ICD-10) History of endoscopic retrograde cholangiopancreatography ?Z98.890 - Other specified postprocedural states (ICD-10) History of arthroscopy of right knee ?Z98.890 - Other specified postprocedural states (ICD-10) Family History Mother CHF (congestive heart failure) High blood pressure Paternal Grandfather Bladder cancer Father Myocardial infarction High blood pressure Other Liver cancer Stroke Throat cancer Social History (Updated 11/13/24 @ 14:15 by Ellyn Pires MD) Narrative: Lives with Brianne, she would be medical decision maker if needed. Former smoker - started 20-30 cigarettes per day 1954, stopped 09/2020 Approximately 6 beers/week, does not drink daily Does not use illicit drugs Previously desired to be DNI, on 11/13/24 requests FULL CODE status What is your current living situation?: I presently have a place to live Problems where you live: no known problems Problems where you live details: na In the past 12 months, utilities in danger of being shut off: no In past 12 months, lack of transportation kept you from medical appts, meetings, work, or getting things needed for daily living: no In the past 12 mos, have been you worried that your food would run out before you had money to buy more?: never true In the past 12 mos, the food you bought just didn't last and you didn't have money to buy more?: never true Highest level of school completed/degree received: some college, no degree Smoking Status: Former smoker What tobacco products do you use: cigarettes Smoking packs per day: 1 Smoking cigarettes per day: 20.0 Years smoked: 60 Smoking pack-years: 60.00 Smoking quit date/years: <= 15 years ago Do you use any of these nicotine containing products: None Second hand tobacco smoke exposure: No How often do you have a drink containing alcohol: 2-3 times a week Alcohol type: beer Alcohol type details: 6 pack a week How many standard drinks containing alcohol do you have on a typical day: 1 or 2 How often do you have six or more drinks on one occasion: Never AUDIT-C Alcohol total score: 3 Non-prescribed substance use: denies use Caffeine: Yes (1 cup) How often does anyone, including family, friends and others, physically hurt you : never How often does anyone, including family, friends and others, insult or talk down to you: never How often does anyone, including family, friends and others, threaten you with harm: never How often does anyone, including family, friends and others, scream or curse at you: never service: No Exam Narrative: Exam Narrative: Constitutional: Well-developed, well-nourished, no acute distress. HEENT: Normocephalic, atraumatic. Neck: Normal range of motion. Nontender. Supple. Heart: Regular. No murmurs. Normal rate. Intact distal pulses. Lungs: Clear to auscultation. No chest discomfort. No wheezes, rhonchi, or rales. Abdomen: Normal bowel sounds. Tenderness in the right lower quadrant. No rebound tenderness. Rovsing sign was positive when pressing deep enough on the left side of the abdomen. Genitalia: Deferred. Back: No midline tenderness. Normal range of motion. Extremities: Normal range of motion. No injury. Skin: Intact. No rash. Warm. No erythema or pallor. Neurologic: No altered sensation. No weakness. Alert and oriented. Psychiatric: No suicidality. No anxiety or depression. No insomnia. Nursing notes and vitals signs are reviewed. Const: Vital Signs, click to edit/add: Vital Signs - 24 hr 03/02/25 19:15 03/02/25 20:39 Temperature 97.6 F 98.3 F Pulse Rate [Pulse Oximeter] 63 64 Respiratory Rate 20 18 Blood Pressure [Ri ght Upper Arm] 205/88 H 124/69 Pulse Oximetry 99 95 Oxygen Delivery Me thod Room Air Room Air Course Vital Signs Vital signs: Initial Vital Signs Temperature 97.6 F 03/02/25 19:15 Temperature Source Temporal Artery Scan 03/02/25 19:15 Pulse Rate 63 03/02/25 19:15 Respiratory Rate 20 03/02/25 19:15 Blood Pressure 205/88 H 03/02/25 19:15 Blood Pressure Mean 127 H 03/02/25 19:15 Blood Pressure Position Supine 03/02/25 19:15 Pulse Oximetry 99 03/02/25 19:15 Oxygen Delivery Method Room Air 03/02/25 19:15 Vital Signs Temperature 97.6 F 03/02/25 19:15 Pulse Rate 63 03/02/25 19:15 Respiratory Rate 20 03/02/25 19:15 Blood Pressure 205/88 H 03/02/25 19:15 Pulse Oximetry 99 03/02/25 19:15 Oxygen Delivery Method Room Air 03/02/25 19:15 Temperature 98.3 F 03/02/25 20:39 Pulse Rate 64 03/02/25 20:39 Respiratory Rate 18 03/02/25 20:39 Blood Pressure 124/69 03/02/25 20:39 Pulse Oximetry 95 03/02/25 20:39 Oxygen Delivery Method Room Air 03/02/25 20:39 Medications Administered Medications: Discontinued Medications Generic Name Dose Route Start Last Admin Trade Name Agus PRN Reason Stop Dose Admin Hydromorphone HCl 0.2 mg 03/02/25 19:33 03/02/25 19:40 Hydromorphone 0.5 Mg/0.5 Ml Inj IVP 03/02/25 19:34 0.2 mg ONCE ONE Administration Ondansetron HCl 4 mg 03/02/25 19:33 03/02/25 19:40 Ondansetron 2 Mg/Ml Inj IVP 03/02/25 19:34 4 mg ONCE ONE Administration MDM - Abdominal Pain MDM Narrative Medical decision making narrative: This patient comes in reporting right lower quadrant abdominal pain as described above. An IV was established and labs are acquired and CT imaging. The patient did receive Dilaudid 0.2 mg and Zofran 4 mg. He states that this greatly helped his pain. Lab results and CT imaging returned with reassuring findings. He does have numerous cysts in his abdomen in various places but no acute findings to explain his pain. This was all good news to the patient to is feeling much better. He is okay to be discharged home. I did provide [facility] prescription for some tablets of [place] to be used as needed for pain and may also secondarily help with some occasions of diarrhea that he has not been able to control. Lab Data Labs: Lab Results 03/02/25 Range/Units 19:25 WBC 7.65 (4.50-11.00) K/uL RBC 4.00 L (4.30-5.90) m/uL Hgb 13.3 L (13.5-17.5) gm/dL Hct 39.6 (37.0-53.0) % MCV 99 (80-100) fL MCH 33 (26-34) pg MCHC 34 (32-36) gm/dL RDW Coeff of [place] 13.3 (11.5-15.5) % Plt Count 144 (140-440) K/uL Neut % (Auto) 69.6 (42.0-72.0) % Lymph % (Auto) 18.6 L (20-44) % [place] % (Auto) 7.7 (0.0-11.0) % Eos % (Auto) 3.4 (0.0-7.0) % Baso % (Auto) 0.4 (0.0-3.0) % Neut # (Auto) 5.33 (1.7-7.0) K/uL Lymph # (Auto) 1.40 (0.90-2.90) K/uL [place] # (Auto) 0.60 (0.00-0.90) K/UL Eos # (Auto) 0.26 (0.00-0.50) K/uL Baso # (Auto) 0.03 (0.00-0.30) K/uL Abs Immat Gran (auto) 0.02 (0.00-0.30) K/uL Imm/Tot Granulo (auto) 0.3 % Sodium 140 (135-149) mmol/L Potassium 4.4 (3.6-5.1) mmol/L Chloride 111 (96-114) mmol/L Carbon Dioxide 22 (20-32) mmol/L Anion Gap 7 (7-15) mEq/L BUN 37 H (7-30) mg/dL Creatinine 1.9 H (0.5-1.5) mg/dL Estimated Creat Clear 32.33 Estimated GFR 35 ml/min Glucose 159 H (60-115) mg/dL Calcium 8.6 (8.4-10.6) mg/dL Imaging Data CT scan - abdomen: Radiologist's impression: No acute findings in the abdomen or pelvis. Redemonstrated severe sigmoid colonic diverticulosis without discrete evidence of acute diverticulitis. Normal appendix. Discharge Plan Discharge Clinical Impression: Abdominal pain Patient Disposition: Home, Self-Care Condition: Improved Additional Instructions: Take medication as needed and indicated. Increase diet as tolerated. Follow up with MD return if worsening. Prescriptions: No Action allopurinol 300 mg tablet 300 mg PO DAILY Qty: 90 3RF metoprolol tartrate 50 mg tablet 50 mg PO BID Qty: 180 3RF celecoxib [Celebrex] 200 mg capsule 200 mg PO BID Qty: 60 3RF aspirin [Adult Aspirin Regimen] 81 mg tablet,delayed release (DR/EC) 81 mg PO DAILY multivitamin [Daily Multi-Vitamin] Tablet 1 tab PO DAILY melatonin 10 mg capsule 10 mg PO HS PRN benzonatate 100 mg Capsule 100 mg PO TID Qty: 30 0RF lisinopril 40 mg tablet 40 mg PO DAILY Qty: 90 1RF chlorthalidone 25 mg tablet 25 mg PO DAILY Qty: 90 1RF simvastatin 40 mg tablet 40 mg PO HS Qty: 90 3RF insulin glargine [Lantus Solostar U-100 Insulin] 100 unit/mL (3 mL) insulin pe n 7 unit subcut QAM Qty: 15 0RF (DME) Contour Next Test Strips Strip See Rx Instructions .Route Qty: 100 0RF Rx Instructions: Use to test blood sugar once daily Follow Up/Referrals: Tiffanie Pepper MD [Primary Care Provider, Family Practice] Stand Alone Forms: MyHealth Info Instructions
[2025-03-02] MEDS: ONDANSETRON 2 MG/ML inj 4 MG IVP (19:40)
[2025-03-02 19:45] LABS: Hematocrit 39.6 % (37.0-53.0); Hemoglobin* 13.3 gm/dL (13.5-17.5); Immature Granulocytes Abs Auto 0.02 K/uL (0.00-0.30); Immature Granulocytes Pct Auto 0.3 %; Lymphocytes Absolute Auto 1.40 K/uL (0.90-2.90); Mean Corpuscular HGB Conc 34 gm/dL (32-36); Mean Corpuscular Hemoglobin 33 pg (26-34); Mean Corpuscular Volume 99 fL (80-100); RDW Coefficient of Variation % 13.3 % (11.5-15.5); Red Blood Count 4.00 m/uL (4.30-5.90); Slide Review Reflex No; White Blood Count* 7.65 K/uL (4.50-11.00)
[2025-03-02 19:58] LABS: Chloride* 111 mmol/L (96-114); Potassium* 4.4 mmol/L (3.6-5.1); Sodium* 140 mmol/L (135-149)
[2025-03-02 20:01] LABS: Anion Gap 7 mEq/L (7-15); Blood Urea Nitrogen* 37 mg/dL (7-30); Calcium* 8.6 mg/dL (8.4-10.6); Carbon Dioxide* 22 mmol/L (20-32); Creatinine* 1.9 mg/dL (0.5-1.5); Est. Creatinine Clearance* 32.33; Estimated Glomerular Filt Rate 35 ml/min; Glucose* 159 mg/dL (60-115)
[2025-03-02 20:39] VITALS: BP 124/69; PULSE 64; RESP 18; TEMP 36.8; O2SAT 95
== END 2025-03-02 21:10 | disposition home or self-care (01) ==
PROVIDERS: Emergency Provider Emergency Medicine Emergency Medical Services; PCP Family Medicine
DX: R10.31 Right lower quadrant pain (principal)
CPT/HCPCS: 36415; 74177; 80048; 85025; 96374; 96375; 99284; J1171; J2405; Q9967

== ENCOUNTER 2025-03-07 09:54 | Outpatient (CLI) | payer MEDICARE, SELFPAY | END 2025-03-07 09:55 | disposition home or self-care (01) | PROVIDERS: PCP Family Medicine; Visit Provider Family Medicine | DX: I10 Essential (primary) hypertension (principal) | CPT/HCPCS: 80053; 82043; 82570 ==

== ENCOUNTER 2025-03-08 07:00 | Outpatient (CLI) | payer MEDICARE, SELFPAY | END 2025-03-08 07:01 | disposition home or self-care (01) | LOC: NFLDREF 03-11 15:40 | PROVIDERS: PCP Family Medicine; Referring Provider Family Medicine; Visit Provider Family Medicine | DX: E11.65 Type 2 diabetes mellitus with hyperglycemia (principal); R19.7 Diarrhea, unspecified; Z79.84 Long term (current) use of oral hypoglycemic drugs | CPT/HCPCS: 82043; 82570; 87493 ==

== ENCOUNTER 2025-05-08 10:09 | Outpatient (CLI) | payer MEDICARE, SELFPAY | END 2025-05-08 10:10 | disposition home or self-care (01) | LOC: NFLDREF 05-13 14:05 | PROVIDERS: PCP Family Medicine; Referring Provider Family Medicine; Visit Provider Family Medicine | DX: D64.9 Anemia, unspecified (principal); E11.65 Type 2 diabetes mellitus with hyperglycemia; N18.9 Chronic kidney disease, unspecified; L29.9 Pruritus, unspecified; R19.7 Diarrhea, unspecified | CPT/HCPCS: 82043; 82570 ==

== ENCOUNTER 2025-05-12 22:32 | Inpatient (IN) | payer MEDICARE, SELFPAY ==
[2025-05-12] VITALS (8 sets, daily range): BP systolic 103–161; BP diastolic 67–98; PULSE 125–133; RESP 21–33; TEMP 36.6; O2SAT 94–97; BMI 24.4
--- OUTSIDE RECORDS SUMMARY | 2025-05-12 22:34 | XMS_ITS | Clinical Summary ---
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 Gender Identity Not on file Sexual Orientation [...] age 18+ 03/08/2017 03/08/2016 COVID-19 vaccine series (2024- season) 2025 06/29/2022, 12/15/2021, 06/04/2021, Additional history exists Influenza Vaccine (#1) 2025 Hepatitis B series for 19+ Aged Out N o longer eligible based on patient's age to complete this topic Medical Devices Implanted Type Area Java [id number] Software Engineer Device Identifier Shelf Expiration Date Model / Serial / Lot Bone 1-4mm 30cc Medtronic Chips Canclls Frozen - [id number] Implanted:Qt y: 1 on 12/25/2020 by Mohit Friedman MD at [facility] Lumbar Vertebrae Medtronic Spine/Ortho 07/06/2025 [id number] / [id number] / [id number] Bone 30cc Mtf Chips Wilfredo/Canclls Freeze Dried - [id number] Implanted:Qt y: 1 on 12/25/2020 by Mohit Friedman MD at [facility] Lumbar Vertebrae [employer] 08/26/2023 [id number] / [id number] / Steven Lmbr 45x5.5mm Solera 5.5/6 Cvd Titnm - [id number] Implanted:Qt y: 2 on 12/25/2020 by Mohit Friedman MD at [facility] Lumbar Vertebrae Medtronic Spine/Ortho [id number] / / Set Screw Lmbr Ant 5.5mm Solera Break Off - [id number] Implanted:Qt y: 4 on 12/25/2020 by Mohit Friedman MD at [facility] Lumbar Vertebrae Medtronic Spine/Ortho [id number] / / Screw Lmbr Post 7.5x50mm Solera 5.5/6 Oh Cocr - [id number] Implanted:Qt y: 4 on 12/25/2020 by Mohit Friedman MD at [facility] Lumbar Vertebrae Medtronic Spine/Ortho [id number] / / Insurance MEDICARE PART A HB [...] Status Discussion: Per Existing Order Care Teams Civil Engineer Relationship Specialty Start Date End Date Tiffanie Pepper MD [address] [place] [address] PCP - General 02/11/23
--- OUTSIDE RECORDS SUMMARY | 2025-05-12 22:34 | XMS_ITS | Clinical Summary ---
Author Organization [facility] Address [address] [place] [address] Care Team Providers Care Otorhinolaryngologist Name Role Phone Tiffanie Pepper MD Primary Care Provider Source Comments You are receiving this document as you are listed as the primary care provider,follow-up provider, or the patient has been referred to you for consultation.This is in compliance with the Medicare and[facility] E[facility] Incentive [facility],which states Providers who transition their patient to another setting of careor provider of care or refers their patient to another provider of care shouldprovide summary care record for each transition of care or referral. [facility] Social History Tobacco Use Types Packs/Day Years [...] Vaccine (3 of 3) 11/25/2022 09/30/2022, 05/17/2014 Medicare Annual Wellness Visit 08/29/2024 COVID-19 Vaccine ( season) 2025 06/06/2023, 06/29/2022, 12/15/2021, Additional history exists Influenza Vaccine (#1) 2025 , 06/11/2022, 06/08/2021, [...] patient's age to complete this topic Insurance [facility] MEDICARE ADVANTAGE Care Teams Otorhinolaryngologist Relationship Specialty Start Date End Date Tiffanie Pepper MD [address] [place] [address] PCP - General Family Practice 05/16/24
--- NOTE | 2025-05-12 22:57 | ED.GENADULT ---
HPI - General Adult General Chief complaint: Chest Pain Stated complaint: Chest pressure Time Seen by Provider: 05/12/25 22:57 History of Present Illness HPI narrative: chest pressure since tuesday, SOB worsening today so came in. also feels weaker today. hx heart valve replacement. 84-year-old man presenting to the emergency room with concern of shortness of breath over the last couple of days. Some congested cough. Feels weak. Does have a history of type 2 diabetes and peripheral vascular disease along with coronary artery disease with history of iliac artery stenting bilaterally with status post CABG. Over the course the last couple of days and then today just stomach does not feel right. Try did eat/drink today and just vomited. Isn't really having stomach pain however. Is reporting lightheadedness. Has become to feel over the last couple a day some increased central chest pressure as well. He isn't necessarily more short of breath when he lays down. Related Data Home Medications ?Medication ?Instructions ?Recorded ?Confirmed aspirin 81 mg tablet,delayed 81 mg PO DAILY 11/13/24 05/13/25 release (Adult Aspirin Regimen) multivitamin (Daily Multi-Vitamin 1 tab PO DAILY 11/13/24 05/13/25 tablet) Previous Rx's ?Medication ?Instructions ?Recorded blood sugar diagnostic (Contour #100 ea 02/21/25 Next Test Strips) allopurinol 300 mg tablet 300 mg PO DAILY #90 tabs 03/07/25 celecoxib 200 mg capsule (Celebrex) 200 mg PO BID PRN pain #60 caps 03/07/25 chlorthalidone 25 mg tablet 25 mg PO DAILY #90 tabs 03/07/25 lisinopril 40 mg tablet 40 mg PO DAILY #90 tabs 03/07/25 metoprolol tartrate 50 mg tablet 50 mg PO BID #180 tabs 03/07/25 simvastatin 40 mg tablet 40 mg PO HS #90 tabs 03/07/25 clobetasol 0.05 % scalp solution 1 applic topical QHS #50 mL 05/08/25 metformin 500 mg tablet,extended 500 mg PO QDAY #90 tabs 05/08/25 release 24 hr Allergies Allergy/AdvReac Type Severity Reaction Status Date / Time vancomycin Allergy Mild Shakiness Verified 05/08/25 09:55 fentanyl AdvReac Mild Dizziness Verified 05/08/25 09:55 Review of Systems Status of ROS: Reports: 6 or more systems reviewed and unremarkable except as noted in History and below [facility] Medical History Adrenal mass ?E27.8 - Other specified disorders of adrenal gland (ICD-10) Renal artery stenosis ?I70.1 - Atherosclerosis of renal artery (ICD-10) Senile nuclear sclerosis ?H25.10 - Age-related nuclear cataract, unspecified eye (ICD-10) Bone mass ?M89.8X9 - Other specified disorders of bone, unspecified site (ICD-10) Mitral regurgitation (07/03/10) ?I34.0 - Nonrheumatic mitral (valve) insufficiency (ICD-10) Chronic left hip pain ?M25.552 - Pain in left hip (ICD-10) ?G89.29 - Other chronic pain (ICD-10) Chronic pancreatitis ?K86.1 - Other chronic pancreatitis (ICD-10) T12 compression fracture ?S22.080A - Wedge compression fracture of T11-T12 vertebra, initial encounter for closed fracture (ICD-10) Small bowel obstruction ?K56.609 - Unspecified intestinal obstruction, unspecified as to partial versus complete obstruction (ICD-10) Hepatic cyst ?K76.89 - Other specified diseases of liver (ICD-10) Squamous cell carcinoma Perforated appendicitis ?K35.32 - Acute appendicitis with perforation, localized peritonitis, and gangrene, without abscess (ICD-10) Surgical History S/P hip replacement (06/20/23) ?Z96.649 - Presence of unspecified artificial hip joint (ICD-10) Status post insertion of iliac artery stent (~2005) ?Z95.828 - Presence of other vascular implants and grafts (ICD-10) Status post lumbar spine surgery for decompression of spinal cord (12/25/20) ?Z98.890 - Other specified postprocedural states (ICD-10) Hx of CABG (01/20/11) ?Z95.1 - Presence of aortocoronary bypass graft (ICD-10) History of prostate surgery ?Z98.890 - Other specified postprocedural states (ICD-10) History of endoscopic retrograde cholangiopancreatography ?Z98.890 - Other specified postprocedural states (ICD-10) History of arthroscopy of right knee ?Z98.890 - Other specified postprocedural states (ICD-10) Family History Mother CHF (congestive heart failure) High blood pressure Paternal Grandfather Bladder cancer Father Myocardial infarction High blood pressure Other Liver cancer Stroke Throat cancer Social History Narrative: Lives with Brianne, she would be medical decision maker if needed. Former smoker - started 20-30 cigarettes per day 1954, stopped 09/2020 Approximately 6 beers/week, does not drink daily Does not use illicit drugs Previously desired to be DNI, on 11/13/24 requests FULL CODE status What is your current living situation?: I presently have a place to live Problems where you live: no known problems Problems where you live details: na In the past 12 months, utilities in danger of being shut off: no In past 12 months, lack of transportation kept you from medical appts, meetings, work, or getting things needed for daily living: no In the past 12 mos, have been you worried that your food would run out before you had money to buy more?: never true In the past 12 mos, the food you bought just didn't last and you didn't have money to buy more?: never true Highest level of school completed/degree received: some college, no degree Smoking Status: Former smoker What tobacco products do you use: cigarettes Smoking packs per day: 1 Smoking cigarettes per day: 20.0 Years smoked: 60 Smoking pack-years: 60.00 Smoking quit date/years: <= 15 years ago Do you use any of these nicotine containing products: None Second hand tobacco smoke exposure: No How often do you have a drink containing alcohol: 2-3 times a week Alcohol type: beer Alcohol type details: 6 pack a week How many standard drinks containing alcohol do you have on a typical day: 1 or 2 How often do you have six or more drinks on one occasion: Never AUDIT-C Alcohol total score: 3 Non-prescribed substance use: denies use Caffeine: Yes (1 cup) How often does anyone, including family, friends and others, physically hurt you: never How often does anyone, including family, friends and others, insult or talk down to you: never How often does anyone, including family, friends and others, threaten you with harm: never How often does anyone, including family, friends and others, scream or curse at you: never service: No Exam Narrative: Exam Narrative: Was observed to be ambulating in little slowly and hunched over. Is appearing to be nearly sleeping as I entered the room. He alerts easily. Does appear tired though. During exam does not appear particularly tachypneic but maybe subtly labored in his breathing. Lungs with mild congestion in the lower lung monsivais bilaterally. Heart is tachycardic in a regular rhythm. Thought I had heard a systolic murmur but then less certain. Abdomen is soft and nontender. Bowel sounds present. Extremities perfused with lower extremities without edema. He said they had been puffy before. Prominent pulse in the supraclavicular area but no actual JVD. Oropharynx is moist without erythema. Const: Vital Signs, click to edit/add: Vital Signs - 24 hr 05/12/25 22:42 05/12/25 22:55 05/12/25 23:00 Temperature 97.9 F Pulse Rate 125 H 128 H Pulse Rate [Pulse Oximeter] 130 H Respiratory Rate 26 H Blood Pressure Blood Pressure [Ri ght Upper Arm] 161/98 H Pulse Oximetry 97 96 95 Oxygen Delivery Me od Room Air 05/12/25 23:06 05/12/25 23:20 05/12/25 23:25 Temperature 97.8 F Pulse Rate 133 H Pulse Rate [Pulse Oximeter] Respiratory Rate 21 Blood Pressure 103/67 Blood Pressure [Ri ght Upper Arm] Pulse Oximetry 96 94 Oxygen Delivery Me thod 05/12/25 23:26 05/12/25 23:30 05/13/25 00:15 Temperature Pulse Rate 133 H 130 H 108 H Pulse Rate [Pulse Oximeter] Respiratory Rate 33 H 30 H 21 Blood Pressure 103/67 Blood Pressure [Ri ght Upper Arm] Pulse Oximetry 94 95 96 Oxygen Delivery Ky thod 05/13/25 01:00 05/13/25 01:18 05/13/25 01:19 Temperature 98.4 F Pulse Rate 104 H 105 H Pulse Rate [Pulse Oximeter] Respiratory Rate 21 25 H Blood Pressure 105/68 Blood Pressure [Ri ght Upper Arm] 105/68 Pulse Oximetry 95 96 Oxygen Delivery Me thod Documenting provider has reviewed patient's vital signs: yes Course Vital Signs Vital signs: Initial Vital Signs Temperature 97.9 F 05/12/25 22:42 Temperature Source Temporal Artery Scan 05/12/25 22:42 Pulse Rate 130 H 05/12/25 22:42 Respiratory Rate 26 H 05/12/25 22:42 Blood Pressure 161/98 H 05/12/25 22:42 Blood Pressure Mean 119 H 05/12/25 22:42 Blood Pressure Position Sitting 05/12/25 22:42 Pulse Oximetry 97 05/12/25 22:42 Oxygen Delivery Method Room Air 05/12/25 22:42 Vital Signs Temperature 97.9 F 05/12/25 22:42 Pulse Rate 130 H 05/12/25 22:42 Respiratory Rate 26 H 05/12/25 22:42 Blood Pressure 161/98 H 05/12/25 22:42 Pulse Oximetry 97 05/12/25 22:42 Oxygen Delivery Method Room Air 05/12/25 22:42 Temperature 97.6 F 05/13/25 03:09 Pulse Rate 79 05/13/25 03:22 Respiratory Rate 16 05/13/25 03:18 Blood Pressure 123/69 05/13/25 03:09 Pulse Oximetry 95 05/13/25 03:18 Oxygen Delivery Method Room Air 05/13/25 03:18 Medications Administered Medications: Generic Name Dose Route Start Last Admin Trade Name Freq PRN Reason Stop Dose Admin Piperacillin Sod/Tazobactam 100 mls @ 200 mls/hr 05/13/25 06:00 05/13/25 06:16 Sod 3.375 gm/ Sodium Chloride IVPB Infused Q6H CRISTINA Infusion Discontinued Medications Generic Name Dose Route Start Last Admin Trade Name Freq PRN Reason Stop Dose Admin Sodium Chloride 500 mls @ 500 mls/hr 05/12/25 23:04 05/12/25 23:49 0.9 % Sodium Chloride 500 Ml IV 05/13/25 00:03 Infused .Q1H ONE Infusion Sodium Chloride 1,000 mls @ 1,000 mls/hr 05/12/25 23:39 05/13/25 02:04 0.9 % Sodium Chloride 1000 Ml IV 05/13/25 00:38 Infused .Q1H ONE Infusion Piperacillin Sod/Tazobactam 100 mls @ 200 mls/hr 05/12/25 23:58 05/13/25 00:48 Sod 4.5 gm/ Sodium Chloride IVPB 05/12/25 23:59 Infused ONCE ONE Infusion Ondansetron HCl 4 mg 05/12/25 23:07 05/12/25 23:20 Ondansetron 2 Mg/Ml Inj IVP 05/12/25 23:08 4 mg ONCE ONE Administration Medical Decision Making MDM Narrative Medical decision making narrative: Differential includes ischemic cardiovascular event, tachyarrhythmia, nonspecific viral etiology possibly COVID maybe even influenza, pneumonia, CHF exacerbation, pulmonary embolus. Placed on awake overnight monitor. Shortly after I leave the room he has an episode of nausea and bradycardia into the 30s would spontaneously recovers back to tachycardia. I do have concerns of possible sepsis in this patient. BNP comes back quite elevated. Upon initial set of orders did request 500 mL bolus of fluids. Will order another L which would total more than half of his 30 per kilos. Might need to use caution in fluid resuscitation. Chest x-ray appears to show some evolving consolidation possibly in the lower left lung. This might be pneumonia and is consistent with presentation. D-dimer returns elevated. This might be elevated due to infectious/inflammatory cause or primary PE Did discuss this case with our hospitalist who has accepted with concerns of other source prompting CT of chest abdomen pelvis. Two-view chest x-ray independently reviewed by me looks to show some mild cardiomegaly, postoperative changes and left lower lung opacity Radiology over-read below Study:?XRay-Chest 2 VIEWS-05/12/2025 11:21:31 PM Ordering Physician:Sara Rice Final Report: Indication: Dyspnea, chest pressure Technique: Two views of the chest Comparison: Chest radiograph performed 11/13/2024 Findings/Impression: Bibasilar atelectasis and/or scarring with superimposed opacity in the left lung base which could represent a small or developing consolidation. Follow-up radiographs in 4-6 weeks recommended. Dictated by Erasmo Castle MD @ 05/12/2025 11:36:06 PM (Electronic Signature) INDICATION: CONCERN FOR SEPSIS, NAUSEA, ELEVATED D DIMER. TECHNIQUE: CT chest PE, abdomen and pelvis acquired with 95 cc of Isovue 370 IV contrast. COMPARISON: CT abdomen and pelvis 03/02/2025 FINDINGS: CHEST: Cardiovascular structures: Heart size is normal. Thoracic aorta and main pulmonary artery are normal in caliber. No sign of pulmonary embolism. Prior median sternotomy with CABG postsurgical changes. Coronary artery and thoracic aorta atherosclerotic calcification. Mediastinum and blair: No mass or adenopathy. Lungs and pleura: Mild centrilobular emphysema. Scattered fibrotic changes throughout the lungs, particularly the lung bases. 8 mm sub solid nodule within the left upper lobe (5/71). No pleural effusion or pneumothorax. Chest wall and axilla: No mass or adenopathy. Bones: Chronic posttraumatic changes of the left clavicle. Remote posterior right 6th and 7th rib fractures. Unchanged chronic mild T12 compression fracture. ABDOMEN AND PELVIS: Hepatobiliary: Unchanged cyst within the right hepatic lobe. Unchanged mild intrahepatic biliary ductal dilatation. Dilated common bile duct up to 11 mm. Hydropic gallbladder without mural thickening or pericholecystic fluid. Pancreas: Atrophic pancreas with extensive parenchymal calcifications. Spleen: Unremarkable. Adrenal glands: Unchanged bilateral adrenal nodules. Kidneys: Multiple bilateral renal cysts. No hydronephrosis, stone, or suspicious mass. GI tract: Diverticulosis without pericolonic inflammation. No obstruction. Vascular structures: Normal caliber abdominal aorta with moderate to severe atherosclerotic calcification. Lymph nodes: Unremarkable. Miscellaneous: Unremarkable. No free air or significant free fluid. Pelvic Organs: Unremarkable. Bones: Left total hip arthroplasty. L4-5 posterior fusion. Unchanged spiculated lesion within the iliac portion of the right sacroiliac joint. IMPRESSION: 1. No pulmonary embolism. No acute findings within the chest. 2. No acute findings within the abdomen and pelvis. No findings to explain the patient`s sepsis. 3. Similar-appearing chronic findings, as above. Please note that all CT scans at this facility use dose modulation, iterative reconstruction, and/or weight-based dosing when appropriate to reduce radiation dose to as low as reasonably achievable. Dictated by Roly Fairbanks MD @ 05/13/2025 12:54:21 AM Unclear source of sepsis at this point. Pending is repeat troponin and lactate. Urinalysis is pending -- apparently Mr. Mosqueda self-caths. This might well be source. Blood pressure has come down along with pulse. Is mentating well. Have discussed case with hospitalist confirming admission. Medical Records Medical records reviewed: Yes I reviewed the patient's medical records Lab Data Lab results reviewed: Yes I reviewed the patient's lab results Labs: Lab Results 05/12/25 05/12/25 05/12/25 Range/Units 22:30 22:40 22:45 WBC 16.56 H (4.50-11.00) K/uL RBC 4.46 (4.30-5.90) m/uL Hgb 14.7 (13.5-17.5) gm/dL Hct 43.9 (37.0-53.0) % MCV 98 (80-100) fL MCH 33 (26-34) pg MCHC 34 (32-36) gm/dL RDW Coeff of Dee Dee 13.2 (11.5-15.5) % Plt Count 180 (140-440) K/uL Neut % (Auto) 77.1 H (42.0-72.0) % Lymph % (Auto) 9.8 L (20-44) % Wood % (Auto) 12.7 H (0.0-11.0) % Eos % (Auto) 0.1 (0.0-7.0) % Baso % (Auto) 0.1 (0.0-3.0) % Neut # (Auto) 12.80 H (1.7-7.0) K/uL Lymph # (Auto) 1.60 (0.90-2.90) K/uL Wood # (Auto) 2.10 H (0.00-0.90) K/UL Eos # (Auto) 0.00 (0.00-0.50) K/uL Baso # (Auto) 0.00 (0.00-0.30) K/uL Abs Immat Gran (auto) 0.00 (0.00-0.30) K/uL Imm/Tot Granulo (auto) 0.2 % D-Dimer Quant (PE/DVT) 2.07 H (0.00-0.50) ug/ml VBG pH (7.32-7.43) VBG pCO2 (40-50) mmHG VBG pO2 (25-47) mmHG VBG HCO3 (21-28) mmol/L Sodium 135 (135-149) mmol/L Potassium 4.3 (3.6-5.1) mmol/L Chloride 103 (96-114) mmol/L Carbon Dioxide 19 L (20-32) mmol/L Anion Gap 13 (7-15) mEq/L BUN 24 (7-30) mg/dL Creatinine 1.6 H (0.5-1.5) mg/dL Estimated Creat Clear 38.40 Estimated GFR 42 ml/min Glucose 230 H (60-115) mg/dL Lactate (0.5-1.9) mmol/L Calcium 8.9 (8.4-10.6) mg/dL Total Bilirubin 1.1 (0.1-1.5) mg/dL Direct Bilirubin 0.4 (0.0-0.5) mg/dL AST 47 H (12-35) U/L ALT 27 (4-50) U/L Alkaline Phosphatase 97 (40-150) U/L Troponin I 0.04 (0.01-0.04) ng/mL C-Reactive Protein 3.4 H (0.5-1.0) mg/dL NT-Pro-B Natriuret Pep 3780 H (See Note) pg/mL Total Protein 7.2 (6.0-8.3) g/dL Albumin 4.0 (3.3-5.0) g/dL Lipase 17 L (23-300) U/L SARS-CoV-2 (PCR) Negative SARS-CoV-2 (Negative) Influenza Type A (PCR) Negative PCR FLU A (Negative) Influenza Type B (PCR) Negative PCR FLU B (Negative) RSV (PCR) Negative PCR RSV (Negative) POC Troponin I (0.01-0.04) ng/ml 05/12/25 05/12/25 05/13/25 Range/Units 23:04 23:30 01:45 WBC (4.50-11.00) K/uL RBC (4.30-5.90) m/uL Hgb (13.5-17.5) gm/dL Hct (37.0-53.0) % MCV (80-100) fL MCH (26-34) pg MCHC (32-36) gm/dL RDW Coeff of Dee Dee (11.5-15.5) % Plt Count (140-440) K/uL Neut % (Auto) (42.0-72.0) % Lymph % (Auto) (20-44) % Wood % (Auto) (0.0-11.0) % Eos % (Auto) (0.0-7.0) % Baso % (Auto) (0.0-3.0) % Neut # (Auto) (1.7-7.0) K/uL Lymph # (Auto) (0.90-2.90) K/uL Wood # (Auto) (0.00-0.90) K/UL Eos # (Auto) (0.00-0.50) K/uL Baso # (Auto) (0.00-0.30) K/uL Abs Immat Gran (auto) (0.00-0.30) K/uL Imm/Tot Granulo (auto) % D-Dimer Quant (PE/DVT) (0.00-0.50) ug/ml VBG pH 7.358 (7.32-7.43) VBG pCO2 34 L (40-50) mmHG VBG pO2 < 30.1 (25-47) mmHG VBG HCO3 19 L (21-28) mmol/L Sodium (135-149) mmol/L Potassium (3.6-5.1) mmol/L Chloride (96-114) mmol/L Carbon Dioxide (20-32) mmol/L Anion Gap (7-15) mEq/L BUN (7-30) mg/dL Creatinine (0.5-1.5) mg/dL Estimated Creat Clear Estimated GFR ml/min Glucose (60-115) mg/dL Lactate 2.3 H 1.0 (0.5-1.9) mmol/L Calcium (8.4-10.6) mg/dL Total Bilirubin (0.1-1.5) mg/dL Direct Bilirubin (0.0-0.5) mg/dL AST (12-35) U/L ALT (4-50) U/L Alkaline Phosphatase (40-150) U/L Troponin I (0.01-0.04) ng/mL C-Reactive Protein (0.5-1.0) mg/dL NT-Pro-B Natriuret Pep (See Note) pg/mL Total Protein (6.0-8.3) g/dL Albumin (3.3-5.0) g/dL Lipase (23-300) U/L SARS-CoV-2 (PCR) (Negative) Influenza Type A (PCR) (Negative) Influenza Type B (PCR) (Negative) RSV (PCR) (Negative) POC Troponin I 0.04 0.02 (0.01-0.04) ng/ml ECG Data Attestation: I personally reviewed and interpreted this ECG as follows: (Normal sinus rhythm at 124) Critical Care Time Critical Care Time Critical Care Time: Yes Attestation: The patient required my highest level preparedness to intervene emergently and I personally spent this critical care time directly and personally managing the patient. This critical care time included: Obtaining a history; Examining the patient; Pulse oximetry; Ordering and reviewing of studies; Arranging urgent treatment with development of a management plan; Evaluation of patients response to treatment; Frequent reassessment discussions with other providers. This critical care time was performed to assess and manage the high probability of imminent life-threatening deterioration that could result in multiorgan failure. It was exclusive of separate billable procedures and treating other patients and teaching time. Total Critical Care Time in Minutes: 55 Discharge Plan Discharge Clinical Impression: Sepsis Patient Disposition: Admitted As Inpatient Condition: Stable Procedures ABG Interpretation ABG Results: 05/12/25 23:30 VBG pH 7.358 VBG pCO2 34 L VBG pO2 < 30.1 VBG HCO3 19 L
--- NOTE | 2025-05-12 23:04 | CRLHL7_ITS ---
For Patients: As a result of the Cures Act, medical imaging exams and procedure reports are released immediately into your electronic medical record. You may view this report before your referring provider. If you have questions, please contact your health care provider. Indication: Dyspnea, chest pressure Technique: Two views of the chest Comparison: Chest radiograph performed 11/13/2024 Findings/Impression: Bibasilar atelectasis and/or scarring with superimposed opacity in the left lung base which could represent a small or developing consolidation. Follow-up radiographs in 4-6 weeks recommended. Dictated by Erasmo Castle MD @ 05/12/2025 11:36:06 PM (Electronically Signed)
[2025-05-12 23:08] LABS: Troponin, Point-of-Care* 0.04 ng/ml (0.01-0.04)
[2025-05-12 23:11] LABS: Hematocrit 43.9 % (37.0-53.0); Hemoglobin* 14.7 gm/dL (13.5-17.5); Immature Granulocytes Pct Auto 0.2 %; Mean Corpuscular HGB Conc 34 gm/dL (32-36); Mean Corpuscular Hemoglobin 33 pg (26-34); Mean Corpuscular Volume 98 fL (80-100); RDW Coefficient of Variation % 13.2 % (11.5-15.5); Red Blood Count 4.46 m/uL (4.30-5.90); White Blood Count* 16.56 K/uL (4.50-11.00)
[2025-05-12 23:12] LABS: Chloride* 103 mmol/L (96-114); Sodium* 135 mmol/L (135-149)
[2025-05-12 23:13] LABS: Immature Granulocytes Abs Auto 0.00 K/uL (0.00-0.30); Lymphocytes Absolute Auto 1.60 K/uL (0.90-2.90); Potassium* 4.3 mmol/L (3.6-5.1); Slide Review Reflex No
[2025-05-12 23:15] LABS: Blood Urea Nitrogen* 24 mg/dL (7-30); Creatinine* 1.6 mg/dL (0.5-1.5); Est. Creatinine Clearance* 38.40; Estimated Glomerular Filt Rate 42 ml/min
[2025-05-12 23:16] LABS: Albumin* 4.0 g/dL (3.3-5.0)
[2025-05-12 23:16] LABS: Anion Gap 13 mEq/L (7-15); Calcium* 8.9 mg/dL (8.4-10.6); Carbon Dioxide* 19 mmol/L (20-32); Glucose* 230 mg/dL (60-115)
[2025-05-12 23:18] LABS: D Dimer Quantitative* 2.07 ug/ml (0.00-0.50)
[2025-05-12 23:19] LABS: Alanine Aminotransferase* 27 U/L (4-50); Alkaline Phosphatase* 97 U/L (40-150); Aspartate Amino Transferase* 47 U/L (12-35); Bilirubin Direct* 0.4 mg/dL (0.0-0.5); Bilirubin Total* 1.1 mg/dL (0.1-1.5); Total Protein* 7.2 g/dL (6.0-8.3)
[2025-05-12] MEDS: 0.9 % SODIUM CHLORIDE 500 ML 500 ML IV (23:20)
[2025-05-12] MEDS: ONDANSETRON 2 MG/ML inj 4 MG IVP (23:20)
[2025-05-12 23:35] LABS: PCR FLU A Negative PCR FLU A (Negative); PCR FLU B Negative PCR FLU B (Negative); PCR RSV Negative PCR RSV (Negative); SARS PCR* Negative SARS-CoV-2 (Negative)
[2025-05-12 23:37] LABS: NT Pro B Type NatriureticPept* 3780 pg/mL (See Note)
--- NOTE | 2025-05-12 23:41 | CRLHL7_ITS ---
For Patients: As a result of the 21st Century Cures Act, medical imaging exams and procedure reports are released immediately into your electronic medical record. You may view this report before your referring provider. If you have questions, please contact your health care provider. INDICATION: CONCERN FOR SEPSIS, NAUSEA, ELEVATED D DIMER. TECHNIQUE: CT chest PE, abdomen and pelvis acquired with 95 cc of Isovue 370 IV contrast. COMPARISON: CT abdomen and pelvis 03/02/2025 FINDINGS: CHEST: Cardiovascular structures: Heart size is normal. Thoracic aorta and main pulmonary artery are normal in caliber. No sign of pulmonary embolism. Prior median sternotomy with CABG postsurgical changes. Coronary artery and thoracic aorta atherosclerotic calcification. Mediastinum and blair: No mass or adenopathy. Lungs and pleura: Mild centrilobular emphysema. Scattered fibrotic changes throughout the lungs, particularly the lung bases. 8 mm sub solid nodule within the left upper lobe (). No pleural effusion or pneumothorax. Chest wall and axilla: No mass or adenopathy. Bones: Chronic posttraumatic changes of the left clavicle. Remote posterior right 6th and 7th rib fractures. Unchanged chronic mild T12 compression fracture. ABDOMEN AND PELVIS: Hepatobiliary: Unchanged cyst within the right hepatic lobe. Unchanged mild intrahepatic biliary ductal dilatation. Dilated common bile duct up to 11 mm. Hydropic gallbladder without mural thickening or pericholecystic fluid. Pancreas: Atrophic pancreas with extensive parenchymal calcifications. Spleen: Unremarkable. Adrenal glands: Unchanged bilateral adrenal nodules. Kidneys: Multiple bilateral renal cysts. No hydronephrosis, stone, or suspicious mass. GI tract: Diverticulosis without pericolonic inflammation. No obstruction. Vascular structures: Normal caliber abdominal aorta with moderate to severe atherosclerotic calcification. Lymph nodes: Unremarkable. Miscellaneous: Unremarkable. No free air or significant free fluid. Pelvic Organs: Unremarkable. Bones: Left total hip arthroplasty. L4-5 posterior fusion. Unchanged spiculated lesion within the iliac portion of the right sacroiliac joint. IMPRESSION: 1. No pulmonary embolism. No acute findings within the chest. 2. No acute findings within the abdomen and pelvis. No findings to explain the patient`s sepsis. 3. Similar-appearing chronic findings, as above. Please note that all CT scans at this facility use dose modulation, iterative reconstruction, and/or weight-based dosing when appropriate to reduce radiation dose to as low as reasonably achievable. Dictated by Roly Fairbanks MD @ 05/13/2025 12:54:21 AM (Electronically Signed)
[2025-05-12 23:56] LABS: HCO3 VBG 19 mmol/L (21-28); Lactate* 2.3 mmol/L (0.5-1.9); PCO2 VBG 34 mmHG (40-50); PO2 VBG < 30.1 mmHG (25-47); pH VBG 7.358 (7.32-7.43)
[2025-05-13] VITALS (15 sets, daily range): BP systolic 105–159; BP diastolic 52–80; PULSE 74–108; RESP 16–25; TEMP 36.4–37.1; O2SAT 93–99; BMI 24.1; BMI 24.2
[2025-05-13] MEDS: PIPERACILLIN/TAZOBACTAM 4.5 GM in 0.9 % SODIUM CHLORIDE Mini-bag 100 ML IVPB (00:12)
[2025-05-13 01:48] LABS: Lactate* 1.0 mmol/L (0.5-1.9)
[2025-05-13 01:59] LABS: Troponin, Point-of-Care* 0.02 ng/ml (0.01-0.04)
[2025-05-13 02:45] LABS: Appearance Urine Slightly Cloudy (Clear)
--- NOTE | 2025-05-13 02:57 | W.PM.THH&P_ITS ---
Telehealth- H&P: HPI History of Present Illness Date Seen: 05/13/25 Chief complaint: Chest pressure Narrative: Cosmo Mosqueda is seen as an Interactive Telehealth visit. The patient is an 84-year-old male who has a history of coronary artery bypass grafting and mitral valve replacement with a porcine valve. He is a type II diabetic. There is also history of renal artery stenosis and lower extremity peripheral vascular disease. He has stage III chronic kidney disease. Patient presented to the emergency room this past evening complaining of some nausea vomiting shortness of breath and chest pressure for about 1 day. He has no fever but did have some chills this past Tuesday. He has a scant nonproductive cough. No dysuria he does self catheterize. In the emergency room temperature was 97.9 ?F heart rate was 130 initially respiratory 26 blood pressure 161/98 ox saturation 97% on room air. His exam was unremarkable. Labs showed white count 16.6 thousand with 77% neutrophils. Anion gap 13 creatinine 1.6 AST 47 ALT 27 total bilirubin 1.1 troponin 0.04 CRP 3.4. BNP 3780. Lipase 17. COVID influenza RSV negative. Lactic acid 2.3 D-dimer 2.07. CT chest abdomen and pelvis did not show any acute findings including no PE or pneumonia. The patient received IV fluid and repeat lactic acid level was 1. His heart rate came down to under 100. His blood pressure has been stable. He received Zofran and Zosyn. UA was just sent and not resulted. Blood cultures were sent in the emergency room. Patient is being admitted to the hospital for further evaluation. Review of Systems Status of ROS: Reports: 10 or more systems reviewed and unremarkable except as noted in History and below [facility] Medical History Adrenal mass ?E27.8 - Other specified disorders of adrenal gland (ICD-10) Renal artery stenosis ?I70.1 - Atherosclerosis of renal artery (ICD-10) Senile nuclear sclerosis ?H25.10 - Age-related nuclear cataract, unspecified eye (ICD-10) Bone mass ?M89.8X9 - Other specified disorders of bone, unspecified site (ICD-10) Mitral regurgitation (07/03/10) ?I34.0 - Nonrheumatic mitral (valve) insufficiency (ICD-10) Chronic left hip pain ?M25.552 - Pain in left hip (ICD-10) ?G89.29 - Other chronic pain (ICD-10) Chronic pancreatitis ?K86.1 - Other chronic pancreatitis (ICD-10) T12 compression fracture ?S22.080A - Wedge compression fracture of T11-T12 vertebra, initial encounter for closed fracture (ICD-10) Small bowel obstruction ?K56.609 - Unspecified intestinal obstruction, unspecified as to partial versus complete obstruction (ICD-10) Hepatic cyst ?K76.89 - Other specified diseases of liver (ICD-10) Squamous cell carcinoma Perforated appendicitis ?K35.32 - Acute appendicitis with perforation, localized peritonitis, and gangrene, without abscess (ICD-10) Surgical History S/P hip replacement (06/20/23) ?Z96.649 - Presence of unspecified artificial hip joint (ICD-10) Status post insertion of iliac artery stent (~2005) ?Z95.828 - Presence of other vascular implants and grafts (ICD-10) Status post lumbar spine surgery for decompression of spinal cord (12/25/20) ?Z98.890 - Other specified postprocedural states (ICD-10) Hx of CABG (01/20/11) ?Z95.1 - Presence of aortocoronary bypass graft (ICD-10) History of prostate surgery ?Z98.890 - Other specified postprocedural states (ICD-10) History of endoscopic retrograde cholangiopancreatography ?Z98.890 - Other specified postprocedural states (ICD-10) History of arthroscopy of right knee ?Z98.890 - Other specified postprocedural states (ICD-10) Family History Mother CHF (congestive heart failure) High blood pressure Paternal Grandfather Bladder cancer Father Myocardial infarction High blood pressure Other Liver cancer Stroke Throat cancer Social History Narrative: Lives with Brianne, she would be medical decision maker if needed. Former smoker - started 20-30 cigarettes per day 1954, stopped 09/2020 Approximately 6 beers/week, does not drink daily Does not use illicit drugs Previously desired to be DNI, on 11/13/24 requests FULL CODE status What is your current living situation?: I presently have a place to live Problems where you live: no known problems Problems where you live details: na In the past 12 months, utilities in danger of being shut off: no In past 12 months, lack of transportation kept you from medical appts, meetings, work, or getting things needed for daily living: no In the past 12 mos, have been you worried that your food would run out before you had money to buy more?: never true In the past 12 mos, the food you bought just didn't last and you didn't have money to buy more?: never true Highest level of school completed/degree received: some college, no degree Smoking Status: Former smoker What tobacco products do you use: cigarettes Smoking packs per day: 1 Smoking cigarettes per day: 20.0 Years smoked: 60 Smoking pack-years: 60.00 Smoking quit date/years: <= 15 years ago Do you use any of these nicotine containing products: None Second hand tobacco smoke exposure: No How often do you have a drink containing alcohol: 2-3 times a week Alcohol type: beer Alcohol type details: 6 pack a week How many standard drinks containing alcohol do you have on a typical day: 1 or 2 How often do you have six or more drinks on one occasion: Never AUDIT-C Alcohol total score: 3 Non-prescribed substance use: denies use Caffeine: Yes (1 cup) How often does anyone, including family, friends and others, physically hurt you : never How often does anyone, including family, friends and others, insult or talk down to you: never How often does anyone, including family, friends and others, threaten you with harm: never How often does anyone, including family, friends and others, scream or curse at you: never service: No Meds Home Medications and Allergies Home Medications ?Medication ?Instructions ?Recorded ?Confirmed ?Type aspirin 81 mg tablet,delayed 81 mg PO DAILY 11/13/24 0 05/08/25 History release (Adult Aspirin Regimen) multivitamin (Daily Multi-Vitamin 1 tab PO DAILY 11/1305/08/25 History tablet) blood sugar diagnostic (Contour #100 ea 02/21/2505/08 Rx Next Test Strips) allopurinol 300 mg tablet 300 mg PO DAILY #90 tabs 06/2205/08/25 Rx celecoxib 200 mg capsule (Celebrex) 200 mg PO BID PRN pain #60 caps 03/07/25 05/08/25 Rx chlorthalidone 25 mg tablet 25 mg PO DAILY #90 tabs 05/08/25 Rx lisinopril 40 mg tablet 40 mg PO DAILY #90 tabs 02/2605/08/25 Rx metoprolol tartrate 50 mg tablet 50 mg PO BID #180 tab s 03/07/25 05/08/25 Rx simvastatin 40 mg tablet 40 mg PO HS #90 tabs 5 05/08/25 Rx clobetasol 0.05 % scalp solution 1 applic topical QHS #50 mL 05/08/25 05/08/25 Rx metformin 500 mg tablet,extended 500 mg PO QDAY #90 ta bs 05/08/25 05/08/25 Rx release 24 hr Allergies Allergy/AdvReac Type Severity Reaction Status Date / Time vancomycin Allergy Mild Shakiness Verified 05/08/25 09:55 fentanyl AdvReac Mild Dizziness Verified 05/08/25 09:55 Exam Narrative Exam Narrative: Physical Exam GENERAL: ?vital signs reviewed, well developed and nourished, in no distress HEART: Regular rate and rhythm without any rubs, murmurs, or gallops. LUNGS: Clear to auscultation bilaterally with good air movement throughout ABDOMEN: Observation from nurse assisted exam, abdomen appears soft, nontender, and nondistended with Positive bowel sounds noted. EXTREMITIES: Strength and sensation is observed to be grossly within normal limits in the upper and lower extremities.? No focal strength deficit is observed. SKIN:? Observed warm and dry with color normal Const Vital Signs, click to edit/add: Vital Signs - 24 hr 05/12/25 22:42 05/12/25 22:55 05/12/25 23:00 Temperature 97.9 F Pulse Rate 125 H 128 H Pulse Rate [Pulse Oximeter] 130 H Respiratory Rate 26 H Blood Pressure Blood Pressure [Right Upper Arm] 161/98 H Pulse Oximetry 97 96 95 Oxygen Delivery Method Room Air 05/12/25 23:06 05/12/25 23:20 05/12/25 23:25 Temperature 97.8 F Pulse Rate 133 H Pulse Rate [Pulse Oximeter] Respiratory Rate 21 Blood Pressure 103/67 Blood Pressure [Right Upper Arm] Pulse Oximetry 96 94 Oxygen Delivery Method 05/12/25 23:26 05/12/25 23:30 05/13/25 00:15 Temperature Pulse Rate 133 H 130 H 108 H Pulse Rate [Pulse Oximeter] Respiratory Rate 33 H 30 H 21 Blood Pressure 103/67 Blood Pressure [Right Upper Arm] Pulse Oximetry 94 95 96 Oxygen Delivery Method 05/13/25 01:00 05/13/25 01:18 05/13/25 01:19 Temperature 98.4 F Pulse Rate 104 H 105 H Pulse Rate [Pulse Oximeter] Respiratory Rate 21 25 H Blood Pressure 105/68 Blood Pressure [Right Upper Arm] 105/68 Pulse Oximetry 95 96 Oxygen Delivery Method Documenting provider has reviewed patient's vital signs: yes Hospitalist - H&P: Result Labs Labs: Short CBC 05/12/25 Range/Units 22:40 WBC 16.56 H (4.50-11.00) K/uL Hgb 14.7 (13.5-17.5) gm/dL Hct 43.9 (37.0-53.0) % Plt Count 180 (140-440) K/uL BMP 05/12/25 22:40 Sodium 135 Potassium 4.3 Chloride 103 Carbon Dioxide 19 L BUN 24 Creatinine 1.6 H Glucose 230 H Calcium 8.9 Cardiac Enzymes 05/12/25 Range/Units 22:40 Troponin I 0.04 (0.01-0.04) ng/mL Liver Function 05/12/25 Range/Units 22:30 Total Bilirubin 1.1 (0.1-1.5) mg/dL Direct Bilirubin 0.4 (0.0-0.5) mg/dL AST 47 H (12-35) U/L ALT 27 (4-50) U/L Alkaline Phosphatase 97 (40-150) U/L Albumin 4.0 (3.3-5.0) g/dL Urine 05/13/25 Range/Units 02:35 Urine Color Yellow (Yellow) Urine Appearance Slightly Cloudy A (Clear) Urine pH 5.0 (5.0-8.5) Ur Specific [place] 1.015 (1.000-1.030) Urine Protein 3+ A (Negative) Urine Glucose (UA) Negative (Negative) Imaging CT Chest/Ab/Pelvis: Attestation: I have reviewed the pertinent imaging results. Assessment and Plan Assessment and plan (1) Sepsis: Status: Acute Plan The patient is an 84-year-old male with coronary artery disease status post coronary artery bypass grafting and mitral valve replacement. He also has chronic kidney disease and peripheral vascular disease. He is a type II diabetic. He presented to the emergency room with approximately 1 day history of nausea vomiting chest pressure and shortness of breath. In the emergency room he had no fever but was tachycardic. Labs were notable for leukocytosis elevated lactic acid and elevated D-dimer. CT scan of the chest abdomen and pelvis were all negative. He was given IV fluid after which his heart rate came down and lactic acid decreased to 1. He was given IV Zosyn and is being admitted to the hospital for further evaluation. Sepsis of unclear etiology Resolved chest pressure and vomiting associated with the above Resolved lactic acidosis The patient appears to have sepsis although the source is not clear. Lactic acid is normal after fluid resuscitation. CT scanning was negative. COVID influenza and RSV were negative. UA is still pending. * Admit to observation * Follow-up UA and blood cultures * Continue IV Zosyn * White blood cell count and CRP in the morning * Continue Zofran and Tylenol as needed Coronary artery disease status post coronary artery bypass grafting and mitral valve replacement PAD The patient has no chest pain or pressure at this point. Troponins are negative. * Continue prior to admission medications pending review * telemetry Stage III chronic kidney disease Creatinine 1.6 * Monitor NIDDM * Hold metformin due to CT dye * Correction scale insulin Chronic urinary retention * Self-catheterization as needed * Follow-up UA Telehealth: Statement Statement Telehealth Visit: Today's History and Physical is provided via interactive telehealth by Otoniel Carrasco MD.? Patient is located at [facility].? Provider is located at [facility] Nursing staff assisted with the patient's exam. The visit being done today meets criteria for a telehealth visit and the patient or patient?s parent/guardian is aware the visit is a telehealth visit. Camera Start Time: 02:35 Camera End Time: 02:44
--- NOTE | 2025-05-13 03:58 | PC.NURSE ---
Harsh Carrasco provided clarification that pt's CBC and BMP labs can be drawn with routine morning labs. Lab staff updated.
[2025-05-13] MEDS: PIPERACILLIN/TAZOBACTAM 3.375 GM in 0.9 % SODIUM CHLORIDE Mini-bag 100 ML IVPB ×3 (05:35→18:11)
[2025-05-13 06:45] LABS: Hematocrit 34.3 % (37.0-53.0); Hemoglobin* 11.6 gm/dL (13.5-17.5); Immature Granulocytes Abs Auto 0.02 K/uL (0.00-0.30); Immature Granulocytes Pct Auto 0.3 %; Mean Corpuscular HGB Conc 34 gm/dL (32-36); Mean Corpuscular Hemoglobin 33 pg (26-34); Mean Corpuscular Volume 98 fL (80-100); RDW Coefficient of Variation % 13.2 % (11.5-15.5); Red Blood Count 3.50 m/uL (4.30-5.90); White Blood Count* 7.87 K/uL (4.50-11.00)
[2025-05-13 06:46] LABS: Lymphocytes Absolute Auto 1.00 K/uL (0.90-2.90); Slide Review Reflex No
[2025-05-13 07:01] LABS: Chloride* 108 mmol/L (96-114); Sodium* 134 mmol/L (135-149)
[2025-05-13 07:02] LABS: Potassium* 4.1 mmol/L (3.6-5.1)
[2025-05-13 07:05] LABS: Anion Gap 6 mEq/L (7-15); Blood Urea Nitrogen* 23 mg/dL (7-30); Calcium* 7.7 mg/dL (8.4-10.6); Carbon Dioxide* 20 mmol/L (20-32); Creatinine* 1.4 mg/dL (0.5-1.5); Est. Creatinine Clearance* 43.88; Estimated Glomerular Filt Rate 50 ml/min; Glucose* 158 mg/dL (60-115)
[2025-05-13] MEDS: ENOXAPARIN 30 MG/0.3ML INJ SUBCUT (09:41)
[2025-05-13] MEDS: SODIUM CHLORIDE 0.9 % (FLUSH) 10 ML SYRINGE 5 ML IVF ×2 (09:41→20:03)
--- NOTE | 2025-05-13 16:32 | PM.IMPN1 ---
Assessment and Plan Assessment and plan (1) Bacteremia: Problem comment: -both bottles -likely source is acute cystitis Status: Acute (2) Sepsis: Problem comment: -improving -elevated lactate resolved -WBC has come down nicely -hemodynamically stable Status: Acute (3) Anemia: Problem comment: - chronic, normocytic, baseline Hgb 11-13 Status: Acute (4) Coronary artery disease: Problem comment: - 01/11/2011: 1v CABG (MOREJON to LAD) with MVR (porcine bioprosthesis) Status: Acute (5) Gout: Problem comment: - on Allopurinol as an outpatient, no current flare - HOLDING 11/13 given CLAU Status: Acute (6) Chronic kidney disease: Problem comment: With CLAU - resolved Creatinine returned to 1.4, baseline 2.2-1.1 Hold allopurinol, lisinopril, chlorthalidone - okay to resume on discharge. Outpatient follow-up with PCP. Received IV contrast for CT followed by 1 L IVF in the ED Status: Acute (7) Type 2 diabetes mellitus with hyperglycemia: Status: Chronic (8) Neurogenic bladder: Problem comment: - Self caths BID Status: Acute (9) PAD (peripheral artery disease): Status: Acute (10) HTN (hypertension): Problem comment: with renal artery stenosis Status: Acute Subjective Date Seen: 05/13/25 Interval history: Daily Progress Note - Hospital Medicine #:1 CC: weakness,sepsis. +bacteremia 24 HOUR UPDATE: 84-year-old Cosmo presents with sepsis with an unidentified source initially. My partner, telehealth, inadvertently placed in observation order earlier this morning. Given his bacteremia, advanced age, self catheterizations status, he should definitely be an inpatient as he requires IV antibiotics. We discussed his presentation and findings of his urinalysis. He states that he did suspect he had a UTI. He said he has had multiple over the years as he is a self catheterized patient. But typically it starts with burning and odor. He did not have any of this and it went directly to shakes chills and fever. Shortly after our visit I was notified by the lab that most of his blood cultures are growing Gram-negative rods. Sensitivities and identification are still pending. Notable Labs, Micro, Rads, Interventions: His white blood cell count has improved nicely 16.5-7.87. Hemoglobin is essentially baseline. Platelets are 111. But this is not unusual. Electrolytes are reviewed. Objective: I wake him upon my arrival to his room. He is able to communicate and set up and we discussed his history. He does state he feels much improved. Vitals: see above Lungs: Clear. Cardiac: S1S2. Abdomen: Soft no guarding Disposition/Potential discharge - Home with in 24-48 hours Today I spent 50minutes seeing the patient, reviewing Expanse and EPIC notes/diagnostics, discussing the care plan with our care time that includes social work, PT/OT, pharmacy, RT, intermediate and documenting my impressions and plan in the medical record. Exam Const: Vital Signs, click to edit/add: Vital Signs - 24 hr 05/12/25 22:42 05/12/25 22:55 05/12/25 23:00 Temperature 97.9 F Pulse Rate 125 H 128 H Pulse Rate [Left P ulse Oximeter] Pulse Rate [Pulse Oximeter] 130 H Pulse Rate [Right Radial] Respiratory Rate 26 H Blood Pressure Blood Pressure [Ri ght Arm] Blood Pressure [Ri ght Upper Arm] 161/98 H Pulse Oximetry 97 96 95 Oxygen Delivery [facility] Room Air 05/12/25 23:06 05/12/25 23:20 05/12/25 23:25 Temperature 97.8 F Pulse Rate 133 H Pulse Rate [Left P ulse Oximeter] Pulse Rate [Pulse Oximeter] Pulse Rate [Right Radial] Respiratory Rate 21 Blood Pressure 103/67 Blood Pressure [Ri ght Arm] Blood Pressure [Ri ght Upper Arm] Pulse Oximetry 96 94 [facility] 23:26 05/12/25 23:30 05/13/25 00:15 Temperature Pulse Rate 133 H 130 H 108 H Pulse Rate [Left P ulse Oximeter] Pulse Rate [Pulse Oximeter] Pulse Rate [Right Radial] Respiratory Rate 33 H 30 H 21 Blood Pressure 103/67 Blood Pressure [Ri ght Arm] Blood Pressure [Ri ght Upper Arm] Pulse Oximetry 94 95 96 [facility] 05[facility]13/25 01:00 05/13/25 01:18 05/13/25 01:19 Temperature 98.4 F Pulse Rate 104 H 105 H Pulse Rate [Left P ulse Oximeter] Pulse Rate [Pulse Oximeter] Pulse Rate [Right Radial] Respiratory Rate 21 25 H Blood Pressure 105/68 Blood Pressure [Ri ght Arm] Blood Pressure [Ri ght Upper Arm] 105/68 Pulse Oximetry 95 96 Oxygen Delivery Me thod 05/13/25 03:08 05/13/25 03:09 05/13/25 03:18 Temperature 97.6 F 97.6 F Pulse Rate Pulse Rate [Left P ulse Oximeter] Pulse Rate [Pulse Oximeter] Pulse Rate [Right Radial] 95 95 Respiratory Rate 16 16 16 Blood Pressure Blood Pressure [Ri ght Arm] 123/69 123/69 Blood Pressure [Ri ght Upper Arm] Pulse Oximetry 95 95 95 Oxygen Delivery Me thod Room Air Room Air Room Air 05/13/25 03:22 05/13/25 07:45 05/13/25 07:45 Temperature Pulse Rate 79 78 Pulse Rate [Left P ulse Oximeter] Pulse Rate [Pulse Oximeter] Pulse Rate [Right Radial] Respiratory Rate Blood Pressure Blood Pressure [Ri ght Arm] Blood Pressure [Ri ght Upper Arm] Pulse Oximetry 99 Oxygen Delivery Me thod 05/13/25 07:45 05/13/25 07:45 05/13/25 11:00 Temperature 98.5 F Pulse Rate Pulse Rate [Left P ulse Oximeter] 74 74 Pulse Rate [Pulse Oximeter] Pulse Rate [Right Radial] 95 Respiratory Rate 16 20 16 Blood Pressure Blood Pressure [Ri ght Arm] 107/52 L 118/61 Blood Pressure [Ri ght Upper Arm] Pulse Oximetry 99 96 Oxygen Delivery Me thod Room Air Room Air 05/13/25 15:00 05/13/25 15:00 Temperature Pulse Rate Pulse Rate [Left P ulse Oximeter] 74 Pulse Rate [Pulse Oximeter] Pulse Rate [Right Radial] Respiratory Rate 16 Blood Pressure Blood Pressure [Ri ght Arm] Blood Pressure [Ri ght Upper Arm] Pulse Oximetry 97 Oxygen Delivery Me thod Labs Labs: Laboratory Results - last 24 hr 05/12/25 05/12/25 05/12/25 22:30 22:40 22:45 WBC 16.56 H RBC 4.46 Hgb 14.7 Hct 43.9 MCV 98 MCH 33 MCHC 34 RDW Coeff of [place] 13.2 Plt Count 180 Neut % (Auto) 77.1 H Lymph % (Auto) 9.8 L [place] % (Auto) 12.7 H Eos % (Auto) 0.1 Baso % (Auto) 0.1 Neut # (Auto) 12.80 H Lymph # (Auto) 1.60 [place] # (Auto) 2.10 H Eos # (Auto) 0.00 Baso # (Auto) 0.00 Abs Immat Gran (auto) 0.00 Imm/Tot Granulo (auto) 0.2 D-Dimer Quant (PE/DVT) 2.07 H VBG pH VBG pCO2 VBG pO2 VBG HCO3 Sodium 135 Potassium 4.3 Chloride 103 Carbon Dioxide 19 L Anion Gap 13 BUN 24 Creatinine 1.6 H Estimated Creat Clear 38.40 Estimated GFR 42 Glucose 230 H Lactate Calcium 8.9 Total Bilirubin 1.1 Direct Bilirubin 0.4 AST 47 H ALT 27 Alkaline Phosphatase 97 Troponin I 0.04 C-Reactive Protein 3.4 H NT-Pro-B Natriuret Pep 3780 H Total Protein 7.2 Albumin 4.0 Lipase 17 L Urine Color Urine Appearance Urine pH Ur Specific [place] Urine Protein Urine Glucose (UA) Urine Ketones Urine Blood Urine Nitrite Urine Bilirubin Urine Urobilinogen Ur Leukocyte Esterase Urine RBC Urine WBC Ur Squamous Epith Cells Urine Bacteria SARS-CoV-2 (PCR) Negative SARS-CoV-2 Influenza Type A (PCR) Negative PCR FLU A Influenza Type B (PCR) Negative PCR FLU B RSV (PCR) Negative PCR RSV POC Troponin I 05/12/25 05/12/25 05/13/25 23:04 23:30 01:45 WBC RBC Hgb Hct MCV MCH MCHC RDW Coeff of [place] Plt Count Neut % (Auto) Lymph % (Auto) [place] % (Auto) Eos % (Auto) Baso % (Auto) Neut # (Auto) Lymph # (Auto) [place] # (Auto) Eos # (Auto) Baso # (Auto) Abs Immat Gran (auto) Imm/Tot Granulo (auto) D-Dimer Quant (PE/DVT) VBG pH 7.358 VBG pCO2 34 L VBG pO2 < 30.1 VBG HCO3 19 L Sodium Potassium Chloride Carbon Dioxide Anion Gap BUN Creatinine Estimated Creat Clear Estimated GFR Glucose Lactate 2.3 H 1.0 Calcium Total Bilirubin Direct Bilirubin AST ALT Alkaline Phosphatase Troponin I C-Reactive Protein NT-Pro-B Natriuret Pep Total Protein Albumin Lipase Urine Color Urine Appearance Urine pH Ur Specific [place] Urine Protein Urine Glucose (UA) Urine Ketones Urine Blood Urine Nitrite Urine Bilirubin Urine Urobilinogen Ur Leukocyte Esterase Urine RBC Urine WBC Ur Squamous Epith Cells Urine Bacteria SARS-CoV-2 (PCR) Influenza Type A (PCR) Influenza Type B (PCR) RSV (PCR) POC Troponin I 0.04 0.02 05/13/25 05/13/25 02:35 06:28 WBC 7.87 RBC 3.50 L Hgb 11.6 L Hct 34.3 L MCV 98 MCH 33 MCHC 34 RDW Coeff of [place] 13.2 Plt Count 111 L Neut % (Auto) 75.5 H Lymph % (Auto) 12.2 L [place] % (Auto) 11.9 H Eos % (Auto) 0.0 Baso % (Auto) 0.1 Neut # (Auto) 5.90 Lymph # (Auto) 1.00 [place] # (Auto) 0.90 Eos # (Auto) 0.00 Baso # (Auto) 0.01 Abs Immat Gran (auto) 0.02 Imm/Tot Granulo (auto) 0.3 D-Dimer Quant (PE/DVT) VBG pH VBG pCO2 VBG pO2 VBG HCO3 Sodium 134 L Potassium 4.1 Chloride 108 Carbon Dioxide 20 Anion Gap 6 L BUN 23 Creatinine 1.4 Estimated Creat Clear 43.88 Estimated GFR 50 Glucose 158 H Lactate Calcium 7.7 L Total Bilirubin Direct Bilirubin AST ALT Alkaline Phosphatase Troponin I C-Reactive Protein 3.3 H NT-Pro-B Natriuret Pep Total Protein Albumin Lipase Urine Color Yellow Urine Appearance Slightly Cloudy A Urine pH 5.0 Ur Specific [place] 1.015 Urine Protein 3+ A Urine Glucose (UA) Negative Urine Ketones Negative Urine Blood 2+ A Urine Nitrite Positive A Urine Bilirubin Negative Urine Urobilinogen 0.2 Ur Leukocyte Esterase 1+ A Urine RBC 2-5 A Urine WBC 25-50 A Ur Squamous Epith Cells Few Urine Bacteria Moderate A SARS-CoV-2 (PCR) Influenza Type A (PCR) Influenza Type B (PCR) RSV (PCR) POC Troponin I
--- NOTE | 2025-05-13 19:30 | PC.NURSE ---
Nursing Care Hours [id number] Pt this shift calm and cooperative. Alert and oriented. No c/o pain. VSS. Bladder scan done this AM and done after pt self cath. See results. Pt independent in room. Up to chair for short period midday otherwise sleeping in bed. Tolerating regular diet.
[2025-05-13] MEDS: ONDANSETRON 2 MG/ML inj 4 MG IVP (20:03)
[2025-05-13] MEDS: CALCIUM CARBONATE 500 MG CHEW PO (20:03)
[2025-05-13] MEDS: INSULIN ASPART 100 UNIT/ML SUBCUT (21:21)
[2025-05-13] MEDS: FAMOTIDINE 20 MG TABLET PO (22:00)
[2025-05-14] MEDS: PIPERACILLIN/TAZOBACTAM 3.375 GM in 0.9 % SODIUM CHLORIDE Mini-bag 100 ML IVPB ×3 (00:24→11:47)
[2025-05-14 03:00] VITALS: BP 156/75; PULSE 70; RESP 20; TEMP 37.1; O2SAT 95
--- NOTE | 2025-05-14 06:42 | PC.NURSE ---
End of shift report [id number]: VSS. Afebrile. At the beginning of the shift pt stated he was having stomach upset and heart burn, prn tums and zofran offered and given with little relief. Pt requested Pepcid,?pepcid was ordered by and given, upon reassessment pt denied the GERD symptoms. Pt had a BM this shift. Pt is ind in room, call light within reach. ?
[2025-05-14 06:55] LABS: Hematocrit 35.1 % (37.0-53.0); Hemoglobin* 11.7 gm/dL (13.5-17.5); Mean Corpuscular HGB Conc 33 gm/dL (32-36); Mean Corpuscular Hemoglobin 33 pg (26-34); Mean Corpuscular Volume 99 fL (80-100); Red Blood Count 3.54 m/uL (4.30-5.90); White Blood Count* 6.20 K/uL (4.50-11.00)
[2025-05-14 06:59] LABS: Slide Review Reflex No
[2025-05-14 07:03] LABS: Albumin* 3.0 g/dL (3.3-5.0); Chloride* 110 mmol/L (96-114); Potassium* 4.0 mmol/L (3.6-5.1); Sodium* 137 mmol/L (135-149)
[2025-05-14 07:05] LABS: Alanine Aminotransferase* 21 U/L (4-50); Aspartate Amino Transferase* 36 U/L (12-35); Blood Urea Nitrogen* 19 mg/dL (7-30); Creatinine* 1.3 mg/dL (0.5-1.5); Est. Creatinine Clearance* 47.26; Estimated Glomerular Filt Rate 55 ml/min
[2025-05-14 07:06] LABS: Alkaline Phosphatase* 73 U/L (40-150); Anion Gap 3 mEq/L (7-15); Bilirubin Total* 0.4 mg/dL (0.1-1.5); Carbon Dioxide* 24 mmol/L (20-32); Total Protein* 6.0 g/dL (6.0-8.3)
[2025-05-14 07:07] LABS: Calcium* 8.3 mg/dL (8.4-10.6); Glucose* 126 mg/dL (60-115)
[2025-05-14 08:10] VITALS: BP 137/65; PULSE 84; RESP 16; TEMP 36.7; O2SAT 95
[2025-05-14] MEDS: ENOXAPARIN 30 MG/0.3ML INJ SUBCUT (08:39)
[2025-05-14 08:57] VITALS: PULSE 90
[2025-05-14] MEDS: INSULIN ASPART 100 UNIT/ML SUBCUT (11:44)
[2025-05-14] MEDS: SODIUM CHLORIDE 0.9 % (FLUSH) 10 ML SYRINGE 5 ML IVF (11:46)
--- NOTE | 2025-05-14 13:58 | P.DS_ITS ---
DS: Providers Provider Date Seen: 05/14/25 Date of admission: 05/13/25 02:08 Primary care physician: Tiffanie Pepper MD Admitting Clinician: Otoniel Carrasco MD Attending Physician on discharge: Erna Rosas MD [place] Hospitalist Date of Discharge: 05/14/25 DS: Diagnosis Discharge Diagnosis (1) Acute cystitis: Status: Acute Problem details: -urine and blood cultures both growing Enterobacter -patient insistent about discharge today. -discharging on oral Levaquin (2) Bacteremia: Status: Acute Problem details: -both bottles, Gram-negative, enterobacter -likely source is acute cystitis (3) Sepsis: Status: Acute Problem details: -improving -elevated lactate resolved -WBC has come down nicely -hemodynamically stable (4) Anemia: Status: Acute Problem details: - chronic, normocytic, baseline Hgb 11-13 DS: Summary Hospital Course Hospital Course: QUESTIONS TO ASK AT FOLLOW-UP: 1. How has year weakness and energy levels been? Patient was treated for acute urosepsis. Enterobacter was found in both his bladder and bloodstream. 2. Did you complete all of Levaquin? Any evidence of side effects? (Achilles tendon issues) BRIEF HOSPITAL COURSE: Patient was admitted for to days. Synopsis of acute inpatient issues are outlined above. Chronic medical conditions with notable findings outlined above. Patient presented in acute sepsis with suspected urinary tract infection and bacteremia. Ultimately diagnosed with urosepsis, responded to fluids and IV Zosyn. Transition to oral Levaquin at discharge. Patient's vital signs, labs were all improving on the day of discharge. DISCHARGE MEDICATIONS: See Reconciled list - SIGNIFICANT CHANGES: Short-term Levaquin, 500 mg q.day x 7 days. Specific instructions to the patient and follow-up are outlined below. REVIEW OF SYSTEMS No new chest pain or dyspnea Pain controlled No voiding difficulties Tolerating diet challenge PHYSICAL EXAM: CONSTITUTIONAL: Conversive, good historian. A/O. Knows setting and context. GENERAL: Well-developed and above ideal body weight, in no respiratory distress. VITAL SIGNS: see record. HEENT: Sclerae are anicteric. No petechiae. CARDIAC: rhythm is regular. There is no S3 or rub. No harsh murmurs. Extremities show trace edema with symmetrical pulses. PULM: good air entry with no wheeze. NEURO: Speech is fluent. A brief neurologic exam is negative. SKIN: No rashes, petechiae, concerning changes PSYCHIATRIC: Euthymic. DISPOSITION: Home with Time spent on discharge 37 minutes. Status at Discharge Functional status at discharge: independent ambulation Overall status at discharge: patient is progressing back to baseline Time Spent with Patient Time attestation: Total time spent providing and/or coordinating discharge services: Time spent: Greater than 30 minutes Exam Const: Vital Signs, click to edit/add: Vital Signs - 24 hr 05/13/25 15:00 05/13/25 15:00 05/13/25 15:00 Temperature Pulse Rate 80 Pulse Rate [Left P ulse Oximeter] 74 Respiratory Rate 16 Blood Pressure [Ri ght Arm] Pulse Oximetry 97 Oxygen Delivery Me thod 05/13/25 15:00 05/13/25 19:00 05/13/25 20:25 Temperature 98.7 F Pulse Rate Pulse Rate [Left P ulse Oximeter] 85 80 80 Respiratory Rate 18 18 18 Blood Pressure [Ri ght Arm] 116/59 L 159/72 H Pulse Oximetry 98 93 Oxygen Delivery Me thod Room Air Room Air 05/13/25 22:50 05/13/25 23:00 05/13/25 23:00 Temperature 97.8 F Pulse Rate 77 Pulse Rate [Left P ulse Oximeter] 97 Respiratory Rate 20 Blood Pressure [Ri ght Arm] 158/80 H Pulse Oximetry 94 94 Oxygen Delivery Me thod Room Air 05/14/25 03:00 05/14/25 08:10 05/14/25 08:10 Temperature 98.7 F 98.0 F Pulse Rate Pulse Rate [Left P ulse Oximeter] 70 84 Respiratory Rate 20 16 Blood Pressure [Ri ght Arm] 156/75 H 137/65 Pulse Oximetry 95 95 95 Oxygen Delivery Me thod Room Air Room Air 05/14/25 08:57 Temperature Pulse Rate 90 Pulse Rate [Left P ulse Oximeter] Respiratory Rate Blood Pressure [Ri ght Arm] Pulse Oximetry Oxygen Delivery Me thod DS: Data Data Completed and Pending Labs on day of discharge: Labs from last 24 hours 05/14/25 06:15 WBC 6.20 RBC 3.54 L Hgb 11.7 L Hct 35.1 L MCV 99 MCH 33 MCHC 33 Plt Count 110 L Sodium 137 Potassium 4.0 Chloride 110 Carbon Dioxide 24 Anion Gap 3 L BUN 19 Creatinine 1.3 Estimated Creat Clear 47.26 Estimated GFR 55 Glucose 126 H Calcium 8.3 L Total Bilirubin 0.4 AST 36 H ALT 21 Alkaline Phosphatase 73 C-Reactive Protein 2.7 H Total Protein 6.0 Albumin 3.0 L Preliminary micro results at discharge 05/12/25 23:25 Blood Culture - Preliminary Blood Enterobacter Cloacae Complex Discharge Plan Discharge Disposition: Home, Self-Care Date of Admission: 05/13/25 02:08 Attending Provider on Discharge: Erna Rosas Primary Care Provider: Tiffanie Pepper Condition: Stable Anticipated Discharge Date/Time: 05/14/25 11:42 Discharge Medications: New levofloxacin 500 mg tablet 500 mg PO DAILY Qty: 10 0RF Continued clobetasol 0.05 % solution 1 applic topical QHS Qty: 50 1RF metformin 500 mg tablet extended release 24 hr 500 mg PO QDAY Qty: 90 3RF allopurinol 300 mg tablet 300 mg PO DAILY Qty: 90 3RF celecoxib [Celebrex] 200 mg capsule 200 mg PO BID PRN (Reason: pain) Qty: 60 3RF chlorthalidone 25 mg tablet 25 mg PO DAILY Qty: 90 3RF lisinopril 40 mg tablet 40 mg PO DAILY Qty: 90 3RF metoprolol tartrate 50 mg tablet 50 mg PO BID Qty: 180 3RF simvastatin 40 mg tablet 40 mg PO HS Qty: 90 3RF aspirin [Adult Aspirin Regimen] 81 mg tablet,delayed release (DR/EC) 81 mg PO DAILY multivitamin [Daily Multi-Vitamin] Tablet 1 tab PO DAILY (DME) Contour Next Test Strips Strip See Rx Instructions .Route Qty: 100 0RF Rx Instructions: Use to test blood sugar once daily Discharge Orders: Discharge Order (Routine); Ordered 05/14/25 Ordered By: Erna Rosas Patient Education: Levofloxacin (By mouth), Sepsis (DC) Additional Instructions: Take ten days of antibiotics; one each evening (start evening of 05/14) Activity Level: Activity as Tolerated Discharge Diet: Heart Healthy (2 gm sodium, low fat) Follow Up Appointments: Tiffanie Pepper MD [Primary Care Provider, Family Practice] - 05/27/25 2:45 pm Referral Note: [facility], [place] for follow-up. Forms: [facility] Bel[facility], [facility] Info Instructions
== END 2025-05-14 12:33 | disposition home or self-care (01) | DRG 698 ==
LOC: ED 05-13 01:59 → MEDSURG 05-13 02:10
PROVIDERS: Family Medicine; Admitting Provider Internal Medicine; Emergency Provider Family Medicine; PCP Family Medicine; Visit Provider Internal Medicine
DX: T83.518A Infection and inflammatory reaction due to other urinary catheter, initial encounter (principal); A41.59 Other Gram-negative sepsis; N30.00 Acute cystitis without hematuria; B96.89 Other specified bacterial agents as the cause of diseases classified elsewhere; R07.89 Other chest pain; N31.9 Neuromuscular dysfunction of bladder, unspecified; R33.8 Other retention of urine; E11.65 Type 2 diabetes mellitus with hyperglycemia; I12.9 Hypertensive chronic kidney disease with stage 1 through stage 4 chronic kidney disease, or unspecified chronic kidney disease; E11.22 Type 2 diabetes mellitus with diabetic chronic kidney disease; N18.30 Chronic kidney disease, stage 3 unspecified; E11.51 Type 2 diabetes mellitus with diabetic peripheral angiopathy without gangrene; D50.9 Iron deficiency anemia, unspecified; I70.1 Atherosclerosis of renal artery; Z79.82 Long term (current) use of aspirin; Z95.1 Presence of aortocoronary bypass graft; Z95.4 Presence of other heart-valve replacement; Z79.84 Long term (current) use of oral hypoglycemic drugs; I25.10 Atherosclerotic heart disease of native coronary artery without angina pectoris; E27.8 Other specified disorders of adrenal gland; M10.9 Gout, unspecified; Z87.891 Personal history of nicotine dependence
CPT/HCPCS: 36415; 71046; 71260; 71275; 74177; 80048; 80053; 80076; 81001; 82803; 82962; 83605; 83690; 83880; 84484; 85025; 85027; 85379; 86140; 87040; 87086; 87631; 87800; 93005; 94761; 99284; 99285; 99291; A9270; J1650; J2405; J2543; J7030; J7050; Q9967

== ENCOUNTER 2025-05-27 15:51 | Outpatient (CLI) | payer MEDICARE, SELFPAY | END 2025-05-27 15:52 | disposition home or self-care (01) | LOC: NFLDREF 05-30 08:19 | PROVIDERS: PCP Family Medicine; Referring Provider Family Medicine; Visit Provider Family Medicine | DX: N30.00 Acute cystitis without hematuria (principal) | CPT/HCPCS: 87086 ==

== ENCOUNTER 2025-08-05 09:07 | Outpatient (CLI) | payer MEDICARE, SELFPAY | END 2025-08-05 09:08 | disposition home or self-care (01) | PROVIDERS: PCP Family Medicine; Visit Provider Family Medicine | DX: E11.65 Type 2 diabetes mellitus with hyperglycemia (principal); E11.22 Type 2 diabetes mellitus with diabetic chronic kidney disease; N18.9 Chronic kidney disease, unspecified; D64.9 Anemia, unspecified | CPT/HCPCS: 80053; 86140 ==